=== PATIENT | male | born 1995 | race Caucasian/White ===

== ENCOUNTER 2017-05-11 14:03 | Emergency (ER) | payer OTHER, SELFPAY ==
[2017-05-11 14:04] VITALS: BP 153/81; PULSE 70; RESP 18; TEMP 36.5; O2SAT 97; BMI 24.3
--- NOTE | 2017-05-11 14:34 | ED.DCSUM_ITS ---
- ER Visit Summary Date of Service: 05/11/17 Chief Complaint: Abscess History of Present Illness: The patient is a [address] Golden in [place]. He reports that he has an abscess on his left shoulder began 3 days ago. Reports he has a sharp pain Zeta 10 with movement and 1 out of 10 at rest. Reports that yesterday he did get some thick, yellow drainage from it. He denies any constitutional symptoms. No fever, chills, nausea, or vomiting. Physical Examination: Vitals: Stable. Afebrile. General: Well-nourished and well-developed. Head: Normocephalic atraumatic. Neck: Supple, no lymphadenopathy. No JVD. Nontender. Cardiovascular: Regular rate and rhythm. No murmurs. Respiratory: No respiratory distress. Clear to auscultation bilaterally. Abdominal: Soft, nontender, nondistended, normal bowel sounds. No guarding, rebound, or peritoneal signs. Back: Nontender. Extremities: 1.5 cm indurated/erythematous area without fluctuance to the back of his left AC joint. Skin: Normal color, no rash. Neurologic: Alert and oriented ?3. Cranial nerves II through XII are intact. Normal strength and sensation. Psych: Normal affect. Emergency Department Course and Treatment: Patient has already obtained drainage from this. I do not think an I&D would be helpful at this point. I had a prolonged discussion with him about the likelihood that this would require an I&D if it is not improving with antibiotics. Treatment Plan: He will be discharged on naproxen, doxycycline, and Bactroban ointment. Instructed to follow-up with his primary care physician in 2 days for a wound check. Return to the emergency department for any worsening symptoms. Disposition: To home in improved and stable condition. Impression: 1. Early abscess left shoulder. This note was generated with [employer] dictation software. It may contain incorrect words, spelling, and punctuation that were not noted in review of the chart prior to signing ED Disposition - Plan for ED Patient: Disposition: Home or Assisted Living Chief Complaint: Bite Instructions: ED Staph Infec Abx Tx Only Prescriptions: Naproxen [Naprosyn] 500 mg PO BID PRN #20 tablet Doxycycline Monohydrate 100 mg PO BID #20 capsule Mupirocin [Bactroban] 1 applic TOPICAL TID #1 tube Referrals: Doctor,Your [STAFF PHYSICIAN] - 3-5 Days if not improving
== END 2017-05-11 14:57 | disposition home or self-care (01) ==
LOC: ED 14:48
PROVIDERS: Emergency Provider Emergency Medicine
DX: L02.414 Cutaneous abscess of left upper limb (principal)
CPT/HCPCS: 99282

== ENCOUNTER 2017-08-04 21:34 | Emergency (ER) | payer OTHER, SELFPAY ==
[2017-08-04 21:35] VITALS: BP 155/88; PULSE 86; RESP 16; TEMP 37; O2SAT 97; BMI 26.9
--- NOTE | 2017-08-04 21:47 | EKG12_ITS ---
Test Reason : Blood Pressure : / mmHG Vent. Rate : 077 BPM Atrial Rate : 077 BPM P-R Int : 142 ms QRS Dur : 102 ms QT Int : 352 ms P-R-T Axes : 010 070 027 degrees QTc Int : 398 ms Normal sinus rhythm Normal ECG Confirmed by JOSELYN GARCIA, SHIRLEY ([id number]), story editor JANETTE PECK ([id number]) on 08/08/2017 10:26:49 AM Referred By: SHREYA Confirmed By:SHIRLEY ALVES MD
--- NOTE | 2017-08-04 21:53 | NURSING ---
NO OLD EKG TO OBTAIN
--- NOTE | 2017-08-04 22:00 | RAD_ITS ---
STUDY: X-RAY CHEST REASON FOR EXAM: Male, 22 years old. Right chest pain TECHNIQUE: Frontal and lateral views of the chest were obtained. COMPARISON: None. FINDINGS: The lungs are adequately aerated. There are no focal airspace opacities. There is no demonstrated pleural abnormality. The cardiac silhouette is normal in size. The mediastinum and hilar regions are unremarkable. Normal visualized pulmonary arteries. Normal visualized aortic arch and descending thoracic aorta. The thoracic spine is unremarkable. The visualized ribs, clavicles, and shoulders are unremarkable. There is no demonstrated abnormality of the visualized upper abdomen. RAD/Chest PA and Lateral IMPRESSION: No acute cardiopulmonary abnormalities. Electronically Signed: Ale Galeas MD at 22:20 EDT Tel Direct: [phone], Service support ,
--- NOTE | 2017-08-04 22:30 | ED.DCSUM_ITS ---
- ER Visit Summary Date of Service: 08/04/17 Chief Complaint: Back pain History of Present Illness: The patient is a 22 M who presents with back pain. Over the past 4 days he complains of pain in his right back which radiates around to the side. He has not tried any medications at home. This is worse with certain movements or palpation. It is stabbing. He denies any chest pain or abdominal pain. He denies any radiation to the extremities. No fevers. No history of prior similar symptoms. No urinary retention or fecal incontinence. Review of systems otherwise negative. He denies any shortness of breath. Physical Examination: Afebrile vitals unremarkable Moist mucous membranes Heart regular rate and rhythm Lungs are clear Abdomen soft Patient has right posterior thoracic tenderness no midline tenderness no CVA tenderness no anterior chest or abdominal tenderness Test Results: EKG shows normal sinus rhythm at a rate of 77. Chest x-ray shows no acute process. Emergency Department Course and Treatment: EKG and chest x-ray normal and the patient is PERC rule negative. I suspect this is all related to thoracic strain. 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 His pain is reproducible and worse with movement. He was given a prescription for naproxen and instructed on supportive care. He understands to return for new or worsening symptoms and he was discharged. Treatment Plan: [] Disposition: Discharge Impression: Thoracic strain This note was generated with [email or web address] dictation software. It may contain incorrect words, spelling, and punctuation that were not noted in review of the chart prior to signing ED Disposition - Plan for ED Patient: Chief Complaint: Back Referrals: [facility] Doctor,Out of [Primary Care Provider] -
--- NOTE | 2017-08-04 22:30 | ED.DEP ---
ED Disposition - Plan for ED Patient: Chief Complaint: Back Instructions: ED Strain Chest Wall Prescriptions: Naproxen [Naprosyn] 500 mg PO BID #20 tab Referrals: [facility] Doctor,Out of [Primary Care Provider] -
[2017-08-04] MEDS: Naproxen 500 MG Tablet PO (22:33)
[2017-08-04 22:35] VITALS: BP 163/92; PULSE 73; TEMP 36.6
== END 2017-08-04 22:36 | disposition home or self-care (01) ==
LOC: ED 22:25
PROVIDERS: Emergency Provider Emergency Medicine
DX: S29.012A Strain of muscle and tendon of back wall of thorax, initial encounter (principal); X58.XXXA Exposure to other specified factors, initial encounter; Y93.9 Activity, unspecified; Y92.9 Unspecified place or not applicable; Y99.9 Unspecified external cause status
CPT/HCPCS: 71046; 93005; 99282

== ENCOUNTER 2017-09-16 06:57 | Emergency (ER) | payer SELFPAY ==
[2017-09-16 06:58] VITALS: BP 145/76; PULSE 67; RESP 16; TEMP 36.8; O2SAT 99; BMI 27.0
--- NOTE | 2017-09-16 07:09 | ED.VISSUMM ---
- ER Visit Summary Date of Service: 09/16/17 Chief Complaint: Left ear pain History of Present Illness: The patient is a [address] Golden. He reports that he has left ear pain that began a week ago and is gradually gotten worse. It is a dull constant pain with sharp episodes. Pain is 10 out of 10 at worst and 4 out of 10 currently. It is worsened by nothing. It is relieved by Tylenol. He does complain of muffled hearing. Patient denies any fever, chills, nausea, or vomiting. Physical Examination: Vitals: Stable. Afebrile. General: Well-nourished and well-developed. Head: Normocephalic atraumatic. HEENT: TMs are within normal limits. He does have mild pain with movement of the left tragus. There is mild soft tissue swelling and a small amount of exudate in the left external auditory canal. There is no mastoid tenderness. Neck: Supple, no lymphadenopathy. No JVD. Nontender. Cardiovascular: Regular rate and rhythm. No murmurs. Respiratory: No respiratory distress. Clear to auscultation bilaterally. Abdominal: Soft, nontender, nondistended, normal bowel sounds. No guarding, rebound, or peritoneal signs. Back: Nontender. Extremities: Nontender, no edema. Skin: Normal color, no rash. Neurologic: Alert and oriented ?3. Cranial nerves II through XII are intact. Normal strength and sensation. Psych: Normal affect. Emergency Department Course and Treatment: Patient was treated with naproxen and is resting comfortably. Treatment Plan: Patient will be discharged on naproxen and Ciprodex drops. Instructed to follow-up with Dr. Geronimo in 1 week if not improving. Return to the emergency department for any worsening symptoms. Disposition: To home in improved and stable condition. Impression: 1. Otitis externa on the left. This note was generated with [employer] dictation software. It may contain incorrect words, spelling, and punctuation that were not noted in review of the chart prior to signing ED Disposition - Plan for ED Patient: Chief Complaint: Ear Problem Instructions: ED Otitis Externa Prescriptions: Ciprofloxacin HCl/Dexameth [Ciprodex Otic Suspension] 4 drop LEFT EAR BID #1 bottle Naproxen [Naprosyn] 500 mg PO BID #14 tablet Referrals: Patrice Geronimo MD [STAFF PHYSICIAN] - 1 Week if not improving
[2017-09-16] MEDS: Naproxen 250 MG Tablet 500 MG PO (07:19)
== END 2017-09-16 07:22 | disposition home or self-care (01) ==
LOC: ED 07:15
PROVIDERS: Emergency Provider Emergency Medicine; Family Provider Family Medicine; PCP Family Medicine
DX: H60.92 Unspecified otitis externa, left ear (principal)
CPT/HCPCS: 99283

== ENCOUNTER 2018-02-07 03:14 | Emergency (ER) | payer MEDICAID, SELFPAY ==
[2018-02-07 03:15] VITALS: BP 146/85; PULSE 106; RESP 15; TEMP 37.5; O2SAT 97; BMI 25.4
--- NOTE | 2018-02-07 03:33 | ED.VISSUMM ---
- ER Visit Summary Date of Service: 02/07/18 Chief Complaint: My body hurts History of Present Illness: The patient is a 22 M who presents with myalgias. He states that he began to feel hot at about 7 PM last night. He reports subjective fevers. He complains of diffuse body aches and myalgias. He complains of mild headache. No visual changes. No neck pain. No chest pain shortness of breath cough nausea vomiting diarrhea. No urinary symptoms. He denies any recent vigorous activity such as running or heavy exercise. Physical Examination: Heart rate 106 vitals otherwise normal Moist mucous membranes Heart regular rhythm slightly tachycardic Lungs are clear Abdomen soft nontender Alert Test Results: Not indicated Emergency Department Course and Treatment: History and examination are suggestive of viral syndrome, influenza. Given that he is young and otherwise healthy I would not treat with Tamiflu. He was advised on supportive care. He was given 800 milligrams of ibuprofen. He was encouraged on anti-inflammatory use plenty of fluids and rest. He understands to return for new or worsening symptoms. He is agreeable to this plan. He was discharged. Treatment Plan: [] Disposition: Discharge Impression: Myalgias, suspect influenza This note was generated with [employer] dictation software. It may contain incorrect words, spelling, and punctuation that were not noted in review of the chart prior to signing ED Disposition - Plan for ED Patient: Chief Complaint: General Illness Referrals: Amanda Golden [Primary Care Provider] -
--- NOTE | 2018-02-07 03:36 | ED.DEP ---
ED Disposition - Plan for ED Patient: Chief Complaint: General Illness Instructions: ED Muscle Aching Referrals: Amanda Golden [Primary Care Provider] -
[2018-02-07] MEDS: Ibuprofen 400 MG Tablet 800 MG PO (03:52)
[2018-02-07 05:05] LABS: Absolute Lymphocyte Count 1.29 X10^3/ul (0.83-4.51); Absolute Neutrophil Count 8.9 X10^3/uL (2.0-7.7); Basophil# 0.02 X10^3/uL; Basophil% 0.2 % (0-1); Eosinophils% 2.4 % (0-5); Hemoglobin 14.7 g/dl (13.0-16.5); Lymphocyte # 1.29 X10^3/ul (4.0); Lymphocyte % 10.3 % (19-41); Mean Corpuscular Hgb 29.8 pg (27.0-32.0); Mean Platelet Vol. 10.3 fl (6.2-12.0); Monocyte# 1.93 X10^3/uL; Monocyte% 15.4 % (0-10); Neutrophil # 8.94 X10^3/uL (2.7-7.7); Neutrophil % 71.5 % (47-70); Platelet Count 185 K/mm3 (150-450); RBC Distribution Width CV 12.3 % (11.6-14.6); RBC Distribution Width SD 37.7 fl (35.1-43.9); Red Blood Count 4.94 M/mm3 (4.6-6.2); White Blood Count 12.5 K/mm3 (4.4-11.0)
[2018-02-07] MEDS: 0.9% Normal Saline 1,000 ML 999 ML IV (05:06)
[2018-02-07] MEDS: Metoclopramide 10 MG/2 ML Vial IV (05:06)
[2018-02-07 05:11] LABS: Differential Indicated SCAN CRITERIA MET; POSITIVE COUNT NO; POSITIVE DIFFERENTIAL YES; POSITIVE MORPHOLOGY NO
[2018-02-07 05:15] LABS: Anion Gap 11 (5-15); BUN 11 mg/dL (7-18); BUN/Creat Ratio 12.2 RATIO (10-20); CPK Total, Creatine Kinase 140 U/L (39-308); Calcium,Total 8.9 mg/dL (8.5-10.1); Chloride 105 mmol/L (98-107); EST Glomerular Filtration Rate 113 mL/min (>60); Est Glom Filt Rate - Afr Amer 136 mL/min (>60); Estimated Creatinine Clearance 138.28 ml/min; Glucose 97 mg/dL (74-106); Potassium 3.9 mmol/L (3.5-5.1); Sodium Level 141 mmol/L (136-145)
[2018-02-07 05:34] LABS: Bacteria 0 SEEN /hpf (None Seen); Mucous, Urine 0 SEEN /hpf (<or=2+); Red Blood Cells-Urine 0 SEEN /hpf (0-5); Squamous Epithelial Cells - UA 0 SEEN /hpf (0-5); White Blood Cells 0 SEEN /hpf (0-5)
[2018-02-07 05:39] LABS: Color, Urine Yellow (Yellow); Glucose, Dipstick Normal (Normal); Ketone-Dipstick Negative (Negative); Leukocyte Esterase-Dipstick Negative /ul (Negative); Nitrite-Dipstick Negative (Negative); Occult Blood-Urine Negative /ul (Negative); Protein-Dipstick Negative (Negative); Urine Bilirubin Dipstick Negative (Negative); Urine Clarity Clear (Clear); Urine Urobilinogen Normal (Normal)
[2018-02-07 05:58] VITALS: BP 137/60; PULSE 100; RESP 16; TEMP 37.6; O2SAT 97
--- NOTE | 2018-02-07 05:59 | RAD_ITS ---
STUDY: X-RAY CHEST REASON FOR EXAM: Male, 22 years old. Fever and body aches TECHNIQUE: PA and lateral views of the chest. COMPARISON: 08/04/2017 FINDINGS: There is no focal airspace disease in the right middle lobe. There is no demonstrated pleural abnormality. Normal size heart. Normal mediastinum and placido. Normal visualized pulmonary arteries. Normal visualized aortic arch and descending thoracic aorta. Normal visualized thoracic spine. Normal visualized ribs, clavicles, and shoulders. There is no demonstrated abnormality of the visualized soft tissue structures of the upper abdomen. RAD/Chest PA and Lateral IMPRESSION: Right middle lobe pneumonia. Electronically Signed: Katharina Valentin MD at 6:23 EST , Service support ,
--- NOTE | 2018-02-07 06:20 | ED.DEP ---
ED Disposition - Plan for ED Patient: Chief Complaint: General Illness Instructions: ED Pneumonia Adult Prescriptions: Azithromycin [Zithromax] 250 mg PO DAILY #4 tab Referrals: Amanda Golden [Primary Care Provider] -
[2018-02-07] MEDS: Azithromycin 250 MG Tablet 500 MG PO (06:42)
[2018-02-07 06:48] VITALS: BP 145/82; PULSE 97; RESP 15; O2SAT 96
== END 2018-02-07 06:50 | disposition home or self-care (01) ==
PROVIDERS: Emergency Provider Emergency Medicine; Family Provider Family Medicine; PCP Family Medicine
DX: J18.9 Pneumonia, unspecified organism (principal)
CPT/HCPCS: 71046; 80048; 81001; 82550; 85025; 87633; 87804; 96361; 96374; 99284; J7030; A4216

== ENCOUNTER 2018-11-09 12:08 | Emergency (ER) | payer MEDICAID, SELFPAY ==
[2018-11-09 12:08] VITALS: BP 136/79; PULSE 77; RESP 18; TEMP 36.2; O2SAT 98; BMI 27.2
--- NOTE | 2018-11-09 12:49 | ED.VISSUMM ---
- ER Visit Summary Date of Service: 11/09/18 Chief Complaint: Right ear pain History of Present Illness: The patient is a 23 M who states there is a he developed pain in the left ear. Is worse with clearing of his ears and with opening his jaw. No drainage from the ear. He does not use any substantial Q-tips he does not wear any earplugs. No recent fevers. Physical Examination: Afebrile vital signs stable Gen: Well-nourished well-developed Head: Normocephalic atraumatic Eyes: Perrl EOMI ENT: no rhinorrhea moist mucous membranes left tympanic membrane has erythema and effusion. There is no evidence of perforation. Left ear canal appears normal. Neck: Supple no lymphadenopathy no JVD nontender CVS: Regular rate rhythm no murmurs normal S1-S2 Respiratory: No distress clear to auscultation bilaterally chest nontender Abdomen: Soft nontender nondistended normal bowel sounds no masses Back: Nontender Extremity: Nontender no edema Skin: Normal color no rash Neuro: alert orientated ?3 CN II-XII intact normal strength sensation Psych: Normal affect normal mood Emergency Department Course and Treatment: Patient will be started on amoxicillin as he has not had any antibiotics in the past. He was advised to monitor for any drainage from the ear. If is not improving he should follow-up with ENT return if worsening or concerns Impression: 1. Left otitis media This note was generated with [employer] dictation software. It may contain incorrect words, spelling, and punctuation that were not noted in review of the chart prior to signing ED Disposition - Plan for ED Patient: Disposition: Home or Assisted Living Instructions: OTITIS MEDIA, Abx Tx (Adult) Prescriptions: Amoxicillin 875 mg PO BID #20 tab Prescription Printed Referrals: Amanda Golden [Primary Care Provider] - 1 Week if not improving
== END 2018-11-09 13:05 | disposition home or self-care (01) ==
PROVIDERS: Emergency Provider Emergency Medicine; Family Provider Family Medicine; PCP Family Medicine
DX: H66.92 Otitis media, unspecified, left ear (principal)
CPT/HCPCS: 99283

== ENCOUNTER → 2018-12-04 08:17 | Outpatient (CLI) | payer MEDICAID, SELFPAY ==
[2018-11-09 12:08] VITALS: BMI 27.2
--- NOTE | 2018-12-04 08:48 | RAD_ITS ---
STUDY: X-RAY - ESOPHAGUS (BARIUM SWALLOW) WITH FLUOROSCOPY REASON FOR EXAM: Male, 23 years old. Dysphasia. TECHNIQUE: 14 view(s) of the esophagus were obtained following swallowing of barium. FLUOROSCOPY TIME (if supplied): (0:38) minutes/seconds COMPARISON: None. FINDINGS: There is no demonstrated esophageal foreign body. There is no demonstrated stricture or mucosal abnormality. Normal gastroesophageal junction, without a demonstrated hiatal hernia. The patient ingested a 12 mm tablet at bedtime without any difficulty. Normal visualized aortic arch and descending thoracic aorta. Normal visualized pulmonary parenchyma. Normal visualized osseous structures of the thorax. RAD/Esophagus Only IMPRESSION: Normal plain film x-ray examination (barium swallow) of the esophagus. Electronically Signed: Jorge Gould, at 15:02 EDT , Service support ,
== END ==
PROVIDERS: Family Provider Family Medicine; PCP Family Medicine; Referring Provider Otolaryngology Otolaryngology/Facial Plastic Surgery; Visit Provider Otolaryngology Otolaryngology/Facial Plastic Surgery
DX: R13.10 Dysphagia, unspecified (principal)
CPT/HCPCS: 74220

== ENCOUNTER → 2019-08-05 16:14 | Outpatient (CLI) | payer BC, MEDICAID, SELFPAY ==
--- NOTE | 2019-08-05 16:19 | RAD_ITS ---
STUDY: X-RAY CHEST REASON FOR EXAM: Male, 24 years old. CHEST PAINS OFF AND ON FOR SEVERAL YEARS PER PATIENT. TECHNIQUE: PA and lateral views of the chest. COMPARISON: Prior study of 02/07/2018 FINDINGS: The lungs are clear and expanded. There is no demonstrated pleural abnormality. Normal size heart. Normal mediastinum and placido. Normal visualized pulmonary arteries. Normal visualized aortic arch and descending thoracic aorta. Normal visualized thoracic spine. Normal visualized ribs, clavicles, and shoulders. There is no demonstrated abnormality of the visualized soft tissue structures of the upper abdomen. RAD/Chest PA and Lateral IMPRESSION: Normal x-ray examination of the chest. There has been interval resolution of right middle lobe infiltrate seen on the previous study. Electronically Signed: Marcus Knight MD at 16:35 EDT , Service support ,
[2019-08-05 17:26] LABS: Basophil% 0.3 % (0-1); Eosinophils% 4.1 % (0-5); Hematocrit 42.7 % (40-54); Hemoglobin 14.9 g/dL (13.0-16.5); Mean Corp Hgb Conc 34.9 g/dL (32-36); Mean Corpuscular Hgb 29.4 pg (27.0-32.0); Mean Corpuscular Volume 84.2 fL (80-94); Mean Platelet Vol. 10.7 fl (6.2-12.0); Monocyte% 9.4 % (0-10); Neutrophil # 10.88 X10^3/uL (2.7-7.7); Neutrophil % 74.8 % (47-70); Platelet Count 235 K/mm3 (150-450); RBC Distribution Width CV 11.8 % (11.6-14.6); RBC Distribution Width SD 35.4 fl (35.1-43.9); Red Blood Count 5.07 M/mm3 (4.6-6.2); White Blood Count 14.6 K/mm3 (4.4-11.0)
[2019-08-05 17:27] LABS: Absolute Neutrophil Count 10.9 X10^3/uL (2.0-7.7); Basophil# 0.05 X10^3/uL; Eosinophil# 0.59 X10^3/uL; Monocyte# 1.37 X10^3/uL; NRBC Flagged by Analyzer 0 % (0-5)
[2019-08-05 17:41] LABS: ALB/GLOB Ratio 1.2 RATIO (0.9-2.4); AST(SGOT) 25 U/L (15-37); Alanine Aminotransfer ALT/SGPT 33 U/L (16-61); Albumin, Serum 4.2 g/dL (3.2-5.0); Alkaline Phosphatase 97 U/L (45-117); Anion Gap 7 (5-15); BUN 10 mg/dL (7-18); BUN/Creat Ratio 10.1 RATIO (10-20); Calcium,Total 9.3 mg/dL (8.5-10.1); Chloride 107 mmol/L (98-107); Creatinine, Serum 0.99 mg/dL (0.70-1.30); EST Glomerular Filtration Rate 100 mL/min (>60); Est Glom Filt Rate - Afr Amer 121 mL/min (>60); Globulin 3.5 g/dL (2.2-4.2); Glucose 105 mg/dL (74-106); Potassium 3.6 mmol/L (3.5-5.1); Protein, Total 7.7 g/dL (6.4-8.2); Sodium Level 140 mmol/L (136-145)
--- OUTSIDE RECORDS SUMMARY | 2019-12-28 15:40 | XMS RPT_ITS | CCD ---
:1995 External Reference #:[id number] Author Organization [facility] Care Team Providers Name Role Phone Unavailable Unavailable Unavailable Results Result Name Value Range Unit Interpretation Flag Date Location xr chest 2 views on 2018-07-06 XR Chest 2 Views Exam Date/Time: Normal 019 [facility] 07/06/2018 16:50 EDT Health System Reason for Exam: (00 000) Cough Report STUDY: XR Chest 2 Views; 07/06/2018 4:50 pm INDICATION: Cough. COMPARISON: No available comparisons. ACCESSION NUMBER(S): [id number] ORDERING CLINICIAN: Carlyle Spear TECHNIQUE: Frontal and lateral views of the chest. FINDINGS: The cardiomediastinal silhou ette is normal. The lungs are clear of focal consolidation. There is no pneumothorax or pleural effusion. IMPRESSION: No acute cardiopulmonary process. FINAL REPORT Dictated: 07/06/2018 5:17 pm Chidi Goodman MD Signed (Electronic Signature): 07/06/2018 5:17 pm Signed by: Chidi Goodman MD Technologist: HLL troponin-i on 07-06 Troponin I.cardiac mass <0.01 0.00-0.03 ng/mL Normal [address] [facility] Sys tem ([id number]) Comment: Performed By: #### [id number] # ### STEPHEN PeresHemrohan [facility] [place] [address] ct head or brain w/o contrast on 2018-06-13 CT Head or Brain Exam Date/Time: Normal 019 [facility] w/o Contrast 06/12/2018 23:23 EDT Health System Reason for Exam: (00 000) Injury Report STUDY: CT Head or Brain w/o Contrast; 06/12/2018 11:23 pm INDICATION: Injury COMPARISON: 06/08/2018 ACCESSION NUMBER(S): [id number] ORDERING CLINICIAN: Carlyle Spear TECHNIQUE: Multiple contiguous noncontr ast axial CT images of the brain were obtained from the skull base to the vertex utilizing 5 mm sl ice thickness. Coronal reformatted images were also obtained. FINDINGS: VENTRICLES AND CSF SPACES: Age-appropriate size and configuration of the ventricles and sulci. Brain parenchyma: Auguste-white matter interface is well-maintained. No masses are seen. No midline shift or mass effect. HEMORRHAGE: None. CALVARIUM: No destructive lesion or dep ressed calvarial fracture. The extracranial soft tissues are grossly unremarkable. ADDITIONAL FINDINGS: Visualized paranasal sinuses and bilateral mastoids are mickey sly clear. IMPRESSION: No acute intracranial abnormality. Exam Date/Time: 06/12/2018 23:23 EDT Report No acute calvarial fracture. FINAL REPORT Dictated: 06/12/2018 11:27 pm Zo Hess MD Signed (Electronic Signature): 06/12/2018 11:27 pm Signed by: Zo Hess MD Technologist: FREDY ct spine cervical w/o contrast on 2018-06-09 CT Spine Cervical Exam Date/Time: Normal 2018 [facility] w/o Contrast 06/09/2018 00:02 T [facility] Reason for Exam: (00 000) Trauma Report STUDY: CT Spine Cervical w/o Contrast; 06/09/2018 12:02 am INDICATION: Trauma. COMPARISON: None. ACCESSION NUMBER(S): [id number] ORDERING CLINICIAN: Chris Chatman TECHNIQUE: Contiguous axial images of t he cervical spine were obtained without intravenous contrast. Coronal and sagittal reformatted images were obtained from the axial images. FINDINGS: No evidence of acute fractur e or subluxation of the cervical spine. The vertebral body heights are preserved. There is limi kalyani evaluation of the soft tissues of the spinal canal. No significant prevertebral soft tissue edema. IMPRESSION: No evidence of acute fracture or subluxation of the cervical spine. FINAL REPORT Dictated: 06/09/2018 0:20 am Guillermo Pack MD Signed (Electronic Signature): 06/09/2018 0:20 am Signed by: Guillermo Pack MD Technologist: LANDRY ct head or brain w/o contrast on 2018-06-09 CT Head or Brain Exam Date/Time: Normal 019 Tra w/o Contrast 06/09/2018 00:02 EDT [facility] Reason for Exam: Sys tem (66391) Injury Report STUDY: CT Head or Brain w/o Contrast; 06/09/2018 12:02 am INDICATION: Injury. COMPARISON: None ACCESSION NUMBER(S): [id number] ORDERING CLINICIAN: Chris Chatman TECHNIQUE: Contiguous axial images of t he head were obtained without intravenous contrast. FINDINGS: BRAIN PARENCHYMA: The auguste w nava matter differentiation is preserved. No mass effect or midline shift. HEMORRHAGE: No evidence of acute intracranial hemorrhage. VENTRICLES AND EXTRA-AXIAL S PACES:The ventricles are within normal limits in size for brain volume. No evidence of abnormal extraaxial fluid collection. EXTRACRANIAL SOFT TISSUES:Within normal limits. PARANASAL SINUSES/MASTOIDS:T he visualized paranasal sinuses and mastoid air cells are clear and well pneumatized. CALVARIUM:No evidence of depressed calvarial fracture. OTHER FINDINGS:None IMPRESSION: No evidence of acute intracranial hemorrhage or depressed calvarial fracture. FINAL REPORT Dictated: 06/09/2018 0:19 am Giullermo Pack MD Signed (Electronic Signature): 06/09/2018 0:19 am Signed by: Guillermo Pack MD Technologist: LANDRY Encounters Date Type Reason Provider Location 07-06-2018 Patient encounter procedure Facility:[id number] 06-12-2018 Patient encounter procedure Facility:9509 06-10-2018 Patient encounter procedure Facility:9509 06-09-2018 Patient encounter procedure Facility:9509 06-08-2018 Patient encounter procedure Facility:9509 Payers Payer Name Policy Number Location Self Pay [id number] [facility] ([id number]) [employer] [facility] ([id number]) [employer] [id number] [facility] ([id number]) [id number] [facility] ([id number]) [id number] [facility] ([id number]) [id number] [facility] ([id number]) [id number] [facility] ([id number]) [id number] [facility] ([id number]) The following information is from the original human readable contentNo Payer Records Found Summary Purpose Family History No Family History Records FoundNo Family History Records Found Advance Directives No Advanced Directives Records FoundNo Advanced Directives Records Found Additional Source Comments FOR RECORDS PERTAINING TO PATIENTS WHO ARE OR HAVE BEEN ENROLLED IN A CHEMICAL DEPENDENCY/SUBSTANCE ABUSE PROGRAM, SOME INFORMATION MAY BE OMITTED. This clinical summary was aggregated from multiple sources. Caution should be exercised in using it in the provision of clinical care. This summary normalizes information from multiple sources, and as a consequence, information in this document may materially changethe coding, format and clinical context of patient data. In addition, data may be omittedin some cases. CLINICAL DECISIONS SHOULD BE BASED ON THE PRIMARY CLINICAL RECORDS. [facility] provides no warranty or guarantee of the accuracy or completeness of information in this document. UNRECOGNIZED CONTENT PROVIDED BELOW FOR UNRECOGNIZED SECTION No Status Records FoundNo Status Records Found UNRECOGNIZED CONTENT PROVIDED BELOW FOR UNRECOGNIZED SECTION INFORMATION SOURCE DATE CREATED AUTHOR AUTHOR'S ORGANIZATIO N 2018 [facility] DATE CREATED AUTHOR AUTHOR'S ORGANIZATIO N 08/27/2018 [facility]
== END ==
PROVIDERS: PCP Family Medicine; Referring Provider Family Medicine; Visit Provider Family Medicine
DX: R07.9 Chest pain, unspecified (principal)
CPT/HCPCS: 36415; 71046; 80053; 85025

== ENCOUNTER 2019-08-06 23:12 | Emergency (ER) | payer BC, MEDICAID, SELFPAY ==
[2019-08-06 23:13] VITALS: BP 154/103; PULSE 67; RESP 16; TEMP 36.4; O2SAT 98; BMI 30.9
--- NOTE | 2019-08-06 23:23 | EKG12_ITS ---
Test Reason : CP Blood Pressure : / mmHG Vent. Rate : 069 BPM Atrial Rate : 069 BPM P-R Int : 148 ms QRS Dur : 102 ms QT Int : 370 ms P-R-T Axes : 003 061 027 degrees QTc Int : 396 ms Normal sinus rhythm Normal ECG Confirmed by MIGEL PERDUE MD ([id number]), legal editor JANETTE PECK ([id number]) on 08/10/2019 2:37:33 PM Referred By: DENIA Confirmed By:MIGEL PERDUE MD
--- NOTE | 2019-08-06 23:24 | ED.VIS.GEN ---
History of Present Illness Chief Complaint: Chest Pain Informant: Patient Narrative: Stated he has had substernal chest pain for the last 5 days. It is continuous and waxes and wanes. Describes a ache and sharp sensation. Everything makes it worse. He is tried Tylenol with no relief. Saw his family doctor yesterday had a chest x-ray and EKG for which the patient stated was normal. I did review the chest x-ray in our system and is read as a normal chest x-ray without infiltrate. Patient had a mild leukocytosis of 14.7 and his doctor stated he would watch this. He did not do a troponin. The patient denies any cardiac pulmonary embolism or dissection risk factors. He has had pain like this intermittently every couple months for several years with no diagnosis. No history of pericarditis. Patient denies any medical problems. - Past Medical History (1) Impacted foreign body in esophagus Status: Acute Past Medical History - Allergies and Home Meds Allergies/Adverse Reactions: Allergies bee venom protein (honey bee) Allergy (Verified 08/06/19 23:12) Hives amphetamine aspartate [From Adderall] Adverse Reaction (Verified 08/06/19 23:12) Vomiting amphetamine sulfate [From Adderall] Adverse Reaction (Verified 08/06/19 23:12) Vomiting dextroamphetamine saccharate [From Adderall] Adverse Reaction (Verified 08/06/19 23:12) Vomiting dextroamphetamine sulfate [From Adderall] Adverse Reaction (Verified 08/06/19 23:12) Vomiting Primary Care Physician: Nelson Plummer MD [Primary Care Provider] - Prior records reviewed: Yes Past Medical History: None Surgical History: - - Elbow Smoking Status: Never smoker Alcohol: None Drugs: None - Family History Maternal Family History: Reports: No pertinent history Review of Systems General: Denies: Chills, Fever, Sweats Eyes: Denies: Visual changes - bilaterally, Diplopia ENT: Denies: Rhinorrhea, Sore throat Cardiovascular: Reports: Chest pain. Denies: Palpitations Respiratory: Denies: Dyspnea, Cough, Dyspnea on exertion Gastrointestinal: Denies: Abdominal pain, Nausea, Vomiting, Diarrhea, Melena, Hematochezia Genitourinary: Denies: Dysuria, Hematuria, Frequency Musculoskeletal: Denies: Back pain, Extremity Pain Skin: Denies: Rash, Wounds Neurological: Denies: Headache, Weakness, Numbness Physical Exam Vital Signs/Narrative: Vital Signs Temp Pulse Resp BP Pulse Ox 08/06/19 23:13 97.5 F L 67 16 154/103 H 98 General: Well nourished, Well developed, No Acute Distress Head: Normocephalic, Atraumatic Eyes: Perrl, EOMI ENT: Moist mucous membranes, No rhinorrhea Neck: Supple, Nontender Cardiovascular: Regular rate, Regular rhythm, No murmurs Respiratory: No distress, CTA bilaterally, Chest nontender Abdomen: Soft, Nontender, Nondistended, Normal bowel sounds Back: Nontender, Normal Inspection Extremities: Nontender, No edema Skin: Normal color, No rash Neurological: Alert, Oriented x3, Cranial nerves II-XII grossly intact, Normal Strength, Normal Sensation Psychological: Normal affect, Normal Mood Diagnostic/Tx/Re-eval - Medical Decision Making EKG shows normal sinus rhythm at a rate of 69 with no acute ischemic findings. Lab work obtained. I do not feel he needs a repeat chest x-ray as she just had this yesterday. Patient given Toradol. Patient's lab work unremarkable. Leukocytosis has resolved. Troponin negative. At this time this may be costochondritis or pericarditis however the EKG does not show any evidence of pericarditis. He will use ibuprofen as an outpatient and follow-up as an outpatient. I do not suspect he has acute coronary syndrome PE or dissection ED Disposition - Plan for ED Patient: Disposition: Home or Assisted Living Diagnosis: Non-cardiac chest pain Instructions: ED Chest Pain NonCardiac Prescriptions: Ibuprofen 800 mg PO TID #30 tab Transmission Status: Pending to [id number] Referrals: Nelson Plummer MD [Primary Care Provider] -
[2019-08-06] MEDS: Ketorolac 15 MG/ML Vial IV (23:33)
[2019-08-06 23:54] LABS: Absolute Neutrophil Count 5.4 X10^3/uL (2.0-7.7); Basophil# 0.05 X10^3/uL; Basophil% 0.5 % (0-1); Eosinophil# 0.61 X10^3/uL; Eosinophils% 6.4 % (0-5); Hematocrit 41.1 % (40-54); Hemoglobin 14.7 g/dL (13.0-16.5); Lymphocyte % 25.4 % (19-41); Mean Corp Hgb Conc 35.8 g/dL (32-36); Mean Corpuscular Hgb 30.4 pg (27.0-32.0); Mean Corpuscular Volume 85.1 fL (80-94); Mean Platelet Vol. 10.8 fl (6.2-12.0); Monocyte# 0.92 X10^3/uL; Monocyte% 9.7 % (0-10); NRBC Flagged by Analyzer 0 % (0-5); Neutrophil # 5.44 X10^3/uL (2.7-7.7); Neutrophil % 57.6 % (47-70); Platelet Count 240 K/mm3 (150-450); RBC Distribution Width CV 11.6 % (11.6-14.6); RBC Distribution Width SD 35.5 fl (35.1-43.9); Red Blood Count 4.83 M/mm3 (4.6-6.2); White Blood Count 9.5 K/mm3 (4.4-11.0)
[2019-08-07 00:17] VITALS: BP 160/90; PULSE 66; RESP 14; O2SAT 97
[2019-08-07 00:36] VITALS: BP 145/93; PULSE 70; RESP 15; O2SAT 98
--- NOTE | 2019-08-07 00:37 | ED.RN ---
PT GIVEN WRITTEN AND VERBAL DISCHARGE INSTRUCTIONS AND HOME GOING PRESCRIPTION EDUCATION. PT TO FOLLOW UP WITH PCP WITHIN THE NEXT WEEK. PT EDUCATED TO RETURN TO DEPT FOR ANY NEW OR WORSENED SX. PT IV D/C AND COVERED WITH 2X2 GAUZE AND PAPER TAPE. PT DRESSES SELF AND AMBULATES OUT OF DEPT ALONE.
--- OUTSIDE RECORDS SUMMARY | 2019-12-28 16:20 | XMS RPT_ITS | CCD ---
:1996 External Reference #:[id number] Author Organization [facility] Care Team Providers Name Role Phone Unavailable Unavailable Unavailable Results Result Name Value Range Unit Interpretation Flag Date Location xr chest 2 views on 2018-07-06 XR Chest 2 Views Exam Date/Time: Normal 019 [facility] 07/06/2018 16:50 EDT Health System Reason for Exam: (00 000) Cough Report STUDY: XR Chest 2 Views; 07/06/2018 4:50 pm INDICATION: Cough. COMPARISON: No available comparisons. ACCESSION NUMBER(S): [id number] ORDERING CLINICIAN: Carlyle Spear TECHNIQUE: Frontal and [...] I.cardiac mass <0.01 0.00-0.03 ng/mL Normal 2018 [facility] ([id number]) Comment: Performed By: #### [id number] # ### STEPHEN PeresHemrohan [facility] [place] [address] ct head or brain w/o contrast on 2018-06-13 CT Head or Brain Exam Date/Time: Normal 019 [facility] w/o Contrast 06/12/2018 23:23 EDT Health System Reason for Exam: (00 000) Injury Report STUDY: CT Head or Brain w/o Contrast; 06/12/2018 11:23 pm INDICATION: Injury COMPARISON: 06/08/2018 ACCESSION NUMBER(S): [id number] ORDERING CLINICIAN: Carlyle Spear TECHNIQUE: Multiple contiguous [...] CT Spine Cervical Exam Date/Time: Normal 2018 [facility] w/o Contrast 06/09/2018 00:02 T [facility] Reason for Exam: (00 000) Trauma Report STUDY: CT Spine Cervical w/o Contrast; 06/09/2018 12:02 am INDICATION: Trauma. COMPARISON: None. ACCESSION NUMBER(S): [id number] ORDERING CLINICIAN: Chris Chatman TECHNIQUE: Contiguous axial [...] 019 Tra w/o Contrast 06/09/2018 00:02 EDT [facility] Reason for Exam: Sys tem ([id number]) Injury Report STUDY: CT Head or Brain w/o Contrast; 06/09/2018 12:02 am INDICATION: Injury. COMPARISON: None ACCESSION NUMBER(S): [id number] ORDERING CLINICIAN: Chris Chatman TECHNIQUE: Contiguous axial images of t he head were obtained without intravenous contrast. FINDINGS: BRAIN PARENCHYMA: The augutse w nava matter differentiation is preserved. No [...] fracture. FINAL REPORT Dictated: 06/09/2018 0:19 am Guillermo Pack MD Signed (Electronic Signature): 06/09/2018 0:19 am Signed by: Guillermo Pack MD Technologist: LANDRY Encounters Date Type Reason Provider Location 07-06-2018 Patient encounter procedure Facility:9509 06-12-2018 Patient encounter procedure Facility:9509 06-10-2018 Patient encounter procedure Facility:9509 06-09-2018 Patient encounter procedure Facility:9509 06-08-2018 Patient encounter procedure Facility:9509 Payers Payer Name Policy Number Location Self Pay [id number] [facility] ([id number]) [employer] [facility] ([id number]) [employer] [id number] [facility] [place] ([id number]) [id number] [facility] ([id number]) [id number] [facility] ([id number]) [id number] [facility] ([id number]) [id number] [facility] ([id number]) [id number] [facility] ([id number]) The following information is from the original [...] BE BASED ON THE PRIMARY CLINICAL RECORDS. [facility] provides no warranty or guarantee of the accuracy or completeness of information in this document. UNRECOGNIZED CONTENT PROVIDED BELOW FOR UNRECOGNIZED SECTION No Status Records FoundNo Status Records Found UNRECOGNIZED CONTENT PROVIDED BELOW FOR UNRECOGNIZED SECTION INFORMATION SOURCE DATE CREATED AUTHOR AUTHOR'S ORGANIZATIO N 2018 [facility] DATE CREATED AUTHOR AUTHOR'S ORGANIZATIO N 08/27/2018 [facility]
--- OUTSIDE RECORDS SUMMARY | 2019-12-28 16:21 | XMS RPT_ITS | CCD ---
:1996 External Reference #:[id number] Author Organization [facility] Care Team Providers Name Role Phone Unavailable Unavailable Unavailable Results Result Name Value Range Unit Interpretation Flag Date Location xr chest 2 views on 2018-07-06 XR Chest 2 Views Exam Date/Time: Normal 019 [facility] 07/06/2018 16:50 EDT Health System Reason for Exam: (00 000) Cough Report STUDY: XR Chest 2 Views; 07/06/2018 4:50 pm INDICATION: Cough. COMPARISON: No available comparisons. ACCESSION NUMBER(S): [id number] ORDERING CLINICIAN: Carlyle Spear TECHNIQUE: Frontal and [...] I.cardiac mass <0.01 0.00-0.03 ng/mL Normal 2018 [facility] Sys tem ([id number]) Comment: Performed By: #### [id number] # ### STEPHEN PeresHemrohan [facility] [place] [address] ct head or brain w/o contrast on 2018-06-13 CT Head or Brain Exam Date/Time: Normal 019 [facility] w/o Contrast 06/12/2018 23:23 EDT Health System Reason for Exam: (00 000) Injury Report STUDY: CT Head or Brain w/o Contrast; 06/12/2018 11:23 pm INDICATION: Injury COMPARISON: 06/08/2018 ACCESSION NUMBER(S): [id number] ORDERING CLINICIAN: Carlyle Spear TECHNIQUE: Multiple contiguous [...] CT Spine Cervical Exam Date/Time: Normal 2018 [facility] w/o Contrast 06/09/2018 00:02 T [facility] Reason for Exam: (00 000) Trauma Report STUDY: CT Spine Cervical w/o Contrast; 06/09/2018 12:02 am INDICATION: Trauma. COMPARISON: None. ACCESSION NUMBER(S): [id number] ORDERING CLINICIAN: Chris Chatman TECHNIQUE: Contiguous axial [...] 019 Tra w/o Contrast 06/09/2018 00:02 EDT [facility] Reason for Exam: Sys tem ([id number]) Injury Report STUDY: CT Head or Brain w/o Contrast; 06/09/2018 12:02 am INDICATION: Injury. COMPARISON: None ACCESSION NUMBER(S): [id number] ORDERING CLINICIAN: Chris Chatman TECHNIQUE: Contiguous axial [...] Payer Name Policy Number Location Self Pay [id number] [facility] ([id number]) [employer] [facility] ([id number]) [place] [employer] [id number] [facility] ([id number]) [id number] [facility] ([id number]) [id number] [facility] ([id number]) [id number] [facility] ([id number]) [id number] [facility] ([id number]) [id number] [facility] ([id number]) The following information is from the original [...] BE BASED ON THE PRIMARY CLINICAL RECORDS. [facility] provides no warranty or guarantee of the accuracy or completeness of information in this document. UNRECOGNIZED CONTENT PROVIDED BELOW FOR UNRECOGNIZED SECTION No Status Records FoundNo Status Records Found UNRECOGNIZED CONTENT PROVIDED BELOW FOR UNRECOGNIZED SECTION INFORMATION SOURCE DATE CREATED AUTHOR AUTHOR'S ORGANIZATIO N 2018 [facility] DATE CREATED AUTHOR AUTHOR'S ORGANIZATIO N 08/27/2018 [facility]
== END 2019-08-07 00:38 | disposition home or self-care (01) ==
PROVIDERS: Emergency Provider Emergency Medicine; PCP Family Medicine
DX: R07.89 Other chest pain (principal)
CPT/HCPCS: 84484; 85025; 93005; 96374; 99284; A4216

== ENCOUNTER 2020-07-18 06:19 | Emergency (ER) | payer MEDICAID, SELFPAY ==
[2020-07-18 06:22] VITALS: BP 148/87; PULSE 67; RESP 20; TEMP 36.6; O2SAT 97; BMI 28.4
--- NOTE | 2020-07-18 06:29 | RAD_ITS ---
STUDY: X-RAY - LUMBAR SPINE REASON FOR EXAM: Male, 25 years old. back pain TECHNIQUE: 2 view(s) of the lumbar spine were obtained. COMPARISON: None FINDINGS: Normal lumbar lordosis. There is no substantial scoliosis. There is a normal alignment of the vertebrae. Normal vertebral bodies and endplates. Normal disc space heights. The soft tissue structures are unremarkable. RAD/Lumbar Spine 2 or 3 Views IMPRESSION: Normal x-ray examination of the lumbar spine. Electronically Signed: Arpan Mccurdy MD at 7:28 EDT Tel , Service support ,
--- NOTE | 2020-07-18 06:30 | EDS_ITS ---
HPI History of Present Illness Chief Complaint: Flank Pain Informant: patient Onset/Context/Timing Onset: Days Context: Gradual Onset Timing: Intermittent Current Severity: Moderate Maximum Severity: Moderate Narrative Narrative: The patient is an otherwise healthy 25-year-old male presents to the emergency department with back pain. He states that for the past 3 days, he had a tightness across his low back. He states is worse if he twists or moves. He states that sometimes it will radiate to his buttocks. He denies trouble urinating. He denies trouble moving his bowels. He denies any fevers or chills. He has not had any specific injury. Patient is otherwise been in his normal state of health. Prior similar symptoms: No Recent Illness/Hospitalization: No PFSH PFSH Home Medications cyclobenzaprine 10 mg PO TID PRN #20 tablet 07/18/20 [Rx Last Taken Unknown] methylprednisolone 4 mg PO UD #1 box 07/18/20 [Rx Last Taken Unknown] naproxen 500 mg PO BID #14 tab 07/18/20 [Rx Last Taken Unknown] Allergy/AdvReac Type Severity Reaction Status Date / Time bee venom protein (honey bee) Allergy Hives Verified 07/18/20 06:20 amphetamine aspartate AdvReac Vomiting Verified 07/18/20 06:20 [From Adderall] amphetamine sulfate AdvReac Vomiting Verified 07/18/20 06:20 [From Adderall] dextroamphetamine saccharate AdvReac Vomiting Verified 07/18/20 06:20 [From Adderall] dextroamphetamine sulfate AdvReac Vomiting Verified 07/18/20 06:20 [From Adderall] Social History Smoking Status: Never smoker [facility] ED Constitutional Constitutional ED: Denies chills or fever(s) Eyes Eyes: Denies blurry vision or change in vision ENT ENT ED: Denies ear pain or sore throat Cardiovascular Cardiovascular: Denies chest pain or palpitations Respiratory/Chest Respiratory/Chest: Denies cough, dyspnea or dyspnea on exertion Gastrointestinal Gastrointestinal: Denies abdominal pain, nausea or vomiting Genitourinary Genitourinary ED: Denies dysuria or urinary frequency Musculoskeletal Musculoskeletal: Reports arthralgias, back pain and myalgias Integumentary Denies rash Neurologic Neurologic: Denies headache(s) or paresthesias Psychiatric Psychiatric: Denies anxiety or depression Endocrine Endocrinology: Denies polydipsia or polyuria Allergic/Immunologic Allergic/Immunologic ED: Denies urticaria EXAM Physical Exam Const Vital Signs: 07/18/20 06:22 07/18/20 06:24 Temperature 97.8 F Temperature Source Oral Pulse Rate 67 Respiratory Rate 20 H Respiratory Effort Normal Respiratory Pattern Normal Blood Pressure 148/87 H Blood Pressure Mean 107 Pulse Ox 97 Oxygen Delivery Method Room Air Positive well nourished and well developed General Appearance ED: well developed HEENT Reports normocephalic, head/scalp atraumatic and moist mucous membranes Eyes PERRL and EOMs intact bilaterally Neck no lymphadenopathy and supple General: Negative for tenderness Chest Wall inspection of chest normal Resp normal respiratory effort and clear to auscultation bilaterally Cardio regular rate, regular rhythm and no murmurs GI normal to inspection, nondistended, normoactive bowel sounds Palpation: Negative for tender, guarding or rebound tenderness present Back/Spine no CVA tenderness Cervical Spine: Negative for cervical spine tenderness Thoracic Spine / Upper Back: paraspinal muscle tenderness; Negative for thoracic spinal tenderness Lumbar Spine / Lower Back: Negative for lumbar spinal tenderness Extremity normal to inspection General Extremety ED: Negative for tenderness Neuro oriented x3 and CN's II-XII intact bilaterally Neuro Narrative: No focal deficits appreciated. Sensorium / Orientation: alert Psych mental status grossly normal Skin no rashes or lesions noted, no wounds and skin turgor normal MDM MDM MDM Narrative Medical decision making narrative: Patient presents with lower back pain that is worse with twisting and moving. His pulses are normal. His reflexes are normal. He is a normal steady gait. He has no red flag symptoms. His pain is reproducible. I did obtain plain films which are unremarkable. I do feel this time, treating him as if this is musculoskeletal as the most appropriate plan. Patient will be started on anti-inflammatories and antispasmodics. He will be discharged home. Impression 1. Acute lumbar strain Discharge Plan Triage Chief Complaint: Flank Pain ED Provider: Magdy Arellano Dx/Rx/DC Orders Instructions: ED Back Sprain/Strain Prescriptions: New cyclobenzaprine [cyclobenzaprine] 10 MG tablet 10 mg PO TID PRN (Reason: Muscle Spasm) Qty: 20 RF: 0 methylprednisolone [methylprednisolone] 4 MG tablets,dose pack 4 mg PO UD Qty: 1 RF: 0 naproxen 500 MG tablet 500 mg PO BID Qty: 14 RF: 0 Primary Care Provider: Nelson Plummer Referrals: Nelson Plummer MD [Primary Care Provider] -
[2020-07-18] MEDS: Ketorolac 60 MG/2 ML Vial IM (07:10)
[2020-07-18 07:26] VITALS: RESP 18
== END 2020-07-18 07:27 | disposition home or self-care (01) ==
LOC: ED 07:19
PROVIDERS: Emergency Provider Emergency Medicine; PCP Family Medicine
DX: S39.012A Strain of muscle, fascia and tendon of lower back, initial encounter (principal); X58.XXXA Exposure to other specified factors, initial encounter; Y93.9 Activity, unspecified; Y92.9 Unspecified place or not applicable; Y99.9 Unspecified external cause status
CPT/HCPCS: 72100; 96372; 99282

== ENCOUNTER 2023-05-02 05:04 | Emergency (ER) | payer SELFPAY ==
[2023-05-02 05:06] VITALS: BP 163/93; PULSE 65; RESP 18; TEMP 36.6; O2SAT 99; BMI 32.2
--- NOTE | 2023-05-02 05:12 | RAD_ITS ---
INDICATION: pain EXAMINATION/TECHNIQUE: X-RAY - LEFT XR Knee Complete 4 Views or More 4 VIEWS COMPARISON: FINDINGS: BONES: No fracture demonstrated. JOINTS: No dislocation. SOFT TISSUES: Unremarkable. RAD/Knee 4 or More Views IMPRESSION: Unremarkable study. No evidence of fracture. Electronically Signed: Jennifer Arias MD at 5:57 EST ,
--- NOTE | 2023-05-02 05:13 | EDS_ITS ---
HPI History of Present Illness Chief Complaint: Lower Extremity Injury Detail of Chief Complaint: Left knee pain Informant: patient Narrative Narrative: Patient presents with left knee pain that he has had off and on for years. Started hurting more severely 3 days ago. He denies any injury. Patient's been to the ER before for this but no etiology has ever been found. He denies fevers or chills or sweats. No history of arthritis. Pain worse with movement and walking. Patient states sometimes the knee feels like it mynor and wants to give way. PFSH PFSH Home Medications NK 05/02/23 [History Last Taken Unknown] Allergy/AdvReac Type Severity Reaction Status Date / Time bee venom protein (honey bee) Allergy Hives Verified 05/02/23 05:10 amphetamine aspartate AdvReac Vomiting Verified 05/02/23 05:10 [From Adderall] amphetamine sulfate AdvReac Vomiting Verified 05/02/23 05:10 [From Adderall] dextroamphetamine saccharate AdvReac Vomiting Verified 05/02/23 05:10 [From Adderall] dextroamphetamine sulfate AdvReac Vomiting Verified 05/02/23 05:10 [From Adderall] Social History Smoking Status: Never smoker ROS ROS ED Review of Systems ROS Unobtainable: other Constitutional Constitutional ED: Reports lethargy; Denies chills, fever(s), sweats or weight loss Eyes Eyes: Denies blurry vision, change in vision or diplopia ENT ENT ED: Denies rhinorrhea or sore throat Cardiovascular Cardiovascular: Denies chest pain, orthopnea or racing heartbeat Respiratory/Chest Respiratory/Chest: Denies cough, dyspnea, dyspnea on exertion, orthopnea or sputum Gastrointestinal Gastrointestinal: Denies abdominal pain, diarrhea, nausea or vomiting Genitourinary Genitourinary ED: Denies dysuria, hematuria or urinary frequency Musculoskeletal Musculoskeletal: Reports other Details: Left knee pain ; Denies arthralgias, back pain, myalgias or neck pain Integumentary Denies abscess, Abrasions or rash Neurologic Neurologic: Denies headache(s) or weakness Psychiatric Psychiatric: Denies anxiety, depression or suicidal thoughts Endocrine Endocrinology: Denies polydipsia, polyphagia or polyuria Hematologic/Lymphatic Hematologic/Lymphatic: Denies easy bleeding, easy bruising or lymphadenopathy Allergic/Immunologic Allergic/Immunologic ED: Denies mouth swelling, tongue swelling or urticaria EXAM Physical Exam Const Vital Signs: 05/02/23 05:06 Temperature 97.9 F Temperature Source Temporal Pulse Rate 65 Respiratory Rate 18 Blood Pressure 163/93 H Blood Pressure Mean 116 Pulse Ox 99 Oxygen Delivery Method Room Air Positive well nourished and well developed General Appearance ED: well developed and NAD HEENT Reports TM's clear and moist mucous membranes normocephalic and atraumatic; Negative for trauma or tenderness Tympanic Membrane ED: Yes TM's clear Eyes PERRL and EOMs intact bilaterally General Eye ED: Negative for pale conjunctiva or scleral icterus Neck no lymphadenopathy, supple and no JVD General: Negative for tenderness Chest Wall inspection of chest normal and palpation of chest normal Chest: Negative for tenderness Resp normal respiratory effort and clear to auscultation bilaterally Effort and Inspection: Negative for respiratory distress or pain with movement Auscultation: Negative for rhonchi, wheezes or diminished lung sounds Cardio regular rate, regular rhythm, S1 normal heart sound, S2 normal heart sound and no murmurs Peripheral Pulses: pulses 2+ throughout GI normal to inspection, nondistended, normoactive bowel sounds, soft to palpation, non-tender, non-distended and no masses Back/Spine no CVA tenderness and no thoracic nor lumbar tenderness Extremity Extremity Narrative: Left knee-no effusion noted. No ecchymosis or bruising or obvious deformity. There is no erythema or cellulitic changes. Ligamentously stable. Ne urovascular intact distally. I do not feel any grinding or popping with range of motion. General Extremety ED: Negative for edema General Extremity: Negative for edema Neuro oriented x3, CN's II-XII intact bilaterally, no sensory deficits noted and gait normal Sensorium / Orientation: awake, alert, oriented to person, oriented to place and oriented to time Motor Exam: strength 5/5 throughout and strength abnormal Psych mental status grossly normal Skin no rashes or lesions noted and no wounds MDM MDM MDM Narrative Medical decision making narrative: Patient presents with chronic knee pain worse over the last 3 days. Will obtain an x-ray to evaluate. 4 view x-rays obtained interpreted by myself as no evidence of fracture dislocation or acute lytic lesions or other acute process. Patient will be placed in a knee immobilizer. He does not want thing for pain he states he has a hard time swallowing pills. He is advised that he can take ibuprofen liquid form. He will get referral to orthopedics for follow-up. Discharge Plan Triage Chief Complaint: Lower Extremity Injury ED Provider: Leonor Watson Dx/Rx/DC Orders Clinical Impression: Acute pain of left knee Instructions: ED Knee Pain of Uncertain Cause Prescriptions: No Action NK Primary Care Provider: Care Physician,No Primary Referrals: Nelson Plummer MD [Med Staff - Creative Perfumer] - Lee Martinez DO [Med Staff - Active Staff] - 3-5 Days Disposition Disposition: Home, Self Care
[2023-05-02 05:55] VITALS: BP 156/90; PULSE 87; RESP 18; TEMP 36.1; O2SAT 98
== END 2023-05-02 05:58 | disposition home or self-care (01) ==
PROVIDERS: Emergency Provider Emergency Medicine; Visit Provider Emergency Medicine
DX: M25.562 Pain in left knee (principal)
CPT/HCPCS: 73564; 99283

== ENCOUNTER 2023-05-03 20:43 | Emergency (ER) | payer SELFPAY ==
[2023-05-03 20:44] VITALS: BP 141/91; PULSE 60; RESP 15; TEMP 36; O2SAT 99; BMI 32.5
--- NOTE | 2023-05-03 20:53 | EKG12_ITS ---
Test Reason : CP Blood Pressure : / mmHG Vent. Rate : 065 BPM Atrial Rate : 065 BPM P-R Int : 142 ms QRS Dur : 104 ms QT Int : 378 ms P-R-T Axes : 013 064 011 degrees QTc Int : 393 ms Normal sinus rhythm Normal ECG Confirmed by NETTE GARCIA, MIGEL ([id number]), editor house organ EJ AYALA ([id number]) on 05/05/2023 10:10:32 AM Referred By: DALE Confirmed By:MIGEL PERDUE MD
--- NOTE | 2023-05-03 20:53 | EDS_ITS ---
HPI History of Present Illness Chief Complaint: Chest Pain [facility] Medical History (Updated 05/03/23 @ 21:06 by Nancy Ribeiro) Chest pain Home Medications NK 05/02/23 [History Last Taken Unknown] Allergy/AdvReac Type Severity Reaction Status Date / Time bee venom protein (honey bee) Allergy Hives Verified 05/03/23 21:07 amphetamine aspartate AdvReac Vomiting Verified 05/03/23 21:07 [From Adderall] amphetamine sulfate AdvReac Vomiting Verified 05/03/23 21:07 [From Adderall] dextroamphetamine saccharate AdvReac Vomiting Verified 05/03/23 21:07 [From Adderall] dextroamphetamine sulfate AdvReac Vomiting Verified 05/03/23 21:07 [From Adderall] Social History Smoking Status: Never smoker EXAM Physical Exam Const Vital Signs: 05/03/23 20:44 05/03/23 21:08 05/03/23 22:01 Temperature 96.8 F L Temperature Source Temporal Pulse Rate 60 60 Respiratory Rate 15 18 Respiratory Effort Normal Non-Labored Blood Pressure 141/91 H 125/78 H Blood Pressure Mean 107 93 Pulse Ox 99 97 Oxygen Delivery Method Room Air Room Air Heart Score History: Moderately Suspicious ECG: Normal Age: </= 45 years Risk Factors: No Risk Factors Troponin: </= Normal Limit Score: 1 MDM MDM MDM Narrative Medical decision making narrative: HISTORY OF PRESENT ILLNESS: 27-year-old male presents with chest pain. Notes chest pain that occurred approximately 1 hour prior to arrival. Notes is worse with deep breath. Notes radiates to left arm. It is sharp. Is not pressure-like. Is not exertional. Denies any recent illnesses cough, fever or shortness of breath. Denies any lower extremity edema, orthopnea or paroxysmal nocturnal dyspnea. Denies any bleeding diathesis. Denies any vomiting but notes diarrhea for last 2 days that is watery 3-4 episodes a day. Denies recent travel, sick contacts or antibiotics. Denies any family history of early cardiac . Patient denies sudden onset of pain, no tearing sensation, no migratory symptoms, no new numbness, weakness or loss of sensation. Patient denies family history or personal history of Marfan syndrome or Latanya-Danlos. The patient denies recent surgery in the last 4 weeks or immobilization in the last 3 days, denies previous diagnosis of DVT or PE, hemoptysis, unilateral leg swelling or malignancy with treatment the last 6 months. No estrogen use noted. REVIEW OF SYSTEMS: All other systems reviewed and are negative except as noted in the history of present illness. At least 10 review of systems reviewed and are negative except as noted in history of present illness. PHYSICAL EXAM: Nursing triage notes reviewed, Vital signs reviewed Constitutional: please see [facility] HENT: MMM Eyes: Pupils equal round and reactive to light, Extraocular muscles intact Neck: No stridor, no JVD, full neck ROM Lungs: Clear to auscultation, No wheezing or rales. No increased work of breathing, no conversational dyspnea, no accessory muscle use, no nasal flaring. No respiratory distress noted Heart: Regular rate and rhythm, No murmurs, No rubs and No gallops, 2+ distal pulses (radial, femoral, posterior tibial) in all extremities Abdomen: Soft, there is no tenderness, rigidity, rebound or guarding, no obvious peritoneal signs, no palpable pulsatile abdominal masses, no auscultated abdominal bruit : No CVAT Extremities: No edema Neuro: No focal neurological deficits, cranial nerves II through XII intact, 5/5 strength in all extremities. Intact sensation to light touch in all extremities, 2+ reflexes bilateral patella tendons. Normal gait. No ataxia. Skin: No rash or lesions noted MEDICAL DECISION MAKING: Chief Complaint: Chest pain External records reviewed: No recent advanced testing of the heart including stress test, echocardiogram or cardiac catheterization Factors affecting care: None Social determinants of health: Denies illicit drug use History obtained from others: Patient's Consults: none [facility] Narrative: Patient was initially hemodynamically stable, afebrile and nontoxic-appearing. I considered the following differential diagnosis: ACS, arrhythmia, anemia, electrolyte abnormality, pneumonia, pneumothorax, GI etiology, PE I obtained a broad lab and imaging workup to further elucidate the etiology of his complaints. ALL IMAGES (IF OBTAINED) HAVE BEEN PERSONALLY REVIEWED AND INTERPRETED BY MYSELF. EKG with normal sinus rhythm, normal axis, no intervals, no STEMI I have personally reviewed the patient's chest x-ray. Chest x-ray is unremarkable for pulmonary edema, pneumothorax, pneumonia or focal cardiopulmonary abnormality. CBC without leukocytosis, severe anemia, no thrombocytopenia. D-dimer negative making VTE less likely CMP without evidence of acute kidney injury, significant electrolyte abnormality, anion gap, no evidence hepatobiliary pathology. High-sensitivity troponin is negative, no evidence of myocardial ischemia x2 BNP within normal limits suggestive of no increased ventricular stretch, increased wall pressure, heart failure I Considered the following differential diagnosis there clinical/EKG findings I do not suggest the likelihood: PE less likely given low risk Wells score. Aortic dissection is thought to be less likely given no sudden ripping or tearing pain, migratory pain, palpable pulse inequalities, no focal neurologic deficits concurrent with chest pain. Chance of dissection less than 03/1999. Pericarditis less likely given no pathognomonic EKG changes (no diffuse ST elevations, OK depressions). GI etiology (i.e. Boerhaave syndrome) less likely given no chest or neck crepitus, no vomiting or forced retching. I completed a HEART Score to screen for Major Adverse Cardiac Event (MACE) in this patient. The evidence indicates that the patient is very low risk for MACE and this is consistent with my clinical intuition. The risk of further workup or hospitalization for MACE is likely higher than the risk of the patient having a MACE. It is, therefore, in the patient?s best interest not to do additional emergent testing or to be hospitalized for MACE at this time. Shared Decision-Making No hospitalization indicated I have discussed with the patient my clinical impression and the result of the HEART Score to screen for MACE, as well as the risks of further testing and hospitalization. The HEART Score shows that the risk for MACE is less than 1%. Although the risk of MACE has not been completely eliminated, the risks of further testing or hospitalization for MACE likely exceed any potential benefit, and the patient agrees with not pursuing further emergent evaluation or hospitalization for MACE at this time. The patient and/or family, caregivers express understanding. The patient and/or family, caregivers agrees with the plan. Total critical care time today provided was at least 0 minutes. This excludes separately billable procedures. Critical care time (if documented) is secondary to the patient having high probability of clinically significant/life threatening deterioration in the patient's condition which required my urgent intervention. Impression: 1. Chest pain Discharge: home Cory Armendariz, Lab Data Labs: Laboratory Results - last 24 hr 05/03/23 05/03/23 21:00 23:10 WBC 9.6 RBC 5.03 Hgb 14.4 Hct 41.2 MCV 81.9 MCH 28.6 MCHC 35.0 RDW Std Deviation 36.0 RDW Coeff of Marlo 12.2 Plt Count 215 MPV 10.7 Immature Gran % (Auto) 0.300 Neut % (Auto) 53.5 Lymph % (Auto) 28.5 Ada % (Auto) 11.3 H Eos % (Auto) 5.8 H Baso % (Auto) 0.6 Absolute Neuts (auto) 5.1 Absolute Lymphs (auto) 2.73 Nucleated RBC % 0 D-Dimer Quant (PE/DVT) < 0.27 L Sodium 141 Potassium 3.7 Chloride 111 H Carbon Dioxide 27.0 Anion Gap 3 L BUN 13 Creatinine 0.97 Estim Creat Clear Calc 134.40 Est GFR (MDRD) Af Amer 119 Est GFR (MDRD) Non-Af 99 BUN/Creatinine Ratio 13.4 Glucose 89 Calcium 9.0 Troponin I High Sens 7 8 B-Natriuretic Peptide 15.1 Radiography Diagnostic Testing: Clinical Impression(s) from Imaging Studies Chest X-Ray 05/03/23 21:05 IMPRESSION: Nonacute portable x-ray examination of the chest. Electronically Signed: Edward Mcleod MD (Brooks) at 21:30 EST Reading Location ID and State: [facility] / [place] , Service support , Discharge Plan Triage Chief Complaint: Chest Pain ED Provider: Cory Armendariz Dx/Rx/DC Orders Prescriptions: No Action NK Primary Care Provider: Care Physician,No Primary Referrals: Care Physician,No Primary [Primary Care Provider] -
--- OUTSIDE RECORDS SUMMARY | 2023-05-03 20:53 | XMS RPT_ITS | CCD ---
Author Name Unknown Address [address] [place] [address] Organization [facility] Care Team Providers Care Director Of Technology Name Role Phone Unavailable Primary Care Provider HILARIO Chicas Attending Unavailable Allergies Allergy Classification Reported Allergen(s) Allergy Type Date of Onset Reaction(s) Facility (1 source) Amphetamine / Dextroamphetamine Drug Allergy 01-17-20 15 Rash [facility] (1 source) DEXTROAMPHETAMINE-AMP HETAMINE; Translations: [DEXTROAMPHETAMINE-AM PHETAMINE] Propensity to adverse reactions to drug (disorder) 12-24-19 14 [facility] Repository Medications Current Medications Medication Drug Class(es) Dates Sig (Normalized) Sig (Original) diazePAM 5 mg oral tablet (1 source) Benzodiazepine Start: 12-30-2021 End: 01-09-2022 take 1 tablet by mouth every eight hours as needed for muscle spasms diazePAM (VALIUM) 5 MG tablet Indications: Strain of lumbar region, initial encounter , Spasm of muscle Take 1 tablet by mouth every 8 hours as needed (muscle spasm) for up to 10 days. 15 tablet 0 12/30/2021 01/09/2022 Active ibuprofen 600 mg oral tablet (2 sources) Nonsteroidal Anti-inflammatory Drug Start: 12-30-2021 ibuprofen (ADVIL;MOTRIN) tablet 600 mg Completed/Discontinued Medications Medication Drug Class(es) Dates Sig (Normalized) Sig (Original) acetaminophen 500 mg oral tablet (1 source) Start: 12-30-2021 End: 12-30-2021 acetaminophen (TYLENOL) tablet 1,000 mg Problems Problem Classification Problem Date Documented Da te Episodic/Chronic Other acquired deformities (1 source) Spondylolysis, lumbar region; Translations: [Pars defect of lumbar spine] Onset: 01-08-2022 Episodic Other connective tissue disease (1 source) Spasm; Translations: [Other muscle spasm] Episodic Spondylosis; intervertebral disc disorders; other back problems (4 sources) Lumbago with sciatica, left side; Translations: [Lumbago with sciatica, right side] Onset: 01-08-2022 Episodic Sprains and strains (1 source) Low back strain; Translations: [Strain of muscle, fascia and tendon of lower back, initial encounter] Episodic Results Test Name Value Interpretation Reference Range Facil ity Vital Signs Date Time Vital Sign Value Performing Clinician Faci lity 12-30-2021 19:42-0400 Diastolic blood pressure 78 mm[Hg] Valeriano Parson Work Phone: [facility] 12-30-2021 19:42-0400 Heart rate 60 /min Valeriano Cui MD Work Phone: [facility] 12-30-2021 19:42-0400 Respiratory rate 14 /min Valeriano Cui MD Work Phone: [facility] 12-30-2021 19:42-0400 SaO2% (BldA) [Mass fraction] 99 % Valeriano Cui MD Work Phone: [facility] 12-30-2021 19:42-0400 Systolic blood pressure 133 mm[Hg] Valeriano Cui MD Work Phone: [facility] 12-30-2021 17:03-0400 Body height 177.8 cm Valeriano Cui MD Work Phone: [facility] 12-30-2021 17:03-0400 Body mass index (BMI) [Ratio] 30.13 kg/m2 Valeriano Cui MD Work Phone: [facility] 12-30-2021 17:03-0400 Body temperature 98.29 [degF] Valeriano Cui MD Work Phone: [facility] 12-30-2021 17:03-0400 Body weight 95.25 kg Valeriano Cui MD Work Phone: [facility] Encounters Encounter Date Encounter Type Care Provider Facility Start: 01-08-2022 End: 01-08-2022 Emergency department patient visit HILARIO DUQUE Facility:[id number] Start: 12-30-2021 End: 12-30-2021 Emergency department patient visit Valeriano Cui MD Work Phone: [facility] ED Procedures Date Procedure Procedure Detail Performing Clinician Start: 12-30-2021 Radex spine lumbosac ral minimum 4 views Valeriano Cui MD Work Phone: Plan of Treatment Date Care Activity Detail Author Start: 12-11-2025 DTaP/Tdap/Td vaccine (8 - Td or Tdap) DTaP/Tdap/Td vaccine (8 - Td or Tdap) [facility] Start: 10-15-2021 Influenza vaccination Flu vaccine (# 1) [facility] Start: 11-24-2011 HPV vaccine (3 - Mal e 2-dose series) HPV vaccine (3 - Male 2-dose series) [facility] Start: 2008 Depression Screen Depression Screen [facility] Start: 01-08-1997 COVID-19 Vaccine (#1) COVID-19 Vacci ne (#1) [facility] Immunizations Immunization Date Immunization Notes Care Provider Fa cility 12-12-2015 tetanus toxoid, redu peyman diphtheria toxoid, and acellular pertussis vaccine, adsorbed Valeriano Cui MD Work Phone: [facility] Payers Date Payer Category Payer Unknown [employer] [id number] 2016-Present [address] [place] [address] [id number] 2016 Medicaid [id number] 1996 Unknown [id number] 1996 Unknown [id number] 1996 Unknown [id number] 1996 Unknown [id number] 1996 Unknown [id number] Private Health Insurance [id number] Self-pay [id number] Unknown Social History Date Type Detail Facility Start: 12-30-2021 Tobacco smoking stat [facility] Never smoked tobacco [facility] Start: 12-30-2021 Tobacco use and exposure Smokeless tobacco non-user [employer] Work Phone: Start: 12-30-2021 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 X-ray shows no fracture and normal heights between your vertebral bodies, though it does show some findings indicative of the [id number] of time and lots of heavy physical activity. I have prescribed you Valium to use as needed for muscle spasm, do not drink alcohol or drive a car while on Valium as it will make you sleepy. I prescribed you Motrin for pain, take it with food to avoid stomach upset. I prescribed you Lidoderm patches, use them 12 hours on 12 hours off. After a visit to the Emergency Department, follow-up is important. You should expect a phone call in the next 3 business days from the orthopedics clinic, they will be looking to arrange a follow-up appointment with you; at that time they may decide that further treatments or diagnostic studies are necessary.. Return to the ED if you develop loss of bowel or bladder control, numbness or weakness in your arms or legs, you cannot feel your own anus, electric shock sensation going down your legs, inability to walk or stand, worsening pain, or if any new signs, symptoms, or concerns arise. The following attachments cannot be sent through Care Everywhere.Back Pain: Relief: General Info (Slovak)Back: Strain (Slovak)Back: Preventing Injuries (Slovak)Video: Proper Lifting to Protect Your Back (Slovak)documented in this encounter [facility] Work Phone: Evaluation note Note Date & Type Note Facility documented in this encounter [facility] Work Phone: Summary Purpose Family History No Family History Records FoundNo Family History Records FoundNo Family History Records Found Advance Directives No Advanced Directives Records FoundNo Advanced Directives Records FoundNo Advanced Directives Records Found Reason for Referral Specialty Diagnoses / Procedures Referred By Marlin garza Referred To Contact Orthopedic Surgery Diagnoses Spasm of muscle Valeriano Cui MD [address] [place] [address] Brina Quinteros [facility] [address] [facility] [place] [address] Referral ID Status Reason Start Date Expiration Date V isits Requested Visits Authorized [id number] Open Specialty Services Required 12/30/2021 12/30/2022 1 1 Scheduling Instructions [facility] Orthopedics - [address] [place] [id number] Comments The patient can be scheduled with any member of the group, including the provider with the first available appointments. Additional Source Comments (unrecognized sect ion and content) No Status Records FoundNo Status Records FoundNo Status Records Found INFORMATION SOURCE (unrecogn ized section and content) DATE CREATED AUTHOR AUTHOR'S ORGANIZ ATION 08/27/2018 [facility] DATE CREATED AUTHOR AUTHOR'S ORGANIZ ATION 01/09/2022 [facility] Shanda nter Reason for Visit (unrecogniz ed section and content) Ordered Prescriptions (unrec ognized section and content) Scheduled Active and Recently Administ ered Medications (unrecognized section and content) FOR RECORDS PERTAINING TO PATIENTS WHO ARE OR HAVE BEEN ENROLLED IN A CHEMICAL DEPENDENCY/SUBSTANCEABUSE PROGRAM, SOME INFORMATION MAY BE OMITTED. This clinical summary was aggregated from multiple sources. Caution should be exercised in using it in the provision of clinical care. This summary normalizes information from multiple sources, and as a consequence, information in this document may materially change the coding, format and clinical context of patient data. In addition, data may be omitted in some cases. CLINICAL DECISIONS SHOULD BE BASED ON THE PRIMARY CLINICAL RECORDS. [facility] [employer] [facility]. provides no warranty or guarantee of the accuracy or completeness of information in this document.
--- NOTE | 2023-05-03 21:05 | RAD_ITS ---
STUDY: X-RAY CHEST REASON FOR EXAM: Male, 27 years old. chest pain TECHNIQUE: Single AP portable view of the chest. COMPARISON: 08/05/2019. FINDINGS: EKG leads project over the chest. The lungs are clear and expanded. There is no demonstrated pleural abnormality. Normal size heart. Normal mediastinum and placido. Normal visualized pulmonary arteries. Normal visualized aortic arch and descending thoracic aorta. Normal visualized thoracic spine. Normal visualized ribs, clavicles, and shoulders. There is no demonstrated abnormality of the visualized soft tissue structures of the upper abdomen. RAD/Chest 1 View (Portable) IMPRESSION: Nonacute portable x-ray examination of the chest. Electronically Signed: Edward Mcleod MD (Brooks) at 21:30 EST ,
[2023-05-03 21:07] LABS: Absolute Lymphocyte Count 2.73 X10^3/uL (0.83-4.51); Absolute Neutrophil Count 5.1 X10^3/uL (2.0-7.7); Basophil# 0.06 X10^3/uL; Basophil% 0.6 % (0-1); Eosinophil# 0.56 X10^3/uL; Eosinophils% 5.8 % (0-5); Hematocrit 41.2 % (40-54); Hemoglobin 14.4 g/dL (13.0-16.5); Lymphocyte # 2.73 X10^3/ul (0.83-4.51); Lymphocyte % 28.5 % (19-41); Mean Corpuscular Hgb 28.6 pg (27.0-32.0); Mean Corpuscular Volume 81.9 fL (80-94); Mean Platelet Vol. 10.7 fl (6.2-12.0); Monocyte# 1.08 X10^3/uL; Monocyte% 11.3 % (0-10); NRBC Flagged by Analyzer 0 % (0-5); Neutrophil # 5.13 X10^3/uL (2.7-7.7); Neutrophil % 53.5 % (47-70); Platelet Count 215 K/mm3 (150-450); RBC Distribution Width CV 12.2 % (11.6-14.6); Red Blood Count 5.03 M/mm3 (4.6-6.2); White Blood Count 9.6 K/mm3 (4.4-11.0)
[2023-05-03 21:30] LABS: D-Dimer Quantitative (DVT/PE) < 0.27 FEU/ug/m (0.27-0.49)
[2023-05-03 21:31] LABS: Anion Gap 3 (5-15); BUN 13 mg/dL (7-18); BUN/Creat Ratio 13.4 RATIO (10-20); Chloride 111 mmol/L (98-107); Creatinine, Serum 0.97 mg/dL (0.70-1.30); EST Glomerular Filtration Rate 99 mL/min (>60); Est Glom Filt Rate - Afr Amer 119 mL/min (>60); Glucose 89 mg/dL (74-106); Potassium 3.7 mmol/L (3.5-5.1); Sodium Level 141 mmol/L (136-145); Troponin-I HS 7 pg/mL (3.0-78.0); Troponin-I HS (w/2H Reflex) 7 pg/mL (3.0-78.0)
[2023-05-03 21:34] LABS: BNP,B-Type NATRIURETIC PEPTIDE 15.1 pg/mL (0-100)
[2023-05-03] MEDS: 0.9% Normal Saline (1000mL) 1,000 ML 999 ML IV (22:00)
[2023-05-03 22:01] VITALS: BP 125/78; PULSE 60; RESP 18; O2SAT 97
[2023-05-03 23:05] LABS: Reflex Troponin-HS? (from REC) Y
[2023-05-03 23:40] LABS: Troponin-I HS 8 pg/mL (3.0-78.0)
[2023-05-04 00:17] VITALS: BP 114/74; PULSE 60; RESP 20; TEMP 35.9; O2SAT 96
== END 2023-05-04 00:18 | disposition home or self-care (01) ==
PROVIDERS: Emergency Provider Emergency Medicine; Visit Provider Emergency Medicine
DX: R07.9 Chest pain, unspecified (principal)
CPT/HCPCS: 71045; 80048; 83880; 84484; 85025; 85379; 93005; 96360; 96361; 99284; J7030; A4216

== ENCOUNTER → 2023-07-11 | Outpatient (CLI) | payer MEDICAID, SELFPAY ==
--- NOTE | 2023-07-11 13:51 | MRI_ITS ---
STUDY: MRI LEFT KNEE REASON FOR EXAM: Male, 28 years old. Pain. Previous injury 2009, no known injury recently, medial pain, sharp pain when bending underneath patella, wears brace daily, no surgery. TECHNIQUE: Standardized fat and water weighted pulse sequences were obtained in all 3 orthogonal planes. COMPARISON: Left knee radiographs dated 05/02/2023. FINDINGS: Normal medial meniscus. Normal hyaline cartilage of the medial femorotibial compartment. Normal medial femoral condyle and tibial plateau. Normal medial collateral ligamentous complex (MCL). Normal distal semimembranosus, gracilis and semitendinosus tendons. Normal lateral meniscus. Normal hyaline cartilage of the lateral femorotibial compartment. Normal lateral femoral condyle and tibial plateau. Normal proximal tibiofibular articulation. Normal lateral collateral (fibular) ligament. Normal popliteus tendon. Normal biceps femoris tendon. Normal anterior cruciate ligament (ACL). Normal posterior cruciate ligament (PCL). Normal congruent patellofemoral articulation. Normal hyaline cartilage of the patellofemoral compartment. Normal medial and lateral patellar retinaculum. Normal quadriceps tendon. Normal patellar tendon. Normal Hoffa''s fat pad. There is no significant joint effusion. There is a tiny popliteal cyst. The soft tissues are unremarkable. The otherwise visualized osseous structures are unremarkable. MRI/Lower Ext Joint Only (Routine) IMPRESSION: Tiny popliteal cyst. No discrete meniscal tear or acute ligamentous injury. Electronically Signed: Tong Martinez MD at 15:10 EDT ,
== END | disposition home or self-care (01) ==
LOC: MRI 13:02
PROVIDERS: Referring Provider Orthopaedic Surgery; Visit Provider Orthopaedic Surgery
DX: S83.282A Other tear of lateral meniscus, current injury, left knee, initial encounter (principal); X58.XXXA Exposure to other specified factors, initial encounter
CPT/HCPCS: 73721

== ENCOUNTER 2024-02-29 09:41 | Emergency (ER) | payer MEDICAID, SELFPAY ==
[2024-02-29 09:41] VITALS: BP 128/93; PULSE 150; PULSE 74; RESP 20; TEMP 36.1; O2SAT 100; BMI 33.9
--- NOTE | 2024-02-29 10:08 | EKG12_ITS ---
Test Reason : CP Blood Pressure : */* mmHG Vent. Rate : 115 BPM Atrial Rate : * BPM P-R Int : * ms QRS Dur : 86 ms QT Int : 306 ms P-R-T Axes : * 65 21 degrees QTcB Int : 423 ms Atrial fibrillation with rapid ventricular response Abnormal ECG Confirmed by NETTE GARCIA, MIGEL ([id number]), communications editor EJ AYALA ([id number]) on 03/03/2024 6:07:55 AM Referred By: JOANN Confirmed By: MIGEL PERDUE MD
--- NOTE | 2024-02-29 10:09 | ED.VIS.CHEST ---
HPI History of Present Illness Chief Complaint: Chest Pain Narrative Narrative: 28-year-old male past medical history of atrial fibrillation, states he was diagnosed about a month ago, and they performed a cardioversion in the emergency department. He takes Cardizem 180 mg daily but is not on a blood thinner. He presents with atrial fibrillation, fast pounding heart rate, and shortness of breath along with chest pain and left arm numbness that began last evening around 8 PM, over 12 hours ago. He denies any recent fevers or chills, no leg swelling, no DVT or PE risk factors. He states his symptoms started last evening, but he went to bed last night, and woke up this morning and states he has not felt the same. No exacerbating or alleviating factors. [facility] Medical History (Updated 02/29/24 @ 12:56 by Michael Bustos MD) History of cardioversion Afib Chest pain Home Medications ?Medication ?Instructions ?Recorded ?Last Taken ?Type diltiazem HCl 180 mg 180 mg PO DAILY 02/29/24 02/29/24 History capsule,extended release 24 hr (Cartia XT) Allergy/AdvReac Type Severity Reaction Status Date / Time bee venom protein (honey bee) Allergy Hives Verified 07/14/23 08:15 amphetamine aspartate (From AdvReac Vomiting Verified 07/14/23 08:15 Adderall) amphetamine sulfate (From AdvReac Vomiting Verified 07/14/23 08:15 Adderall) dextroamphetamine saccharate AdvReac Vomiting Verified 07/14/23 08:15 (From Adderall) dextroamphetamine sulfate AdvReac Vomiting Verified 07/14/23 08:15 (From Adderall) Surgical History H/O elbow surgery Social History household members: family Smoking Status: Never smoker alcohol intake: never ROS ROS ED ROS Narrative Constitutional: No fever, no chills. No diaphoresis. HEENT: No sore throat. No neck pain. No loss of vision. No rhinorrhea. Cardiovascular: Positive chest pressure/chest pain. Positive palpitations. No pedal edema. Respiratory: No cough, positive shortness of breath. Abdominal: No abdominal pain. No nausea. No vomiting. Genitourinary: No dysuria. No hematuria. Musculoskeletal: No myalgias. No arthralgias. Neurologic: No headaches. No dizziness. No lightheadedness. Skin: No rash. No change in color. Psychiatric: No depression. No anxiety. EXAM Physical Exam Narrative Exam Narrative: Afebrile. Vital signs noted. Nontoxic-appearing. HEENT examination grossly unremarkable. PERRL, EOMI. Cardiovascular examination reveals an irregularly irregular tachycardia as high as 150 bpm but down to 108 intermittently. Lungs are clear to auscultation bilaterally. Abdomen soft and nontender with positive bowel sounds. Neurological examination is nonfocal and nonlateralizing. No appreciated pedal edema. Const Vital Signs: 02/29/24 09:41 02/29/24 09:41 02/29/24 10:08 Temperature 97 F L Temperature Source Temporal Pulse Rate 74 150 H Respiratory Rate 20 H Blood Pressure 128/93 H Blood Pressure Mean 104 Pulse Ox 100 Oxygen Delivery Method Room Air Room Air 02/29/24 10:16 02/29/24 11:41 Temperature Temperature Source Pulse Rate 97 Respiratory Rate 18 Blood Pressure 126/90 H Blood Pressure Mean 102 Pulse Ox 97 Oxygen Delivery Method Room Air Room Air Heart Score History: Slightly/Non-Suspicious ECG: Normal Age: </= 45 years Risk Factors: No Risk Factors Score: 0 MDM MDM MDM Narrative Medical decision making narrative: Differential diagnosis includes but not limited to ACS versus atrial fibrillation with rapid ventricular response versus pneumothorax versus pneumonia. I have low suspicion for pneumonia or pneumothorax because history and physical does not support this. Additionally, I have very low suspicion for pulmonary embolism because initially his pulse was 74 and pulse ox 100% on room air, and he has low risk factors. He states he took his diltiazem 180 mg this morning. He will be bolused 20 mg. He has normal blood pressure if not slightly elevated but I do not think emergent cardioversion is indicated. I reviewed his laboratory work and he has normal white count of 10.0 with hemoglobin slightly hemoconcentrated at 16.8 with hematocrit 46.4, platelet count normal at 260. Chloride is elevated at 108 which I think is nonspecific, normal sodium of 139 and potassium 4.0, BUN normal at 7 with creatinine 0.98. Glucose is normal at 84. Initial high-sensitivity troponin is 6. On my independent interpretation of his chest x-ray in 1 view, I see no acute process, no pneumonia or pneumothorax. I reviewed the radiology report which confirms my independent interpretation. Repeat examination after Cardizem bolus of 20 mg shows his heart rate to be in the 80s but appears to be irregular on the monitor. Once again, I do not feel that he is requiring emergent cardioversion. Additionally, I discussed with him the need for follow-up with cardiology. His repeat troponin is also 6 for a delta of 0. I was able to discuss the patient with cardiology, Dr. Campos, who agrees that there is no emergent need for cardioversion. Additionally, the patient was diagnosed with atrial fibrillation a month ago, and is currently not anticoagulated, in order to be considered for elective cardioversion, he needs to be anticoagulated. I will discuss this with the patient including risks and benefits of being on anticoagulation including risk of catastrophic intracranial hemorrhage or gastrointestinal hemorrhage and propensity to bleed. Based on this, patient declines being started on anticoagulation. His repeat heart rate is still in the 80s. 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 Return instructions were reviewed. Disposition is discharged home in stable condition. History & Record Review Discussion w/independent historian: Patient Lab Data Attestation: I reviewed the patient's lab results. Labs: Laboratory Results - last 24 hr 02/29/24 02/29/24 10:19 12:25 WBC 10.0 RBC 5.64 Hgb 16.8 H Hct 46.4 MCV 82.3 MCH 29.8 MCHC 36.2 H RDW Std Deviation 35.8 RDW Coeff of Marlo 12.1 Plt Count 260 MPV 10.4 Immature Gran % (Auto) 0.400 Neut % (Auto) 56.5 Lymph % (Auto) 25.5 [place] % (Auto) 11.4 H Eos % (Auto) 5.7 H Baso % (Auto) 0.5 Absolute Neuts (auto) 5.6 Absolute Lymphs (auto) 2.54 Nucleated RBC % 0 Sodium 139 Potassium 4.0 Chloride 108 H Carbon Dioxide 25.0 Anion Gap 7 BUN 7 Creatinine 0.98 Estim Creat Clear Calc 134.75 Est GFR (MDRD) Af Amer 117 Est GFR (MDRD) Non-Af 97 BUN/Creatinine Ratio 7.1 L Glucose 84 Calcium 9.1 Troponin I High Sens 6 6 Radiography Chest X-Ray - ED: 1 View, Read by ED Physician and Read by Radiologist Diagnostic Testing: Clinical Impression(s) from Imaging Studies Chest X-Ray 02/29/24 10:19 IMPRESSION: No radiographic evidence of acute cardiopulmonary disease. Electronically Signed: Hilaria Jones MD at 10:35 EST Reading Location ID and State: [facility] / [place] Tel , Service support , Management Discussion w/another healthcare provider: Cardiac Rn (Dr. Campos, cardiology) Discharge Plan Triage Chief Complaint: Chest Pain ED Provider: Michael Bustos Dx/Rx/DC Orders Clinical Impression: Chest pain, Atrial fibrillation Instructions: ED AFIB, ED Chest Pain, Uncertain Cause Prescriptions: No Action diltiazem HCl [Cartia XT] 180 mg capsule,extended release 24hr 180 mg PO DAILY Primary Care Provider: Care Physician,No Primary Referrals: Anil Campos MD [Med Staff - Active Staff] - 3-5 Days if not improving Care Physician,No Primary [Primary Care Provider] - Activity Restrictions/Additional Instructions: Follow-up with your professional bass fisherman as soon as possible. Return with increased heart rate, new or worsening symptoms. Continue your diltiazem as previously directed. You would need to be on a blood thinner for at least 2 weeks before elective cardioversion. Print Language: German Disposition Disposition: Home, Self Care
[2024-02-29] MEDS: dilTIAZem 25 MG/5 ML Vial 20 MG IV BOLUS (10:15)
--- NOTE | 2024-02-29 10:19 | RAD_ITS ---
INDICATION: chest pain EXAMINATION/TECHNIQUE: X-RAY - XR Chest 1 View COMPARISON: April 02, 2023 FINDINGS: LINES/DEVICES: None. LUNGS: No consolidation, edema or effusion. No pneumothorax. MEDIASTINUM AND CARDIOVASCULAR STRUCTURES: Cardiac silhouette not enlarged. Central airways and mediastinal contour are unremarkable. BONES AND SOFT TISSUES: Unremarkable. RAD/Chest 1 View (Portable) IMPRESSION: No radiographic evidence of acute cardiopulmonary disease. Electronically Signed: Hilaria Jones MD at 10:35 EST ,
[2024-02-29 10:25] LABS: Absolute Lymphocyte Count 2.54 X10^3/uL (0.83-4.51); Absolute Neutrophil Count 5.6 X10^3/uL (2.0-7.7); Basophil# 0.05 X10^3/uL; Basophil% 0.5 % (0-1); Eosinophil# 0.57 X10^3/uL; Eosinophils% 5.7 % (0-5); Hematocrit 46.4 % (40-54); Hemoglobin 16.8 g/dL (13.0-16.5); Lymphocyte # 2.54 X10^3/ul (0.83-4.51); Lymphocyte % 25.5 % (19-41); Mean Corp Hgb Conc 36.2 g/dL (32-36); Mean Corpuscular Hgb 29.8 pg (27.0-32.0); Mean Corpuscular Volume 82.3 fL (80-94); Mean Platelet Vol. 10.4 fl (6.2-12.0); Monocyte# 1.13 X10^3/uL; Monocyte% 11.4 % (0-10); NRBC Flagged by Analyzer 0 % (0-5); Neutrophil # 5.62 X10^3/uL (2.7-7.7); Neutrophil % 56.5 % (47-70); Platelet Count 260 K/mm3 (150-450); RBC Distribution Width CV 12.1 % (11.6-14.6); RBC Distribution Width SD 35.8 fl (35.1-43.9); Red Blood Count 5.64 M/mm3 (4.6-6.2)
[2024-02-29 10:42] LABS: Anion Gap 7 (5-15); BUN 7 mg/dL (7-18); BUN/Creat Ratio 7.1 RATIO (10-20); Calcium,Total 9.1 mg/dL (8.5-10.1); Chloride 108 mmol/L (98-107); Creatinine, Serum 0.98 mg/dL (0.70-1.30); EST Glomerular Filtration Rate 97 mL/min (>60); Est Glom Filt Rate - Afr Amer 117 mL/min (>60); Estimated Creatinine Clearance 134.75 ml/min; Glucose 84 mg/dL (74-106); Sodium Level 139 mmol/L (136-145); Troponin-I HS (w/2H Reflex) 6 pg/mL (3.0-78.0)
[2024-02-29 11:41] VITALS: BP 126/90; PULSE 97; RESP 18; O2SAT 97
[2024-02-29 12:22] LABS: Reflex Troponin-HS? (from REC) Y
[2024-02-29 12:48] LABS: Troponin-I HS 6 pg/mL (3.0-78.0)
[2024-02-29 13:13] VITALS: BP 147/87; PULSE 93; RESP 20; TEMP 36.4; O2SAT 98
== END 2024-02-29 13:14 | disposition home or self-care (01) ==
PROVIDERS: Emergency Provider Emergency Medicine; Visit Provider Emergency Medicine
DX: R07.9 Chest pain, unspecified (principal); I48.91 Unspecified atrial fibrillation
CPT/HCPCS: 71045; 80048; 84484; 85025; 93005; 96374; 99284; A4216

== ENCOUNTER 2024-10-05 18:14 | Day surgery (SDC) | payer SELFPAY ==
[2024-10-05] VITALS (14 sets, daily range): BP systolic 123–151; BP diastolic 70–96; PULSE 70–93; RESP 14–18; TEMP 36.4–36.8; O2SAT 94–99; BMI 31.4
--- NOTE | 2024-10-05 19:11 | EDS_ITS ---
HPI History of Present Illness Chief Complaint: Foreign Body [facility] Medical History History of cardioversion Afib Chest pain Home Medications Medication Instructions Recorded Last Taken Type NK 10/05/24 Unknown History Allergy/AdvReac Type Severity Reaction Status Date / Time bee venom protein (honey bee) Allergy Hives Verified 10/05/24 18:17 amphetamine aspartate (From AdvReac Vomiting Verified 10/05/24 18:17 Adderall) amphetamine sulfate (From AdvReac Vomiting Verified 10/05/24 18:17 Adderall) dextroamphetamine saccharate AdvReac Vomiting Verified 10/05/24 18:17 (From Adderall) dextroamphetamine sulfate AdvReac Vomiting Verified 10/05/24 18:17 (From Adderall) Surgical History (Updated 10/05/24 @ 19:28 by Shaina Edward) History of cardiac ablation for atrial fibrillation H/O elbow surgery Social History household members: family Smoking Status: Never smoker alcohol intake: never EXAM Physical Exam Const Vital Signs: 10/05/24 18:15 10/05/24 19:15 10/05/24 19:28 Temperature 97.6 F L Temperature Source Oral Pulse Rate 93 77 Respiratory Rate 18 16 Respiratory Effort Normal Respiratory Pattern Normal Blood Pressure 151/96 H 141/88 H Blood Pressure Mean 114 105 Pulse Ox 97 97 Oxygen Delivery Method Room Air Room Air 10/05/24 20:00 10/05/24 21:00 10/05/24 22:00 Temperature Temperature Source Pulse Rate 70 72 76 Respiratory Rate 14 16 Respiratory Effort Respiratory Pattern Blood Pressure 124/72 H 123/79 H Blood Pressure Mean 89 93 Pulse Ox 99 98 96 Oxygen Delivery Method Room Air Room Air Room Air 10/05/24 22:03 10/05/24 22:15 Temperature 97.6 F L 97.6 F L Temperature Source Pulse Rate 76 76 Respiratory Rate 16 16 Respiratory Effort Respiratory Pattern Blood Pressure 123/79 H 123/79 H Blood Pressure Mean 93 Pulse Ox 96 96 Oxygen Delivery Method Room Air MDM MDM MDM Narrative Medical decision making narrative: HISTORY OF PRESENT ILLNESS: Chief complaint: Esophageal foreign body 29-year-old male presents concern for chicken stuck in his throat. Notes this is the first time. He spitting in a bottle. Notes this occurred today at approxi-1 PM. States he gets food stuck in his throat about once a week. He states 2 days ago he got a piece of steak stuck but he was able to relieve the feeling of obstruction by vomiting. He states today he tried that but did not work. REVIEW OF SYSTEMS: Pertinent positives: Esophageal foreign body sensation Pertinent negatives: Abdominal pain, chest pain PHYSICAL EXAM: Nursing triage notes reviewed, Vital signs reviewed Constitutional: please see [facility] HENT: MMM Eyes: Pupils equal round and reactive to light, Extraocular muscles intact Neck: No stridor, no JVD, full neck ROM Lungs: Clear to auscultation, No wheezing or rales. No increased work of breathing, no conversational dyspnea, no accessory muscle use, no nasal flaring. No respiratory distress noted Heart: Regular rate and rhythm, No murmurs, No rubs and No gallops, 2+ distal pulses (radial, femoral, posterior tibial) in all extremities Abdomen: Soft, there is no tenderness, rigidity, rebound or guarding, no obvious peritoneal signs, no palpable pulsatile abdominal masses, no auscultated abdominal bruit : No CVAT Extremities: No edema Neuro: No new focal neurological deficits, cranial nerves II through XII intact, 5/5 strength in all present extremities. Intact sensation to light touch in all present extremities, 2+ reflexes bilateral patella tendons. Skin: No rash or lesions noted MEDICAL DECISION MAKING: Chief Complaint: please see HPI External records reviewed: Reviewed EGD report from 2017. Patient underwent EGD by Dr. Refugio Yu. Factors affecting care: ADHD, history of esophageal foreign body Social determinants of health: none History obtained from others: none Consults: General Surgery (Dr. Dillon) [facility] Narrative: The patient was initially hemodynamically stable, afebrile nontoxic-appearing. Not actively drooling sitting back in bed appearing comfortable. Initially attempted glucagon, Zofran and nitroglycerin ALL IMAGES (IF OBTAINED) HAVE BEEN PERSONALLY REVIEWED AND INTERPRETED BY MYSELF. CBC without leukocytosis, severe anemia, no thrombocytopenia. BMP without evidence of significant electrolyte abnormalities, no anion gap, no acute kidney injury. P.o. challenge after glucagon, Zofran nitroglycerin yielded no positive results. Patient vomited/cannot tolerate oral fluid. Attempt to call her GI doctor on-call Dr. Dumont however he is not taking call for new patients. Only patients he has seen before. Discussed with general surgery on-call Dr. Dillon who agreed to evaluate the patient for definitive EGD. The patient and/or family, caregivers express understanding. The patient and/or family, caregivers agrees with the plan. Shared decision making: I will have a discussion with the patient and or visitors regarding risk/benefits of further testing or admission. They will be made aware of of the risk/benefits inherent in this decision they will be given the opportunity to voice understanding. Total critical care time today provided was at least 0 minutes. This excludes separately billable procedures. Critical care time (if documented) is secondary to the patient having high probability of clinically significant/life threatening deterioration in the patient's condition which required my urgent intervention. Impression: 1. Esophageal foreign body 2. History of esophageal foreign body Dispo: admit to OR This note was generated with [employer] dictation software. It may contain incorrect words, spelling, and punctuation that were not noted in review of the chart prior to signing. Lab Data Labs: Laboratory Results - last 24 hr 10/05/24 19:44 WBC 10.7 RBC 4.95 Hgb 14.4 Hct 40.1 MCV 81.0 MCH 29.1 MCHC 35.9 RDW Std Deviation 35.2 RDW Coeff of Marlo 12.2 Plt Count 249 MPV 10.1 Immature Gran % (Auto) 0.300 Neut % (Auto) 60.4 Lymph % (Auto) 25.5 [place] % (Auto) 9.0 Eos % (Auto) 4.3 Baso % (Auto) 0.5 Absolute Neuts (auto) 6.5 Absolute Lymphs (auto) 2.73 Nucleated RBC % 0 Sodium 143 Potassium 3.7 Chloride 106 Carbon Dioxide 24.4 Anion Gap 12 BUN 11 Creatinine 1.10 Estim Creat Clear Calc 114.54 Est GFR (MDRD) Non-Af 94 BUN/Creatinine Ratio 9.9 L Glucose 87 Calcium 9.4 Discharge Plan Disposition Disposition: Acute Care Hospital [facility] Discharge Date/Time: 10/05/24 22:07
[2024-10-05] MEDS: Glucagon 1 MG/ML Syringe IV (19:50)
[2024-10-05 19:57] LABS: Hematocrit 40.1 % (40-54); Hemoglobin 14.4 g/dL (13.0-16.5); Immature Granulocytes Count 0.030 X10^3/uL (0.0-0.0); Mean Corp Hgb Conc 35.9 g/dL (32-36); Mean Corpuscular Volume 81.0 fL (80-94); Mean Platelet Vol. 10.1 fl (6.2-12.0); NRBC Flagged by Analyzer 0 % (0-5); Platelet Count 249 K/mm3 (150-450); RBC Distribution Width CV 12.2 % (11.6-14.6); RBC Distribution Width SD 35.2 fl (35.1-43.9); Red Blood Count 4.95 M/mm3 (4.6-6.2); White Blood Count 10.7 K/mm3 (4.4-11.0)
[2024-10-05 20:13] LABS: Anion Gap 12 (5-15); BUN 11 mg/dL (4-19); BUN/Creat Ratio 9.9 RATIO (10-20); Calcium,Total 9.4 mg/dL (7.6-11.0); Carbon Dioxide 24.4 mmol/L (21.0-32.0); Chloride 106 mmol/L (98-108); Estimated Creatinine Clearance 114.54 ml/min (50-250); Glucose 87 mg/dL (70-99); Potassium 3.7 mmol/L (3.3-5.1)
--- NOTE | 2024-10-05 21:44 | HP.PCM.SX_ITS ---
HPI - General HPI Narrative FRANCY AVELAR, is a 29 M who presents with food impaction of the esophagus. He says this happens frequently. He has had EGD in the past with food removal. He is not on a PPI. He says the last time this happened was 2 days ago. He says the chicken got stuck tonight. [facility] Medical History History of cardioversion Afib Chest pain Allergy/AdvReac Type Severity Reaction Status Date / Time bee venom protein (honey bee) Allergy Hives Verified 10/05/24 18:17 amphetamine aspartate (From AdvReac Vomiting Verified 10/05/24 18:17 Adderall) amphetamine sulfate (From AdvReac Vomiting Verified 10/05/24 18:17 Adderall) dextroamphetamine saccharate AdvReac Vomiting Verified 10/05/24 18:17 (From Adderall) dextroamphetamine sulfate AdvReac Vomiting Verified 10/05/24 18:17 (From Adderall) Surgical History (Updated 10/05/24 @ 19:28 by Shaina Edward) History of cardiac ablation for atrial fibrillation H/O elbow surgery Social History household members: family Smoking Status: Never smoker alcohol intake: never Vital Signs Vital Signs Vital Signs: 10/05/24 18:15 10/05/24 19:15 10/05/24 19:28 Temperature 97.6 F L Temperature Source Oral Pulse Rate 93 77 Respiratory Rate 18 16 Respiratory Effort Normal Respiratory Pattern Normal Blood Pressure 151/96 H 141/88 H Blood Pressure Mean 114 105 Pulse Ox 97 97 Oxygen Delivery Method Room Air Room Air 10/05/24 20:00 10/05/24 21:00 Temperature Temperature Source Pulse Rate 70 72 Respiratory Rate 14 Respiratory Effort Respiratory Pattern Blood Pressure 124/72 H 123/79 H Blood Pressure Mean 89 93 Pulse Ox 99 98 Oxygen Delivery Method Room Air Room Air Weight Weight: 212 lb 9.6 oz Body Mass Index (BMI) 31.4 Physical Exam Const oriented x3 Resp normal respiratory effort Cardio regular rate and regular rhythm GI soft to palpation and non-tender Results Lab / Micro Data 10/05/24 19:44 10/05/24 19:44 Labs: Laboratory Results - last 24 hr 07/22/25 19:44: WBC 10.7, RBC 4.95, Hgb 14.4, Hct 40.1, MCV 81.0, MCH 29.1, MCHC 35.9, RDW Std Deviation 35.2, RDW Coeff of Marlo 12.2, Plt Count 249, MPV 10.1, Immature Gran % (Auto) 0.300, Neut % (Auto) 60.4, Lymph % (Auto) 25.5, [place] % (Auto) 9.0, Eos % (Auto) 4.3, Baso % (Auto) 0.5, Absolute Neuts (auto) 6.5, Absolute Lymphs (auto) 2.73, Nucleated RBC % 0, Sodium 143, Potassium 3.7, Chloride 106, Carbon Dioxide 24.4, Anion Gap 12, BUN 11, Creatinine 1.10, Estim Creat Clear Calc 114.54, Est GFR (MDRD) Non-Af 94, BUN/Creatinine Ratio 9.9 L, Glucose 87, Calcium 9.4 Assessment & Plan Assessment/Plan (1) Impacted foreign body in esophagus: PLAN: Patient is a 29-year-old male with food impacted in the esophagus. I discussed EGD with removal of foreign body. I will either try to remove it or push it through to the stomach. I discussed the increased risks of bleeding and perforation with removal of foreign body as well as aspiration. I explained endoscopy in detail to the patient. I explained the risks including but not limited to stroke or heart attack with anesthesia, perforation of the GI tract, bleeding, infection. I explained that any of these could necessitate further emergency surgery. The patient understands and all questions were answered sufficiently. The patient wishes to proceed with procedure. Reid Dillon MD Pager: [facility] [address] [place] [address], [address] [place] [address] Office:
--- NOTE | 2024-10-05 22:13 | PCM.PRE.AN2 ---
ASA Classification* ASA Classification ASA Classification: 2 and E Assessment & Plan Anesthesia* Anesthesia Assessment Anesthesia Assessment: Discussed sedation and/or anesthesia options, risks, benefits, and alternatives with patient/parents/legal guardian/POA. Questions invited. The patient/parents/legal guardian/POA seems to understand and agrees to proceed with anesthesia plan. Reviewed the physical assessment, medical history, allergy history and patient home medications list prior to surgery/procedure/anesthetic and documented any changes. Performed airway and anesthesia risk assessments. Anesthesia Type Anesthesia Type: General (RSI) History Source History Obtained from:: Patient and Chart Anesthesia Focused Assessment* Temperature: 97.6 F Pulse Rate: 76 Blood Pressure: 123/79 Respiratory Rate: 16 Pulse Ox: 96 Oxygen Delivery Method: Room Air Airway Assessment Mouth opens: >3 cm Mallampati Score: II Teeth Condition: Intact Neck Range of motion (ROM): Full ROM Labs Anesthesia Preop lab: CBC WBC 10.7 K/mm3 (4.4-11.0) 10/05/24 19:44 10/05/24 RBC 4.95 M/mm3 (4.6-6.2) 10/05/24 19:44 10/05/24 Hgb 14.4 g/dL (13.0-16.5) 10/05/24 19:44 10/05/24 Hct 40.1 % (40-54) 10/05/24 19:44 10/05/24 Plt Count 249 K/mm3 (150-450) 10/05/24 19:44 10/05/24 CHEMISTRY Potassium 3.7 mmol/L (3.3-5.1) 10/05/24 19:44 10/05/24 Sodium 143 mmol/L (133-145) 10/05/24 19:44 10/05/24 BUN 11 mg/dL (4-19) 10/05/24 19:44 10/05/24 Creatinine 1.10 mg/dL (0.70-1.20) 10/05/24 19:44 10/05/24 Glucose 87 mg/dL (70-99) 10/05/24 19:44 10/05/24 COAG Pre-Assessment Diagnosis/Proposed Procedure Planned Operative Procedure(s): EGD for foreign body removal Anesthesia History 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 When Was Last Pacemaker Check QUESTION #4 FULL TEXT: You/Your Family Experience fever (hyperthermia) with Anesthesia Last Oral Intake Last Oral intake: Last Oral Intake NPO since Meds taken in AM with sips of water? Meds patient instructed to take am of surgery PONV PONV - switchbox assembler: PONV - switchbox assembler Female HX of Motion Sickness HX of N/V After Surgery Non-Smoker Duration of Surgery greater than 60 minutes Number of Risk Factors PONV Score Height & Weight Height & Weight: Anesthesia: Height & Weight Height 5 ft 9 in 10/05/24 18:15 Weight: 96.434 kg 10/05/24 18:15 Body Mass Index (BMI) 31.4 10/05/24 18:15 Respiratory Assessment Respiratory Assessment - switchbox assembler: Respiratory Tract Infection Hx - switchbox assembler Hx Respiratory Tract Infection STOP Sleep Apnea STOP Sleep Apnea - switchbox assembler: STOP Sleep Apnea - switchbox assembler Hx Hypertension Hx Sleep Apnea CPAP BIPAP Do you snore loudly (louder than talking or can be heard Do you often feel tired/ fatigued/ sleepy during daytime? Has anyone observed you stop breathing during sleep? STOP Results QUESTION #5 FULL TEXT : Do you snore loudly (louder than talking or can be heard through closed doors)? 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 Specify any problems Hx of Preganancy in last 3 Months Nurse Filling Out Transfusion & Questions: Date: Time: Patient unable to answer at this time (ie. confused, unrespo /Reproduction History /Reproductive History - switchbox assembler: /Reproductive Hx- switchbox assembler Hx Now Gestational Age (in weeks): EDC: Hx Hx Para Hx Section SAB PFSH Medical History History of cardioversion Afib Chest pain Home Medications Medication Instructions Recorded Last Taken Type NK 10/05/24 Unknown History Allergy/AdvReac Type Severity Reaction Status Date / Time bee venom protein (honey bee) Allergy Hives Verified 10/05/24 18:17 amphetamine aspartate (From AdvReac Vomiting Verified 10/05/24 18:17 Adderall) amphetamine sulfate (From AdvReac Vomiting Verified 10/05/24 18:17 Adderall) dextroamphetamine saccharate AdvReac Vomiting Verified 10/05/24 18:17 (From Adderall) dextroamphetamine sulfate AdvReac Vomiting Verified 10/05/24 18:17 (From Adderall) Surgical History (Updated 10/05/24 @ 19:28 by Shaina Edward) History of cardiac ablation for atrial fibrillation H/O elbow surgery Social History household members: family Smoking Status: Never smoker alcohol intake: never Review of Systems (Anesthesia) ROS Narrative System reviewed and no additional complaints, except as documented.
--- NOTE | 2024-10-05 22:38 | OP.PCM_ITS ---
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 Bite-block was placed and a well-lubricated EGD scope was placed through the mouth and down into the esophagus. The mid esophagus there was a stenosis with blocked food. I used the brandon graspers to grab this food but it broke up in the graspers. As soon as it broke up it passed through into the stomach. I was able to get the scope to traverse the stenosis. I was able to get into the stomach and suctioned the liquid contents of the stomach the esophagus was inspected as the scope was withdrawn. There was no more impacted food and the stenosis was mildly improved. I will start the patient on a PPI and I instructed him to take soft foods for the next 3 days. Surgical Findings: Stenosis of the mid esophagus Complications Complications: No
--- NOTE | 2024-10-05 22:41 | DCINST_ITS ---
Discharge Instructions Diet Discharge Diet: Soft diet Activity Discharge Activity: May Not Drive (For 24 hours) and May Shower Dressing / Incision Call your doctor if your incision/area has: Increased Pain/ Swelling Call your doctor if you observe: Shortness of breath and Chest pain Follow Up Care Please Follow Up With: Reid Dillon MD When: Please call to schedule 1 week follow up appointment. [phone] Test Results: Test results from this visit will be discussed in further detail at your follow- up appointment, if applicable. Discharge Plan Triage Chief Complaint: Foreign Body ED Provider: Cory Armendariz Dx/Rx/DC Orders Prescriptions: New omeprazole 20 mg tablet,delayed release (DR/EC) 20 mg PO DAILY Qty: 60 0RF Primary Care Provider: Care Physician,No Primary Referrals: Care Physician,No Primary [Primary Care Provider] - Print Language: Mongolian Disposition Disposition: Home, Self Care Discharge Date/Time: 10/05/24 22:07
--- NOTE | 2024-10-05 22:56 | PCM.POST.ANE ---
Anesthesia: Postop Eval I Current Vital Signs Temperature: 98.2 F Pulse Rate: 78 Blood Pressure: 126/79 Respiratory Rate: 16 Pulse Ox: 96 Oxygen Delivery Method: Room Air Assessment Airway patent: Yes Spontaneous unlabored respirations: Yes Mental status: Awake and Calm nausea: No Vomiting: No Anesthesia Complication: No Fluid Hydration Crystalloid volume administer (ml): 500 Total IV fluid infused: 500 Progress Note Anesthesia document: Postop Eval 1 completed: Yes
--- NOTE | 2024-10-05 22:59 | PCM.POSTANE2 ---
Anesthesia Postop Eval I Sum Postop Eval Completion status Anesthesia document: Postop Eval 1 completed: Yes Anesthesia Postop Eval I Summary Anesthesia Postop Eval I Summary: Anesthesia Postop Eval I: Assessment Summary Airway patent Yes 10/05/24 22:57 Spontaneous unlabored Yes 10/05/24 22:57 respirations Mental status Awake,Calm 10/05/24 22:57 nausea No 10/05/24 22:57 Vomiting No 10/05/24 22:57 Anesthesia Postop Eval I: Fluid Summary Crystalloid volume administer 500 10/05/24 22:57 (ml) Colloids volume administered ( ml) Blood Product volume administered (ml) Total IV fluid infused 500 10/05/24 22:57 Anesthesia Postop Eval I: Summary Notes Anesthesia Complication No 10/05/24 22:57 Anesthesia Complication Comment: Post-operative progress note Anesthesia: Postop Eval II Evaluation Mental status: Awake and Calm Pain Level: 0 nausea: No Vomiting: No Complications Anesthesia Complication: No
--- OUTSIDE RECORDS SUMMARY | 2024-10-05 23:14 | XMS RPT_ITS | CCD ---
Author Organization [facility] Care Team Providers Care Supervisor Photoengraving Name Role Phone Unavailable Primary Care Provider UnavailREID Dougherty Attending Unavailable Care Physician, No Primary Primary Care Provider Unavailable Care Physician, No Primary Referring Provider Un available Dr. Lee Martinez Attending Provider SITA GARCIA, DR UMAÑA Primary Care Physician SITA GARCIA, DR UMAÑA Primary Care Sara MORFIN MD, GENOVEVA Chew Attending Unavailable PHYSICIAN, NONE Primary Care Physician Unavailab Kyara Alicea Unavailable Unavailable Lee Martinez Attending Unavailable Care Physician, No Primary Primary Care Unava ilable Care Physician, No Primary Referring Unava ilable Care Physician, No Primary Referring Unava ilable Lee Martinez Attending Unavailable Care Physician, No Primary Primary Care Unava ilable Lee Martinez Attending Unavailable Lee Martinez Referring Unavailable Care Physician, No Primary Primary Care Unava ilable Care Physician, No Primary Primary Care Unava ilable Michael Bustos Attending Unavailable Leonor Watson Attending Unavailable Care Physician, No Primary Primary Care Unava ilable Cory Armendariz Attending Unavailable Care Physician, No Primary Primary Care Unava ilable PHYSICIAN, NONE Primary Care Unavailable LAVELLE ERNANDEZ MD Attending Unavailable PHYSICIAN, NONE Primary Care Unavailable SANDRA ERNANDEZ Attending Unavailab JEAN-PIERRE Schultz MD Attending U josesitoailable PHYSICIAN, NONE Primary Care Unavailable PHYSICIAN, NONE Primary Care Unavailable JAMI BLACK DO Attending Unavailable AVIS MERLOS DO Unavailable DANNY DOBBS DO Attending Unavailable PHYSICIAN, NONE Primary Care Unavailable SITA GARCIA, DR UMAÑA Primary Care Sara MORFIN MD, GENOVEVA Chew Attending Unavailable PHYSICIAN, NONE Primary Care Unavailable MAR GARCIA, DR KENJI Bullock Attending Sara adams PHYSICIAN, NONE Primary Care Unavailable GENOVEVA MORFIN MD Attending Unavailable PHYSICIAN, NONE Primary Care Unavailable LATISHA WELLINGTON MD Attending Unavailable GABRIELE UMAÑA MD Referring Unavailable PHYSICIAN, NONE Primary Care Unavailable SUMAN GARCIA, DANNY Kulkarni Consulting Unavailable ELIZ GARCIA, LATISHA Coles Admitting Unavailable LATISHA WELLINGTON MD Attending Unavailable Care Physician, No Primary Primary Care Provider Unavailable Dr. Cory Armendariz DO Emergency Provider Wilma GARCIA, Dr. Mathews Attending Provider Allergies Allergy Classification Reported Allergen(s) Allergy Type Date of Onset Reaction(s) Facility (1 source) Amphetamine / Dextroamphetamine Drug Allergy 01-17-20 15 Rash [facility] (1 source) DEXTROAMPHETAMINE-AM PHETAMINE; Translations: [DEXTROAMPHETAMINE-A MPHETAMINE] Propensity to adverse reactions to drug (disorder) 12-24-19 14 [facility] (5 sources) Amphetamine; Translations: [amphetamine aspartate] Drug Allergy 05-02-19 24 Vomiting [facility] (5 sources) Amphetamine; Translations: [amphetamine sulfate] Drug Allergy 05-02-19 24 [facility] (5 sources) Dextroamphetamine; Translations: [dextroamphetamine saccharate] Drug Allergy 05-02-19 24 [facility] (5 sources) Dextroamphetamine; Translations: [dextroamphetamine sulfate] Drug Allergy 05-02-19 24 [facility] (4 sources) bee venom protein (honey bee) Allergy to substance 05-02-19 Hives [facility] (9 sources) Amphetamine / Dextroamphetamine; Translations: [amphetamine-dextroa mphetamine] Drug Allergy Nausea and vomiting [facility] (1 source) bee venom protein (honey bee) Drug allergy (disorder) 07-14-19 24 [facility] Repository Medications Current Medications Medication Drug Class(es) [...] Start: 12-30-2021 ibuprofen (ADVIL;MOTRIN) tablet 600 mg Start: 12-30-2021 End: 01-06-2022 take 1 tablet by mouth every six hours as needed for pain ibuprofen (ADVIL;MOTRIN) 800 MG tablet Take 1 tablet by mouth every 6 hours as needed for Pain 20 tablet 0 12/30/2021 01/06/2022 Active lidocaine 0.04 mg/mg medicated patch (2 sources) Antiarrhythmic, Amide Local Anesthetic Start: 12-30-2021 lidocaine 4 % external patch 1 patch Start: 12-30-2021 End: 01-29-2022 apply 1 dose transdermal route once daily lidocaine (LIDODERM) 5 % Place 1 patch onto the skin daily 12 hours on, 12 hours off. 30 patch 0 12/30/2021 01/29/2022 Active [place] (Nk) (4 sources) Start: 10-05-2024 [place] (Nk) A ctive October 05, 2024 12:00am Start: 05-02-2023 [place] (Nk) A ctMay 02, 2023 1:00am Start: 05-02-2023 [place] (Nk) A ctive May 02, 2023 12:00am omeprazole 20 mg delayed release oral capsule (3 sources) Proton Pump Inhibitor Start: 02-09-2024 omeprazo le 20 mg oral delayed release capsule Dose : 20 mg = 1 cap(s), Oral, qDay, # 30 cap(s), 0 Refill(s) Start Date: 02/09/24 Status: Ordered Quantity: 30.0 Unit: cap(s) Repeat number: 1 Completed/Discontinued Medications Medication Drug Class(es) Dates Sig (Normalized) Sig (Original) acetaminophen 500 mg oral tablet (1 source) Start: 2 End: 2 acetaminophen (TYLENOL) tablet 1,000 mg apixaban 5 mg oral tablet (5 sources) Factor Xa Inhibitor Start: 5 End: 5 Eliquis 5 mg oral tablet Dose : 5 mg = 1 tab(s), Oral, BID, # 60 tab(s), 0 Refill(s), 95.5 Start Date: 04/11/24 Stop Date: 05/11/24 Status: Ordered Quantity: 60.0 Unit: tab(s) Repeat number: 1 cyclobenzaprine hydrochloride 10 mg oral tablet (4 sources) Muscle Relaxant Start: End: 4 take 1 tablet by mouth three times daily as needed for muscle spasms Cyclobenzaprine 10 MG tablet Discontinued 10 mg PO THREE TIMES A DAY as needed for Muscle Spasm 20 July 18, 2020 12:00am May 02, 2023 6:10am 24 hr dilTIAZem hydrochloride 180 mg extended release oral capsule (11 sources) Calcium Channel Skyler Start: 4 End: 5 take 1 capsule by mouth once daily, then take 1 capsule by mouth every twenty-four hours Diltiazem Hcl (Diltiazem Hcl 180 Mg Capsule,Extended Release 24 Hr) 180 mg capsule,extended release 24hr Discontinued 180 mg PO DAILY February 29, 2024 1:00am October 05, 2024 7:28pm methylPREDNISolone 4 mg oral tablet (4 sources) Corticosteroid Start: 1 End: 4 Methylprednisolone 4 MG tablets,dose pack Discontinued 4 mg PO DIRECTED 1 July 18, 2020 12:00am May 02, 2023 6:10am naproxen 500 mg oral tablet (4 sources) Nonsteroidal Anti-inflammatory Drug Start: 1 End: 4 take 1 tablet by mouth twice daily Naproxen 500 MG tablet Discontinued 500 mg PO TWICE A DAY July 18, 2020 12:00am May 02, 2023 6:10am Problems Problem Classification Problem Date Documented Da te Episodic/Chronic Allergic reactions (1 source) Contact dermatitis; Translations: [Unspecified contact dermatitis, unspecified cause] Onset: 11-04-2023 Episodic Cardiac dysrhythmias (10 sources) Unspecified atrial fibrillation; Translations: [Paroxysmal atrial fibrillation] Onset: 01-23-2024 Chronic Conditions associated with dizziness or vertigo (8 sources) Postural dizziness; Translations: [Dizziness and giddiness] Onset: 06-10-2024 01-30-2024 Episodic Joint disorders and dislocations; trauma-related (4 sources) Acute meniscal tear, lateral; Translations: [Other tear of lateral meniscus, current injury, left knee, initial encounter] Onset: 07-16-2023 05-12-2023 Episodic Nonspecific chest pain (7 sources) Non-cardiac chest pain; Translations: [Other chest pain] Onset: 04-02-2024 08-08-2019 Episodic Other acquired deformities (1 source) Spondylolysis, lumbar region; Translations: [Pars defect of lumbar spine] Onset: 01-08-2022 Episodic Other aftercare (1 source) 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; Translations: [alf (current) use of anticoagulants] Onset: 06-10-2024 Episodic Other aftercare (1 source) Other prison (current) drug therapy; Translations: [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] Onset: 06-10-2024 Episodic Other aftercare (1 source) Encounter for therapeutic drug level monitoring; Translations: [Encounter for therapeutic drug level monitoring] Onset: 06-10-2024 Episodic Other connective tissue disease (1 source) Spasm; Translations: [Other muscle spasm] Episodic Other gastrointestinal disorders (7 sources) Dysphagia 01-30-2024 Episodic Other injuries and conditions due to external causes (6 sources) Foreign body in esophagus; Translations: [Unspecified foreign body in esophagus causing other injury, initial encounter] Onset: 02-09-2024 08-06-2019 Episodic Other lower respiratory disease (7 sources) Dyspnea on exertion 01-30-2024 Episodic Other lower respiratory disease (7 sources) Snoring 01-30-2024 Episodic Other lower respiratory disease (1 source) Snoring; Translations: [Snoring] Onset: 06-10-2024 Episodic Other non-traumatic joint disorders (6 sources) Pain in left knee; Translations: [Acute pain of left knee] Onset: 06-27-2023 05-02-2023 Episodic Other nutritional; endocrine; and metabolic disorders (1 source) Obesity, unspecified; Translations: [Obesity, unspecified] Onset: 06-10-2024 Chronic Other nutritional; endocrine; and metabolic disorders (1 source) Body mass index (BMI) 30.0-30.9, adult; Translations: [Body mass index [BMI] 30.0-30.9, adult] Onset: 06-10-2024 Chronic Residual codes; unclassified (1 source) Family history of ischemic heart disease and other diseases of the circulatory system; Translations: [Family history of ischemic heart disease and other diseases of the circulatory system] Onset: 06-10-2024 Episodic Residual codes; unclassified (1 source) Family history of diabetes mellitus; Translations: [Family history of diabetes mellitus] Onset: 06-10-2024 Episodic Residual codes; unclassified (1 source) Family history of stroke; Translations: [Family history of stroke] Onset: 06-10-2024 Episodic Spondylosis; intervertebral disc disorders; other back problems (4 sources) Lumbago with sciatica, left side; Translations: [Lumbago with sciatica, right side] Onset: 01-08-2022 Episodic Sprains and strains (1 source) Low back strain; Translations: [Strain of muscle, fascia and tendon of lower back, initial encounter] Episodic Results Test Name Value Interpretation Reference Range Facility Absolute lymphocyte countOrd ered By: Cory Armendariz on 10-05-2024 Lymphocytes Auto (Unsp spec) [#/Vol] 2.73 10*3/uL 0.83-4.51 [facility] Absolute neutrophil countOrd ered By: Cory Armendariz on 10-05-2024 Neutrophils (Bld) [#/Vol] 6.5 10*3/uL 2.0-7.7 [facility] Anion gap in Serum or Plasma Ordered By: Cory Armendariz on 10-05-2024 Anion gap [Moles/Vol] 12 mmol/L 5-15 [facility] Automated lymphocyte count a s percentage of total leukocytesOrdered By: Cory Armendariz on 10-05-2024 Lymphocytes/100 WBC Auto (Unsp spec) 25.5 % 19-41 [facility] BUN/creatinine ratioOrdered By: Cory Armendariz on 10-05-2024 Urea nitrogen/Creatinine [Mass ratio] 9.9 mg/mg Low 10-20 [facility] Basophil percentageOrdered B y: Cory Armendariz on 10-05-2024 Basophils/100 WBC (Bld) 0.5 % 0-1 [facility] Carbon dioxide, total [Moles /volume] in Central venous bloodOrdered By: Cory Armendariz on 10-05-2024 CO2 [Moles/Vol] 24.4 mmol/L 21.0-32.0 [facility] Chloride assayOrdered By: Marivel Armendariz on 10-05-2024 Chloride [Moles/Vol] 106 mmol/L 98-108 [facility] Eosinophil percentageOrdered By: Cory Armendariz on 10-05-2024 Eosinophils/100 WBC (Bld) 4.3 % 0-5 [facility] Erythrocyte distribution wid th ratioOrdered By: Cory Armendariz on 10-05-2024 Erythrocyte distribution width (RBC) [Ratio] 12.2 % 11.6-14.6 [facility] Erythrocyte distribution wid th standard deviationOrdered By: Cory Armendariz on 10-05-2024 Erythrocyte distribution width (RBC) [Ratio] 35.2 fl 35.1-43.9 [facility] Glomerular filtration rate ( GFR) estimation/1.73 sq m using serum, plasma, or whole bOrdered By: Cory Armendariz on 10-05-2024 GFR/1.73 sq M.predicted among non-blacks MDRD (S/P/Bld) [Vol rate/Area] 94 mL/min/{1.73_m2} >60 [facility] Comment on above: mL/min/1.73m2 CKD-EP I Creatinine Equation (2020) Hematocrit Auto (Bld) [Volum e fraction]Ordered By: Cory Armendariz on 10-05-2024 Hematocrit (Bld) [Volume fraction] 40.1 % 40-54 [facility] Hemoglobin measurementOrdere d By: Cory Armendariz on 10-05-2024 Hemoglobin (Bld) [Mass/Vol] 14.4 g/dL 13.0-16.5 [facility] Immature granulocytes/100 WB C Auto (Bld)Ordered By: Cory Armendariz on 10-05-2024 Immature granulocytes/100 WBC (Bld) 0.300 % 0.0-0.9 [facility] Comment on above: IG% - Immature Granu locytes (promyelocytes, myelocytes and metamyelocytes) > 1% indicates that a LEFT SHIFT is Present. MCV (mean corpuscular volume ) determinationOrdered By: Cory Armendariz on 10-05-2024 MCV (RBC) [Entitic vol] 81.0 fL 80-94 [facility] Mean corpuscular hemoglobin (MCH) determinationOrdered By: Cory Armendariz on 10-05-2024 MCH (RBC) [Entitic mass] 29.1 pg 27.0-32.0 [facility] Mean corpuscular hemoglobin concentration (MCHC) determinationOrdered By: Cory Armendariz on 10-05-2024 MCHC (RBC) [Mass/Vol] 35.9 g/dL 32-36 [facility] Mean platelet volume determi nationOrdered By: Cory Armendariz on 10-05-2024 Platelet mean volume (Bld) [Entitic vol] 10.1 fL 6.2-12.0 [facility] Monocyte percentageOrdered B y: Cory Armendariz on 10-05-2024 Monocytes/100 WBC (Bld) 9.0 % 0-10 [facility] Neutrophil percentageOrdered By: Cory Armendariz on 10-05-2024 Neutrophils/100 WBC (Bld) 60.4 % 47-70 [facility] Nucleated red blood cell per centageOrdered By: Cory Armendariz on 10-05-2024 Nucleated RBC/100 WBC (Bld) [Ratio] 0 % 0-5 [facility] Platelet countOrdered By: Marivel Armendariz on 10-05-2024 Platelets (Bld) [#/Vol] 249 10*3/uL 150-450 [facility] Potassium measurement (mass/ volume)Ordered By: Cory Armendariz on 10-05-2024 Potassium (Unsp spec) [Mass/Vol] 3.7 mmol/L 3.3-5.1 [facility] RBC Auto (Bld) [#/Vol]Ordere d By: Cory Armendariz on 10-05-2024 RBC (Bld) [#/Vol] 4.95 10*6/uL 4.6-6.2 [facility] Serum creatinine measurement (mass/volume)Ordered By: Cory Armendariz on 10-05-2024 Creatinine [Mass/Vol] 1.10 mg/dL 0.70-1.20 [facility] Serum glucose measurement (m ass/volume)Ordered By: Cory Armendariz on 10-05-2024 Glucose [Mass/Vol] 87 mg/dL 70-99 [facility] Serum or plasma calcium giuseppe urement (mass/volume)Ordered By: Cory Armendariz on 10-05-2024 Calcium [Mass/Vol] 9.4 mg/dL 7.6-11.0 [facility] Serum or plasma urea nitroge n measurement (mass/volume)Ordered By: Cory Armendariz on 10-05-2024 Urea nitrogen [Mass/Vol] 11 mg/dL 4-19 [facility] Sodium levelOrdered By: Estefanía Armendariz on 10-05-2024 Sodium [Moles/Vol] 143 mmol/L 133-145 [facility] White blood cell (WBC) count Ordered By: Cory Armendariz on 10-05-2024 WBC (Bld) [#/Vol] 10.7 10*3/uL 4.4-11.0 [facility] .GFRon 06-11-2024 Estimated Glomerular Filtration Rate 120 ml/min/1.73sqm Normal [facility] Comment on above: Result Comment: Stages of Chronic Kidney Disease (CKD) Stage Description eGFR(ml/min/1.73 sq.m.) CKD 1 Normal kidney function or >=90 normal kindney function with possible kidney damage (ex. Proteinuria) CKD 2 Kidney damage with mild loss 60-89 of kidney function CKD 3a Mild to moderate loss of kidney 45-59 function CKD 3b Moderate to severe loss of 30-44 of kindey function CKD 4 Severe loss of kidney function 15-29 CKD 5 Kidney failure <15 Note: (go live 2024) the eGFR calculation was updated to the 2020 CKD-EPI creatinine equation without a race factor to calculate the eGFR results. Performed By: #### G , BMP #### [address] [address] [facility] BUN/Creatinine Ratio 10.1 ratio Normal 10.0-22.0 [facility] Comment on above: Performed By: #### G , BMP #### [facility] [address] [place] [address] Calcium [Mass/Vol] 8.5 mg/dL Low 8.7-10.4 [facility] Comment on above: Performed By: #### G FR, BMP #### [address] [address] Chloride [Moles/Vol] 109 mmol/L Normal 98-110 [facility] Comment on above: Performed By: #### G FR, BMP #### [address] [address] CO2 [Moles/Vol] 26 mmol/L Normal 22-32 [facility] Comment on above: Performed By: #### G FR, BMP #### [address] [address] Creatinine [Mass/Vol] 0.89 mg/dL Normal 0.60-1.40 [facility] Comment on above: Result Comment: Test ing performed on Distil Interactive analyzer using enzymatic creatinine methodology. Performed By: #### Estela MONTEIRO, BMP #### [address] [address] Electrolyte Balance 6.0 mEq/L Normal 4.0-15.0 [facility] Comment on above: Performed By: #### Estela FR, BMP #### [address] [address] Glucose [Mass/Vol] 96 mg/dL Normal 70-110 [facility] Comment on above: Performed By: #### G FR, BMP #### [address] [address] Potassium [Moles/Vol] 4.0 mmol/L Normal 3.5-5.0 [facility] Comment on above: Performed By: #### G FR, BMP #### [address] [address] Sodium [Moles/Vol] 141 mmol/L Normal 136-145 [facility] Comment on above: Performed By: #### Estela FR, BMP #### [address] [address] Urea nitrogen [Mass/Vol] 9.0 mg/dL Normal 8.0-22.0 [facility] Comment on above: Performed By: #### G FR, BMP #### [address], [place] [address] LABORATORYOrdered By: SYSTEM SYSTEM on 06-11-2024 Calcium [Mass/Vol] 8.5 mg/dL Low 8.7 - 10. 4 mg/dL AH ADM SS Chloride [Moles/Vol] 109 mmol/L Normal 98 - 11 0 mEq/L AH ADM SS CO2 [Moles/Vol] 26 mmol/L Normal 22 - 32 mEq/L AH ADM SS Creatinine [Mass/Vol] 0.89 mg/dL Normal 0.60 - 1.40 mg/dL AH ADM SS Comment on above: Interpretive Data: T esting performed on Distil Interactive analyzer using enzymatic creatinine methodology. Electrolyte Balance 6.0 mEq/L Normal 4.0 - 15 .0 mEq/L AH ADM SS Estimated Glomerular Filtration Rate 120 ml/min/1.73sqm Invalid Interpretation Code Chemistry S Comment on above: Interpretive Data: Stages of Chronic Kidney Disease (CKD) Stage Description eGFR(ml/min/1.73 sq.m.) CKD 1 Normal kidney function or >=90 normal kindney function with possible kidney damage (ex. Proteinuria) CKD 2 Kidney damage with mild loss 60-89 of kidney function CKD 3a Mild to moderate loss of kidney 45-59 function CKD 3b Moderate to severe loss of 30-44 of kindey function CKD 4 Severe loss of kidney function 15-29 CKD 5 Kidney failure <15 Note: (go live 2024) the eGFR calculation was updated to the 2020 CKD-EPI creatinine equation without a race factor to calculate the eGFR results. Glucose [Mass/Vol] 96 mg/dL Normal 70 - 110 mg/dL ADM SS Potassium [Moles/Vol] 4.0 mmol/L Normal 3.5 - 5.0 mEq/L ADM SS Sodium [Moles/Vol] 141 mmol/L Normal 136 - 145 mEq/L ADM SS Urea nitrogen [Mass/Vol] 9.0 mg/dL Normal 8.0 - 22.0 mg/dL ADM SS Urea nitrogen/Creatinine [Mass ratio] 10.1 ratio Normal 10.0 - 22.0 ratio AH ADM SS .Auto Diffon 06-10-2024 Basophil, Absolute 0.0 10 3/mcL Normal 0.0-0.3 [facility] Comment on above: Performed By: #### C BC, ANEU, ADIFF, BMP, ABSGEL, GFR, ABOGEL #### [address] [address] Basophils/100 WBC (Bld) 0.5 % Normal 0.0-2.5 [facility] Comment on above: Performed By: #### C BC, ANEU, ADIFF, BMP, ABSGEL, GFR, ABOGEL #### [address] [address] Eosinophil, Absolute 0.4 10 3/mcL Normal 0.0-0.[address] [facility] Comment on above: Performed By: #### C BC, ANEU, ADIFF, BMP, ABSGEL, GFR, ABOGEL #### [address] [address] Eosinophils/100 WBC (Bld) 4.4 % Normal 0.0-6.0 [facility] Comment on above: Performed By: #### C BC, ANEU, ADIFF, BMP, ABSGEL, GFR, ABOGEL #### [address] [address] Lymphocyte, Absolute 1.9 10 3/mcL Normal 0.9-4.[address] [facility] Comment on above: Performed By: #### C BC, ANEU, ADIFF, BMP, ABSGEL, GFR, ABOGEL #### [address] [address] Lymphocytes/100 WBC (Bld) 23.4 % Normal 20.0-40.0 [facility] Comment on above: Performed By: #### C BC, ANEU, ADIFF, BMP, ABSGEL, GFR, ABOGEL #### [address] [address] Monocyte, Absolute 0.8 10 3/mcL Normal 0.1-1.4 [facility] Comment on above: Performed By: #### C BC, ANEU, ADIFF, BMP, ABSGEL, GFR, ABOGEL #### [address] [address] Monocytes/100 WBC (Bld) 9.4 % Normal 2.0-13.0 [facility] Comment on above: Performed By: #### C BC, ANEU, ADIFF, BMP, ABSGEL, GFR, ABOGEL #### [place] [address] [place] [address] Neutrophils/100 WBC (Bld) 62.3 % Normal 50.0-75.0 [facility] Comment on above: Performed By: #### C BC, ANEU, ADIFF, BMP, ABSGEL, GFR, ABOGEL #### [address] [address] .GFRon 06-10-2024 GFR/1.73 sq M.predicted among non-blacks MDRD (S/P/Bld) [Vol rate/Area] mL/min/{1.73_m2} Normal [facility] Comment on above: Result Comment: Stages of Chronic Kidney Disease (CKD) Stage Description eGFR(ml/min/1.73 sq.m.) CKD 1 Normal kidney function or >=90 normal kindney function with possible kidney damage (ex. Proteinuria) CKD 2 Kidney damage with mild loss 60-89 of kidney function CKD 3a Mild to moderate loss of kidney 45-59 function CKD 3b Moderate to severe loss of 30-44 of kindey function CKD 4 Severe loss of kidney function 15-29 CKD 5 Kidney failure <15 Note: (go live 2024) the eGFR calculation was updated to the 2020 CKD-EPI creatinine equation without a race factor to calculate the eGFR results. Performed By: #### C BC, ANEU, ADIFF, BMP, ABSGEL, GFR, ABOGEL #### [address] [address] .NEUABSon 06-10-2024 Neutrophil, Absolute 5.1 10 3/mcL Normal 2.3-8.[address] [facility] Comment on above: Performed By: #### C BC, ANEU, ADIFF, BMP, ABSGEL, GFR, ABOGEL #### [address] [address] ABO/Rh (Gel)on 06-10-2024 ABO/Rh Interp Positive Invalid Interpretation Code [facility] Comment on above: Performed By: #### C BC, ANEU, ADIFF, BMP, ABSGEL, GFR, ABOGEL #### [address] [address] ABS (Gel)on 06-10-2024 ABSC Interp (Gel) Negative Normal [facility] Comment on above: Performed By: #### C BC, ANEU, ADIFF, BMP, ABSGEL, GFR, ABOGEL #### [address] [address] APTTon 06-10-2024 aPTT Coag (Bld) [Time] 33.7 s Normal 25.0-35.[address] [facility] Comment on above: Result Comment: For Heparin anticoagulation therapy, the recommended therapeutic range is: 54-77 seconds (APTT Correlation with Anti-Xa therapeutic range of 0.3-0.7 units/ml). PLEASE REFERENCE THE PHARMACY PROTOCOL FOR DOSING. Performed By: #### G FR, BMP #### [address] [address] [facility] BUN/Creatinine Ratio 9.3 ratio Low 10.0-22.0 [facility] Comment on above: Performed By: #### C BC, ANEU, ADIFF, BMP, ABSGEL, GFR, ABOGEL #### [address] [address] Calcium [Mass/Vol] 9.1 mg/dL Normal 8.7-10.4 [facility] Comment on above: Performed By: #### C BC, ANEU, ADIFF, BMP, ABSGEL, GFR, ABOGEL #### [address] [address] Chloride [Moles/Vol] 108 mmol/L Normal 98-110 [facility] Comment on above: Performed By: #### C BC, ANEU, ADIFF, BMP, ABSGEL, GFR, ABOGEL #### [address] [address] CO2 [Moles/Vol] 28 mmol/L Normal 22-32 [facility] Comment on above: Performed By: #### C BC, ANEU, ADIFF, BMP, ABSGEL, GFR, ABOGEL #### [address] [address] Creatinine [Mass/Vol] 0.86 mg/dL Normal 0.60-1.40 [facility] Comment on above: Result Comment: Test ing performed on Distil Interactive analyzer using enzymatic creatinine methodology. Performed By: #### C BC, ANEU, ADIFF, BMP, ABSGEL, GFR, ABOGEL #### [address] [address] Electrolyte Balance 6.0 mEq/L Normal 4.0-15.0 [facility] Comment on above: Performed By: #### C BC, ANEU, ADIFF, BMP, ABSGEL, GFR, ABOGEL #### [place] [id number] Glucose [Mass/Vol] 87 mg/dL Normal 70-110 [facility] Comment on above: Performed By: #### C BC, ANEU, ADIFF, BMP, ABSGEL, GFR, ABOGEL #### [place] [id number] Potassium [Moles/Vol] 3.8 mmol/L Normal 3.5-5.0 [facility] Comment on above: Performed By: #### C BC, ANEU, ADIFF, BMP, ABSGEL, GFR, ABOGEL #### [place] [id number] Sodium [Moles/Vol] 142 mmol/L Normal 136-145 [facility] Comment on above: Performed By: #### C BC, ANEU, ADIFF, BMP, ABSGEL, GFR, ABOGEL #### [place] [id number] Urea nitrogen [Mass/Vol] 8.0 mg/dL Normal 8.0-22.0 [facility] Comment on above: Performed By: #### C BC, ANEU, ADIFF, BMP, ABSGEL, GFR, ABOGEL #### [address] [address] CBCon 06-10-2024 Erythrocyte distribution width (RBC) [Ratio] 12.5 % Normal 11.5-15.5 [facility] Comment on above: Performed By: #### C BC, ANEU, ADIFF, BMP, ABSGEL, GFR, ABOGEL #### [place] [id number] Hematocrit (Bld) [Volume fraction] 43.4 % Normal 40.0-52.0 [facility] Comment on above: Performed By: #### C BC, ANEU, ADIFF, BMP, ABSGEL, GFR, ABOGEL #### [place] [address] Hgb 15.1 G/dL Normal 13.0-17.5 [facility] Comment on above: Performed By: #### C BC, ANEU, ADIFF, BMP, ABSGEL, GFR, ABOGEL #### [place] [address] MCH (RBC) [Entitic mass] 29.1 pg Normal 27.0-33.0 [facility] Comment on above: Performed By: #### C BC, ANEU, ADIFF, BMP, ABSGEL, GFR, ABOGEL #### [place] [address] MCHC 34.8 G/dL Normal 32.0-36.0 [facility] Comment on above: Performed By: #### C BC, ANEU, ADIFF, BMP, ABSGEL, GFR, ABOGEL #### [place] [address] MCV (RBC) [Entitic vol] 83.6 fL Normal 81.0-100.0 [facility] Comment on above: Performed By: #### C BC, ANEU, ADIFF, BMP, ABSGEL, GFR, ABOGEL #### [place] [address] Platelet 231 10 3/mcL Normal 150-450 [facility] Comment on above: Performed By: #### C BC, ANEU, ADIFF, BMP, ABSGEL, GFR, ABOGEL #### [place] [address] Platelet mean volume (Bld) [Entitic vol] 9.1 fL Normal 6.4-10.5 [facility] Comment on above: Performed By: #### C BC, ANEU, ADIFF, BMP, ABSGEL, GFR, ABOGEL #### [place] [address] RBC 5.20 10 6/mcL Normal 4.50-6.00 [facility] Comment on above: Performed By: #### C BC, ANEU, ADIFF, BMP, ABSGEL, GFR, ABOGEL #### [place] [address] WBC 8.2 10 3/mcL Normal 4.5-10.8 [facility] Comment on above: Performed By: #### C BC, ANEU, ADIFF, BMP, ABSGEL, GFR, ABOGEL #### [place] [address] FIBon 06-10-2024 Fibrinogen 323 mg/dL Normal 250-560 [facility] Comment on above: Performed By: #### P RO, APTT, FIB #### [place] [address] LABORATORYOrdered By: Angel Vargas on 06-10-2024 ABO and Rh group Nom (Bld) Blood group O Rh(D) positive Invalid Interpretation Code AH BB Auto SS Blood group antibody screen Ql Negative ABSC (06/10/24 6:37 AM) Normal AH BB Auto SS LABORATORYOrdered By: SYSTEM SYSTEM on 06-10-2024 aPTT Coag (Bld) [Time] 33.7 s Normal 25.0 - 35.0 seconds [facility] SS Comment on above: Interpretive Data: F or Heparin anticoagulation therapy, the recommended therapeutic range is: 54-77 seconds (APTT Correlation with Anti-Xa therapeutic range of 0.3-0.7 units/ml). PLEASE REFERENCE THE PHARMACY PROTOCOL FOR DOSING. Basophils (Bld) [#/Vol] 0.0 103/mcL Normal 0.0 - 0.3 10^3/mcL AH Workflow SS Basophils/100 WBC (Bld) 0.5 % Normal 0.0 - 2.5 % AH Workflow SS Calcium [Mass/Vol] 9.1 mg/dL Normal 8.7 - 10. 4 mg/dL AH ADM SS Chloride [Moles/Vol] 108 mmol/L Normal 98 - 11 0 mEq/L AH ADM SS CO2 [Moles/Vol] 28 mmol/L Normal 22 - 32 mEq/L AH ADM SS Creatinine [Mass/Vol] 0.86 mg/dL Normal 0.60 - 1.40 mg/dL AH ADM SS Comment on above: Interpretive Data: T esting performed on Distil Interactive analyzer using enzymatic creatinine methodology. Electrolyte Balance 6.0 mEq/L Normal 4.0 - 15 .0 mEq/L ADM SS Eosinophils (Bld) [#/Vol] 0.4 103/mcL Normal 0.0 - 0.7 10^3/mcL AH Workflow SS Eosinophils/100 WBC (Bld) 4.4 % Normal 0.0 - 6.0 % AH Workflow SS Erythrocyte distribution width (RBC) [Ratio] 12.5 % Normal 11.5 - 15.5 % AH Workflow SS Estimated Glomerular Filtration Rate ml/min/1.73sqm Invalid Interpretation Code Chemistry S Comment on above: Interpretive Data: Stages of Chronic Kidney Disease (CKD) Stage Description eGFR(ml/min/1.73 sq.m.) CKD 1 Normal kidney function or >=90 normal kindney function with possible kidney damage (ex. Proteinuria) CKD 2 Kidney damage with mild loss 60-89 of kidney function CKD 3a Mild to moderate loss of kidney 45-59 function CKD 3b Moderate to severe loss of 30-44 of kindey function CKD 4 Severe loss of kidney function 15-29 CKD 5 Kidney failure <15 Note: (go live 2024) the eGFR calculation was updated to the 2020 CKD-EPI creatinine equation without a race factor to calculate the eGFR results. Fibrinogen 323 mg/dL Normal 250 - 560 mg/dL [facility] SS Glucose [Mass/Vol] 87 mg/dL Normal 70 - 110 mg/dL ADM SS Hematocrit (Bld) [Volume fraction] 43.4 % Normal 40.0 - 52.0 % AH Workflow SS Hemoglobin (Bld) [Mass/Vol] 15.1 G/dL Normal 13.0 - 17.5 G/dL AH Workflow SS Lymphocytes (Bld) [#/Vol] 1.9 103/mcL Normal 0.9 - 4.3 10^3/mcL AH Workflow SS Lymphocytes/100 WBC (Bld) 23.4 % Normal 20.0 - 40.0 % Workflow SS MCH (RBC) [Entitic mass] 29.1 pg Normal 27. 0 - 33.0 pg AH Workflow SS MCHC 34.8 G/dL Normal 32.0 - 36.0 G/dL Workflow SS MCV (RBC) [Entitic vol] 83.6 fL Normal 81.0 - 100.0 fL AH Workflow SS Monocytes (Bld) [#/Vol] 0.8 103/mcL Normal 0.1 - 1.4 10^3/mcL AH Workflow SS Monocytes/100 WBC (Bld) 9.4 % Normal 2.0 - 13.0 % AH Workflow SS Neutrophils (Bld) [#/Vol] 5.1 103/mcL Normal 2.3 - 8.1 10^3/mcL AH Workflow SS Neutrophils/100 WBC (Bld) 62.3 % Normal 50.0 - 75.0 % Workflow SS Platelet mean volume (Bld) [Entitic vol] 9.1 fL Normal 6.4 - 10.5 fL Workflow SS Platelets (Bld) [#/Vol] 231 103/mcL Normal 150 - 450 10^3/mcL Workflow SS Potassium [Moles/Vol] 3.8 mmol/L Normal 3.5 - 5.0 mEq/L ADM SS PT Coag (PPP) [Time] 11.5 s Normal 9.0 - 1 4.4 seconds [facility] Comment on above: Interpretive Data: E ffective 09/29/07, Protime results may be affected by some antibiotics (i.e. Ciprofloxacin, Azithromycin, Bactrim) which may potentiate the action of oral anticoagulants, with further increases in Protime/INR. PT International Ratio 1.0 ratio Invalid Interpretation Code [facility] Comment on above: Interpretive Data: Alfie lance [employer] (CHEST, 1992, 102:[id number]) recommended therapeutic range for oral anticoagulant therapy is: LOW RISK: Prophylaxis of venous thrombosis INR: 2.0-3.0 Treatment of pulmonary embolism 2.0-3.0 Prevention of systemic embolism 2.0-3.0 HIGH RISK: Mechanical prosthetic valves 2.5-3.5 RBC (Bld) [#/Vol] 5.20 106/mcL Normal 4.50 - 6.0 0 10^6/mcL Workflow SS Sodium [Moles/Vol] 142 mmol/L Normal 136 - 145 mEq/L AH ADM SS Urea nitrogen [Mass/Vol] 8.0 mg/dL Normal 8.0 - 22.0 mg/dL AH ADM SS Urea nitrogen/Creatinine [Mass ratio] 9.3 ratio Low 10.0 - 22.0 ratio AH ADM SS WBC (Bld) [#/Vol] 8.2 103/mcL Normal 4.5 - 10.8 10^3/mcL AH Workflow SS PROon 06-10-2024 INR Coag (PPP) [Relative time] 1.0 {INR} Normal [facility] Comment on above: Result Comment: [employer] (CHEST, 1992, 102:312S-25S) recommended therapeutic range for oral anticoagulant therapy is: LOW RISK: Prophylaxis of venous thrombosis INR: 2.0-3.0 Treatment of pulmonary embolism 2.0-3.0 Prevention of systemic embolism 2.0-3.0 HIGH RISK: Mechanical prosthetic valves 2.5-3.5 Performed By: #### G FR, BMP #### [address] [address] PT Coag (PPP) [Time] 11.5 s Normal 9.0-14.4 [facility] Comment on above: Result Comment: Effe ctive 09/29/07, Protime results may be affected by some antibiotics (i.e. Ciprofloxacin, Azithromycin, Bactrim) which may potentiate the action of oral anticoagulants, with further increases in Protime/INR. Performed By: #### G FR, BMP #### [address] [address] .Auto Diffon 05-11-2024 Basophil, Absolute 0.1 10 3/mcL Normal 0.0-0.2 [facility] Comment on above: Performed By: #### C EZIO BERKOWITZ MDW, ANEU, PBNP, ADIFF, BMP, GFR, DIMER #### [address] [address] Basophils/100 WBC (Bld) 0.7 % Normal 0.0-2.5 [facility] Comment on above: Performed By: #### C EZIO BERKOWITZ MDW, ANEU, PBNP, ADIFF, BMP, GFR, DIMER #### [address] [address] Eosinophil, Absolute 0.3 10 3/mcL Normal 0.0-0.7 [facility] Comment on above: Performed By: #### C EZIO BERKOWITZ MDW, ANEU, PBNP, ADIFF, BMP, GFR, DIMER #### [address] [address] Eosinophils/100 WBC (Bld) 3.4 % Normal 0.0-7.0 [facility] Comment on above: Performed By: #### C EZIO BERKOWITZ MDW, ANEU, PBNP, ADIFF, BMP, GFR, DIMER #### [address] [address] Lymphocyte, Absolute 2.5 10 3/mcL Normal 0.9-4.3 [facility] Comment on above: Performed By: #### C WOO, JOSE HOLGUIN, ANEU, PBNP, ADIFF, BMP, GFR, DIMER #### [address] [address] Lymphocytes/100 WBC (Bld) 24.9 % Normal 20.0-40.0 [facility] Comment on above: Performed By: #### C EZIO BERKOWITZ MDW, ANEU, PBNP, ADIFF, BMP, GFR, DIMER #### [address] [address] Monocyte, Absolute 0.9 10 3/mcL Normal 0.1-1.4 [facility] Comment on above: Performed By: #### C EZIO BERKOWITZ MDW, ANEU, PBNP, ADIFF, BMP, GFR, DIMER #### [address] [address] Monocytes/100 WBC (Bld) 9.1 % Normal 2.0-13.0 [facility] Comment on above: Performed By: #### C EZIO BERKOWITZ MDW, ANEU, PBNP, ADIFF, BMP, GFR, DIMER #### [address] [address] Neutrophils/100 WBC (Bld) 61.9 % Normal 50.0-75.0 [facility] Comment on above: Performed By: #### C EZIO BERKOWITZ MDW, ANEU, PBNP, ADIFF, BMP, GFR, DIMER #### [address] [address] .GFRon 05-11-2024 Estimated Glomerular Filtration Rate 96 ml/min/1.73sqm Normal [facility] Comment on above: Result Comment: Stages of Chronic Kidney Disease (CKD) Stage Description eGFR(ml/min/1.73 sq.m.) CKD 1 Normal kidney function or >=90 normal kindney function with possible kidney damage (ex. Proteinuria) CKD 2 Kidney damage with mild loss 60-89 of kidney function CKD 3a Mild to moderate loss of kidney 45-59 function CKD 3b Moderate to severe loss of 30-44 of kindey function CKD 4 Severe loss of kidney function 15-29 CKD 5 Kidney failure <15 Note: (go live 2024) the eGFR calculation was updated to the 2020 CKD-EPI creatinine equation without a race factor to calculate the eGFR results. Performed By: #### C EZIO BERKOWITZ MDW, ANEU, PBNP, ADIFF, BMP, GFR, DIMER ####[place] [address] .MDWon 05-11-2024 Monocyte Distribution Width 14.32 Normal 0.00-20.00 [facility] Comment on above: Result Comment: For ED adult patients suspected of sepsis, MDW<=20.0 does not rule out sepsis or risk of sepsis Performed By: #### C EZIO BERKOWITZ MDW, ANEU, PBNP, ADIFF, BMP, GFR, DIMER #### [place] [id number] .NEUABSon 05-11-2024 Neutrophil, Absolute 6.3 10 3/mcL Normal 2.3-8.1 [facility] Comment on above: Performed By: #### C EZIO BERKOWITZ MDW, ANEU, PBNP, ADIFF, BMP, GFR, DIMER #### [place] [phone] BMPon 05-11-2024 BUN/Creatinine Ratio 10 ratio Normal 7-27 [facility] Comment on above: Performed By: #### C EZIO BERKOWITZ MDW, ANEU, PBNP, ADIFF, BMP, GFR, DIMER ####[address] [place] [address] Calcium [Mass/Vol] 9.0 mg/dL Normal 8.4-10.2 [facility] Comment on above: Performed By: #### C EZIO BERKOWITZ MDW, ANEU, PBNP, ADIFF, BMP, GFR, DIMER ####[address] [address] Chloride [Moles/Vol] 104 mmol/L Normal 98-107 [facility] Comment on above: Performed By: #### C WOO, JOSE HOLGUIN, ANEU, PBNP, ADIFF, BMP, GFR, DIMER ####[place] [phone] CO2 [Moles/Vol] 29 mmol/L Normal 22-29 [facility] Comment on above: Performed By: #### C EZIO BERKOWITZ MDW, ANEU, PBNP, ADIFF, BMP, GFR, DIMER ####[address] [address] Creatinine [Mass/Vol] 1.08 mg/dL Normal 0.70-1.30 [facility] Comment on above: Result Comment: Test ing performed on Siemens Dimension EXL analyzer using a modified kinetic Nadia technique. Performed By: #### C EZIO BERKOWITZ MDW, ANEU, PBNP, ADIFF, BMP, GFR, DIMER ####[address] [address] Electrolyte Balance 5.0 mEq/L Normal 4.0-15.0 [facility] Comment on above: Performed By: #### C EZIO BERKOWITZ MDW, ANEU, PBNP, ADIFF, BMP, GFR, DIMER ####[address] [address] Glucose [Mass/Vol] 96 mg/dL Normal 70-105 [facility] Comment on above: Performed By: #### C EZIO BERKOWITZ MDW, ANEU, PBNP, ADIFF, BMP, GFR, DIMER ####[place] [phone] Potassium [Moles/Vol] 3.6 mmol/L Normal 3.5-5.1 [facility] Comment on above: Performed By: #### C EIZO BERKOWITZ MDW, ANEU, PBNP, ADIFF, BMP, GFR, DIMER ####[place] [address] [place], [place] [address] Sodium [Moles/Vol] 138 mmol/L Normal 136-145 [facility] Comment on above: Performed By: #### C EZIO BERKOWITZ MDW, ANEU, PBNP, ADIFF, BMP, GFR, DIMER ####[place] [address] [place], [place] [address] Urea nitrogen [Mass/Vol] 11 mg/dL Normal 7-18 [facility] Comment on above: Performed By: #### C EZIO BERKOWITZ MDW, ANEU, PBNP, ADIFF, BMP, GFR, DIMER ####[address] [address] CBCon 05-11-2024 Erythrocyte distribution width (RBC) [Ratio] 12.5 % Normal 11.5-15.5 [facility] Comment on above: Performed By: #### C EZIO BERKOWITZ MDW, ANEU, PBNP, ADIFF, BMP, GFR, DIMER #### [address] [address] Hematocrit (Bld) [Volume fraction] 42.3 % Normal 40.0-52.0 [facility] Comment on above: Performed By: #### C EZIO BERKOWITZ MDW, ANEU, PBNP, ADIFF, BMP, GFR, DIMER #### [address] [address] Hgb 14.9 G/dL Normal 13.0-17.5 [facility] Comment on above: Performed By: #### C EZIO BERKOWITZ MDW, ANEU, PBNP, ADIFF, BMP, GFR, DIMER #### [address] [address] MCH (RBC) [Entitic mass] 29.8 pg Normal 27.0-33.0 [facility] Comment on above: Performed By: #### C EZIO BERKOWITZ MDW, ANEU, PBNP, ADIFF, BMP, GFR, DIMER #### [address] [address] MCHC 35.3 G/dL Normal 32.0-36.0 [facility] Comment on above: Performed By: #### C EZIO BERKOWITZ MDW, ANEU, PBNP, ADIFF, BMP, GFR, DIMER #### [address] [address] MCV (RBC) [Entitic vol] 84.4 fL Normal 81.0-100.0 [facility] Comment on above: Performed By: #### C EZIO BERKOWITZ MDW, ANEU, PBNP, ADIFF, BMP, GFR, DIMER #### [address] [address] Platelet 237 10 3/mcL Normal 150-450 [facility] Comment on above: Performed By: #### C EZIO BERKOWITZ MDW, ANEU, PBNP, ADIFF, BMP, GFR, DIMER #### [address] [address] Platelet mean volume (Bld) [Entitic vol] 8.6 fL Normal 6.4-10.5 [facility] Comment on above: Performed By: #### C EZIO BERKOWITZ MDW, ANEU, PBNP, ADIFF, BMP, GFR, DIMER #### [address] [address] RBC 5.02 10 6/mcL Normal 4.50-6.00 [facility] Comment on above: Performed By: #### C EZIO BERKOWITZ MDW, ANEU, PBNP, ADIFF, BMP, GFR, DIMER #### [address] [address] WBC 10.2 10 3/mcL Normal 4.5-10.8 [facility] Comment on above: Performed By: #### C EZIO BERKOWITZ MDW, ANEU, PBNP, ADIFF, BMP, GFR, DIMER #### [facility] [address] [place], [place] [address] CRPon 05-11-2024 C-Reactive Protein 0.1 mg/dL Normal 0.0-0.3 [facility] Comment on above: Performed By: #### C RP, ESR ####[facility] [place], [place] [address] DIMERon 05-11-2024 D-Dimer <200 Normal 0-230 [facility] Comment on above: Result Comment: DDN: Results reported in D-DU ng/mL. Negative for D-dimer. DVT/PE is highly unlikely. Note: False negative results may be seen in patients on anticoagulant therapy. The result of the D-Dimer test should be evaluated in the context of all the clinical and laboratory data available. In those instances where the laboratory result does not agree with the clinical evaluation, additional tests should be performed accordingly. If the D-Dimer result is used to exclude DVT or PE, the recommended cutoff value is less than 230 ng/mL. The D-Dimer result should not be used alone to rule in DVT/PE, but should be used in conjunction with a clinical pretest probability (PTP)assessment model to exclude venous thromboembolism (VTE) in outpatients suspected of deep venous thrombosis (DVT) and pulmonary embolism (PE). Performed By: #### C BC, TROPHS, MDW, ANEU, PBNP, ADIFF, BMP, GFR, DIMER ####[facility] [place], [place] [address] ESRon 05-11-2024 Erythrocyte Sed Rate <1 Normal 0-15 [facility] Comment on above: Performed By: #### C RP, ESR ####[facility] [place], [place] [address] LABORATORYOrdered By: SYSTEM SYSTEM on 05-11-2024 Troponin I.cardiac DL <= 0.01 ng/mL [Mass/Vol] 8 ng/L Normal 0 - 76 ng/L AO ADM SS Comment on above: Interpretive Data: H igh Sensitive Troponin I Reference Ranges: Female: 0-51 ng/L Male: 0-76 ng/L Testing performed on [employer] using a homogeneous sandwich chemiluminescent immunoassay based on Able Device technology. Basophils (Bld) [#/Vol] 0.1 103/mcL Normal 0.0 - 0.2 10^3/mcL AO Workflow SS Basophils/100 WBC (Bld) 0.7 % Normal 0.0 - 2.5 % AO Workflow SS Calcium [Mass/Vol] 9.0 mg/dL Normal 8.4 - 10. 2 mg/dL AO ADM SS Chloride [Moles/Vol] 104 mmol/L Normal 98 - 10 7 mmol/L AO ADM SS CO2 [Moles/Vol] 29 mmol/L Normal 22 - 29 mmol/L AO ADM SS Creatinine [Mass/Vol] 1.08 mg/dL Normal 0.70 - 1.30 mg/dL AO ADM SS Comment on above: Interpretive Data: T esting performed on Siemens Dimension EXL analyzer using a modified kinetic Nadia technique. CRP [Mass/Vol] 0.1 mg/dL Normal 0.0 - 0.3 mg/dL AO ADM SS Electrolyte Balance 5.0 mEq/L Normal 4.0 - 15 .0 mEq/L AO ADM SS Eosinophil, Absolute 0.3 103/mcL Normal 0.0 - 0 .7 10^3/mcL AO Workflow SS Eosinophils/100 WBC (Bld) 3.4 % Normal 0.0 - 7.0 % AO Workflow SS Erythrocyte distribution width (RBC) [Ratio] 12.5 % Normal 11.5 - 15.5 % AO Workflow SS Estimated Glomerular Filtration Rate 96 ml/min/1.73sqm Invalid Interpretation Code AO Chemistry S Comment on above: Interpretive Data: Stages of Chronic Kidney Disease (CKD) Stage Description eGFR(ml/min/1.73 sq.m.) CKD 1 Normal kidney function or >=90 normal kindney function with possible kidney damage (ex. Proteinuria) CKD 2 Kidney damage with mild loss 60-89 of kidney function CKD 3a Mild to moderate loss of kidney 45-59 function CKD 3b Moderate to severe loss of 30-44 of kindey function CKD 4 Severe loss of kidney function 15-29 CKD 5 Kidney failure <15 Note: (go live 2024) the eGFR calculation was updated to the 2020 CKD-EPI creatinine equation without a race factor to calculate the eGFR results. Fibrin D-dimer DDU (PPP) [Mass/Vol] ng/mL D-DU Normal 0 - 230 ng/mL D-DU AO [facility] SS Comment on above: Result Comment: DDN: Results reported in D-DU ng/mL. Negative for D-dimer. DVT/PE is highly unlikely. Note: False negative results may be seen in patients on anticoagulant therapy. Interpretive Data: T he result of the D-Dimer test should be evaluated in the context of all the clinical and laboratory data available. In those instances where the laboratory result does not agree with the clinical evaluation, additional tests should be performed accordingly. If the D-Dimer result is used to exclude DVT or PE, the recommended cutoff value is less than 230 ng/mL. The D-Dimer result should not be used alone to rule in DVT/PE, but should be used in conjunction with a clinical pretest probability (PTP)assessment model to exclude venous thromboembolism (VTE) in outpatients suspected of deep venous thrombosis (DVT) and pulmonary embolism (PE). Glucose [Mass/Vol] 96 mg/dL Normal 70 - 105 mg/dL AO ADM SS Hematocrit (Bld) [Volume fraction] 42.3 % Normal 40.0 - 52.0 % AO Workflow SS Hemoglobin (Bld) [Mass/Vol] 14.9 G/dL Normal 13.0 - 17.5 G/dL AO Workflow SS Lymphocytes (Bld) [#/Vol] 2.5 103/mcL Normal 0.9 - 4.3 10^3/mcL AO Workflow SS Lymphocytes/100 WBC (Bld) 24.9 % Normal 20.0 - 40.0 % AO Workflow SS MCH (RBC) [Entitic mass] 29.8 pg Normal 27. 0 - 33.0 pg AO Workflow SS MCHC 35.3 G/dL Normal 32.0 - 36.0 G/dL AO Workflow SS MCV (RBC) [Entitic vol] 84.4 fL Normal 81.0 - 100.0 fL AO Workflow SS Monocyte distribution width Auto (Bld) [Entitic vol] 14.32 1 Normal 0.00 - 20.00 AO Workflow SS Comment on above: Result Comment: For ED adult patients suspected of sepsis, MDW<=20.0 does not rule out sepsis or risk of sepsis Monocytes (Bld) [#/Vol] 0.9 103/mcL Normal 0.1 - 1.4 10^3/mcL AO Workflow SS Monocytes/100 WBC (Bld) 9.1 % Normal 2.0 - 13.0 % AO Workflow SS Natriuretic peptide.B prohormone N-Terminal [Mass/Vol] 29 pg/mL Normal 0 - 125 pg/mL AO ADM SS Comment on above: Interpretive Data: N T-proBNP results of less than 300 pg/mL effectively rules out acute congestive heart failure with 99% negative predictive value. Neutrophils (Bld) [#/Vol] 6.3 103/mcL Normal 2.3 - 8.1 10^3/mcL AO Workflow SS Neutrophils/100 WBC (Bld) 61.9 % Normal 50.0 - 75.0 % AO Workflow SS Platelet mean volume (Bld) [Entitic vol] 8.6 fL Normal 6.4 - 10.5 fL AO Workflow SS Platelets (Bld) [#/Vol] 237 103/mcL Normal 150 - 450 10^3/mcL AO Workflow SS Potassium [Moles/Vol] 3.6 mmol/L Normal 3.5 - 5.1 mmol/L AO ADM SS RBC (Bld) [#/Vol] 5.02 106/mcL Normal 4.50 - 6.0 0 10^6/mcL AO Workflow SS Sodium [Moles/Vol] 138 mmol/L Normal 136 - 145 mmol/L AO ADM SS Troponin I.cardiac DL <= 0.01 ng/mL [Mass/Vol] 9 ng/L Normal 0 - 76 ng/L AO ADM SS Comment on above: Interpretive Data: H igh Sensitive Troponin I Reference Ranges: Female: 0-51 ng/L Male: 0-76 ng/L Testing performed on [employer] using a homogeneous sandwich chemiluminescent immunoassay based on Able Device technology. Urea nitrogen [Mass/Vol] 11 mg/dL Normal 7 - 18 mg/d L AO ADM SS Urea nitrogen/Creatinine [Mass ratio] 10 ratio Normal 7 - 27 ratio AO ADM SS WBC (Bld) [#/Vol] 10.2 103/mcL Normal 4.5 - 10.8 10^3/mcL AO Workflow SS LABORATORYOrdered By: Harinder Gill on 05-11-2024 ESR Photometric method (Bld) [Velocity] mm/hr Normal 0 - 15 mm/hr AO Man Heme SS PBNPon 05-11-2024 Natriuretic peptide B (Bld) [Mass/Vol] 29 pg/mL Normal 0-125 [facility] Comment on above: Result Comment: NT-p roBNP results of less than 300 pg/mL effectively rules out acute congestive heart failure with 99% negative predictive value. Performed By: #### C EZIO BERKOWITZ MDW, ANEU, PBNP, ADIFF, BMP, GFR, DIMER ####[address] [place], [place] [address] TROPHSon 05-11-2024 High Sensitivity Troponin I 8 ng/L Normal 0-76 [facility] Comment on above: Result Comment: High Sensitive Troponin I Reference Ranges: Female: 0-51 ng/L Male: 0-76 ng/L Testing performed on Dimension EXL using a homogeneous sandwich chemiluminescent immunoassay based on Able Device technology. Performed By: #### T [facility] ####[address] [place] [place], [place] [address] High Sensitivity Troponin I 9 ng/L Normal 0-76 [facility] Comment on above: Result Comment: High Sensitive Troponin I Reference Ranges: Female: 0-51 ng/L Male: 0-76 ng/L Testing performed on Dimension EXL using a homogeneous sandwich chemiluminescent immunoassay based on Able Device technology. Performed By: #### C EZIO BERKOWITZ MDW, ANEU, PBNP, ADIFF, BMP, GFR, DIMER #### [address] [place], [place] [address] XR CHEST 1 VIEWon 05-11-2024 XR CHEST 1 VIEW ORIGINAL EXAMINATION: ONE XRAY VIEW OF THE CHEST05/11/2024 3:51 am CHEST ONE VIEW AP/PA COMPARISON: None HISTORY: ORDERING SYSTEM PROVIDED HISTORY: Reason for Exam: chest pain FINDINGS: The cardiomediastinal silhouette is normal in appearance. No consolidation, pleural effusion, or vascular congestion is seen. The osseous structures are intact. IMPRESSION: No acute findings. Interpreted by: Chrissie Waller MD Preliminary Report By: Chrissie Waller MD Electronically signed By Chrissie Waller MD Dictated Date: 05/11/2024 3:59:55 AM Prelim Date: 05/11/2024 4:00:04 AM Sign Date: 05/11/2024 4:00:04 AM Ordering Provider: KENJI Jameson [facility] [facility] .Auto Diffon 04-11-2024 Basophil, Absolute 0.1 10 3/mcL Normal 0.0-0.2 [facility] Comment on above: Performed By: #### T ROPHS, BMP, MG, ADIFF, ANEU, CBC, GFR, APTT, PRO, TSH, MDW ####Misael [address] [place], [place] [address] Basophils/100 WBC (Bld) 0.6 % Normal 0.0-2.5 [facility] Comment on above: Performed By: #### T ROPHS, BMP, MG, ADIFF, ANEU, CBC, GFR, APTT, PRO, TSH, MDW ####Misael [address] [place], [place] [address] Eosinophil, Absolute 0.2 10 3/mcL Normal 0.0-0.7 [facility] Comment on above: Performed By: #### T ROPHS, BMP, MG, ADIFF, ANEU, CBC, GFR, APTT, PRO, TSH, MDW ####Misael [address] [address] Eosinophils/100 WBC (Bld) 2.5 % Normal 0.0-7.0 [facility] Comment on above: Performed By: #### T ROPHS, BMP, MG, ADIFF, ANEU, CBC, GFR, APTT, PRO, TSH, MDW ####Misael [address] [address] Lymphocyte, Absolute 1.7 10 3/mcL Normal 0.9-4.3 [facility] Comment on above: Performed By: #### T ROPHS, BMP, MG, ADIFF, ANEU, CBC, GFR, APTT, PRO, TSH, MDW ####Misael [address] [address] Lymphocytes/100 WBC (Bld) 19.4 % Low 20.0-40.0 [facility] Comment on above: Performed By: #### T ROPHS, BMP, MG, ADIFF, ANEU, CBC, GFR, APTT, PRO, TSH, MDW ####Misael [address] [place], [place] [address] Monocyte, Absolute 1.0 10 3/mcL Normal 0.1-1.4 [facility] Comment on above: Performed By: #### T ROPHS, BMP, MG, ADIFF, ANEU, CBC, GFR, APTT, PRO, TSH, W ####Misael [address] [place], [place] [address] Monocytes/100 WBC (Bld) 11.0 % Normal 2.0-13.0 [facility] Comment on above: Performed By: #### T ROPHS, BMP, MG, ADIFF, ANEU, CBC, GFR, APTT, PRO, TSH, W ####Misael [address] [place], [place] [address] Neutrophils/100 WBC (Bld) 66.5 % Normal 50.0-75.0 [facility] Comment on above: Performed By: #### T ROPHS, BMP, MG, ADIFF, ANEU, CBC, GFR, APTT, PRO, TSH, W ####Misael [address] [place], [place] [address] .GFRon 04-11-2024 GFR Non- 96 ml/min/1.73sqm [facility] Comment on above: Result Comment: GFR Population mean for , Non- Americans Ages 20-29 = 116 mL/min/1.73 sq.m. Ages 30-39 = 107 mL/min/1.73 sq.m. Ages 40-49 = 99 mL/min/1.73 sq.m. Ages 50-59 = 93 mL/min/1.73 sq.m. Ages 60-69 = 85 mL/min/1.73 sq.m. Ages 70+ = 75 mL/min/1.73 sq.m. Chronic Kidney Disease: Less than 60 mL/min/1.73 square meters End Stage Renal Disease: Less than 15 mL/min/1.73 square meters Performed By: #### T ROPHS, BMP, MG, ADIFF, ANEU, CBC, GFR, APTT, PRO, TSH, MDW ####Misael [address] [place], [place] [address] GFR 117 ml/min/1.73sqm Normal [facility] Comment on above: Result Comment: GFR Population mean for , Non- Americans Ages 20-29 = 116 mL/min/1.73 sq.m. Ages 30-39 = 107 mL/min/1.73 sq.m. Ages 40-49 = 99 mL/min/1.73 sq.m. Ages 50-59 = 93 mL/min/1.73 sq.m. Ages 60-69 = 85 mL/min/1.73 sq.m. Ages 70+ = 75 mL/min/1.73 sq.m. Chronic Kidney Disease: Less than 60 mL/min/1.73 square meters End Stage Renal Disease: Less than 15 mL/min/1.73 square meters Performed By: #### T ROPHS, BMP, MG, ADIFF, ANEU, CBC, GFR, APTT, PRO, TSH, JOSE ####Misael [address] [place], [place] [address] .MDWon 04-11-2024 Monocyte Distribution Width 16.99 Normal 0.00-20.00 [facility] Comment on above: Result Comment: For ED adult patients suspected of sepsis, MDW<=20.0 does not rule out sepsis or risk of sepsis Performed By: #### T HAYLEYHS, BMP, MG, ADIFF, ANEU, CBC, GFR, APTT, PRO, TSHJOSE ####Misael [address] [place], [place] [address] .NEUABSon 04-11-2024 Neutrophil, Absolute 5.9 10 3/mcL Normal 2.3-8.1 [facility] Comment on above: Performed By: #### T ROPHS, BMP, MG, ADIFF, ANEU, CBC, GFR, APTT, PRO, TSH, JOSE ####Misael [address] [place], [place] [address] APTTon 04-11-2024 aPTT Coag (Bld) [Time] 35.0 s Normal 25.0-35.0 [facility] Comment on above: Result Comment: For Heparin anticoagulation therapy, the recommended therapeutic range is: 45.4-75.9 seconds. Patients on heparin therapy may have an extreme result. Performed By: #### T ROPHS, BMP, MG, ADIFF, ANEU, CBC, GFR, APTT, PRO, TSH, MDW ####[facility] [place], [place] [address] BMPon 04-11-2024 BUN/Creatinine Ratio 7 ratio Normal 7-27 [facility] Comment on above: Performed By: #### T ROPHS, BMP, MG, ADIFF, ANEU, CBC, GFR, APTT, PRO, TSH, W ####[facility] [place], [place] [address] Calcium [Mass/Vol] 8.8 mg/dL Normal 8.4-10.2 [facility] Comment on above: Performed By: #### T ROPHS, BMP, MG, ADIFF, ANEU, CBC, GFR, APTT, PRO, TSH, JOSE ####Misael [address] [place], [place] [address] Chloride [Moles/Vol] 103 mmol/L Normal 98-107 [facility] Comment on above: Performed By: #### T ROPHS, BMP, MG, ADIFF, ANEU, CBC, GFR, APTT, PRO, TSH, JOSE ####Misael [address] [place], [place] [address] CO2 [Moles/Vol] 25 mmol/L Normal 22-29 [facility] Comment on above: Performed By: #### T ROPHS, BMP, MG, ADIFF, ANEU, CBC, GFR, APTT, PRO, TSH, JOSE ####[place] [address] [place], [place] [address] Creatinine [Mass/Vol] 0.94 mg/dL Normal 0.70-1.30 [facility] Comment on above: Result Comment: Test ing performed on Siemens Dimension EXL analyzer using a modified kinetic Nadia technique. Performed By: #### T ROPHS, BMP, MG, ADIFF, ANEU, CBC, GFR, APTT, PRO, TSH, W ####Msiael [address] [place], [place] [address] Electrolyte Balance 9.0 mEq/L Normal 4.0-15.0 [facility] Comment on above: Performed By: #### T ROPHS, BMP, MG, ADIFF, ANEU, CBC, GFR, APTT, PRO, TSH, MDW ####[facility] [place], [place] [address] Glucose [Mass/Vol] 151 mg/dL High 70-105 [facility] Comment on above: Performed By: #### T ROPHS, BMP, MG, ADIFF, ANEU, CBC, GFR, APTT, PRO, TSH, MDW ####[facility] [place], [place] [address] Potassium [Moles/Vol] 3.4 mmol/L Low 3.5-5.1 [facility] Comment on above: Performed By: #### T ROPHS, BMP, MG, ADIFF, ANEU, CBC, GFR, APTT, PRO, TSH, MDW ####Misael [address] [place], [place] [address] Sodium [Moles/Vol] 137 mmol/L Normal 136-145 [facility] Comment on above: Performed By: #### T ROPHS, BMP, MG, ADIFF, ANEU, CBC, GFR, APTT, PRO, TSH, MDW ####Misael [address] [place], [place] [address] Urea nitrogen [Mass/Vol] 7 mg/dL Normal 7-18 [facility] Comment on above: Performed By: #### T ROPHS, BMP, MG, ADIFF, ANEU, CBC, GFR, APTT, PRO, TSH, MDW ####[address] [place], [place] [address] CBCon 04-11-2024 Erythrocyte distribution width (RBC) [Ratio] 12.7 % Normal 11.5-15.5 [facility] Comment on above: Performed By: #### T ROPHS, BMP, MG, ADIFF, ANEU, CBC, GFR, APTT, PRO, TSH, MDW ####Misael [address] [place], [place] [address] Hematocrit (Bld) [Volume fraction] 46.0 % Normal 40.0-52.0 [facility] Comment on above: Performed By: #### T ROPHS, BMP, MG, ADIFF, ANEU, CBC, GFR, APTT, PRO, TSH, MDW ####[facility] [place], [place] [address] Hgb 16.3 G/dL Normal 13.0-17.5 [facility] Comment on above: Performed By: #### T ROPHS, BMP, MG, ADIFF, ANEU, CBC, GFR, APTT, PRO, TSH, MDW ####[facility] [place] [address] MCH (RBC) [Entitic mass] 29.7 pg Normal 27.0-33.0 [facility] Comment on above: Performed By: #### T ROPHS, BMP, MG, ADIFF, ANEU, CBC, GFR, APTT, PRO, TSH, MDW ####Misael [address] [place] [address] MCHC 35.5 G/dL Normal 32.0-36.0 [facility] Comment on above: Performed By: #### T ROPHS, BMP, MG, ADIFF, ANEU, CBC, GFR, APTT, PRO, TSH, MDW ####[place] [address] [place] [id number] MCV (RBC) [Entitic vol] 83.7 fL Normal 81.0-100.0 [facility] Comment on above: Performed By: #### T ROPHS, BMP, MG, ADIFF, ANEU, CBC, GFR, APTT, PRO, TSH, MDW ####[place] [place] [address] Platelet 213 10 3/mcL Normal 150-450 [facility] Comment on above: Performed By: #### T ROPHS, BMP, MG, ADIFF, ANEU, CBC, GFR, APTT, PRO, TSH, MDW ####[place] [place] [address] Platelet mean volume (Bld) [Entitic vol] 9.6 fL Normal 6.4-10.5 [facility] Comment on above: Performed By: #### T ROPHS, BMP, MG, ADIFF, ANEU, CBC, GFR, APTT, PRO, TSH, MDW ####Misael [address] [place], [place] [address] RBC 5.49 10 6/mcL Normal 4.50-6.00 [facility] Comment on above: Performed By: #### T ROPHS, BMP, MG, ADIFF, ANEU, CBC, GFR, APTT, PRO, TSH, MDW ####Misael [address] [place], [place] [address] WBC 8.9 10 3/mcL Normal 4.5-10.8 [facility] Comment on above: Performed By: #### T ROPHS, BMP, MG, ADIFF, ANEU, CBC, GFR, APTT, PRO, TSH, MDW ####Misael [address] [place], [place] [address] LABORATORYOrdered By: SYSTEM SYSTEM on 04-11-2024 aPTT Coag (PPP) [Time] 35.0 s Normal 25.0 - 35.0 seconds AO [facility] Comment on above: Interpretive Data: F or Heparin anticoagulation therapy, the recommended therapeutic range is: 45.4-75.9 seconds. Patients on heparin therapy may have an extreme result. Basophils (Bld) [#/Vol] 0.1 103/mcL Normal 0.0 - 0.2 10^3/mcL AO Workflow SS Basophils/100 WBC (Bld) 0.6 % Normal 0.0 - 2.5 % AO Workflow SS Calcium [Mass/Vol] 8.8 mg/dL Normal 8.4 - 10. 2 mg/dL AO ADM SS Chloride [Moles/Vol] 103 mmol/L Normal 98 - 10 7 mmol/L AO ADM SS CO2 [Moles/Vol] 25 mmol/L Normal 22 - 29 mmol/L AO ADM SS Creatinine [Mass/Vol] 0.94 mg/dL Normal 0.70 - 1.30 mg/dL AO ADM SS Comment on above: Interpretive Data: T esting performed on Adaptivity Dimension EXL analyzer using a modified kinetic Nadia technique. Electrolyte Balance 9.0 mEq/L Normal 4.0 - 15 .0 mEq/L AO ADM SS Eosinophil, Absolute 0.2 103/mcL Normal 0.0 - 0 .7 10^3/mcL AO Workflow SS Eosinophils/100 WBC (Bld) 2.5 % Normal 0.0 - 7.0 % AO Workflow SS Erythrocyte distribution width (RBC) [Ratio] 12.7 % Normal 11.5 - 15.5 % AO Workflow SS GFR/1.73 sq M.predicted among blacks MDRD (S/P/Bld) [Vol rate/Area] 117 ml/min/1.73sqm Invalid Interpretation Code AO Chemistry S Comment on above: Interpretive Data: GFR Population mean for , Non- Americans Ages 20-29 = 116 mL/min/1.73 sq.m. Ages 30-39 = 107 mL/min/1.73 sq.m. Ages 40-49 = 99 mL/min/1.73 sq.m. Ages 50-59 = 93 mL/min/1.73 sq.m. Ages 60-69 = 85 mL/min/1.73 sq.m. Ages 70+ = 75 mL/min/1.73 sq.m. Chronic Kidney Disease: Less than 60 mL/min/1.73 square meters End Stage Renal Disease: Less than 15 mL/min/1.73 square meters GFR/1.73 sq M.predicted among non-blacks MDRD (S/P/Bld) [Vol rate/Area] 96 ml/min/1.73sqm Invalid Interpretation Code AO Chemistry S Comment on above: Interpretive Data: GFR Population mean for , Non- Americans Ages 20-29 = 116 mL/min/1.73 sq.m. Ages 30-39 = 107 mL/min/1.73 sq.m. Ages 40-49 = 99 mL/min/1.73 sq.m. Ages 50-59 = 93 mL/min/1.73 sq.m. Ages 60-69 = 85 mL/min/1.73 sq.m. Ages 70+ = 75 mL/min/1.73 sq.m. Chronic Kidney Disease: Less than 60 mL/min/1.73 square meters End Stage Renal Disease: Less than 15 mL/min/1.73 square meters Glucose [Mass/Vol] 151 mg/dL High 70 - 105 mg/dL AO ADM SS Hematocrit (Bld) [Volume fraction] 46.0 % Normal 40.0 - 52.0 % AO Workflow SS Hemoglobin (Bld) [Mass/Vol] 16.3 G/dL Normal 13.0 - 17.5 G/dL AO Workflow SS INR Coag (PPP) [Relative time] 1.2 {INR} Invalid Interpretation Code AO [facility] Comment on above: Interpretive Data: Alfie lance [employer] (CHEST, 1991, 102:312S-25S) recommended therapeutic range for oral anticoagulant therapy is: LOW RISK: Prophylaxis of venous thrombosis INR: 2.0-3.0 Treatment of pulmonary embolism 2.0-3.0 Prevention of systemic embolism 2.0-3.0 HIGH RISK: Mechanical prosthetic valves 2.5-3.5 Lymphocytes (Bld) [#/Vol] 1.7 103/mcL Normal 0.9 - 4.3 10^3/mcL AO Workflow SS Lymphocytes/100 WBC (Bld) 19.4 % Low 20.0 - 40.0 % AO Workflow SS Magnesium [Mass/Vol] 2.1 mg/dL Normal 1.8 - 2 .4 mg/dL AO ADM SS MCH (RBC) [Entitic mass] 29.7 pg Normal 27. 0 - 33.0 pg AO Workflow SS MCHC 35.5 G/dL Normal 32.0 - 36.0 G/dL AO Workflow SS MCV (RBC) [Entitic vol] 83.7 fL Normal 81.0 - 100.0 fL AO Workflow SS Monocyte distribution width Auto (Bld) [Entitic vol] 16.99 1 Normal 0.00 - 20.00 AO Workflow SS Comment on above: Result Comment: For ED adult patients suspected of sepsis, MDW<=20.0 does not rule out sepsis or risk of sepsis Monocytes (Bld) [#/Vol] 1.0 103/mcL Normal 0.1 - 1.4 10^3/mcL AO Workflow SS Monocytes/100 WBC (Bld) 11.0 % Normal 2.0 - 13.0 % AO Workflow SS Neutrophils (Bld) [#/Vol] 5.9 103/mcL Normal 2.3 - 8.1 10^3/mcL AO Workflow SS Neutrophils/100 WBC (Bld) 66.5 % Normal 50.0 - 75.0 % AO Workflow SS Platelet mean volume (Bld) [Entitic vol] 9.6 fL Normal 6.4 - 10.5 fL AO Workflow SS Platelets (Bld) [#/Vol] 213 103/mcL Normal 150 - 450 10^3/mcL AO Workflow SS Potassium [Moles/Vol] 3.4 mmol/L Low 3.5 - 5.1 mmol/L AO ADM SS PT Coag (PPP) [Time] 13.2 s Normal 9.0 - 1 4.4 seconds AO [facility] RBC (Bld) [#/Vol] 5.49 106/mcL Normal 4.50 - 6.0 0 10^6/mcL AO Workflow SS Sodium [Moles/Vol] 137 mmol/L Normal 136 - 145 mmol/L AO ADM SS Troponin I.cardiac DL <= 0.01 ng/mL [Mass/Vol] 6 ng/L Normal 0 - 76 ng/L AO ADM SS Comment on above: Interpretive Data: H igh Sensitive Troponin I Reference Ranges: Female: 0-51 ng/L Male: 0-76 ng/L Testing performed on [place] using a homogeneous sandwich chemiluminescent immunoassay based on Able Device technology. TSH Qn 1.18 m[IU]/L Normal 0.36 - 3.74 mcIU/mL AO ADM SS Urea nitrogen [Mass/Vol] 7 mg/dL Normal 7 - 18 mg/d L AO ADM SS Urea nitrogen/Creatinine [Mass ratio] 7 ratio Normal 7 - 27 ratio AO ADM SS WBC (Bld) [#/Vol] 8.9 103/mcL Normal 4.5 - 10.8 10^3/mcL AO Workflow SS MGon 04-11-2024 Magnesium [Mass/Vol] 2.1 mg/dL Normal 1.8-2.4 [facility] Comment on above: Performed By: #### T PATRICIO, BMP, MG, ADIFF, ANEU, CBC, GFR, APTT, PRO, TSH, MDW ####[address] [place], [place] [address] PROon 04-11-2024 PT Coag (PPP) [Time] 13.2 s Normal 9.0-14.4 [facility] Comment on above: Performed By: #### T PATRICIO, BMP, MG, ADIFF, ANEU, CBC, GFR, APTT, PRO, TSH, MDW ####[address] [place], [place] [address] PT International Ratio 1.2 Normal [facility] Comment on above: Result Comment: [employer] (CHEST, 1991, 102:312S-25S) recommended therapeutic range for oral anticoagulant therapy is: LOW RISK: Prophylaxis of venous thrombosis INR: 2.0-3.0 Treatment of pulmonary embolism 2.0-3.0 Prevention of systemic embolism 2.0-3.0 HIGH RISK: Mechanical prosthetic valves 2.5-3.5 Performed By: #### T HAYLEYHS, BMP, MG, ADIFF, ANEU, CBC, GFR, APTT, PRO, TSH, MDW ####Misael [address] [place], [place] [address] TROPHSon 04-11-2024 High Sensitivity Troponin I 6 ng/L Normal 0-76 [facility] Comment on above: Result Comment: High Sensitive Troponin I Reference Ranges: Female: 0-51 ng/L Male: 0-76 ng/L Testing performed on [place] using a homogeneous sandwich chemiluminescent immunoassay based on Able Device technology. Performed By: #### T HAYLEYHS, BMP, MG, ADIFF, ANEU, CBC, GFR, APTT, PRO, TSH, MDW ####Misael [address] [place], [place] [address] TSHon 04-11-2024 TSH Qn 1.18 m[IU]/L Normal 0.36-3.74 [facility] Comment on above: Performed By: #### T ROPHS, BMP, MG, ADIFF, ANEU, CBC, GFR, APTT, PRO, TSH, MDW ####Misael [address] [place], [place] [address] XR CHEST 1 VIEWon 04-11-2024 XR CHEST 1 VIEW ORIGINAL EXAMINATION: ONE XRAY VIEW OF THE CHEST 04/11/2024 12:32 pm COMPARISON: 02/09/2024 HISTORY: ORDERING SYSTEM PROVIDED HISTORY: Reason for Exam: chest pain FINDINGS: The lungs are without acute focal process. There is no effusion or pneumothorax. The cardiomediastinal silhouette is without acute process. The osseous structures are without acute process. IMPRESSION: No acute process. Interpreted by: Bin Vogt DO Preliminary Report By: Bin Vogt DO Electronically signed By Bin Vogt DO Dictated Date: 04/11/2024 1:00:01 PM Prelim Date: 04/11/2024 1:00:15 PM Sign Date: 04/11/2024 1:00:15 PM Ordering Provider: LAVELLE ERNANDEZ [facility] 12 Lead EKGon 02-29-2024 12 Lead EKG [facility] [address] [place] [address] 12 Lead EKG 02/29/24 0950 MR#: [id number] Acct: [id number] Name: FRANCY PHAN Rep #: [id number] : 1995 28 From: Geoffrey Sánchez MD Attending Dr: Status: DEP ER Ordering Dr: Michael Bustos MD Date: 02/29/24 Location: ED Sex: M C Admitted: Test Reason : CP Blood Pressure : */* mmHG Vent. Rate : 115 BPM Atrial Rate : * BPM P-R Int : * ms QRS Dur : 86 ms QT Int : 306 ms P-R-T Axes : * 65 21 degrees QTcB Int : 423 ms Atrial fibrillation with rapid ventricular response Abnormal ECG Confirmed by NETTE GARCIA, GEOFFREY ([id number]), online content editor KYARA AYALA ([id number]) on 03/03/2024 6:07:55 AM Referred By: RU Confirmed By: GEOFFREY SÁNCHEZ MD 03/03/24 0607 Date Geoffrey Sánchez MD CC: Dr. Michael Bustos MD; No Primary Care Physician Signed Normal [facility] Basic Metabolic Profile (BMP )on 02-29-2024 BUN/CRE 7.1 RATIO Low 10-20 [facility] Comment on above: Order Comment: 1 Y Performed By: #### L 500.2500, L501.6125, L100.0100 #### [facility] [address] [place], [address] CA,Total 9.1 mg/dL Normal 8.5-10.1 [facility] Comment on above: Order Comment: 1 Y Performed By: #### L 500.2500, L501.1725, L100.0100 #### [facility] [address] [place], [address] Chloride [Moles/Vol] 108 mmol/L High 98-107 [facility] Comment on above: Order Comment: 1 Y Performed By: #### L 500.2500, L501.5425, L100.0100 #### [facility] [address] [place], [address] CO2 [Moles/Vol] 25.0 mmol/L Normal 21.0-32.0 [facility] Comment on above: Order Comment: 1 Y Performed By: #### L 500.2500, L501.5425, L100.0100 #### [facility] [address] [place], [address] Creatinine [Mass/Vol] 0.98 mg/dL Normal 0.70-1.30 [facility] Comment on above: Order Comment: 1 Y Result Comment: The validity of the calculated GFR GFRAA in patients over 70 years has not been determined. Clinical correlation is essential. Performed By: #### L 500.2500, L501.5425, L100.0100 #### [facility] [address] [place], [address] ECRCL 134.75 ml/min Normal [facility] Comment on above: Order Comment: 1 Y Performed By: #### L 500.2500, L501.5425, L100.0100 #### [facility] [address] [place], [address] EST GFR - AA 117 mL/min Normal >60 [facility] Comment on above: Order Comment: 1 Y Result Comment: Afri can [employer] GFR Calc Performed By: #### L 500.2500, L501.5425, L100.0100 #### [facility] [address] [place], [address] GAP 7 Normal 5-15 [facility] Comment on above: Order Comment: 1 Y Performed By: #### L 500.2500, L501.5425, L100.0100 #### [facility] [address] [place], [address] GFR/1.73 sq M.predicted among non-blacks MDRD (S/P/Bld) [Vol rate/Area] 97 mL/min/{1.73_m2} Normal >60 [facility] Comment on above: Order Comment: 1 Y Result Comment: Non- GFR Calc Performed By: #### L 500.2500, L501.5425, L100.0100 #### [facility] [address] [place], [address] Glucose [Mass/Vol] 84 mg/dL Normal 74-106 [facility] Comment on above: Order Comment: 1 Y Performed By: #### L 500.2500, L501.5425, L100.0100 #### [facility] [address] [place], [address] Potassium [Moles/Vol] 4.0 mmol/L Normal 3.5-5.1 [facility] Comment on above: Order Comment: 1 Y Performed By: #### L 500.2500, L501.5425, L100.0100 #### [facility] [address] [place], [address] Sodium [Moles/Vol] 139 mmol/L Normal 136-145 [facility] Comment on above: Order Comment: 1 Y Performed By: #### L 500.2500, L501.5425, L100.0100 #### [facility] [address] [place], [address] Urea nitrogen [Mass/Vol] 7 mg/dL Normal 7-18 [facility] Comment on above: Order Comment: 1 Y Performed By: #### L 500.2500, L501.5425, L100.0100 #### [facility] [address] [place], [address] CBC W/Diff, Automatedon 12-03 21-2023 Absolute Lymph 2.54 X10 3/uL Normal 0.83-4.51 [facility] Comment on above: Performed By: #### L 500.2500, L501.5425, L100.0100 #### [facility] [address] [place], [address] Absolute Neut 5.6 X10 3/uL Normal 2.0-7.7 [facility] Comment on above: Performed By: #### L 500.2500, L501.5425, L100.0100 #### [facility] [address] [place], [address] Basophils/100 WBC (Bld) 0.5 % Normal 0-1 [facility] Comment on above: Performed By: #### L 500.2500, L501.5425, L100.0100 #### [facility] [address] [place], [address] Eosinophils/100 WBC (Bld) 5.7 % High 0-5 [facility] Comment on above: Performed By: #### L 500.2500, L501.5425, L100.0100 #### [facility] [address] [place], [address] Erythrocyte distribution width (RBC) [Ratio] 12.1 % Normal 11.6-14.6 [facility] Comment on above: Performed By: #### L 500.2500, L501.5425, L100.0100 #### [facility] [address] [place], [address] Hematocrit (Bld) [Volume fraction] 46.4 % Normal 40-54 [facility] Comment on above: Performed By: #### L 500.2500, L501.5425, L100.0100 #### [facility] [address] [place], [address] Hemoglobin (Bld) [Mass/Vol] 16.8 g/dL High 13.0-16.5 [facility] Comment on above: Performed By: #### L 500.2500, L501.5425, L100.0100 #### [facility] [address] [place], [address] IG% 0.400 Normal 0.0-0.9 [facility] Comment on above: Result Comment: IG% - Immature Granulocytes (promyelocytes, myelocytes and metamyelocytes) > 1% indicates that a LEFT SHIFT is Present. Performed By: #### L 500.2500, L501.5425, L100.0100 #### [facility] [address] [place], [address] Lymphocytes/100 WBC (Bld) 25.5 % Normal 19-41 [facility] Comment on above: Performed By: #### L 500.2500, L501.5425, L100.0100 #### [facility] [address] [place], [address] MCH (RBC) [Entitic mass] 29.8 pg Normal 27.0-32.0 [facility] Comment on above: Performed By: #### L 500.2500, L501.5425, L100.0100 #### [facility] [address] [place], [address] MCHC (RBC) [Mass/Vol] 36.2 g/dL High 32-36 [facility] Comment on above: Performed By: #### L 500.2500, L501.5425, L100.0100 #### [facility] [address] [place], [address] MCV (RBC) [Entitic vol] 82.3 fL Normal 80-94 [facility] Comment on above: Performed By: #### L 500.2500, [id number], [id number] #### [facility] [address] [place], [address] Monocytes/100 WBC (Bld) 11.4 % High 0-10 [facility] Comment on above: Performed By: #### L 500.2500, [id number], [id number] #### [facility] [address] [place], [address] Neutrophils/100 WBC (Bld) 56.5 % Normal 47-70 [facility] Comment on above: Performed By: #### L 500.2500, [id number], [id number] #### [facility] [address] [place], [address] Nucleated RBC (Bld) [#/Vol] 0 10*3/uL Normal 0-5 [facility] Comment on above: Performed By: #### L 500.2500, [id number], [id number] #### [facility] [address] [place], [address] Platelet mean volume (Bld) [Entitic vol] 10.4 fL Normal 6.2-12.0 [facility] Comment on above: Performed By: #### L 500.2500, [id number], [id number] #### [facility] [address] [place], [address] Platelets (Bld) [#/Vol] 260 10*3/uL Normal 150-450 [place] [facility] Comment on above: Performed By: #### L 500.2500, L501.5425, L100.0100 #### [facility] [address] [place], [address] RBC (Bld) [#/Vol] 5.64 10*6/uL Normal 4.6-6.2 [facility] Comment on above: Performed By: #### L 500.2500, L501.5425, L100.0100 #### [facility] [address] [place], [address] RDW SD 35.8 fl Normal 35.1-43.9 [facility] Comment on above: Performed By: #### L 500.2500, L501.5425, L100.0100 #### [facility] [address] [place], [address] WBC (Bld) [#/Vol] 10.0 10*3/uL Normal 4.4-11.0 [facility] Comment on above: Performed By: #### L 500.2500, L501.5425, L100.0100 #### [facility] [address] [place], [address] Chest 1 View (Portable)on Chest 1 View (Portable) [facility] Imaging Services [address] [facility] [place] [address] Chest 1 View (Portable) MR#: [id number] Acct: [id number] Name: FRANCY PHAN Rep #: [id number] : 1995 M 28 From: Hilaria Jones MD PCP: Care Physician,No Primary Status: PRE ER Study: Chest 1 View (Portable) Date of Exam: 02/29/24 Exam# [id number] Ordering Dr: Michael Bustos MD [id number] INDICATION: chest pain EXAMINATION/TECHNIQU E: X-RAY - XR Chest 1 View COMPARISON: April 02, 2023 ____ FINDINGS: LINES/DEVICES: None. LUNGS: No consolidation, edema or effusion. No pneumothorax. MEDIASTINUM AND CARDIOVASCULAR STRUCTURES: Cardiac silhouette not enlarged. Central airways and mediastinal contour are unremarkable. BONES AND SOFT TISSUES: Unremarkable. RAD/Chest 1 View (Portable) IMPRESSION: No radiographic evidence of acute cardiopulmonary disease. Electronically Signed: Hilaria Jones MD at 10:35 EST , CC: Dr. 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 Normal [facility] Emergency Department Summary on 02-29-2024 Emergency Department Summary [facility] Medical Records Department [address] [place] [address] Emergency Department Summary 02/29/24 MR#: [id number] Acct: [id number] Name: FRANCY PHAN Rep #: [id number] : 1995 28 From: Michael Bustos MD PCP: Care Physician,No Primary Status:REG ER Location: ED HPI History of Present Illness Chief Complaint: Chest Pain Narrative Narrative: 28-year-old male past medical history of atrial fibrillation, states he was diagnosed about a month ago, and they performed a cardioversion in the emergency department. He takes Cardizem 180 mg daily but is not on a blood thinner. He presents with atrial fibrillation, fast pounding heart rate, and shortness of breath along with chest pain and left arm numbness that began last evening around 8 PM, over 12 hours ago. He denies any recent fevers or chills, no leg swelling, no DVT or PE risk factors. He states his symptoms started last evening, but he went to bed last night, and woke up this morning and states he has not felt the same. No exacerbating or alleviating factors. [facility] Medical History (Updated 02/29/24 @ 12:56 by Michael Bustos MD) History of cardioversion Afib Chest pain Home Medications ???Medication ???Instructions ???Recorded ???Last Taken ???Type diltiazem HCl 180 mg 180 mg PO DAILY 02/29/24 02/29/24 History capsule,extended release 24 hr (Cartia XT) Allergy/AdvReac Type Severity Reaction Status Date / Time bee venom protein (honey bee) Allergy Hives Verified 07/14/23 08:15 amphetamine aspartate (From AdvReac Vomiting Verified 07/14/23 08:15 Adderall) amphetamine sulfate (From AdvReac Vomiting Verified 07/14/23 08:15 Adderall) dextroamphetamine saccharate AdvReac Vomiting Verified 07/14/23 08:15 (From Adderall) dextroamphetamine sulfate AdvReac Vomiting Verified 07/14/23 08:15 (From Adderall) Surgical History H/O elbow surgery Social History household members: family Smoking Status: Never smoker alcohol intake: never ROS ROS ED ROS Narrative Constitutional: No fever, no chills. No diaphoresis. HEENT: No sore throat. No neck pain. No loss of vision. No rhinorrhea. Cardiovascular: Positive chest pressure/chest pain. Positive palpitations. No pedal edema. Respiratory: No cough, positive shortness of breath. Abdominal: No abdominal pain. No nausea. No vomiting. Genitourinary: No dysuria. No hematuria. Musculoskeletal: No myalgias. No arthralgias. Neurologic: No headaches. No dizziness. No lightheadedness. Skin: No rash. No change in color. Psychiatric: No depression. No anxiety. EXAM Physical Exam Narrative Exam Narrative: Afebrile. Vital signs noted. Nontoxic-appearing. HEENT examination grossly unremarkable. PERRL, EOMI. Cardiovascular examination reveals an irregularly irregular tachycardia as high as 150 bpm but down to 108 intermittently. Lungs are clear to auscultation bilaterally. Abdomen soft and nontender with positive bowel sounds. Neurological examination is nonfocal and nonlateralizing. No appreciated pedal edema. Const Vital Signs: 02/29/24 09:41 02/29/24 09:41 02/29/24 10:08 Temperature 97 F L Temperature Source Temporal Pulse Rate 74 150 H Respiratory Rate 20 H Blood Pressure 128/93 H Blood Pressure Mean 104 Pulse Ox 100 Oxygen Delivery Method Room Air Room Air 02/29/24 10:16 02/29/24 11:41 Temperature Temperature Source Pulse Rate 97 Respiratory Rate 18 Blood Pressure 126/90 H Blood Pressure Mean 102 Pulse Ox 97 Oxygen Delivery Method Room Air Room Air Heart Score History: Slightly/Non-Suspici ous ECG: Normal Age: Risk Factors: No Risk Factors Score: 0 MDM MDM MDM Narrative Medical decision making narrative: Differential diagnosis includes but not limited to ACS versus atrial fibrillation with rapid ventricular response versus pneumothorax versus pneumonia. I have low suspicion for pneumonia or pneumothorax because history and physical does not support this. Additionally, I have very low suspicion for pulmonary embolism because initially his pulse was 74 and pulse ox 100% on room air, and he has low risk factors. He states he took his diltiazem 180 mg this morning. He will be bolused 20 mg. He has normal blood pressure if not slightly elevated but I do not think emergent cardioversion is indicated. I reviewed his laboratory work and he has normal white count of 10.0 with hemoglobin slightly hemoconcentrated at 16.8 with hematocrit 46.4, platelet count normal at 260. Chloride is elevated at 108 which I think is nonspecific, normal sodium of 139 and potassium 4.0, BUN normal at 7 with creatinine 0.98. Glucose is normal at (more content not included)... Normal [facility] L501.4020on 02-29-2024 TROPONIN-I HS 6 pg/mL Normal 3.0-78.0 [facility] Comment on above: Result Comment: Janey vick Note: New Test Units and Gender Specific Reference Ranges. For more information see Policy Stat Procedure [facility] Sensitivity Troponin (TNIH) and attachments. Performed By: #### L 501.4020 #### [facility] [address] [place], [place], [address] L501.5430on 02-29-2024 TROPONIN-I HS 6 pg/mL Normal 3.0-78.0 [facility] Comment on above: Order Comment: 1 Y Result Comment: Janey vick Note: New Test Units and Gender Specific Reference Ranges. For more information see Policy Stat Procedure [facility] High Sensitivity Troponin (TNIH) and attachments. Performed By: #### L 500.2500, L501.5425, L100.0100 #### [facility] [address] [place], [place], [address] XR CHEST 1 VIEWon 02-09-2024 XR CHEST 1 VIEW ORIGINAL EXAMINATION: ONE XRAY VIEW OF THE CHEST 02/09/2024 7:03 pm COMPARISON: 01/23/2024. HISTORY: ORDERING SYSTEM PROVIDED HISTORY: Reason for Exam: Pt states he feels a piece of steak is stuck in his throat. has some sternal CP/discomfort. FB FINDINGS: Stable cardiomediastinal silhouette. No pleural effusion or pneumothorax. No focal consolidation. No acute osseous abnormality. IMPRESSION: No focal consolidation or edema. I have personally reviewed the images of this examination and agree with the resident's findings and interpretation. Interpreted by: Marcus Renee Preliminary Report By: Leeroy Menon Electronically signed By Marcus Renee Dictated Date: 02/09/2024 7:07:25 PM Prelim Date: 02/09/2024 7:08:24 PM Sign Date: 02/09/2024 7:23:47 PM Ordering Provider: BIN Jameson [facility] XR NECK SOFT TISSUEon 2023 XR NECK SOFT TISSUE ORIGINAL EXAMINATION: TWO XRAY VIEWS OF THE NECK SOFT TISSUES 02/09/2024 7:04 pm COMPARISON: None. HISTORY: ORDERING SYSTEM PROVIDED HISTORY: Reason for Exam: Pt states he feels a piece of steak is stuck in his throat. has some sternal CP/discomfort. FB FINDINGS: Straightening of cervical lordosis likely due to positioning. No significant degenerative changes. Visualized portions of the aerodigestive tract are unremarkable. The prevertebral soft tissue structures are unremarkable. IMPRESSION: Visualized portions of the aerodigestive tract are unremarkable. I have personally reviewed the images of this examination and agree with the resident's findings and interpretation. Interpreted by: Marcus Renee Preliminary Report By: Leeroy Menon Electronically signed By Marcus Renee Dictated Date: 02/09/2024 7:08:35 PM Prelim Date: 02/09/2024 7:10:16 PM Sign Date: 02/09/2024 7:24:47 PM Ordering Provider: BIN Jameson [facility] .Auto Diffon 01-23-2024 Basophil, Absolute 0.0 10 3/mcL Normal 0.0-0.2 [facility] Comment on above: Performed By: #### B MP, ANEU, CBC, TROPHS, MDW, PBNP, ADIFF, GFR, DIMER, MG ####[address] [address] Basophils/100 WBC (Bld) 0.4 % Normal 0.0-2.5 [facility] Comment on above: Performed By: #### B MP, ANEU, CBC, TROPHS, MDW, PBNP, ADIFF, GFR, DIMER, MG ####[facility] [place], [place] [address] Eosinophil, Absolute 0.6 10 3/mcL Normal 0.0-0.7 [facility] Comment on above: Performed By: #### B MP, ANEU, CBC, TROPHS, MDW, PBNP, ADIFF, GFR, DIMER, MG ####[place] [place] [place], [place] [address] Eosinophils/100 WBC (Bld) 6.1 % Normal 0.0-7.0 [facility] Comment on above: Performed By: #### B MP, ANEU, CBC, TROPHS, MDW, PBNP, ADIFF, GFR, DIMER, MG ####[address] [place], [place] [address] Lymphocyte, Absolute 2.0 10 3/mcL Normal 0.9-4.3 [facility] Comment on above: Performed By: #### B MP, ANEU, CBC, TROPHS, MDW, PBNP, ADIFF, GFR, DIMER, MG ####[address] [place], [place] [address] Lymphocytes/100 WBC (Bld) 22.8 % Normal 20.0-40.0 [facility] Comment on above: Performed By: #### B MP, ANEU, CBC, TROPHS, MDW, PBNP, ADIFF, GFR, DIMER, MG ####[address] [place], [place] [address] Monocyte, Absolute 0.8 10 3/mcL Normal 0.1-1.4 [facility] Comment on above: Performed By: #### B MP, ANEU, CBC, TROPHS, MDW, PBNP, ADIFF, GFR, DIMER, MG ####[address] [place], [place] [address] Monocytes/100 WBC (Bld) 9.0 % Normal 2.0-13.0 [facility] Comment on above: Performed By: #### B MP, ANEU, CBC, TROPHS, MDW, PBNP, ADIFF, GFR, DIMER, MG ####[facility] [place], [place] [address] Neutrophils/100 WBC (Bld) 61.7 % Normal 50.0-75.0 [facility] Comment on above: Performed By: #### B MP, ANEU, CBC, TROPHS, MDW, PBNP, ADIFF, GFR, DIMER, MG ####[address] [place], [place] [address] .GFRon 01-23-2024 GFR 105 ml/min/1.73sqm Normal [facility] Comment on above: Result Comment: GFR Population mean for , Non- Americans Ages 20-29 = 116 mL/min/1.73 sq.m. Ages 30-39 = 107 mL/min/1.73 sq.m. Ages 40-49 = 99 mL/min/1.73 sq.m. Ages 50-59 = 93 mL/min/1.73 sq.m. Ages 60-69 = 85 mL/min/1.73 sq.m. Ages 70+ = 75 mL/min/1.73 sq.m. Chronic Kidney Disease: Less than 60 mL/min/1.73 square meters End Stage Renal Disease: Less than 15 mL/min/1.73 square meters Performed By: #### B MP, ANEU, CBC, TROPHS, MDW, PBNP, ADIFF, GFR, DIMER, MG ####[address] [place], [place] [address] GFR Non- 87 ml/min/1.73sqm Normal [facility] Comment on above: Result Comment: GFR Population mean for , Non- Americans Ages 20-29 = 116 mL/min/1.73 sq.m. Ages 30-39 = 107 mL/min/1.73 sq.m. Ages 40-49 = 99 mL/min/1.73 sq.m. Ages 50-59 = 93 mL/min/1.73 sq.m. Ages 60-69 = 85 mL/min/1.73 sq.m. Ages 70+ = 75 mL/min/1.73 sq.m. Chronic Kidney Disease: Less than 60 mL/min/1.73 square meters End Stage Renal Disease: Less than 15 mL/min/1.73 square meters Performed By: #### B MP, ANEU, CBC, TROPHS, MDW, PBNP, ADIFF, GFR, DIMER, MG ####[facility] [place], [place] [address] .MDWon 01-23-2024 Monocyte Distribution Width 17.29 Normal 0.00-20.00 [facility] Comment on above: Result Comment: For ED adult patients suspected of sepsis, MDW<=20.0 does not rule out sepsis or risk of sepsis Performed By: #### B MP, ANEU, CBC, TROPHS, MDW, PBNP, ADIFF, GFR, DIMER, MG ####[address] [place], [place] [address] .NEUABSon 01-23-2024 Neutrophil, Absolute 5.5 10 3/mcL Normal 2.3-8.1 [facility] Comment on above: Performed By: #### B MP, ANEU, CBC, TROPHS, MDW, PBNP, ADIFF, GFR, DIMER, MG ####[address] [place], [place] [address] BMPon 01-23-2024 BUN/Creatinine Ratio 11 ratio Normal 7-27 [facility] Comment on above: Performed By: #### B MP, ANEU, CBC, TROPHS, MDW, PBNP, ADIFF, GFR, DIMER, MG ####[address] [place], [place] [address] Calcium [Mass/Vol] 8.9 mg/dL Normal 8.4-10.2 [facility] Comment on above: Performed By: #### B MP, ANEU, CBC, TROPHS, MDW, PBNP, ADIFF, GFR, DIMER, MG ####[facility] [place], [place] [address] Chloride [Moles/Vol] 105 mmol/L Normal 98-107 [facility] Comment on above: Performed By: #### B MP, ANEU, CBC, TROPHS, MDW, PBNP, ADIFF, GFR, DIMER, MG ####[address] [address] CO2 [Moles/Vol] 27 mmol/L Normal 22-29 [facility] Comment on above: Performed By: #### B MP, ANEU, CBC, TROPHS, MDW, PBNP, ADIFF, GFR, DIMER, MG ####[address] [place], [place] [address] Creatinine [Mass/Vol] 1.03 mg/dL Normal 0.70-1.30 [facility] Comment on above: Result Comment: Test ing performed on Adaptivity Dimension EXL analyzer using a modified kinetic Nadia technique. Performed By: #### B MP, ANEU, CBC, TROPHS, MDW, PBNP, ADIFF, GFR, DIMER, MG ####[address] [place] [address] Electrolyte Balance 11.0 mEq/L Normal 4.0-15.0 [facility] Comment on above: Performed By: #### B MP, ANEU, CBC, TROPHS, MDW, PBNP, ADIFF, GFR, DIMER, MG ####[address] [place], [place] [address] Glucose [Mass/Vol] 119 mg/dL High 70-105 [facility] Comment on above: Performed By: #### B MP, ANEU, CBC, TROPHS, MDW, PBNP, ADIFF, GFR, DIMER, MG ####[address] [address] Potassium [Moles/Vol] 3.8 mmol/L Normal 3.5-5.1 [facility] Comment on above: Performed By: #### B MP, ANEU, CBC, TROPHS, MDW, PBNP, ADIFF, GFR, DIMER, MG ####[address] [place], [place] [address] Sodium [Moles/Vol] 143 mmol/L Normal 136-145 [facility] Comment on above: Performed By: #### B MP, ANEU, CBC, TROPHS, MDW, PBNP, ADIFF, GFR, DIMER, MG ####[place] [address] Urea nitrogen [Mass/Vol] 11 mg/dL Normal 7-18 [facility] Comment on above: Performed By: #### B MP, ANEU, CBC, TROPHS, MDW, PBNP, ADIFF, GFR, DIMER, MG ####[place] [id number] CBCon 01-23-2024 Erythrocyte distribution width (RBC) [Ratio] 13.1 % Normal 11.5-15.5 [facility] Comment on above: Performed By: #### B MP, ANEU, CBC, TROPHS, MDW, PBNP, ADIFF, GFR, DIMER, MG ####[address] [place] [address] Hematocrit (Bld) [Volume fraction] 45.1 % Normal 40.0-52.0 [facility] Comment on above: Performed By: #### B MP, ANEU, CBC, TROPHS, MDW, PBNP, ADIFF, GFR, DIMER, MG ####[place] [address] Hgb 15.7 G/dL Normal 13.0-17.5 [facility] Comment on above: Performed By: #### B MP, ANEU, CBC, TROPHS, MDW, PBNP, ADIFF, GFR, DIMER, MG ####[place] [address] MCH (RBC) [Entitic mass] 29.8 pg Normal 27.0-33.0 [facility] Comment on above: Performed By: #### B MP, ANEU, CBC, TROPHS, MDW, PBNP, ADIFF, GFR, DIMER, MG ####[address] [place] [address] MCHC 34.8 G/dL Normal 32.0-36.0 [facility] Comment on above: Performed By: #### B MP, ANEU, CBC, TROPHS, MDW, PBNP, ADIFF, GFR, DIMER, MG ####[address] [address] [place], [place] [address] MCV (RBC) [Entitic vol] 85.7 fL Normal 81.0-100.0 [facility] Comment on above: Performed By: #### B MP, ANEU, CBC, TROPHS, MDW, PBNP, ADIFF, GFR, DIMER, MG ####[address] [place], [place] [address] Platelet 223 10 3/mcL Normal 150-450 [facility] Comment on above: Performed By: #### B MP, ANEU, CBC, TROPHS, MDW, PBNP, ADIFF, GFR, DIMER, MG ####[facility] [place], [place] [address] Platelet mean volume (Bld) [Entitic vol] 8.7 fL Normal 6.4-10.5 [facility] Comment on above: Performed By: #### B MP, ANEU, CBC, TROPHS, MDW, PBNP, ADIFF, GFR, DIMER, MG ####[address] [place], [place] [address] RBC 5.26 10 6/mcL Normal 4.50-6.00 [facility] Comment on above: Performed By: #### B MP, ANEU, CBC, TROPHS, MDW, PBNP, ADIFF, GFR, DIMER, MG ####[address] [address] [place], [place] [address] WBC 9.0 10 3/mcL Normal 4.5-10.8 [facility] Comment on above: Performed By: #### B MP, ANEU, CBC, TROPHS, MDW, PBNP, ADIFF, GFR, DIMER, MG ####[facility] [place], [place] [address] DIMERon 01-23-2024 D-Dimer <200 Normal 0-230 [facility] Comment on above: Result Comment: DDN: Results reported in D-DU ng/mL. Negative for D-dimer. DVT/PE is highly unlikely. Note: False negative results may be seen in patients on anticoagulant therapy. The result of the D-Dimer test should be evaluated in the context of all the clinical and laboratory data available. In those instances where the laboratory result does not agree with the clinical evaluation, additional tests should be performed accordingly. If the D-Dimer result is used to exclude DVT or PE, the recommended cutoff value is less than 230 ng/mL. The D-Dimer result should not be used alone to rule in DVT/PE, but should be used in conjunction with a clinical pretest probability (PTP)assessment model to exclude venous thromboembolism (VTE) in outpatients suspected of deep venous thrombosis (DVT) and pulmonary embolism (PE). Performed By: #### B MP, ANEU, CBC, TROPHS, MDW, PBNP, ADIFF, GFR, DIMER, MG ####[address] [place], [place] [address] LABORATORYOrdered By: SYSTEM SYSTEM on 01-23-2024 Troponin I.cardiac DL <= 0.01 ng/mL [Mass/Vol] 7 ng/L Normal 0 - 76 ng/L AO ADM SS Comment on above: Interpretive Data: H igh Sensitive Troponin I Reference Ranges: Female: 0-51 ng/L Male: 0-76 ng/L Testing performed on Knome using a homogeneous sandwich chemiluminescent immunoassay based on Able Device technology. TSH Qn 2.03 m[IU]/L Normal 0.36 - 3.74 mcIU/mL AO ADM SS Basophils (Bld) [#/Vol] 0.0 103/mcL Normal 0.0 - 0.2 10^3/mcL AO Workflow SS Basophils/100 WBC (Bld) 0.4 % Normal 0.0 - 2.5 % AO Workflow SS Calcium [Mass/Vol] 8.9 mg/dL Normal 8.4 - 10. 2 mg/dL AO ADM SS Chloride [Moles/Vol] 105 mmol/L Normal 98 - 10 7 mmol/L AO ADM SS CO2 [Moles/Vol] 27 mmol/L Normal 22 - 29 mmol/L AO ADM SS Creatinine [Mass/Vol] 1.03 mg/dL Normal 0.70 - 1.30 mg/dL AO ADM SS Comment on above: Interpretive Data: T esting performed on Siemens Dimension EXL analyzer using a modified kinetic Nadia technique. Electrolyte Balance 11.0 mEq/L Normal 4.0 - 15 .0 mEq/L AO ADM SS Eosinophil, Absolute 0.6 103/mcL Normal 0.0 - 0 .7 10^3/mcL AO Workflow SS Eosinophils/100 WBC (Bld) 6.1 % Normal 0.0 - 7.0 % AO Workflow SS Erythrocyte distribution width (RBC) [Ratio] 13.1 % Normal 11.5 - 15.5 % AO Workflow SS Fibrin D-dimer DDU (PPP) [Mass/Vol] ng/mL D-DU Normal 0 - 230 ng/mL D-DU AO [facility] SS Comment on above: Result Comment: DDN: Results reported in D-DU ng/mL. Negative for D-dimer. DVT/PE is highly unlikely. Note: False negative results may be seen in patients on anticoagulant therapy. Interpretive Data: T he result of the D-Dimer test should be evaluated in the context of all the clinical and laboratory data available. In those instances where the laboratory result does not agree with the clinical evaluation, additional tests should be performed accordingly. If the D-Dimer result is used to exclude DVT or PE, the recommended cutoff value is less than 230 ng/mL. The D-Dimer result should not be used alone to rule in DVT/PE, but should be used in conjunction with a clinical pretest probability (PTP)assessment model to exclude venous thromboembolism (VTE) in outpatients suspected of deep venous thrombosis (DVT) and pulmonary embolism (PE). GFR/1.73 sq M.predicted among blacks MDRD (S/P/Bld) [Vol rate/Area] 105 ml/min/1.73sqm Invalid Interpretation Code AO Chemistry S Comment on above: Interpretive Data: GFR Population mean for , Non- Americans Ages 20-29 = 116 mL/min/1.73 sq.m. Ages 30-39 = 107 mL/min/1.73 sq.m. Ages 40-49 = 99 mL/min/1.73 sq.m. Ages 50-59 = 93 mL/min/1.73 sq.m. Ages 60-69 = 85 mL/min/1.73 sq.m. Ages 70+ = 75 mL/min/1.73 sq.m. Chronic Kidney Disease: Less than 60 mL/min/1.73 square meters End Stage Renal Disease: Less than 15 mL/min/1.73 square meters GFR/1.73 sq M.predicted among non-blacks MDRD (S/P/Bld) [Vol rate/Area] 87 ml/min/1.73sqm Invalid Interpretation Code AO Chemistry S Comment on above: Interpretive Data: GFR Population mean for , Non- Americans Ages 20-29 = 116 mL/min/1.73 sq.m. Ages 30-39 = 107 mL/min/1.73 sq.m. Ages 40-49 = 99 mL/min/1.73 sq.m. Ages 50-59 = 93 mL/min/1.73 sq.m. Ages 60-69 = 85 mL/min/1.73 sq.m. Ages 70+ = 75 mL/min/1.73 sq.m. Chronic Kidney Disease: Less than 60 mL/min/1.73 square meters End Stage Renal Disease: Less than 15 mL/min/1.73 square meters Glucose [Mass/Vol] 119 mg/dL High 70 - 105 mg/dL AO ADM SS Hematocrit (Bld) [Volume fraction] 45.1 % Normal 40.0 - 52.0 % AO Workflow SS Hemoglobin (Bld) [Mass/Vol] 15.7 G/dL Normal 13.0 - 17.5 G/dL AO Workflow SS Lymphocytes (Bld) [#/Vol] 2.0 103/mcL Normal 0.9 - 4.3 10^3/mcL AO Workflow SS Lymphocytes/100 WBC (Bld) 22.8 % Normal 20.0 - 40.0 % AO Workflow SS Magnesium [Mass/Vol] 1.9 mg/dL Normal 1.8 - 2 .4 mg/dL AO ADM SS MCH (RBC) [Entitic mass] 29.8 pg Normal 27. 0 - 33.0 pg AO Workflow SS MCHC 34.8 G/dL Normal 32.0 - 36.0 G/dL AO Workflow SS MCV (RBC) [Entitic vol] 85.7 fL Normal 81.0 - 100.0 fL AO Workflow SS Monocyte distribution width Auto (Bld) [Entitic vol] 17.29 1 Normal 0.00 - 20.00 AO Workflow SS Comment on above: Result Comment: For ED adult patients suspected of sepsis, MDW<=20.0 does not rule out sepsis or risk of sepsis Monocytes (Bld) [#/Vol] 0.8 103/mcL Normal 0.1 - 1.4 10^3/mcL AO Workflow SS Monocytes/100 WBC (Bld) 9.0 % Normal 2.0 - 13.0 % AO Workflow SS Natriuretic peptide.B prohormone N-Terminal [Mass/Vol] 64 pg/mL Normal 0 - 125 pg/mL AO ADM SS Comment on above: Interpretive Data: N T-proBNP results of less than 300 pg/mL effectively rules out acute congestive heart failure with 99% negative predictive value. Neutrophils (Bld) [#/Vol] 5.5 103/mcL Normal 2.3 - 8.1 10^3/mcL AO Workflow SS Neutrophils/100 WBC (Bld) 61.7 % Normal 50.0 - 75.0 % AO Workflow SS Platelet mean volume (Bld) [Entitic vol] 8.7 fL Normal 6.4 - 10.5 fL AO Workflow SS Platelets (Bld) [#/Vol] 223 103/mcL Normal 150 - 450 10^3/mcL AO Workflow SS Potassium [Moles/Vol] 3.8 mmol/L Normal 3.5 - 5.1 mmol/L AO ADM SS RBC (Bld) [#/Vol] 5.26 106/mcL Normal 4.50 - 6.0 0 10^6/mcL AO Workflow SS Sodium [Moles/Vol] 143 mmol/L Normal 136 - 145 mmol/L AO ADM SS Troponin I.cardiac DL <= 0.01 ng/mL [Mass/Vol] 5 ng/L Normal 0 - 76 ng/L AO ADM SS Comment on above: Interpretive Data: H igh Sensitive Troponin I Reference Ranges: Female: 0-51 ng/L Male: 0-76 ng/L Testing performed on [place] using a homogeneous sandwich chemiluminescent immunoassay based on [employer]ble Device technology. Urea nitrogen [Mass/Vol] 11 mg/dL Normal 7 - 18 mg/d L AO ADM SS Urea nitrogen/Creatinine [Mass ratio] 11 ratio Normal 7 - 27 ratio AO ADM SS WBC (Bld) [#/Vol] 9.0 103/mcL Normal 4.5 - 10.8 10^3/mcL AO Workflow SS MGon 01-23-2024 Magnesium [Mass/Vol] 1.9 mg/dL Normal 1.8-2.4 [facility] Comment on above: Performed By: #### B MP, ANEU, CBC, TROPHS, MDW, PBNP, ADIFF, GFR, DIMER, MG ####[address] [place], [place] [address] PBNPon 01-23-2024 Natriuretic peptide B (Bld) [Mass/Vol] 64 pg/mL Normal 0-125 [facility] Comment on above: Result Comment: NT-p roBNP results of less than 300 pg/mL effectively rules out acute congestive heart failure with 99% negative predictive value. Performed By: #### B MP, ANEU, CBC, TROPHS, MDW, PBNP, ADIFF, GFR, DIMER, MG ####[address] [place], [place] [address] TROPHSon 01-23-2024 High Sensitivity Troponin I 7 ng/L Normal 0-76 [facility] Comment on above: Result Comment: High Sensitive Troponin I Reference Ranges: Female: 0-51 ng/L Male: 0-76 ng/L Testing performed on [employer] using a homogeneous sandwich chemiluminescent immunoassay based on Able Device technology. Performed By: #### T [facility] ####[address] [place], [place] [address] High Sensitivity Troponin I 5 ng/L Normal 0-76 [facility] Comment on above: Result Comment: High Sensitive Troponin I Reference Ranges: Female: 0-51 ng/L Male: 0-76 ng/L Testing performed on Dimension EXL using a homogeneous sandwich chemiluminescent immunoassay based on Able Device technology. Performed By: #### B MP, ANEU, CBC, JENNIFERS, MDW, PBNP, ADIFF, GFR, DIMER, MG ####[address] [place], [place] [address] TSHon 01-23-2024 TSH Qn 2.03 m[IU]/L Normal 0.36-3.74 [facility] Comment on above: Performed By: #### T ####[address] [place], [place] [address] XR CHEST 1 VIEWon 01-23-2024 XR CHEST 1 VIEW ORIGINAL EXAMINATION: ONE XRAY VIEW OF THE CHEST 01/23/2024 6:50 am COMPARISON: None. HISTORY: ORDERING SYSTEM PROVIDED HISTORY: Reason for Exam: chest pain FINDINGS: Normal cardiomediastinal silhouette. No focal consolidation, large pleural effusion, or visible pneumothorax. Osseous structures are unremarkable. IMPRESSION: No acute radiographic abnormality. I have personally reviewed the images of this examination, and agree with the resident's findings and interpretation. Interpreted by: Kaleb Barnhart MD Preliminary Report By: Jyothi Johnson Electronically signed By Kaleb Barnhart MD Dictated Date: 01/23/2024 6:53:30 AM Prelim Date: 01/23/2024 6:53:59 AM Sign Date: 01/23/2024 6:56:58 AM Ordering Provider: ERICA Jameson [facility] Orthopedic Visit Reporton Orthopedic Visit Report [facility] [address] [place] [address] [address] [place] [address] OFFICE VISIT Date of Service: 07/14/23 MR#: [id number] Acct: [id number] Name: FRANCY PHAN Rep #: [id number] : 1995 Provider: Dr. Lee carroll DO Age/Sex: 28/M Location: [facility] Status: Signed Intake Vital Signs 05/12/23 14:29 Height 5 ft 9 in Weight: 220 lb BMI 32.5 Intake Visit Reasons: left knee Is patient in pain?: Yes Allergies bee venom protein (honey bee) Allergy (Verified 07/14/23 08:15) Hives amphetamine aspartate [From Adderall] Adverse Reaction (Verified 07/14/23 08:15) Vomiting amphetamine sulfate [From Adderall] Adverse Reaction (Verified 07/14/23 08:15) Vomiting dextroamphetamine saccharate [From Adderall] Adverse Reaction (Verified 07/14/23 08:15) Vomiting dextroamphetamine sulfate [From Adderall] Adverse Reaction (Verified 07/14/23 08:15) Vomiting Medications NK 05/02/23 [History Confirmed 07/14/23] [facility] Medical History (Updated 05/12/23 @ 15:[address] Lee Martinez DO) Chest pain Surgical History (Updated 05/12/23 @ 14:30 by Guerita Conroy) H/O elbow surgery Social History (Updated 05/12/23 @ 14:31 by Guerita E Frase) household members: family Smoking Status: Never smoker alcohol intake: never HPI left knee Details: This documentation accurately reflects the service provided and the decisions made by me, Dr. Lee Martinez, DO 07/14/23 0749. Part of today???s visit was documented by [ ], acting as scribe. FRANCY PHAN is a 28 year old M here today for MRI follow-up left knee. Patient notes that he continues to have pain. He has pain over his entire knee. He complains of a sharp pain into his posterior knee. He denies any popping or clicking. He has knee instability. Patient has a knee brace which he wears at all times. Patient denies any pain medication. He had increased pain on Friday and he wasnt able to walk any more. He had an MRI which is here for review. From Last office visit 05/12/2023: FRANCY PHAN is a 27 year old M here today for ER follow-up for left knee pain ER documentation reported patient has had pain in the knee for years for which she has been in and out of the ER for worse the past 3 days prior to ER visit, and no injury. Of note the patient is 27 years old and has no medical conditions listed but has been in the [facility] ER 12 times for various reasons and of note he was in the ER the day after this for chest pain and was not found to have any substantial findings. He is here for left knee pain. Patient notes that he has had left knee pain for a few years but worsened over the last 2 weeks. He denies any known recent injury. Patient had a large laceration in 2009 which had to be stitched together. He denies any buttermaker issues from that injury. Patient complains of pain over her lateral knee and behind his patella. He complains of painful popping and clicking lateral knee . He has buckling and instability. He has full knee range of motion although it is painful to bend his knee. He has increased pain with knee flexion and ambulation. He has a knee brace which is helpful. Patient denies any injections or MRI. Patient tried tylenol which is not helpful. Ortho Exam General General: Yes no acute distress Neurologic: Yes alert and Yes oriented x3 Psychologic: Yes reasonable and appropriate Right Knee Patella Translation: 1 Left Knee Skin/Wound: Yes CDI, No ecchymosis, No erythema and No swelling Knee ROM: Yes ROM-Extension -20 to 0 and Yes ROM-Flexion 0-140 Examination: Yes Rosalio's Test Stability: NML: Anterior Drawer, NML: Alek, NML: Posterior Drawer, NML: Valgus 0, NML: Valgus 30, NML: Varus 0 and NML: Varus 30 Apprehension with Lateral Translation: No Patella Translation: 1 Patella Grind: Yes KNEE: s shaped scar superior lateral to patella. grind is painful but no crepitus. pain with flexion. positive lateral rosalio with pain and click. Supplemental Info 07/11/2023 MRI left knee:Tiny popliteal cyst. No discrete meniscal tear or acute ligamentous injury. 05/02/2023 x-ray left knee: Normal Coding Level of Care Code Off vis,est,level 3 Diagnoses Acute pain of left knee M25.562 Chronicity: acute Assessment and Plan Assessment and Plan (1) Left knee pain: Qualifiers: Chronicity: acute Qualified Code(s): M25.562 - Pain in left knee Plan Patient has no structural problems. Suspect malingering. He may take tylenol and ibuprofen for pain. Patient may also ice his knee for pain. Follow up on an as needed basis or sooner if pain, swelling, numbness or associated symptoms, or concerns develop. All questions answered. Patient in agreement of plan. Clinical Quality Measures High Blood P (more content not included)... Normal [facility] Lower Ext Joint Only (Routin e)on 07-11-2023 Lower Ext Joint Only (Routine) [facility] [address] [place] [address] Lower Ext Joint Only (Routine) MR#: [id number] Acct: [id number] Name: FRANCY PHAN Rep #: [id number] : 1995 M 28 From: Tong Martinez MD PCP: Care Physician,No Primary Status: REG CLI Study: Lower Ext Joint Only (Routine) Date of Exam: 0 07/11/23 Exam# [id number] Ordering Dr: Lee Martinez DO [id number] STUDY: MRI LEFT KNEE REASON FOR EXAM: Male, 28 years old. Pain. Previous injury 2009, no known injury recently, medial pain, sharp pain when bending underneath patella, wears brace daily, no surgery. TECHNIQUE: Standardized fat and water weighted pulse sequences were obtained in all 3 orthogonal planes. COMPARISON: Left knee radiographs dated 05/02/2023. FINDINGS: Normal medial meniscus. Normal hyaline cartilage of the medial femorotibial compartment. Normal medial femoral condyle and tibial plateau. Normal medial collateral ligamentous complex (MCL). Normal distal semimembranosus, gracilis and semitendinosus tendons. Normal lateral meniscus. Normal hyaline cartilage of the lateral femorotibial compartment. Normal lateral femoral condyle and tibial plateau. Normal proximal tibiofibular articulation. Normal lateral collateral ("fibular") ligament. Normal popliteus tendon. Normal biceps femoris tendon. Normal anterior cruciate ligament (ACL). Normal posterior cruciate ligament (PCL). Normal congruent patellofemoral articulation. Normal hyaline cartilage of the patellofemoral compartment. Normal medial and lateral patellar retinaculum. Normal quadriceps tendon. Normal patellar tendon. Normal Hoffa''s fat pad. There is no significant joint effusion. There is a tiny popliteal cyst. The soft tissues are unremarkable. The otherwise visualized osseous structures are unremarkable. MRI/Lower Ext Joint Only (Routine) IMPRESSION: Tiny popliteal cyst. No discrete meniscal tear or acute ligamentous injury. Electronically Signed: Tong Martinez MD at 15:10 EDT , CC: Dr. Lee Martinez DO; No Primary Care Physician Die Cast Die Maker: Signed Normal [facility] Orthopedic Visit Reporton Orthopedic Visit Report [facility] [address] [place] [phone] OFFICE VISIT Date of Service: 05/12/23 MR#: [id number] Acct: [id number] Name: FRANCY PHAN Rep #: [id number] : 1995 Provider: Dr. Lee carroll DO Age/Sex: 27/M Location: [facility] Status: Signed Intake Vital Signs 05/03/23 20:44 05/12/23 14:29 Height 5 ft 9 in 5 ft 9 in Weight: 220 lb BMI 32.5 Intake Visit Reasons: LEFT KNEE Accompanied by: Self Is patient in pain?: Yes Pain scale (1-10): 5 Allergies bee venom protein (honey bee) Allergy (Verified 05/12/23 14:30) Hives amphetamine aspartate [From Adderall] Adverse Reaction (Verified 05/12/23 14:30) Vomiting amphetamine sulfate [From Adderall] Adverse Reaction (Verified 05/12/23 14:30) Vomiting dextroamphetamine saccharate [From Adderall] Adverse Reaction (Verified 05/12/23 14:30) Vomiting dextroamphetamine sulfate [From Adderall] Adverse Reaction (Verified 05/12/23 14:30) Vomiting Medications NK 05/02/23 [History Confirmed 05/12/23] [facility] Medical History (Updated 05/12/23 @ 15:[address] Lee Martinez DO) Chest pain Surgical History (Updated 05/12/23 @ 14:30 by Guerita Conroy) H/O elbow surgery Social History (Updated 05/12/23 @ 14:31 by Guerita Conroy) household members: family Smoking Status: Never smoker alcohol intake: never HPI LEFT KNEE Details: This documentation accurately reflects the service provided and the decisions made by me, Dr. Lee Martinez DO 05/12/23 0919. Part of today???s visit was documented by [ ], acting as scribe. FRANCY PHAN is a 27 year old M here today for ER follow-up for left knee pain ER documentation reported patient has had pain in the knee for years for which she has been in and out of the ER for worse the past 3 days prior to ER visit, and no injury. Of note the patient is 27 years old and has no medical conditions listed but has been in the [facility] ER 12 times for various reasons and of note he was in the ER the day after this for chest pain and was not found to have any substantial findings. He is here for left knee pain. Patient notes that he has had left knee pain for a few years but worsened over the last 2 weeks. He denies any known recent injury. Patient had a large laceration in 2009 which had to be stitched together. He denies any prison issues from that injury. Patient complains of pain over her lateral knee and behind his patella. He complains of pain ful popping and clicking lateral knee . He has buckling and instability. He has full knee range of motion although it is painful to bend his knee. He has increased pain with knee flexion and ambulation. He has a knee brace which is helpful. Patient denies any injections or MRI. Patient tried tylenol which is not helpful. Ortho Exam General General: Yes no acute distress Neurologic: Yes alert and Yes oriented x3 Psychologic: Yes reasonable and appropriate Right Knee Patella Translation: 1 Left Knee Skin/Wound: Yes CDI, No ecchymosis, No erythema and No swelling Knee ROM: Yes ROM-Extension -20 to 0 and Yes ROM-Flexion 0-140 Examination: Yes Rosalio's Test Stability: NML: Anterior Drawer, NML: Alek, NML: Posterior Drawer, NML: Valgus 0, NML: Valgus 30, NML: Varus 0 and NML: Varus 30 Apprehension with Lateral Translation: No Patella Translation: 1 Patella Grind: Yes KNEE: s shaped scar superior lateral to patella. grind is painful but no crepitus. pain with flexion. positive lateral rosalio with pain and click. Supplemental Info 05/02/2023 x-ray left knee: Normal Coding Level of Care Code Off vis,new,level 3 Diagnoses Acute lateral meniscus tear of left knee, initial encounter S83.282A Encounter type: initial encounter Assessment and Plan Assessment and Plan (1) Acute lateral meniscus tear of left knee: Status: Acute Qualifiers: Encounter type: initial encounter Qualified Code(s): S83.282A - Other tear of lateral meniscus, current injury, left knee, initial encounter Plan Educated the patient about the anatomy of the knee and possible etiology of his pain. Recommended the patient have an MRI. He will contact our office with the insurance information once he receives the insurance information. Follow up after MRI or sooner if pain, swelling, numbness or associated symptoms, or concerns develop. All questions answered. Patient in agreement of plan. 05/12/23 1505 Date Lee Lopez Signature: Date (if applicable) CC: Normal [facility] 12 Lead EKGon 05-03-2023 12 Lead EKG [facility] [address] [place] [address] 12 Lead EKG 05/03/232 MR#: [id number] Acct: [id number] Name: FRANCY PHAN Rep #: [id number] : 1995 27 From: Geoffrey Sánchez MD Attending Dr: Status: DEP ER Ordering Dr: Cory Armendariz DO Date: 05/03/23 Location: ED Sex: M C Admitted: Test Reason : CP Blood Pressure : / mmHG Vent. Rate : 065 BPM Atrial Rate : 065 BPM P-R Int : 142 ms QRS Dur : 104 ms QT Int : 378 ms P-R-T Axes : 013 064 011 degrees QTc Int : 393 ms Normal sinus rhythm Normal ECG Confirmed by GEOFFREY SÁNCHEZ MD ([id number]), online content editor KYARA AYALA ([id number]) on 05/05/2023 10:10:32 AM Referred By: DALE Confirmed By:GEOFFREY SÁNCHEZ MD 05/05/23 1010 Date Geoffrey Sánchez MD CC: Dr. Cory Armendariz, DO; No Primary Care Physician Signed [facility] Absolute lymphocyte countOrd ered By: Cory Armendariz on 05-03-2023 Lymphocytes Auto (Unsp spec) [#/Vol] 2.73 10*3/uL 0.83-4.51 [facility] Automated blood erythrocyte count (number/volume)Ordered By: Cory Armendariz on 05-03-2023 RBC (Bld) [#/Vol] 5.03 10*6/uL Normal 4.6-6.2 [facility] Comment on above: Performed By: #### L 100.0100, L500.2500, L501.4020, L501.5425 #### [facility] [address] [place], [address] Automated blood hematocrit ( percentage)Ordered By: Cory Armendariz on 05-03-2023 Hematocrit (Bld) [Volume fraction] 41.2 % Normal 40-54 [facility] Comment on above: Performed By: #### L 100.0100, L500.2500, L501.4020, L501.5425 #### [facility] [address] [place], [address] Automated lymphocyte count a s percentage of total leukocytesOrdered By: Cory Armendariz on 05-03-2023 Lymphocytes/100 WBC Auto (Unsp spec) 28.5 % 19-41 [facility] BNP,B-Type NATRIURETIC PEPTI DEOrdered By: Cory Armendariz on 05-03-2023 Natriuretic peptide B (Bld) [Mass/Vol] 15.1 pg/mL Normal 0-100 [facility] Comment on above: Performed By: #### L 300.8000, L503.6620 ####[facility] [address] [place], [address] Basic Metabolic Profile (BMP )on 05-03-2023 BUN/CRE 13.4 RATIO Normal 10-20 [facility] Comment on above: Order Comment: 'TROP ' Serial specimen #1, #2 or #3: 1 1 Y Performed By: #### L 100.0100, L500.2500, L501.4020, L501.5425 #### [facility] [address] [place], [address] CA,Total 9.0 mg/dL Normal 8.5-10.1 [facility] Comment on above: Order Comment: 'TROP ' Serial specimen #1, #2 or #3: 1 1 Y Performed By: #### L 100.0100, L500.2500, L501.4020, L501.5425 #### [facility] [address] [place], [address] ECRCL 134.40 ml/min Normal [facility] Comment on above: Order Comment: 'TROP ' Serial specimen #1, #2 or #3: 1 1 Y Performed By: #### L 100.0100, L500.2500, L501.4020, L501.5425 #### [facility] [address] [place], [address] EST GFR - AA 119 mL/min Normal >60 [facility] Comment on above: Order Comment: 'TROP ' Serial specimen #1, #2 or #3: 1 1 Y Result Comment: Afri can [place] GFR Calc Performed By: #### L 100.0100, L500.2500, L501.4020, L501.5425 #### [facility] [address] [place], [address] GAP 3 Low 5-15 [facility] Comment on above: Order Comment: 'TROP ' Serial specimen #1, #2 or #3: 1 1 Y Performed By: #### L 100.0100, L500.2500, L501.4020, L501.5425 #### [facility] [address] [place], [address] GFR/1.73 sq M.predicted among non-blacks MDRD (S/P/Bld) [Vol rate/Area] 99 mL/min/{1.73_m2} Normal >60 [facility] Comment on above: Order Comment: 'TROP ' Serial specimen #1, #2 or #3: 1 1 Y Result Comment: Non- GFR Calc Performed By: #### L 100.0100, L500.2500, L501.4020, L501.5425 #### [facility] [address] [place], [address] Basic Metabolic Profile (BMP )Ordered By: Cory Armendariz on 05-03-2023 CO2 [Moles/Vol] 27.0 mmol/L Normal 21.0-32.0 [facility] Comment on above: Order Comment: 'TROP ' Serial specimen #1, #2 or #3: 1 1 Y Performed By: #### L 100.0100, L500.2500, L501.4020, L501.5425 #### [facility] [address] [place], [address] Basophil percentageOrdered B y: Cory Armendariz on 05-03-2023 Chloride [Moles/Vol] 111 mmol/L High 98-107 [facility] Comment on above: Order Comment: 'TROP ' Serial specimen #1, #2 or #3: 1 1 Y Performed By: #### L 100.0100, L500.2500, L501.4020, L501.5425 #### [facility] [address] [place], [address] Glucose [Mass/Vol] 89 mg/dL Normal 74-106 [facility] Comment on above: Order Comment: 'TROP ' Serial specimen #1, #2 or #3: 1 1 Y Performed By: #### L 100.0100, L500.2500, L501.4020, L501.5425 #### [facility] [address] [place], [address] Potassium [Moles/Vol] 3.7 mmol/L Normal 3.5-5.1 [facility] Comment on above: Order Comment: 'TROP ' Serial specimen #1, #2 or #3: 1 1 Y Performed By: #### L 100.0100, L500.2500, L501.4020, L501.5425 #### [facility] [address] [place], [address] Sodium [Moles/Vol] 141 mmol/L Normal 136-145 [facility] Comment on above: Order Comment: 'TROP ' Serial specimen #1, #2 or #3: 1 1 Y Performed By: #### L 100.0100, L500.2500, L501.4020, L501.5425 #### [facility] [address] [place], [address] Basophils/100 WBC (Bld) 0.6 % Normal 0-1 [facility] Comment on above: Performed By: #### L 100.0100, L500.2500, L501.4020, L501.5425 #### [facility] [address] [place], [address] Eosinophils/100 WBC (Bld) 5.8 % High 0-5 [facility] Comment on above: Performed By: #### L 100.0100, L500.2500, L501.4020, L501.5425 #### [facility] [address] [place], [address] Hemoglobin (Bld) [Mass/Vol] 14.4 g/dL Normal 13.0-16.5 [facility] Comment on above: Performed By: #### L 100.0100, L500.2500, L501.4020, L501.5425 #### [facility] [address] [place], [address] Monocytes/100 WBC (Bld) 11.3 % High 0-10 [facility] Comment on above: Performed By: #### L 100.0100, L500.2500, L501.4020, L501.5425 #### [facility] [address] [place], [address] Neutrophils/100 WBC (Bld) 53.5 % Normal 47-70 [facility] Comment on above: Performed By: #### L 100.0100, L500.2500, L501.4020, L501.5425 #### [facility] [address] [place], [address] WBC (Bld) [#/Vol] 9.6 10*3/uL Normal 4.4-11.0 [facility] Comment on above: Performed By: #### L 100.0100, L500.2500, L501.4020, L501.5425 #### [facility] [address] [place], [address] Neutrophils (Bld) [#/Vol] 5.1 10*3/uL 2.0-7.7 [facility] CBC W/Diff, Automatedon 04-17 Absolute Lymph 2.73 X10 3/uL Normal 0.83-4.51 [facility] Comment on above: Performed By: #### L 100.0100, L500.2500, L501.4020, L501.5425 #### [facility] [address] [place], [address] Absolute Neut 5.1 X10 3/uL Normal 2.0-7.7 [facility] Comment on above: Performed By: #### L 100.0100, L500.2500, L501.4020, L501.5425 #### [facility] [address] [place], [address] IG% 0.300 Normal 0.0-0.9 [facility] Comment on above: Result Comment: IG% - Immature Granulocytes (promyelocytes, myelocytes and metamyelocytes) > 1% indicates that a LEFT SHIFT is Present. Performed By: #### L 100.0100, L500.2500, L501.4020, L501.5425 #### [facility] [address] [place], [address] Lymphocytes/100 WBC (Bld) 28.5 % Normal 19-41 [facility] Comment on above: Performed By: #### L 100.0100, L500.2500, L501.4020, L501.5425 #### [facility] [address] [place], [address] Nucleated RBC (Bld) [#/Vol] 0 10*3/uL Normal 0-5 [facility] Comment on above: Performed By: #### L 100.0100, L500.2500, L501.4020, L501.5425 #### [facility] [address] [place], [address] RDW SD 36.0 fl Normal 35.1-43.9 [facility] Comment on above: Performed By: #### L 100.0100, L500.2500, L501.4020, L501.5425 #### [facility] [address] [place], [address] CBC W/Diff, AutomatedOrdered By: Cory Armendariz on 05-03-2023 MCH (RBC) [Entitic mass] 28.6 pg Normal 27.0-32.0 [facility] Comment on above: Performed By: #### L 100.0100, L500.2500, L501.4020, L501.5425 #### [facility] [address] [place], [address] MCHC (RBC) [Mass/Vol] 35.0 g/dL Normal 32-36 [facility] Comment on above: Performed By: #### L 100.0100, L500.2500, L501.4020, L501.5425 #### [facility] [address] [place], [address] Platelet mean volume (Bld) [Entitic vol] 10.7 fL Normal 6.2-12.0 [facility] Comment on above: Performed By: #### L 100.0100, L500.2500, L501.4020, L501.5425 #### [facility] [address] [place], [address] Platelets (Bld) [#/Vol] 215 10*3/uL Normal 150-450 [facility] Comment on above: Performed By: #### L 100.0100, L500.2500, L501.4020, L501.5425 #### [facility] [address] [place], [address] Chest 1 View (Portable)on Chest 1 View (Portable) [facility] Imaging Services [address] [place] [address] Chest 1 View (Portable) MR#: [id number] Acct: [id number] Name: FRANCY PHAN Rep #: [id number] : 1995 M 27 From: Edward Mcleod MD PCP: Care Physician,No Primary Status: REG ER Study: Chest 1 View (Portable) Date of Exam: 05/03/23 Exam# [id number] Ordering Dr: Cory Armendariz DO [id number] STUDY: X-RAY CHEST REASON FOR EXAM: Male, 27 years old. chest pain TECHNIQUE: Single AP portable view of the chest. COMPARISON: 08/05/2019. FINDINGS: EKG leads project over the chest. The lungs are clear and expanded. There is no demonstrated pleural abnormality. Normal size heart. Normal mediastinum and placido. Normal visualized pulmonary arteries. Normal visualized aortic arch and descending thoracic aorta. Normal visualized thoracic spine. Normal visualized ribs, clavicles, and shoulders. There is no demonstrated abnormality of the visualized soft tissue structures of the upper abdomen. RAD/Chest 1 View (Portable) IMPRESSION: Nonacute portable x-ray examination of the chest. Electronically Signed: Edward Mcleod MD (Brooks) at 21:30 EST Reading Location ID and State: [facility] / [place] , Service support , CC: Dr. Cory Armendariz DO; No Primary Care Physician Die Cast Die Maker: Signed Normal [facility] D-Dimer Quantitative (DVT/PE )on 05-03-2023 D-DIMER QUANT < 0.27 Low 0.27-0.49 [facility] Comment on above: Result Comment: NORM AL D-Dimer level (<0.50) indicates no DVT or PE. Performed By: #### L 300.8000, L503.6620 ####[facility] [address] [place], [place], [address] Determination of erythrocyte mean corpuscular volume (MCV)Ordered By: Cory Armendariz on 05-03-2023 MCV (RBC) [Entitic vol] 81.9 fL Normal 80-94 [facility] Comment on above: Performed By: #### L 100.0100, L500.2500, L501.4020, L501.5425 #### [facility] [address] [place], [place], [address] Emergency Department Summary on 05-03-2023 Emergency Department Summary [facility] Medical Records Department [address] [place] [address] Emergency Department Summary 05/03/23 MR#: [id number] Acct: [id number] Name: FRANCY PHAN Rep #: [id number] : 1995 27 From: Cory Armendariz DO PCP: Care Physician,No Primary Status:REG ER Location: ED HPI History of Present Illness Chief Complaint: Chest Pain [facility] Medical History (Updated 05/03/23 @ 21:06 by Nancy Ribeiro) Chest pain Home Medications NK 05/02/23 [History Last Taken Unknown] Allergy/AdvReac Type Severity Reaction Status Date / Time bee venom protein (honey bee) Allergy Hives Verified 05/03/23 21:07 amphetamine aspartate AdvReac Vomiting Verified 05/03/23 21:07 [From Adderall] amphetamine sulfate AdvReac Vomiting Verified 05/03/23 21:07 [From Adderall] dextroamphetamine saccharate AdvReac Vomiting Verified 05/03/23 21:07 [From Adderall] dextroamphetamine sulfate AdvReac Vomiting Verified 05/03/23 21:07 [From Adderall] Social History Smoking Status: Never smoker EXAM Physical Exam Const Vital Signs: 05/03/23 20:44 05/03/23 21:08 05/03/23 22:01 Temperature 96.8 F L Temperature Source Temporal Pulse Rate 60 60 Respiratory Rate 15 18 Respiratory Effort Normal Non-Labored Blood Pressure 141/91 H 125/78 H Blood Pressure Mean 107 93 Pulse Ox 99 97 Oxygen Delivery Method Room Air Room Air Heart Score History: Moderately Suspicious ECG: Normal Age: Risk Factors: No Risk Factors Troponin: Score: 1 MDM MDM MDM Narrative Medical decision making narrative: HISTORY OF PRESENT ILLNESS: 27-year-old male presents with chest pain. Notes chest pain that occurred approximately 1 hour prior to arrival. Notes is worse with deep breath. Notes radiates to left arm. It is sharp. Is not pressure-like. Is not exertional. Denies any recent illnesses cough, fever or shortness of breath. Denies any lower extremity edema, orthopnea or paroxysmal nocturnal dyspnea. Denies any bleeding diathesis. Denies any vomiting but notes diarrhea for last 2 days that is watery 3-4 episodes a day. Denies recent travel, sick contacts or antibiotics. Denies any family history of early cardiac . Patient denies sudden onset of pain, no tearing sensation, no migratory symptoms, no new numbness, weakness or loss of sensation. Patient denies family history or personal history of Marfan syndrome or Latanya-Danlos. The patient denies recent surgery in the last 4 weeks or immobilization in the last 3 days, denies previous diagnosis of DVT or PE, hemoptysis, unilateral leg swelling or malignancy with treatment the last 6 months. No estrogen use noted. REVIEW OF SYSTEMS: All other systems reviewed and are negative except as noted in the history of present illness. At least 10 review of systems reviewed and are negative except as noted in history of present illness. PHYSICAL EXAM: Nursing triage notes reviewed, Vital signs reviewed Constitutional: please see [facility] HENT: MMM Eyes: Pupils equal round and reactive to light, Extraocular muscles intact Neck: No stridor, no JVD, full neck ROM Lungs: Clear to auscultation, No wheezing or rales. No increased work of breathing, no conversational dyspnea, no accessory muscle use, no nasal flaring. No respiratory distress noted Heart: Regular rate and rhythm, No murmurs, No rubs and No gallops, 2+ distal pulses (radial, femoral, posterior tibial) in all extremities Abdomen: Soft, there is no tenderness, rigidity, rebound or guarding, no obvious peritoneal signs, no palpable pulsatile abdominal masses, no auscultated abdominal bruit : No CVAT Extremities: No edema Neuro: No focal neurological deficits, cranial nerves II through XII intact, 5/5 strength in all extremities. Intact sensation to light touch in all extremities, 2+ reflexes bilateral patella tendons. Normal gait. No ataxia. Skin: No rash or lesions noted MEDICAL DECISION MAKING: Chief Complaint: Chest pain External records reviewed: No recent advanced testing of the heart including stress test, echocardiogram or cardiac catheterization Factors affecting care: None Social determinants of health: Denies illicit drug use History obtained from others: Patient's Consults: none [facility] Narrative: Patient was initially hemodynamically stable, afebrile and nontoxic-appearing. I considered the following differential diagnosis: ACS, arrhythmia, anemia, electrolyte abnormality, pneumonia, pneumothorax, GI etiology, PE I obtained a broad lab and imaging workup to further elucidate the etiology of his complaints. ALL IMAGES (IF OBTAINED) HAVE BEEN PERSONALLY REVIEWED AND INTERPRETED BY MYSELF. EKG with normal sinus rhythm, no (more content not included)... Normal [facility] Erythrocyte distribution wid th ratioOrdered By: Cory Armendariz on 05-03-2023 Erythrocyte distribution width (RBC) [Ratio] 12.2 % Normal 11.6-14.6 [facility] Comment on above: Performed By: #### L 100.0100, L500.2500, L501.4020, L501.5425 #### [facility] [address] [place], [address] Erythrocyte distribution wid th standard deviationOrdered By: Cory Armendariz on 05-03-2023 Erythrocyte distribution width (RBC) [Entitic vol] 36.0 fL 35.1-43.9 [facility] Immature granulocytes/100 WB C Auto (Bld)Ordered By: Cory Armendariz on 05-03-2023 Immature granulocytes/100 WBC (Bld) 0.300 % 0.0-0.9 [facility] Comment on above: IG% - Immature Granu locytes (promyelocytes, myelocytes and metamyelocytes) > 1% indicates that a LEFT SHIFT is Present. L501.4020on 05-03-2023 TROPONIN-I HS 8 pg/mL Normal 3.0-78.0 [facility] Comment on above: Result Comment: Plea se Note: New Test Units and Gender Specific Reference Ranges. For more information see Policy Stat Procedure [facility] Sensitivity Troponin (TNIH) and attachments. Performed By: #### L 501.4020 ####[facility] [address] [place], [place], [id number] TROPONIN-I HS 7 pg/mL Normal 3.0-78.0 [facility] Comment on above: Order Comment: 'TROP ' Serial specimen #1, #2 or #3: 1 1 Y Result Comment: Plea se Note: New Test Units and Gender Specific Reference Ranges. For more information see Policy Stat Procedure [facility] High Sensitivity Troponin (TNIH) and attachments. Performed By: #### L 100.0100, L500.2500, L501.4020, L501.5425 #### [facility] [address] [place], [place], [address] Laboratory - Chemistry and C hemistry - challengeOrdered By: Cory Armendariz on 05-03-2023 Urea nitrogen/Creatinine [Mass ratio] 13.4 mg/mg 10-20 [facility] - Hematology and Cell countsOrdered By: Cory Armendariz on 05-03-2023 Nucleated RBC/100 WBC (Bld) [Ratio] 0 % 0-5 [facility] No Panel InformationOrdered By: Cory Armendariz on 05-03-2023 Troponin I High Sensitivity 8 pg/mL 3.0-78.0 [facility] Comment on above: Please Note: [place] t Units and Gender Specific Reference Ranges. For more information see Policy Stat Procedure [facility] High Sensitivity Troponin (TNIH) and attachments. D-Dimer Quantitative (PE/DVT) < 0.27 FEU/ug/m 0.27-0.49 [facility] Comment on above: NORMAL D-Dimer level (<0.50) indicates no DVT or PE. Estimated Creatinine Clearance Calc 134.40 ml/min [facility] Estimated GFR (MDRD) Amer 119 mL/min >60 [facility] Comment on above: GFR Calc Estimated GFR (MDRD) Non-Af Amer 99 mL/min >60 [facility] Comment on above: Non- GFR Calc Serum or plasma calcium giuseppe urement (mass/volume)Ordered By: Cory Armendariz on 05-03-2023 Calcium [Mass/Vol] 9.0 mg/dL 8.5-10.1 [facility] Serum or plasma creatinine m easurement (mass/volume)Ordered By: Cory Armendariz on 05-03-2023 Creatinine [Mass/Vol] 0.97 mg/dL Normal 0.70-1.30 [facility] Comment on above: The validity of the calculated GFR & GFRAA in patients over 70 years has not been determined. Clinical correlation is essential. Order Comment: 'TROP ' Serial specimen #1, #2 or #3: 1 1 Y Result Comment: The validity of the calculated GFR GFRAA in patients over 70 years has not been determined. Clinical correlation is essential. Performed By: #### L 100.0100, L500.2500, L501.4020, L501.5425 #### [facility] [address] [place], [address] Serum or plasma urea nitroge n measurement (mass/volume)Ordered By: Cory Armendariz on 05-03-2023 Urea nitrogen [Mass/Vol] 13 mg/dL Normal 7-18 [facility] Comment on above: Order Comment: 'TROP ' Serial specimen #1, #2 or #3: 1 1 Y Performed By: #### L 100.0100, L500.2500, L501.4020, L501.5425 #### [facility] [address] [place], [address] Thin prep Papanicolaou smear with manual screeningOrdered By: Cory Armendariz on 05-03-2023 Thin prep Papanicolaou smear with manual screening 3 5-15 [facility] Emergency Department Summary on 05-02-2023 Emergency Department Summary [facility] Medical Records Department [address] [place] [address] Emergency Department Summary 05/02/23 MR#: [id number] Acct: [id number] Name: FRANCY PHAN Rep #: [id number] : 1995 27 From: Leonor Watson DO PCP: Care Physician,No Primary Status:DEP ER Location: ED HPI History of Present Illness Chief Complaint: Lower Extremity Injury Detail of Chief Complaint: Left knee pain Informant: patient Narrative Narrative: Patient presents with left knee pain that he has had off and on for years. Started hurting more severely 3 days ago. He denies any injury. Patient's been to the ER before for this but no etiology has ever been found. He denies fevers or chills or sweats. No history of arthritis. Pain worse with movement and walking. Patient states sometimes the knee feels like it mynor and wants to give way. PFSH PFSH Home Medications NK 05/02/23 [History Last Taken Unknown] Allergy/AdvReac Type Severity Reaction Status Date / Time bee venom protein (honey bee) Allergy Hives Verified 05/02/23 05:10 amphetamine aspartate AdvReac Vomiting Verified 05/02/23 05:10 [From Adderall] amphetamine sulfate AdvReac Vomiting Verified 05/02/23 05:10 [From Adderall] dextroamphetamine saccharate AdvReac Vomiting Verified 05/02/23 05:10 [From Adderall] dextroamphetamine sulfate AdvReac Vomiting Verified 05/02/23 05:10 [From Adderall] Social History Smoking Status: Never smoker ROS ROS ED Review of Systems ROS Unobtainable: other Constitutional Constitutional ED: Reports lethargy; Denies chills, fever(s), sweats or weight loss Eyes Eyes: Denies blurry vision, change in vision or diplopia ENT ENT ED: Denies rhinorrhea or sore throat Cardiovascular Cardiovascular: Denies chest pain, orthopnea or racing heartbeat Respiratory/Chest Respiratory/Chest: Denies cough, dyspnea, dyspnea on exertion, orthopnea or sputum Gastrointestinal Gastrointestinal: Denies abdominal pain, diarrhea, nausea or vomiting Genitourinary Genitourinary ED: Denies dysuria, hematuria or urinary frequency Musculoskeletal Musculoskeletal: Reports other Details: Left knee pain ; Denies arthralgias, back pain, myalgias or neck pain Integumentary Denies abscess, Abrasions or rash Neurologic Neurologic: Denies headache(s) or weakness Psychiatric Psychiatric: Denies anxiety, depression or suicidal thoughts Endocrine Endocrinology: Denies polydipsia, polyphagia or polyuria Hematologic/Lymphati c Hematologic/Lymphati c: Denies easy bleeding, easy bruising or lymphadenopathy Allergic/Immunologic Allergic/Immunologic ED: Denies mouth swelling, tongue swelling or urticaria EXAM Physical Exam Const Vital Signs: 05/02/23 05:06 Temperature 97.9 F Temperature Source Temporal Pulse Rate 65 Respiratory Rate 18 Blood Pressure 163/93 H Blood Pressure Mean 116 Pulse Ox 99 Oxygen Delivery Method Room Air Positive well nourished and well developed General Appearance ED: well developed and NAD HEENT Reports TM's clear and moist mucous membranes normocephalic and atraumatic; Negative for trauma or tenderness Tympanic Membrane ED: Yes TM's clear Eyes PERRL and EOMs intact bilaterally General Eye ED: Negative for pale conjunctiva or scleral icterus Neck no lymphadenopathy, supple and no JVD General: Negative for tenderness Chest Wall inspection of chest normal and palpation of chest normal Chest: Negative for tenderness Resp normal respiratory effort and clear to auscultation bilaterally Effort and Inspection: Negative for respiratory distress or pain with movement Auscultation: Negative for rhonchi, wheezes or diminished lung sounds Cardio regular rate, regular rhythm, S1 normal heart sound, S2 normal heart sound and no murmurs Peripheral Pulses: pulses 2+ throughout GI normal to inspection, nondistended, normoactive bowel sounds, soft to palpation, non-tender, non- distended and no masses Back/Spine no CVA tenderness and no thoracic nor lumbar tenderness Extremity Extremity Narrative: Left knee-no effusion noted. No ecchymosis or bruising or obvious deformity. There is no erythema or cellulitic changes. Ligamentously stable. Neurovascular intact distally. I do not feel any grinding or popping with range of motion. General Extremety ED: Negative for edema General Extremity: Negative for edema Neuro oriented x3, CN's II-XII intact bilaterally, no sensory deficits noted and gait normal Sensorium / Orientation: awake, alert, oriented to person, oriented to place and oriented to time Motor Exam: strength 5/5 throughout and strength abnormal Psych mental status grossly normal Skin no rashes or lesions noted and no wounds MDM MDM MDM Narrativ (more content not included)... Normal [facility] Knee 4 or More Viewson 05-02 Knee 4 or More Views [facility] Services [address] [place] [address] Knee 4 or More Views MR#: [id number] Acct: [id number] Name: FRANCY PHAN Rep #: [id number] : 1995 M 27 From: Jennifer Parson PCP: Care Physician,No Primary Status: DEP ER Study: Knee 4 or More Views Date of Exam: 05/02/23 Exam# [id number] Ordering Dr: Leonor Watson DO [id number] INDICATION: pain EXAMINATION/TECHNIQU E: X-RAY - LEFT XR Knee Complete 4 Views or More 4 VIEWS COMPARISON: ____ FINDINGS: BONES: No fracture demonstrated. JOINTS: No dislocation. SOFT TISSUES: Unremarkable. ____ RAD/Knee 4 or More Views IMPRESSION: Unremarkable study. No evidence of fracture. Electronically Signed: Jennifer Arias MD at 5:57 EST Reading Location ID and State: [facility] / MD Tel , Service support , CC: Dr. Leonor Watson, DO; No Primary Care Physician Die Cast Die Maker: Signed Normal [facility] CT LUMBAR SPINE WO IVCONon 1 CT LUMBAR SPINE WO IVCON * * *Final Repo rt* * * DATE OF EXAM: Jan 08 2022 1:26PM [facility] 0508 - CT LUMBAR SPINE WO IVCON / PROCEDURE REASON: Spinal stenosis, lumbar * * * * Physician Interpretation * * * * EXAMINATION: CT LUMBAR SPINE WO IVCON CLINICAL HISTORY: Severe low back pain rating to both legs, had x-rays at [facility] demonstrating L5 pars defect with 4 mm of retrolisthesis of L4 on 5, now with radicular symptoms that were not present previously but denies trauma TECHNIQUE: Spiral, high resolution axial unenhanced images were obtained from the thoracolumbar junction to the sacrum with sagittal and coronal planar reconstructions. MQ: [id number] CT Radiation dose: Integrated Dose-Length Product (DLP) for this visit = 438.98 mGy*cm. CT Dose Reduction Employed: Automated exposure control(AEC) and iterative recon COMPARISON: None. RESULT: Counting reference: Lumbosacral junction. For the purposes of this report, L4-5 is considered the level of the iliac crest and there are 5 lumbar-type vertebrae. 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 Spanish Speaking Babysitter (topogram) images: No additional findings. Alignment: Minimal L4 on L5 retrolisthesis secondary to facet arthropathy. Bone marrow /fracture: No evidence of a lytic or blastic process in the visualized spine. Chronic bilateral L5 pars defects. Paraspinal soft tissues: The paraspinal soft tissues planes are maintained. Lower thoracic spine: The visualized lower thoracic bony canal and foramina are patent. T12-L1: Canal and foramina are patent. L1-L2: Canal and foramina are patent. L2-L3: Canal and foramina are patent L3-L4: Canal and foramina are patent L4-L5: Degenerative facet changes with grade 1 L4 on L5 retrolisthesis and mild disc bulging. Mild narrowing of the spinal canal and neural foramina. L5-S1: Canal and foramina are patent Sacrum and iliac wings: The visualized sacrum and iliac wings are within normal limits. IMPRESSION: Degenerative changes causing mild spinal canal bilateral foraminal narrowing at L4-5. Chronic bilateral L5 pars defects without significant spondylolisthesis at L5-S1. No evidence of acute bony abnormality. 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 L4-5 is considered the level of the iliac crest and there are 5 lumbar-type vertebrae. Die Cast Die Maker: PSCB Transcribe Date/Time: Jan 08 2022 1:37P Dictated by : ANGIE OLIVA MD This examination was interpreted and the report reviewed and electronically signed by: ANGIE OLIVA MD on Jan 08 2022 1:55PM EST [id number] [facility] ED NOTEon 01-08-2022 ED NOTE HNO ID: [id number] Author: Jocelyn Robison RN Service: ? Author Type: Registered Nurse Type: ED Notes Filed: 01/08/2022 2:34 PM Note Text: Patient got up to try and walk and states its not much better. Pain worse in the calfs [facility] ED NOTE HNO ID: [id number] Author: Jocelyn Robison RN Service: ? Author Type: Registered Nurse Type: ED Notes Filed: 01/08/2022 2:16 PM Note Text: Water and crackers given per request [facility] ED NOTE HNO ID: [id number] Author: Jocelyn Robison RN Service: ? Author Type: Registered Nurse Type: ED Notes Filed: 01/08/2022 11:14 AM Note Text: In addition to triage note patient states it was bad yesterday but got even worse today. No numbness/tingling or bowel/bladder issues. He can take valium prn but only takes at night because of his job [facility] ED PROV NOTEon 01-08-2022 ED PROV NOTE HNO ID: [id number] Author: Reid Pastor MD Service: Emergency Medicine Author Type: Physician Type: ED Provider Notes Filed: 01/08/2022 4:24 PM Note Text: ED Provider Note Patient Name: Francy Phan : 1995 SERVICE DATE: 01/08/22 History Patient presents with: Leg Pain: Pt is having bilateral leg pain from a new dx of L5 Pars Defect. Pt sts that he has seen ortho and that they told him he needs to strengthen the lower trunk and legs. Pt sts that today walking is much more painful. This is a 26-year-old male who presents to ER today with low back pain, radiating into both legs. States that his been experienced this for about 2 weeks. Started going to the legs yesterday, goes to both legs, denies numbness, tingling, weakness, urinary fecal incontinence, saddle anesthesia, fever, history of drug abuse. Denies trauma. He was seen at [facility] ER. He was diagnosed with a L5 pars defect, he saw a specialist, x-rays apparently did show the L5 pars defect, also showed 4 mm of retrolisthesis of L4 on L5. States the pain has become unbearable and is very difficult to walk. Despite he presents today. He has been taking ibuprofen, last took yesterday, without much relief of his pain, unfortunately. History provided by: Patient and medical records History reviewed. No pertinent past medical history. PAST SURGICAL HISTORY Procedure Laterality Date ORTHOPEDICS SURGERY HX No family history on file. Social History Tobacco Use Smoking status: Never Smokeless tobacco: Not on file Substance and Sexual Activity Alcohol use: No Drug use: No Sexual activity: Not on file ALLERGIES Allergen Reactions Adderall [Dextroamp* GI Upset Review of Systems All other systems reviewed and are negative. Physical Exam Vitals [01/08/22 0731] BP Pulse Temp Temp src Resp SpO2 Weight Height 129/79 58 36.7 ?C (98 ?F) Oral 16 100 % 95.3 kg (210 lb) 1.778 m (5' 10") Physical Exam Vitals and nursing note reviewed. Constitutional: General: He is not in acute distress. Appearance: Normal appearance. He is not ill-appearing, toxic-appearing or diaphoretic. HENT: Head: Normocephalic and atraumatic. Eyes: General: No scleral icterus. Right eye: No discharge. Left eye: No discharge. Extraocular Movements: Extraocular movements intact. Conjunctiva/sclera: Conjunctivae normal. Cardiovascular: Rate and Rhythm: Normal rate and regular rhythm. Pulmonary: Effort: Pulmonary effort is normal. Breath sounds: Normal breath sounds. Abdominal: Palpations: Abdomen is soft. Tenderness: There is no abdominal tenderness. There is no right CVA tenderness, left CVA tenderness, guarding or rebound. Musculoskeletal: Cervical back: Neck supple. Comments: There is no significant tenderness to palpation over the midline or paraspinal lumbar spine, no midline redness, swelling, step-off or deformity Skin: General: Skin is warm and dry. Findings: No bruising. Neurological: General: No focal deficit present. Mental Status: He is alert and oriented to person, place, and time. Cranial Nerves: No cranial nerve deficit. Sensory: No sensory deficit. Motor: No weakness. Comments: Normal strength of the bilateral lower extremities with respect to flexion extension at the hips, knees, and ankles which is 5 out of 5 in both lower extremities. He has 2+ patellar reflexes bilaterally. Sensation to light touch is intact. Ambulation not initially tested Psychiatric: Mood and Affect: Mood normal. Diagnostic Testing ED Labs Ordered and Reviewed - No data to display Procedures ED Course / Clinical Impression ED Course as of 01/08/22 1624 Reid Pastor's Documentation [facility] Jan 08, 2022 1620 Reviewed case with neurosurgery, Dr. Hooker. Reviewed patient's presentation, vitals, labs, imaging results in detail as per radiology. Reviewed neurologic examination. Reports that if patient is able to have his pain controlled could be discharged home with outpatient follow-up. Patient reassessed, states pain is improved though still pain with ambulation. Discussed management options with patient plan for observation hospital versus outpatient management. He would feel comfortable going home with outpatient follow-up with neurosurgery. I did give him a dose of Decadron here. Clinical Impressions as of 01/08/22 1624 Acute midline low back pain with bilateral sciatica Spinal stenosis of lumbar region, unspecified whether neurogenic claudication present Neuroforaminal stenosis of lumbar spine Pars defect of lumbar spine - Without spondylolisthesis MDM / Disposition / Plan This is a 26-year-old male who presents as above. On exam he is in no distress and appears well. He presents with back pain rating into both legs. He has a history of L5 pars defect, but denies any trauma. He was also found to have 4 mm of retrolisthesis of L4 and L5 on the x-rays tonya (more content not included)... Normal [facility] No Panel Informationon 10-16 -2022 Radiology Study observation (narrative) [facility] Work Phone: XR LUMBAR SPINE (MIN 4 VIEWS )on 12-30-2021 Patient Name: FRANCY PHAN Diagnostic Radiology ACCESSION EXAM DATE/TIME PROCEDURE ORDERING PROVIDER [id number] 12/30/2021 17:44 EDT CR Spine Lumbosacral 4+ MD JARA DOUGALAS R. Views CPT code 48545 Reason For Exam (CR Spine Lumbosacral 4+ Views) superior lumbar spine pain. bending twisting heavy labor. fracture vs arthritis Report LUMBAR SPINE 5 VIEWS CLINICAL INDICATION: superior lumbar spine pain. bending twisting heavy labor. fracture vs arthritis TECHNIQUE: Five views of the lumbar spine. COMPARISON: None FINDINGS: For the purposes of this study, L5 is partially sacralized. 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 Bilateral pars defects at L5. Slight retrolisthesis of L4 on L5 measures about 4 mm. Discs are maintained. No fracture seen. IMPRESSION: 1. Transitional lumbosacral anatomy. Bilateral L5 pars defects. Slight retrolisthesis of L4 on L5 measures about 4 mm. Report Dictated on Workstation: [id number] --- Final --- Dictating Physician: MD JJ JOHN R Signed Date and Time: 12/30/2021 6:07 pm Signed by: MD JJ JOHN R Transcribed Date and Time: 12/30/2021 6:09 [facility] Anthony Jj MD - 12/30/2021 Patient Name: FRANCY PHAN Diagnostic Radiology ACCESSION EXAM DATE/TIME PROCEDURE ORDERING PROVIDER [id number] 12/30/2021 17:44 EDT CR Spine Lumbosacral 4+ MD JARA DOUGALAS R. Views CPT code 31567 Reason For Exam (CR Spine Lumbosacral 4+ Views) superior lumbar spine pain. bending twisting heavy labor. fracture vs arthritis Report LUMBAR SPINE 5 VIEWS CLINICAL INDICATION: superior lumbar spine pain. bending twisting heavy labor. fracture vs arthritis TECHNIQUE: Five views of the lumbar spine. COMPARISON: None FINDINGS: For the purposes of this study, L5 is partially sacralized. 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 Bilateral pars defects at L5. Slight retrolisthesis of L4 on L5 measures about 4 mm. Discs are maintained. No fracture seen. IMPRESSION: 1. Transitional lumbosacral anatomy. Bilateral L5 pars defects. Slight retrolisthesis of L4 on L5 measures about 4 mm. Report Dictated on Workstation: [id number] --- Final --- Dictating Physician: MD JJ JOHN R Signed Date and Time: 12/30/2021 6:07 pm Signed by: MD JJ JOHN R Transcribed Date and Time: 12/30/2021 6:09 [place] Work Phone: [facility] Work Phone: XR Spine Thoracic 3 VWon Patient Name: FRANCY PHAN Diagnostic Radiology ACCESSION EXAM DATE/TIME PROCEDURE ORDERING PROVIDER [id number] 12/30/2021 17:44 EDT CR Spine Thoracic 3 MD MAREK, GISELL Canales. Views CPT code 02187 Reason For Exam (CR Spine Thoracic 3 Views) lower thoracic spine pain. bending twisting, heavy labor. arthritis vs fracture Report THORACIC SPINE 3 VIEWS CLINICAL INDICATION: lower thoracic spine pain. bending twisting, heavy labor. arthritis vs fracture TECHNIQUE: Three views of the thoracic spine. COMPARISON: None FINDINGS: Vertebral bodies are normal in height and alignment. No fracture or subluxation seen. Discs are maintained. IMPRESSION: 1. Negative Report Dictated on Workstation: [id number] --- Final --- Dictating Physician: MD JJ JOHN R Signed Date and Time: 12/30/2021 6:04 pm Signed by: MD JJ JOHN R Transcribed Date and Time: 12/30/2021 6:05 [facility] Anthony Jj MD - 12/30/2021 Patient Name: FRANCY PHAN Diagnostic Radiology ACCESSION EXAM DATE/TIME PROCEDURE ORDERING PROVIDER [id number] 12/30/2021 17:44 EDT CR Spine Thoracic 3 MD MAREK, GISELL R. Views CPT code 44881 Reason For Exam (CR Spine Thoracic 3 Views) lower thoracic spine pain. bending twisting, heavy labor. arthritis vs fracture Report THORACIC SPINE 3 VIEWS CLINICAL INDICATION: lower thoracic spine pain. bending twisting, heavy labor. arthritis vs fracture TECHNIQUE: Three views of the thoracic spine. COMPARISON: None FINDINGS: Vertebral bodies are normal in height and alignment. No fracture or subluxation seen. Discs are maintained. IMPRESSION: 1. Negative Report Dictated on Workstation: [id number] --- Final --- Dictating Physician: MD JJ JOHN R Signed Date and Time: 12/30/2021 6:04 pm Signed by: MD JJ JOHN R Transcribed Date and Time: 12/30/2021 6:05 [place] Work Phone: XR Spine Thoracic 3 VWOrdere d By: Anthony Jj on 12-30-2021 [place] Work Phone: Troponin-Ion 07-06-2018 Troponin I.cardiac mass conc ng/mL Normal 0.00-0.03 [facility] Comment on above: Performed By: #### 2 [id number] #### [place] [address] XR Chest 2 Viewson 9 XR Chest 2 Views Exam Date/Time: 07/06/2018 16:50 EDT Reason for Exam: Cough Report STUDY: XR Chest 2 Views; 07/06/2018 4:50 pm INDICATION: Cough. COMPARISON: No available comparisons. ACCESSION NUMBER(S): [id number] ORDERING CLINICIAN: Francy Spear TECHNIQUE: Frontal and lateral views of the chest. FINDINGS: The cardiomediastinal silhouette is normal. The lungs are clear of focal consolidation. There is no pneumothorax or pleural effusion. IMPRESSION: No acute cardiopulmonary process. FINAL REPORT Dictated: 07/06/2018 5:17 pm Maxine GARCIA, Chidi Shin Signed (Electronic Signature): 07/06/2018 5:17 pm Signed by: Chidi Goodman MD Technologist: [facility] CT Head or Brain w/o Yamilkalena vyas 06-13-2018 CT Head or Brain w/o Contrast Exam Date/Time: 06/12/2018 23:23 EDT Reason for Exam: Injury Report STUDY: CT Head or Brain w/o Contrast; 06/12/2018 11:23 pm INDICATION: Injury COMPARISON: 06/08/2018 ACCESSION NUMBER(S): [id number] ORDERING CLINICIAN: Francy Spear TECHNIQUE: Multiple contiguous noncontrast axial CT images of the brain were obtained from the skull base to the vertex utilizing 5 mm slice thickness. Coronal reformatted images were also obtained. FINDINGS: VENTRICLES AND CSF SPACES: Age-appropriate size and configuration of the ventricles and sulci. Brain parenchyma: Auguste-white matter interface is well-maintained. No masses are seen. No midline shift or mass effect. HEMORRHAGE: None. CALVARIUM: No destructive lesion or depressed calvarial fracture. The extracranial soft tissues are grossly unremarkable. ADDITIONAL FINDINGS: Visualized paranasal sinuses and bilateral mastoids are grossly clear. IMPRESSION: No acute intracranial abnormality. Exam Date/Time: 06/12/2018 23:23 EDT Report No acute calvarial fracture. FINAL REPORT Dictated: 06/12/2018 11:27 pm Zo Hess MD Signed (Electronic Signature): 06/12/2018 11:27 pm Signed by: Zo Hess MD Technologist: [facility] CT Head or Brain w/o Falguni vyas 06-09-2018 CT Head or Brain w/o Contrast Exam Date/Time: 06/09/2018 00:02 EDT Reason for Exam: Injury Report STUDY: CT Head or Brain w/o Contrast; 06/09/2018 12:02 am INDICATION: Injury. COMPARISON: None ACCESSION NUMBER(S): [id number] ORDERING CLINICIAN: Chris Chatman TECHNIQUE: Contiguous axial images of the head were obtained without intravenous contrast. FINDINGS: BRAIN PARENCHYMA: The auguste white matter differentiation is preserved. No mass effect or midline shift. HEMORRHAGE: No evidence of acute intracranial hemorrhage. VENTRICLES AND EXTRA-AXIAL SPACES:The ventricles are within normal limits in size for brain volume. No evidence of abnormal extraaxial fluid collection. EXTRACRANIAL SOFT TISSUES:Within normal limits. PARANASAL SINUSES/MASTOIDS:The visualized paranasal sinuses and mastoid air cells are clear and well pneumatized. CALVARIUM:No evidence of depressed calvarial fracture. OTHER FINDINGS:None IMPRESSION: No evidence of acute intracranial hemorrhage or depressed calvarial fracture. FINAL REPORT Dictated: 06/09/2018 0:19 am Guillermo Pack MD Signed (Electronic Signature): 06/09/2018 0:19 am Signed by: Guillermo Pack MD Technologist: [facility] CT Spine Cervical w/o Contra dahlia 06-09-2018 CT Spine Cervical w/o Contrast Exam Date/Time: 06/09/2018 00:02 EDT Reason for Exam: Trauma Report STUDY: CT Spine Cervical w/o Contrast; 06/09/2018 12:02 am INDICATION: Trauma. COMPARISON: None. ACCESSION NUMBER(S): [id number] ORDERING CLINICIAN: Chris Chatman TECHNIQUE: Contiguous axial images of the cervical spine were obtained without intravenous contrast. Coronal and sagittal reformatted images were obtained from the axial images. FINDINGS: No evidence of acute fracture or subluxation of the cervical spine. The vertebral body heights are preserved. There is limited evaluation of the soft tissues of the spinal canal. No significant prevertebral soft tissue edema. IMPRESSION: No evidence of acute fracture or subluxation of the cervical spine. FINAL REPORT Dictated: 06/09/2018 0:20 am Guillermo Pack MD Signed (Electronic Signature): 06/09/2018 0:20 am Signed by: Guillermo Pack MD Technologist: [facility] Vital Signs Date Time Vital Sign Value Performing Clinician Facility 10-05-2024 22:03-0400 Body temperature 97.6 [degF] No Primary Care Physician [facility] 10-05-2024 22:03-0400 Diastolic blood pressure 79 mm[Hg] No Primary Care Physician [facility] 10-05-2024 22:03-0400 Heart rate 76 /min No Primary Care Physician [facility] 10-05-2024 22:03-0400 Respiratory rate 16 /min No Primary Care Physician [facility] 10-05-2024 22:03-0400 SaO2% (BldA) [Mass fraction] 96 % No Primary Care Physician [facility] 10-05-2024 22:03-0400 Systolic blood pressure 123 mm[Hg] No Primary Care Physician [facility] 10-05-2024 18:15-0400 Body height 175.26 cm No Primary Care Physician [facility] 10-05-2024 18:15-0400 Body mass index (BMI) [Ratio] 31.4 kg/m2 No Primary Care Physician [facility] 10-05-2024 18:15-0400 Body weight 96.43 kg No Primary Care Physician [facility] 06-11-2024 06:41-0400 Body temperature 98.24 [degF] LATISHA WELLINGTON MD [address] [place] [id number] 06-11-2024 06:41-0400 Diastolic Blood Pressure Non-Invasive 70 mm[Hg] LATISHA WELLINGTON MD [address] [place] [address] 06-11-2024 06:41-0400 Heart rate 62 /min LATISHA WELLINGTON MD [address] [place] [address] 06-11-2024 06:41-0400 Respiratory rate 18 /min LATISHA WELLINGTON MD [address] [place] [address] 06-11-2024 06:41-0400 Systolic Blood Pressure Non-Invasive 116 mm[Hg] LATISHA WELLINGTON MD [address] [place] [address] 06-11-2024 04:00-0400 Heart rate 69 /min LATISHA WELLINGTON MD [address] [place] [address] 06-11-2024 02:21-0400 Heart rate 68 /min LATISHA WELLINGTON MD [address] [place] [address] 06-10-2024 21:45-0400 Body temperature 97.7 [degF] LATISHA WELLINGTON MD [address] [place] [address] 06-10-2024 21:45-0400 Diastolic Blood Pressure Non-Invasive 65 mm[Hg] LATISHA WELLINGTON MD [address] [place] [address] 06-10-2024 21:45-0400 Respiratory rate 18 /min LATISHA WELLINGTON MD [address] [place] [address] 06-10-2024 21:45-0400 Systolic Blood Pressure Non-Invasive 132 mm[Hg] LATISHA WELLINGTON MD [address] [place] [address] 06-10-2024 16:02-0400 Diastolic Blood Pressure Non-Invasive 71 mm[Hg] LATISHA WELLINGTON MD [address] [place] [address] 06-10-2024 16:02-0400 Systolic Blood Pressure Non-Invasive 117 mm[Hg] LATISHA WELLINGTON MD [address] [place] [address] 06-10-2024 14:45-0400 Heart rate 95 /min LATISHA WELLINGTON MD [address] [place] [address] 06-10-2024 14:45-0400 Respiratory rate 16 /min LATISHA WELLINGTON MD [address] [place] [address] 06-10-2024 09:45-0400 Body temperature 96.8 [degF] LATISHA WELLINGTON MD [address] [place] [address] 06-10-2024 09:30-0400 Respiratory Rate - Anes 0 br/min LATISHA WELLINGTON MD [address] [place] [address] 06-10-2024 09:25-0400 Respiratory Rate - Anes 21 br/min LATISHA WELLINGTON MD [address] [place] [address] 06-10-2024 09:20-0400 Respiratory Rate - Anes 10 br/min LATISHA WELLINGTON MD [address] [place] [address] 06-10-2024 09:05-0400 Body temperature 97 [degF] LATISHA WELLINGTON MD [address] [place] [address] 06-10-2024 09:00-0400 Body temperature 96.93 [degF] LATISHA WELLINGTON MD [address] [place] [address] 06-10-2024 08:55-0400 Body temperature 96.82 [degF] LATISHA WELLINGTON MD [address] [place] [address] 06-10-2024 06:19-0400 Body height 175.3 cm LATISHA WELLINGTON MD [address] [place] [address] 06-10-2024 06:19-0400 Body temperature 97.7 [degF] LATISHA WELLINGTON MD [address] [place] [address] 06-10-2024 06:19-0400 Body weight 92.6 kg LATISHA WELLINGTON MD [address] [place] [address] 06-10-2024 06:19-0400 Heart rate 63 /min LATISHA WELLINGTON MD [address] [place] [address] 05-31-2024 07:21-0400 Blood Pressure Cuff Size LATISHA WELLINGTON MD [address] [place] [address] 05-31-2024 07:21-0400 Blood Pressure Location LATISHA WELLINGTON MD [address] [place] [address] 05-31-2024 07:21-0400 Blood Pressure Method LATISHA WELLINGTON MD [address] [place] [address] 05-31-2024 07:21-0400 Body height 175.3 cm LATISHA WELLINGTON MD [address] [place] [address] 05-31-2024 07:21-0400 Body temperature 97.7 [degF] LATISHA WELLINGTON MD [address] [place] [address] 05-31-2024 07:21-0400 Body weight 97 kg LATIHSA WELLINGTON MD [address] [place] [address] 05-31-2024 07:21-0400 Body weight 31.57 kg/m2 LATISHA WELLINGTON MD [address] [place] [address] 05-31-2024 07:21-0400 Diastolic Blood Pressure Non-Invasive 78 mm[Hg] LATISHA WELLINGTON MD [address] [place] [address] 05-31-2024 07:21-0400 Heart rate 69 /min LATISHA WELLINGTON MD [facility] 05-31-2024 07:21-0400 Systolic Blood Pressure Non-Invasive 116 mm[Hg] LATISHA WELLINGTON MD [facility] 05-11-2024 05:50-0500 Diastolic Blood Pressure Non-Invasive 79 mm[Hg] DR KENJI MANUEL MD [facility] 05-11-2024 05:50-0500 Heart rate 68 /min DR KENJI MANUEL MD [facility] 05-11-2024 05:50-0500 Respiratory rate 18 /min DR KENJI MANUEL MD [facility] 05-11-2024 05:50-0500 Systolic Blood Pressure Non-Invasive 129 mm[Hg] DR KENJI MANUEL MD [facility] 05-11-2024 05:28-0500 Diastolic Blood Pressure Non-Invasive 86 mm[Hg] DR KENJI MANUEL MD [facility] 05-11-2024 05:28-0500 Heart rate 63 /min DR KENJI MANUEL MD [facility] 05-11-2024 05:28-0500 Respiratory rate 18 /min DR KENJI MANUEL MD [facility] 05-11-2024 05:28-0500 Systolic Blood Pressure Non-Invasive 142 mm[Hg] DR KENJI MANUEL MD [facility] 05-11-2024 03:22-0500 Diastolic Blood Pressure Non-Invasive 91 mm[Hg] DR KENJI MANUEL MD [facility] 05-11-2024 03:22-0500 Heart rate 79 /min DR KENJI MANUEL MD [facility] 05-11-2024 03:22-0500 Respiratory rate 20 /min DR KENJI MANUEL MD [facility] 05-11-2024 03:22-0500 Systolic Blood Pressure Non-Invasive 134 mm[Hg] DR KENJI MANUEL MD [facility] 04-11-2024 15:05-0500 Diastolic Blood Pressure Non-Invasive 74 mm[Hg] LAVELLE ERNANDEZ MD [facility] 04-11-2024 15:05-0500 Heart rate 94 /min LAVELLE ERNANDEZ MD [facility] 04-11-2024 15:05-0500 Reason For Taking VItal Signs LAVELLE ERNANDEZ MD [facility] 04-11-2024 15:05-0500 Respiratory rate 16 /min LAVELLE ERNANDEZ MD [facility] 04-11-2024 15:05-0500 Systolic Blood Pressure Non-Invasive 112 mm[Hg] LAVELLE ERNANDEZ MD [facility] 04-11-2024 13:56-0500 Diastolic Blood Pressure Non-Invasive 80 mm[Hg] LAVELLE ERNANDEZ MD [facility] 04-11-2024 13:56-0500 Heart rate 93 /min LAVELLE ERNANDEZ MD [facility] 04-11-2024 13:56-0500 Reason For Taking VItal Signs LAVELLE ERNANDEZ MD [facility] 04-11-2024 13:56-0500 Respiratory rate 20 /min LAVELLE ERNANDEZ MD [facility] 04-11-2024 13:56-0500 Systolic Blood Pressure Non-Invasive 118 mm[Hg] LAVELLE ERNANDEZ MD [facility] 04-11-2024 13:00-0500 Diastolic Blood Pressure Non-Invasive 84 mm[Hg] LAVELLE ERNANDEZ MD [facility] 04-11-2024 13:00-0500 Heart rate 100 /min LAVELLE ERNANDEZ MD [facility] 04-11-2024 13:00-0500 Systolic Blood Pressure Non-Invasive 116 mm[Hg] LAVELLE ERNANDEZ MD [facility] 04-11-2024 11:38-0500 Body temperature 98.78 [degF] LAVELLE ERNANDEZ MD [facility] 04-11-2024 11:38-0500 Body weight 95.5 kg LAVELLE ERNANDEZ MD [facility] 04-11-2024 11:38-0500 Heart rate 128 /min LAVELLE ERNANDEZ MD [facility] 02-09-2024 23:43-0500 Diastolic Blood Pressure Non-Invasive 96 mm[Hg] GENOVEVA MORFIN MD [facility] 02-09-2024 23:43-0500 Heart rate 68 /min GENOVEVA MORFIN MD [facility] 02-09-2024 23:43-0500 Respiratory rate 18 /min GENOVEVA MORFIN MD [facility] 02-09-2024 23:43-0500 Systolic Blood Pressure Non-Invasive 163 mm[Hg] GENOVEVA MORFIN MD [facility] 02-09-2024 22:12-0500 Blood Pressure Cuff Size GENOVEVA MORFIN MD [facility] 02-09-2024 22:12-0500 Blood Pressure Location GENOVEVA MORFIN MD [facility] 02-09-2024 22:12-0500 Blood Pressure Method GENOVEVA MORFIN MD [facility] 02-09-2024 22:12-0500 Body temperature 97.88 [degF] GENOVEVA MORFIN MD [facility] 02-09-2024 22:12-0500 Body weight 106.7 kg GENOVEVA MORFIN MD [facility] 02-09-2024 22:12-0500 Heart rate 65 /min GENOVEVA MORFIN MD [facility] 02-09-2024 22:12-0500 Respiratory rate 18 /min GENOVEVA MORFIN MD [facility] 02-09-2024 21:01-0500 Diastolic Blood Pressure Non-Invasive 84 mm[Hg] JAMI HILL DO [facility] 02-09-2024 21:01-0500 Heart rate 72 /min JAMI BLACK DO [facility] 02-09-2024 21:01-0500 Respiratory rate 18 /min JAMI BLACK DO [facility] 02-09-2024 21:01-0500 Systolic Blood Pressure Non-Invasive 140 mm[Hg] JAMI HILL DO [facility] 02-09-2024 18:28-0500 Body height 175.3 cm JAMI WAYNE DO [facility] 02-09-2024 18:28-0500 Body temperature 98.24 [degF] JAMI HILL DO [facility] 02-09-2024 18:28-0500 Body weight 95.5 kg JAMI BLACK DO [facility] 02-09-2024 18:28-0500 Diastolic Blood Pressure Non-Invasive 98 mm[Hg] JAMI BLACK DO [facility] 02-09-2024 18:28-0500 Heart rate 70 /min JAMI BLACK DO [facility] 02-09-2024 18:28-0500 Respiratory rate 18 /min JAMI BLACK DO [facility] 02-09-2024 18:28-0500 Systolic Blood Pressure Non-Invasive 150 mm[Hg] JAMI BLACK DO [facility] 01-23-2024 10:50-0500 Diastolic Blood Pressure Non-Invasive 84 mm[Hg] DANNY FROMMELT DO [facility] 01-23-2024 10:50-0500 Heart rate 81 /min DANNY FROMMELT DO [facility] 01-23-2024 10:50-0500 Respiratory rate 16 /min DANNY FROMMELT DO [facility] 01-23-2024 10:50-0500 Systolic Blood Pressure Non-Invasive 124 mm[Hg] DANNY FROMMELT DO [facility] 01-23-2024 10:17-0500 Diastolic Blood Pressure Non-Invasive 84 mm[Hg] DANNY FROMMELT DO [facility] 01-23-2024 10:17-0500 Heart rate 75 /min DANNY FROMMELT DO [facility] 01-23-2024 10:17-0500 Respiratory rate 18 /min DANNY FROMMELT DO [facility] 01-23-2024 10:17-0500 Systolic Blood Pressure Non-Invasive 120 mm[Hg] DANNY FROMMELT DO [facility] 01-23-2024 07:36-0500 Diastolic Blood Pressure Non-Invasive 85 mm[Hg] DANNY FROMMELT DO [facility] 01-23-2024 07:36-0500 Heart rate 100 /min DANNY FROMMELT DO [facility] 01-23-2024 07:36-0500 Respiratory rate 19 /min DANNY FROMMELT DO [facility] 01-23-2024 07:36-0500 Systolic Blood Pressure Non-Invasive 123 mm[Hg] DANNY FROMMELT DO [facility] 01-23-2024 07:10-0500 Heart rate 138 /min DANNY FROMMELT DO [facility] 01-23-2024 06:05-0500 Body temperature 98.24 [degF] DANNY FROMMELT DO [facility] 01-23-2024 06:05-0500 Heart rate 94 /min DANNY FROMMELT DO [facility] 11-04-2023 07:34-0400 Body temperature 97.52 [degF] GENOVEVA MORFIN MD [facility] 11-04-2023 07:34-0400 Diastolic Blood Pressure Non-Invasive 84 mm[Hg] GENOVEVA MORFIN MD [facility] 11-04-2023 07:34-0400 Heart rate 84 /min GENOVEVA MORFIN MD [facility] 11-04-2023 07:34-0400 Respiratory rate 16 /min GENOVEVA MORFIN MD [facility] 11-04-2023 07:34-0400 Systolic Blood Pressure Non-Invasive 146 mm[Hg] GENOVEVA MORFIN MD [facility] 05-12-2023 14:29-0500 Body height 175.26 cm No Primary Care Physician [facility] 05-12-2023 14:29-0500 Body mass index (BMI) [Ratio] 32.5 kg/m2 No Primary Care Physician [facility] 05-12-2023 14:29-0500 Body weight 99.79 kg No Primary Care Physician [facility] 05-04-2023 00:17-0500 Body temperature 96.6 [degF] [facility] 05-04-2023 00:17-0500 Diastolic blood pressure 74 mm[Hg] [facility] 05-04-2023 00:17-0500 Heart rate 60 /min [facility] 05-04-2023 00:17-0500 Respiratory rate 20 /min [facility] 05-04-2023 00:17-0500 SaO2% (BldA) [Mass fraction] 96 % [facility] 05-04-2023 00:17-0500 Systolic blood pressure 114 mm[Hg] [facility] 05-03-2023 20:44-0500 Body height 175.26 cm [facility] 05-03-2023 20:44-0500 Body mass index (BMI) [Ratio] 32.5 kg/m2 [facility] 05-03-2023 20:44-0500 Body weight 99.79 kg [facility] 05-02-2023 05:55-0500 Body temperature 97 [degF] [facility] 05-02-2023 05:55-0500 Diastolic blood pressure 90 mm[Hg] [facility] 05-02-2023 05:55-0500 Heart rate 87 /min [facility] 05-02-2023 05:55-0500 Respiratory rate 18 /min [facility] 05-02-2023 05:55-0500 SaO2% (BldA) [Mass fraction] 98 % [facility] 05-02-2023 05:55-0500 Systolic blood pressure 156 mm[Hg] [facility] 05-02-2023 05:06-0500 Body height 175.26 cm [facility] 05-02-2023 05:06-0500 Body mass index (BMI) [Ratio] 32.2 kg/m2 [facility] 05-02-2023 05:06-0500 Body weight 99 kg [facility] 12-30-2021 19:42-0400 Diastolic blood pressure 78 mm[Hg] Valeriano Jara MD Work Phone: [place] 12-30-2021 19:42-0400 Heart rate 60 /min Valeriano Jara MD Work Phone: [place] 12-30-2021 19:42-0400 Respiratory rate 14 /min Valeriano Jara MD Work Phone: [place] 12-30-2021 19:42-0400 SaO2% (BldA) [Mass fraction] 99 % Valeriano Jara MD Work Phone: [place] 12-30-2021 19:42-0400 Systolic blood pressure 133 mm[Hg] Valeriano Jara MD Work Phone: [place] 12-30-2021 17:03-0400 Body height 177.8 cm Valeriano Jara MD Work Phone: [place] 12-30-2021 17:03-0400 Body mass index (BMI) [Ratio] 30.13 kg/m2 Valeriano Jara MD Work Phone: [place] 12-30-2021 17:03-0400 Body temperature 98.29 [degF] Valeriano Jara MD Work Phone: [place] 12-30-2021 17:03-0400 Body weight 95.25 kg Valeriano Jara MD Work Phone: [facility] Encounters Encounter Date Encounter Type Care Provider Facility Start: 10-05-2024 Non-patient / Non-visit Dr. Tami Dillon MD -[facility] Start: 10-05-2024 End: 10-05-2024 Emergency department patient visit No Primary Care Physician -Emergency Department Work Phone: Start: 06-10-2024 End: 06-11-2024 ambulatory GABRIELE UMAÑA MD Facility:A Start: 06-10-2024 End: 06-11-2024 Observation LATISHA WELLINGTON MD [facility] Start: 05-31-2024 End: 05-31-2024 Admission to establishment LATISHA WELLINGTON MD [facility] Start: 05-31-2024 End: 05-31-2024 ambulatory NONE PHYSICIAN Facility:A Start: 05-11-2024 End: 05-11-2024 Emergency department patient visit DR KENJI MANUEL MD [facility] Start: 04-28-2024 End: 04-28-2024 ambulatory NONE PHYSICIAN Facility:[facility] Start: 04-28-2024 End: 04-28-2024 Patient encounter procedure 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 [facility] Start: 04-11-2024 End: 04-11-2024 Emergency department patient visit LAVELLE ERNANDEZ MD [facility] Start: 02-29-2024 End: 02-29-2024 Emergency department patient visit No Primary Care Physician Facility:[facility] Start: 02-09-2024 End: 02-09-2024 Emergency department patient visit GENOVEVA MORFIN MD [facility] Start: 02-09-2024 End: 02-09-2024 Emergency department patient visit JAMI BLACK DO [facility] Start: 01-30-2024 ambulatory JEAN-PIERRE FLORES MD Facility:[facility] Start: 01-23-2024 End: 01-23-2024 Emergency department patient visit DANNY DOBBS DO [facility] Start: 11-04-2023 End: 11-04-2023 Emergency department patient visit GENOVEVA MORFIN MD [facility] Start: 07-14-2023 End: 07-14-2023 Patient encounter procedure No Primary Care Physician [facility] Work Phone: Start: 07-14-2023 End: 07-14-2023 ambulatory [facility] Facility:[facility] Start: 07-11-2023 End: 07-11-2023 ambulatory No Primary Care Physician [facility] Work Phone: Start: 07-11-2023 End: 07-11-2023 Patient encounter procedure No Primary Care Physician [facility] Work Phone: Start: 07-11-2023 End: 07-11-2023 ambulatory [facility] Facility:[facility] Start: 05-12-2023 End: 05-12-2023 Patient encounter procedure No Primary Care Physician [facility] Work Phone: Start: 05-12-2023 End: 05-12-2023 ambulatory No Primary Care Physician Facility:[facility] Start: 05-03-2023 End: 05-04-2023 Emergency department patient visit [facility]gency [facility] Work Phone: Start: 05-02-2023 End: 05-02-2023 Emergency department patient visit [facility] Work Phone: Start: 01-08-2022 End: 01-08-2022 Emergency department patient visit REID PASTOR Facility:[id number] Start: 12-30-2021 End: 12-30-2021 Emergency department patient visit Valeriano Jara MD Work Phone: [facility] Comment on above: Strain of lumbar reg ion, initial encounter (Primary Dx); Spasm of muscle Start: 07-06-2018 Patient encounter procedure Facility:[id number] Start: 06-12-2018 Patient encounter procedure Facility:[id number] Start: 06-10-2018 Patient encounter procedure Facility:[id number] Start: 06-09-2018 Patient encounter procedure Facility:[id number] Start: 06-08-2018 Patient encounter procedure Facility:[id number] Procedures Date Procedure Procedure Detail Performing Clinician Start: 10-05-2024 Estimated creatinine clearance No Primary Care Physician Start: 07-11-2023 MRI of joint of lowe r extremity No Primary Care Physician Start: 05-03-2023 Plain chest X-ray Start: 05-02-2023 Radiologic examinati on of knee Start: 12-30-2021 Radex spine lumbosac ral minimum 4 views Valeriano Jara MD Work Phone: [facility] JAMI BLACK DO History of operative procedure on elbow JAMI BLACK DO History of operative procedure on elbow LATISHA WELLINGTON MD Comment on above: RIGHT ELBOW RECONSTR UCTION Plan of Treatment Date Care Activity Detail Author Start: 12-11-2025 DTaP/Tdap/Td vaccine (8 - Td or Tdap) DTaP/Tdap/Td vaccine (8 - Td or Tdap) [facility] Start: 10-05-2024 Esophagogastroduodenoscopy EGD (Not Applicable) [facility] Start: 05-03-2023 [facility] Start: 10-15-2021 Influenza vaccination Flu vaccine (#1) [facility] Start: 11-24-2011 HPV vaccine (3 - Male 2-dose series) HPV vaccine (3 - Male 2-dose series) [facility] Start: 2008 Depression Screen Depression Screen [facility] Start: 01-08-1997 COVID-19 Vaccine (#1) COVID-19 Vaccine (#1) [facility] Patient Education [facility] Work Phone: Patient referral [facility] Work Phone: Immunizations Immunization Date Immunization Notes Care Provider [facility] major 10-12-2020 SARS-CoV-2 mRNA (tozinameran) vaccine LATISHA WELLINGTON MD [facility] 12-12-2015 tetanus toxoid, redu peyman diphtheria toxoid, and acellular pertussis vaccine, adsorbed Valeriano Jara MD Work Phone: [place] 10-18-2011 varicella virus vaccine DANITZA WELLINGTON MD [facility] 08-23-2011 Human Papillomavirus Quadval LATISHA WELLINGTON MD [facility] 05-24-2011 Human Papillomavirus Quadval LATISHA WELLINGTON MD [facility] 10-20-2009 meningococcal polysaccharide (groups A, C, Y and W-135) diphtheria toxoid conjugate vaccine (MCV4P) LATISHA WELLINGTON MD [facility] 10-20-2009 tetanus toxoid, redu peyman diphtheria toxoid, and acellular pertussis vaccine, adsorbed LATISHA WELLINGTON MD [facility] 07-31-2001 measles/mumps/rubell a virus vaccine LATISHA WELLINGTON MD [facility] 07-31-2001 poliovirus vaccine, inactivated LATISHA WELLINGTON MD [facility] 01-03-1998 haemophilus influenz ae type b vaccine, PRP-T conjugate LATISHA WELLINGTON MD [facility] 11-01-1997 measles/mumps/rubell a virus vaccine LATISHA WELLINGTON MD [facility] 07-18-1997 varicella virus vaccine DANITZA WELLINGTON MD [facility] 03-15-1997 haemophilus influenz ae type b vaccine, PRP-T conjugate LATISHA WELLINGTON MD [facility] 01-24-1997 hepatitis B pediatri c vaccine LATISHA WELLINGTON MD [facility] 01-24-1997 poliovirus vaccine, inactivated LATISHA WELLINGTON MD [facility] 1996 haemophilus influenz ae type b vaccine, PRP-T conjugate LATISHA WELLINGTON MD [facility] 1996 poliovirus vaccine, inactivated LATISHA WELLINGTON MD [facility] 1996 haemophilus influenz ae type b vaccine, PRP-T conjugate LATISHA WELLINGTON MD [facility] 1996 poliovirus vaccine, inactivated LATISHA WELLINGTON MD [facility] 1996 hepatitis B pediatri c vaccine LATISHA WELLINGTON MD [facility] 1996 hepatitis B pediatri c vaccine LATISHA WELLINGTON MD [facility] Payers Date Payer Category Payer Unknown [id number] 2023 Unknown [id number] 2023 Unknown 2023 Medicaid [id number] 2023 Medicaid [id number] 2023 Self-pay [id number] 2016 Medicaid [id number] 2016 Unknown [id number]. [id number] 1996 Unknown [id number] 2.16.840.1.455628.3.579.2. 356 1996 Unknown [id number] 2.16.840.1.409695.3.579.2. 356 1996 Unknown [id number] 2.16.840.1.152312.3.579.2. 356 1996 Unknown [id number] 2.16.840.1.170187.3.579.2. 356 1996 Unknown [id number] 2.16.840.1.102316.3.579.2. 356 1996 Unknown [id number] 2.16.840.1.007388.3.579.2. 627 1996 Unknown [id number] 2.16.840.1.403172.3.579.2. 62 1996 Unknown [id number] 2.16.840.1.194469.3.579.2. 62 1996 Unknown [id number] 2.16.840.1.035255.3.579.2. 627 1996 Unknown [id number] 2.16.840.1.180679.3.579.2. 627 1996 Unknown [id number] 2.16.840.1.119936.3.579.2. 62 1996 Unknown [id number] 2.16.840.1.012578.3.579.2. 62 1996 Unknown [id number] 2.16.840.1.165493.3.579.2. 62 1996 Unknown [id number] 2.16.840.1.763290.3.579.2. 627 1996 Unknown [id number] 2.16.840.1.333915.3.579.2. 62 1996 Unknown [id number] 2.16.840.1.347865.3.579.2. 627 Private Health Insurance [id number] Self-pay [id number] Unknown FANNY [id number] Unknown COMMERCIAL OTHER [id number] Unknown PARAMOUNT ADV MC D *DO NOT USE* [id number] Unknown [id number] 2.16.840.1.530870.3.579.2. 462 Unknown [id number] 2.16.840.1.090428.3.579.2. 462 Unknown [id number] 2.16.840.1.459884.3.579.2. 462 Unknown [id number] 2.16.840.1.396006.3.579.2. 462 Unknown [id number] 2.16.840.1.641911.3.579.2. 462 Unknown [id number] 2.16.840.1.888171.3.579.2. 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) [employer] Work Phone: Start: 12-30-2021 Alcohol intake [employer] Work Phone: Start: 1995 Sex Assigned At Not on file S [employer] Work Phone: Start: 12-20-2021 End: 12-30-2021 Exposure to SARS-CoV-2 (event) Not sure [employer] Work Phone: Start: 05-02-2023 End: 05-12-2023 Tobacco smoking status NHIS Unknown if ever smoked [facility] Start: 08-06-2019 None [facility] Start: 07-18-2020 Non-smoker [facility] Start: 1995 Sex Assigned At Male [facility] Sexual Orientation [facility] branden [facility] Start: 06-03-2020 Sex Male (finding) [facility] Functional Status Date Assessment Result Facility 06-11-2024 Functional Status Non-Slip footw ear, Room check performed [facility] 06-11-2024 Functional Status [facility] 06-11-2024 Functional Status [facility] 06-11-2024 Functional Status [facility] 06-10-2024 Functional Status [facility] 06-10-2024 Functional Status [facility] 06-10-2024 Functional Status Patient Identi fied Identification band, Verbal [facility] 06-10-2024 Functional Status [facility] 06-10-2024 Functional Status Maintained [facility] 05-11-2024 Functional Status Assistive Device None [facility] 05-11-2024 Functional Status Awake [facility] 04-11-2024 Functional Status Standard Safet y ID band on, Call device within reach, Bed in low position, Wheels locked, Bedside Cart Locked, Safety level maintained [facility] 04-11-2024 Functional Status [facility] 02-09-2024 Functional Status Independent [facility] 02-09-2024 Functional Status Repositions self [facility] 02-09-2024 Functional Status Standard Safet y ID band on, Allergy Band on, Call device within reach, Bed in low position, Wheels locked, Upper/Half-Length side-rails up, Bedside Cart Locked, Safety level maintained [facility] 01-23-2024 Functional Status Independent [facility] 01-23-2024 Functional Status Environmental Safety Implemented Adequate room lighting, Bed in low position, Call device within reach [facility] 01-23-2024 Functional Status Awake [facility] 01-23-2024 Functional Status [facility] 11-04-2023 Functional Status Assistive Device None A [facility] Mental Status Date Assessment Result Facility 10-05-2024 Cognitive function Level Of Cons ciousness Awake;Alert;Appropriate;Follow s Commands [facility] Work Phone: 06-11-2024 Mental Status Orientation Oriented x 4 [facility] 06-11-2024 Mental Status [facility] 06-10-2024 Mental Status [facility] 06-10-2024 Mental Status Oriented x 4 [facility] 05-11-2024 Mental Status Orientation Oriented x 4 [facility] 05-11-2024 Mental Status [facility] 04-11-2024 Mental Status Oriented x 4 [facility] 04-11-2024 Mental Status [facility] 02-09-2024 Mental Status Orientation Oriented x 4 [facility] 02-09-2024 Mental Status [facility] 02-09-2024 Mental Status Orientation Oriented x 4 [facility] 01-23-2024 Mental Status Orientation Oriented x 4 [facility] 01-23-2024 Mental Status [facility] 01-23-2024 Mental Status [facility] 11-04-2023 Mental Status Oriented x 4 [facility] Clinical Notes 12-30-2021 to 10-05-2024 Note Date & Type Note Facility 10-05-2024 History and physi curt note [facility] 10-05-2024 Evaluation note Diagnosis Onset Date Resolution Impacted foreign body in esophagus acute October 05, 2024 6:14pm [facility] Work Phone: 1(815) 722-557103-28-2025 Hospital Discharge instructions Patient Education 06/11/2024 07:04:18 3-- EP Study/Ablation (12/2017) (CUSTOM) ELECTROPHYSIOLOGY STUDY/ABLATION Discharge Instructions DIET INSTRUCTIONS Resume diet as prior to procedure ACTIVITIES Do not drive FOR 24 HOURS No heavy lifting GREATER THAN 10 POUNDS or pushing or straining FOR 4 DAYS BATHING/SHOWERING May tub bathe in 4 days Do not sit in hot tub, whirlpool, or swim for 4 days May shower today WOUND CARE You may go home with a Band-Aid over your procedure site. Keep this Band-Aid on for the next 24 hours and then remove it leaving the site open to air. Some degree of bruising and tenderness is normal around the procedure site. It will take a while for any bruising to completely resolve. Keep your site clean and dry. You need to report the following to your eligibility analyst: ?Any draining or oozing from the site ?Any swelling at the site ?Any increased pain or tenderness at the site ?Any numbness in your leg where the procedure was done ?Any sign of infection WATCH FOR SIGNS OF INFECTION: Elevated temperature above 100.5 Redness or swelling Increased pain Foul odor or drainage. If you have any questions, please call your doctor at the number listed on your follow up instructions. Follow all instructions given to you by your physician. Document Released: 03/03/2006 Document Revised: 02/17/2013 Document Reviewed: 03/04/2014 [facility] Patient Information 2015 [employer]. This information is not intended to replace advicegiven to you by your health care provider. Make sure you discuss any questions you have with your health care provider. Follow Up Care 05/04/2024 09:58:45 With:LATISHA WELLINGTON MD Address: [address] [facility] [address] [address]- [phone] When:08/11/2024 09:15:00 [facility] 03-28-2025 Summary of episode note Discharge Instructions Thank you for allowing [facility] to assist you with your healthcare needs. The following is importantdischarge information regarding your hospital visit. Your Care Team PHYSICIAN, NONE What to do next Scheduled Follow-Up Appointments Appointment Type When With Where Contact Information StatusCV OV 08/11/2024 09:15 AM EDT LUNA WELLINGTON [facility] Follow Up Appointments Follow Up with LATISHA WELLINGTON MD When:08/11/2024 09:15 AM EDT Where:[address] [facility] [address] [facility] [place] [address]- [phone] Allergies Adderall Nausea and vomiting Medications Please ask your primary doctor or pharmacist before taking any other medication not listed, including over the counter drugs, herbal medications, vitamins and or supplements as they may interact withyour home medications. What How Much When Instructions Last Dose Unchanged apixaban (Eliquis 5 mg oral tablet) 1 tab(s) by mouth Two (2) times a day Duration: 30 Days Unchanged dilTIAZem (Cardizem CD 180 mg/ 24 hours oral capsule, extended release) 1 cap by mouth Once a day Please take this list to your next doctor s visit. Bring all medications you take, including over the counter medications, herbals and other supplements with you to your doctor s visit. Patients and families are reminded to discard old lists and to update any records with all medication providers or retail pharmacies. Education Materials ELECTROPHYSIOLOGY STUDY/ABLATION Discharge Instructions DIET INSTRUCTIONS Resume diet as prior to procedure ACTIVITIES Do not drive FOR 24 HOURS No heavy lifting GREATER THAN 10 POUNDS or pushing or straining FOR 4 DAYS BATHING/SHOWERING May tub bathe in 4 days Do not sit in hot tub, whirlpool, or swim for 4 days May shower today WOUND CARE You may go home with a Band-Aid over your procedure site. Keep this Band-Aid on for the next 24 hours and then remove it leaving the site open to air. Some degree of bruising and tenderness is normal around the procedure site. It will take a while for any bruising to completely resolve. Keep your site clean and dry. You need to report the following to your eligibility analyst: ? Any draining or oozing from the site ? Any swelling at the site ? Any increased pain or tenderness at the site ? Any numbness in your leg where the procedure was done ? Any sign of infection WATCH FOR SIGNS OF INFECTION: Elevated temperature above 100.5 Redness or swelling Increased pain Foul odor or drainage. If you have any questions, please call your doctor at the number listed on your follow up instructions. Follow all instructions given to you by your physician. Document Released: 03/03/2006 Document Revised: 02/17/2013 Document Reviewed: 03/04/2014 [facility] Patient Information 2015 [employer]. This information is not intended to replace advicegiven to you by your health care provider. Make sure you discuss any questions you have with your health care provider. Additional Information VACCINATE! IT SAVES LIVES! Members of the community who have not yet received the COVID-19 vaccine and would like to receive it can visit one of [facility] vaccine clinics. There are many vaccine clinic locations within the [facility]. For locations and available times, please visit https://gettheshot.coronavirus.[place].gov/. It is important to note that some COVID mobile vaccine clinics are held outdoors and may be canceled in rainy or stormy conditions. To learn more about pediatric vaccinations (ages 5-11), we invite you to visit the [facility] webpage. https://www.akNetProspexs.org/pages/[email or web address]-[email or web address]-[email or web address]-[email or web address] stions.htmlTo learn more about the COVID-19 vaccine, we invite you to visit the CDC website for a list of frequently asked questions.https://www.cdc.gov/coronavirus/2019-ncov/vaccines/faq.html [facility] Patient Portal Access Instructions: Stay connected with your healthcare team and access your personal medical information anytime with the [facility] Patient Portal. Please follow the directions below to create your [facility] account: 1.Access the email account you provided upon registration to the hospital/physician office.2.Look for an invitation email from [facility].3.Open the email and access the invitation link: AcceptInvitation to [facility].4.Fill in the required giordano to create your account. To access your account, visit [email or web address]. Click the blue button labeled "Access Patient Portal" and then log in with the username and password that you created in the steps above. You will be able to view your test results, lab results, a summary of your visits, upcoming appointments and more. There is also a convenient messaging option where you can send secure messages to your p rovider. In addition, you will have the ability to download any documents or summaries to your computer and/or send the information securely to a physician. Remember that your healthcare information is confidential, so carefully consider who you will allowto register on the [facility] Patient Portal for access to your information. You can also access the [facility] Patient Portal on the [facility] isela. Simply click on "Patient Portal" and then log into your account. If you would like to receive a full copy of your medical records, please contact the [facility] Medical Records Department by calling [phone], Friday through Friday between 8 a.m. and 4:30 p.m. HOW TO SAFELY DISPOSE OF PRESCRIPTION MEDICATIONS Please use one of the following methods to safely dispose of your unused medications. 1.Use a drug disposal kit: the drug disposal pouch allows you to safely discard your old and unuseddrugs. Ask your nurse to give you one when you are discharged.2.Visit a local take-back location: Many local pharmacies and police departments have programs that collect old and unwanted prescriptiondrugs. Call your local pharmacy or go to http://Mountvacation/7B5Kn8v to find one close to you.3.Make use of household items: Use cat litter or old coffee grounds to dispose medications if other options arenot available. Mix your drugs with these household products, seal them in an airtight container andthrow it into the garbage. Call [facility]: [phone] to be sure your drugs can be disposed of in this way. Some medicines may require a different approach.4.Never flush your medications down the toilet. IF YOU HAVE BEEN PRESCRIBED AN OPIOID FOR PAIN If you have been prescribed an opioid (such as hydrocodone, oxycodone or morphine), it is critical to understand the possible side effects and risks of opioid pain medications. Even when taken as directed, opioids can have several side effects including: Tolerance, meaning you might need to take more of a medication for the same pain relief. Nausea, vomiting and/or constipation. Sleepiness, dizziness, dry mouth, confusion, depression or itching. Physical dependence, meaning you have withdrawal symptoms when a medication is stopped, can develop within a few days. KNOW YOUR RESPONSIBILITIES It is important to know exactly how much and how often to take the opioid pain medications you are prescribed. Never take opioids in higher amounts or more often than prescribed. Do not combine opioids with alcohol or other drugs that cause drowsiness, such as benzodiazepines, also known as benzos, including diazepam and alprazolam, muscle relaxants or sleep aids. Never sell or share prescription opioids. This is illegal. Store opioids in a secure place and out of reach of others (including children, family, friends and visitors). The last page of this document has been signed and retained as a CHART COPY. Signatures Patient Education Materials 3-- EP Study/Ablation (12/2017) (CUSTOM) Medication Leaflets My discharge plan and instructions have been reviewed and explained to me and I,FRANCY PHAN understand my current condition and have read and understand these discharge instructions. I have received a written copy of the plan/instructions. If I have questions, I am aware that I should contactmy doctor. 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 Family's history: negative. History of Present Illness 28yo M w/ pmhx of obesity and afib presenting for afib ablation Walks 2 flights of stairs, denies CP and SOA. Echo- EF-60%, trace TR, PI Denies tobacco, alcohol, and drug use Review of Systems Ear/Nose/Mouth/Throat: Negative except as documented in history of present illness. Respiratory: Negative except as documented in history of present illness. Cardiovascular: Negative except as documented in history of present illness. Gastrointestinal: Negative except as documented in history of present illness. Genitourinary: Negative except as documented in history of present illness. Endocrine: Negative except as documented in history of present illness. Musculoskeletal: Negative except as documented in history of present illness. Integumentary: Negative except as documented in history of present illness. Neurologic: Negative except as documented in history of present illness. Health Status Allergies: Allergic Reactions (Selected) Severity Not Documented Adderall- Nausea and vomiting., Allergies (1) ActiveSeverityReaction AdderallNausea and vomiting Current medications: (Selected) Inpatient Medications Ordered NS 1,000 mL: 50 mL/hr, Intravenous Prescriptions Prescribed Cardizem CD 180 mg/24 hours oral capsule, extended release: 180 mg, 1 cap(s), Oral, qDay, 30 cap(s), 2 Refill(s) Eliquis 5 mg oral tablet: 5 mg, 1 tab(s), Oral, BID, for 30 day(s), 60 tab(s), 0 Refill(s), Medications (1) Active Scheduled: (0) Continuous: (1) NS (0.9% nacl) 1,000 mL 1,000 mL, Intravenous, 50 mL/hr PRN: (0) Problem list: Medical Dysphagia / SNOMED CT 80382011 / Confirmed CARDOZO (dyspnea on exertion) / SNOMED CT 408811299 / Confirmed Paroxysmal atrial fibrillation / SNOMED CT 228646445 / Confirmed Postural dizziness with presyncope / SNOMED CT 980985398 / Confirmed Snoring / SNOMED CT 012612680 / Confirmed, Active Problems (9) Back pain BMI 31.0-31.9,adult Changes in vision CARDOZO (dyspnea on exertion) Dysphagia On anticoagulant therapy Paroxysmal atrial fibrillation Postural dizziness with presyncope Snoring Histories Past Medical History: No active or resolved past medical history items have been selected or recorded. Family History: Atrial fibrillation Father Grandparent Diabetes mellitus type 2 Mother Grandparent Stroke Grandparent Procedure history: History of elbow surgery ([id number]). Comments: 05/31/2024 7:27 EDT - Natacha Magallon RN RIGHT ELBOW RECONSTRUCTION Cardioversion ([id number]). Social History: Social & Psychosocial Habits Alcohol 06/10/2024 Use: DENIES Employment/School 05/04/2024 Status: Employed Substance Abuse 06/10/2024 Use: DENIES Tobacco 06/10/2024 Tobacco Use: Never (less than 100 in l Home/Environment 06/10/2024 Living situation: Home/Independent Domestic Concerns Denies Marital Status of Patient if Patient Independent Adult: Nutrition/Health 06/10/2024 Caffeine intake amount: 2-3 per day Physical Examination Vital Signs 06/10/2024 6:19 EDT Temperature Oral 36.5 DegC Peripheral Pulse Rate 63 bpm Respiratory Rate 16 br/min Systolic Blood Pressure Non-Invasive 142 mmHg HI Diastolic Blood Pressure Non-Invasive 85 mmHg Vital Signs (last 24 hrs) Last Charted Temp Oral36.5 DegC (JUN 10 06:19) SBPH 142 mmHg (JUN 10 06:19) DBP85 mmHg (JUN 10 06:19) Measurements from flowsheet : Measurements 06/10/2024 6:19 EDT Height 175.3 cm Admission Weight 92.6 kg [place] Body Weight 70.74 kg Pain assessment: Pain Assessment 06/10/2024 6:19 EDT Primary Pain Intensity 0 Pain Scale Type 0-10 Pain scale . General: Alert and oriented. Airway: Normal temporomandibular joint mobility, Normal mouth, Normal throat, Normal neck range of motion, Trachea midline. Mallampati classification: III (soft palate, base of uvula visible). Head: Normocephalic. Dentition Evaluation: Own teeth, Denies loose/chipped teeth, poor dentition. Neck: Supple. Respiratory: Lungs are clear to auscultation, Respirations are non-labored, diminished breath sounds. Cardiovascular: Normal rate, No murmur, irregular rhythm. Heart Sounds: Normal. Gastrointestinal: Soft. Musculoskeletal Normal range of motion. Integumentary: Intact, Warm, Dry. Neurologic: Alert, Oriented. Review / Management Results review: Labs (Last four charted values) WBC 8.2(JUN 10) Hgb 15.1(JUN 10) Hct 43.4(JUN 10) Plt 231(JUN 10) , Lab results 06/10/2024 6:50 EDT Antecubital Left 06/10/2024 20 gauge Peripheral IV Activity: Insert new site Peripheral IV Dressing Condition: Clean, Dry, Intact Peripheral IV Dressing Activity: Applied, Transparent dressing Peripheral IV Line Status/Patency: Flushes easily, Good blood return Peripheral IV Site Condition: No complications Peripheral IV Equipment: PRN Adaptor Peripheral IV Number of Attempts: 1 06/10/2024 6:49 EDT SN - Preop - CTm - Pt in HL SD Room 06/10/2024 6:12 SN - Preop - CTm - HL Pt Ready for Procedure 06/10/2024 6:48 06/10/2024 6:45 EDT Sodium Chloride 0.9% Begin Bag 1,000 mL mL 06/10/2024 6:43 EDT Electrocardiogram - EKG - CV Completed (In Progress) 06/10/2024 6:37 EDT WBC 8.2 10^3/mcL RBC 5.20 10^6/mcL Hgb 15.1 G/dL Hct 43.4 % MCV 83.6 fL MCH 29.1 pg MCHC 34.8 G/dL RDW 12.5 % Platelet 231 10^3/mcL MPV 9.1 fL Neutrophil % 62.3 % Lymphocyte % 23.4 % Monocyte % 9.4 % Eosinophil % 4.4 % Basophil % 0.5 % Neutrophil, Absolute 5.1 10^3/mcL Lymphocyte, Absolute 1.9 10^3/mcL Monocyte, Absolute 0.8 10^3/mcL Eosinophil, Absolute 0.4 10^3/mcL Basophil, Absolute 0.0 10^3/mcL Slide Review Man Indicated 06/10/2024 6:25 EDT IV Present Present Violence Risk Confused No Violence Risk Irritable No Violence Risk Boisterous No Violence Risk Verbal Threats No Violence Risk Physical Threats No Violence Risk Attacking Objects No Violence Risk Predictor Score 0 Violence Risk Intervention None Violence Risk Current Interventions None Allergies Yes Consent Form Signed Yes Patient Dressed In Hospital gown Obstructive Sleep Apnea Assess Completed Yes Belongings At Bedside Cell phone, Shirt, Shoes, Undergarments, Wallet, Pt participated in reconciliation NPO Status Maintained Allergy Band on and Verified Yes Patient ID Band on and Verified Yes Blood Consent Signed Yes Last Food Intake 06/09/2024 23:00 06/10/2024 6:24 EDT Designated Person #1 We May Share PHI RENAN PHAN [phone] Designated Person #1 Relationship Spouse Designated Person #2 We May Share PHI Juan [phone] Designated Person #2 Relationship Mother Privacy Restrictions Requested None Status N/A Sensory Deficits None Sleep Apnea Snore No Sleep Apnea Tired No Sleep Apnea Obstruction No Sleep Apnea Pressure Yes Sleep Apnea BMI No Sleep Apnea Age No Sleep Apnea Neck No Sleep Apnea Gender Yes Sleep Apnea Score 2 Diagnosed With Sleep Apnea No Advanced Directives No - refuses information Infectious Disease Symptoms Patient states no symptoms Infectious Disease Recent Exposure No Alcohol and Drug Use No Employee of Institutional Living No Health Care Employee No History of Exposure to TB No History of Positive Chest X-Ray for TB No History of Positive TB Skin Test No Homeless No Known Immunosuppression No Recent Immigrant No Resident of Institutional Living No Bloody Sputum No Fatigue No Fever No Loss of Appetite No Night Sweats No Persistent Cough > 3 Weeks No Weight Loss No Pre-Op Patient Education No smoking after midnight, No jewelry, Responsible Republican, Aware of surgerylocation, Pre-op education done, 1 bottle CHG wash with instructions given, Instructed to bring home medications, VTE prevention handout given, Clear liquids until arrival Barriers to Learning None evident Teaching Method Explanation, Printed materials Preferred Spoken Language Malaysian Preferred Written Language Malaysian Teaching Evaluation Verbalizes/Nonverbally indicates understanding Safety Brochure Information Reviewed Yes [facility] [place] Video Viewed Patient refused Patient's Current Physicians Patient's Current Physicians History of Malignant Hyperthermia No Discharge To, Anticipated Home with family care Prev Test Positive/Diagnosis w/COVID-19 No Current Quarantine/Isolated any Illness No Any Contact with Sick Animals/Birds No Traveled Anywhere in Last 30 Days Yes Travel Where Within [facility](s) [place] Lost Weight Unintentionally Recently No Eat Poorly Due to Decreased Appetite No Total MST Score 0 N/A Personal Devices, Patient Valuables None Anesthesia/Transfusions Prior anesthesia Admission Note-Nursing Same Day Patient History 06/10/2024 6:19 EDT Height 175.3 cm Admission Weight 92.6 kg [place] Body Weight 70.74 kg Temperature Oral 36.5 DegC Peripheral Pulse Rate 63 bpm Respiratory Rate 16 br/min Systolic Blood Pressure Non-Invasive 142 mmHg HI Diastolic Blood Pressure Non-Invasive 85 mmHg Primary Pain Intensity 0 Pain Scale Type 0-10 Pain scale Heart Rhythm Regular Dorsalis Pedis Pulse, Left 2+ Normal Dorsalis Pedis Pulse, Right 2+ Normal Radial Pulse, Left 2+ Normal Radial Pulse, Right 2+ Normal Respirations Unlabored Respiratory Pattern Regular Breath Sounds Auscultated Anterior and posterior All Lobes Breath Sounds Clear Cough None Oxygen Therapy Room air Oxygen Saturation 97 % Abdomen Description Non-distended Abdomen Palpation Non-Tender Skin Description [place], Normal for ethnicity, Dry Skin Temperature Warm Skin Integrity Intact Mucous Membrane Color [place] Skin Moisture General Dry Neurological Symptoms Patient denies Extremity Movement Equal Characteristics of Speech Clear Level of Consciousness Alert Strength All Extremities Strong Tone All Extremities Normal Sensation All Extremities Intact Affect/Behavior Appropriate, Calm, Cooperative Orientation Oriented x 4 Assistive Device None Mobility Assistance Level Independent Activity Status ADL Awake, Resting Standard Safety ID band on, Allergy Band on, Call device within reach, Bed in low position, Wheels locked High Risk Safety Room check performed Demonstrates Correct Call Light Use Yes . Assessment and Plan [place] [employer] Anesthesiologists (ASA) physical status classification: Class III. Anesthetic Preoperative Plan Premedication: intravenous. Anesthetic technique: General. Induction: intravenously. Maintenance airway: Oral endotracheal tube. Special techniques: Warming device. Special Monitoring: Arterial line. Postoperative pain management: Per surgeon. Risks discussed: nausea, vomiting, headache, sore throat, dental injury, hypotension, allergic reaction, serious complications. Informed consent: signed by patient. Notes. Beta Skyler: Beta Skyler Taken Within 24 Hrs: Yes. Digitally Signed by DANNY WILL MD on 06/10/2024 07:12 AM [id number]* Exam Date Time Procedure Performing Provider Status 06/10/24 6:43 AM Electrocardiogram - EKG - CV JAIME CAPUTO MD; Auth (Verified) ECG Final Report SINUS RHYTHM ST ELEV, PROBABLE NORMAL EARLY REPOL PATTERN Electronic Signature: JAIME CAPUTO MD 06/11/2024 09:15:45 [id number] Discharge instructions Patient Education 05/11/2024 05:34:10 Chest Pain, Uncertain Cause Uncertain Causes of Chest Pain Chest pain can happen for a number of reasons. Sometimes the cause can't be determined. If your condition does not seem serious, and your pain does not appear to be coming from your heart, your healthcare provider may recommend watching it closely. Sometimes the signs of a serious problem take moretime to appear. Many problems not related to your heart can cause chest pain. These include: Musculoskeletal. Costochondritis is an inflammation of the tissues around the ribs that can occur from trauma or overuse injuries, or a strain of the muscles of the chest wall Respiratory. Pneumonia, collapsed lung (pneumothorax), or inflammation of the lining of the chest and lungs (pleurisy) Gastrointestinal. Esophageal reflux, heartburn, ulcers, or gallbladder disease Anxiety and panic disorders Nerve compression and inflammation Rare miscellaneous problems such as aortic aneurysm (a swelling of the large artery coming out of the heart) or pulmonary embolism (a blood clot in the lungs) Home care After your visit, follow these recommendations: Rest today and avoid strenuous activity. Take any prescribed medicine as directed. Be aware of any recurrent chest pain and notice any changes Follow-up care Follow up with your healthcare provider if you do not start to feel better within 24 hours, or as advised. Call 911 Call 911 if any of these occur: A change in the type of pain: if it feels different, becomes more severe, lasts longer, or begins to spread into your shoulder, arm, neck, jaw or back Shortness of breath or increased pain with breathing Weakness, dizziness, or fainting Rapid heart beat Crushing sensation in your chest When to seek medical advice Call your healthcare provider right away if any of the following occur: Cough with dark colored sputum (phlegm) or blood Fever of 100.4 F (38 C) or higher, or as directed by your healthcare provider Swelling, pain or redness in one leg [id number] [employer]. [address] [place] [address]. All rights reserved. This information is not intended as a substitute for professional medical care. Always follow yourhealthcare professional's instructions. 05/11/2024 05:34:01 CHEST WALL STRAIN(CUSTOM) Chest Strain You have a chest strain. This happens when the muscles between the ribs stretch and tear. This may occur when you have a severe cough. It may also happen after strenuous lifting or twisting injuries of the upper back. A chest strain usually causes pain when you move or take a deep breath. The strain may take a few days to a few weeks to heal. Home care Follow these guidelines when caring for yourself at home: Rest. Don t do any heavy lifting or strenuous activity. Don t do any activity that causes pain. If you have a severe cough, use a cough syrup with dextromethorphan, unless another cough medicine was prescribed. If you have high blood pressure, check with your health care provider or pharmacist before using an kske-mub-grgorye cough medicine. You may use acetaminophen or ibuprofen to control pain, unless another medicine was prescribed. If you have chronic liver or kidney disease, talk with your provider before using these medicines. Alsotalk with your provider if you ve had a stomach ulcer or GI bleeding. Follow-up care Follow up with your health care provider, or as advised. When to seek medical advice Call your health care provider right away if any of these occur: A change in the type of pain. This means if it feels different, gets worse, lasts longer, or beginsto spread into your shoulder, arm, neck, jaw, or back. Pain doesn t go away in 1 week Shortness of breath, difficulty breathing, or fast breathing Pain gets worse when you breathe Cough with dark-colored sputum (phlegm) or blood Weakness, dizziness, or fainting Fever of 101 F (38.3 C) or higher, or as directed by your health care provider [id number] [employer]. [address] [place] [address]. All rights reserved. This information is not intended as a substitute for professional medical care. Always follow yourhealthcare professional's instructions. Follow Up Care 05/11/2024 03:07:06 With:LATISHA WELLINGTON Address: [address] [place] [phone] Business (1) When:2-4 days Comments:Return to ED if symptoms worsen [facility] 02-25-2025 Emergency department Discharge summary Discharge Instructions Thank you for allowing [facility] to assist you with your healthcare needs. The following is importantdischarge information regarding your hospital visit. Diagnosis from Today's Visit Chest wall pain What to Do Next Instructions from Your Care Team No qualifying data available. Post Acute Orders No qualifying data available. You Need to Schedule the Following Appointments Follow Up with LATISHA WELLINGTON When:Within 2-4 days Where:[address] [place] [address] [phone] [phone] Business (1) Additional Information: Return to ED if symptoms worsen Allergies Adderall Medications Please ask your primary doctor or pharmacist before taking any other medication not listed, including over the counter drugs, herbal medications, vitamins and or supplements as they may interact withyour home medications. What How Much When Instructions Last Dose Unchanged apixaban (Eliquis 5 mg oral tablet) 1 tab(s) by mouth Two (2) times a day Duration: 30 Days Unchanged dilTIAZem (Cardizem CD 180 mg/ 24 hours oral capsule, extended release) 1 cap by mouth Once a day Please take this list to your next doctor s visit. Bring all medications you take, including over the counter medications, herbals and other supplements with you to your doctor s visit. Patients and families are reminded to discard old lists and to update any records with all medication providers or retail pharmacies. Education Materials Uncertain Causes of Chest Pain Chest pain can happen for a number of reasons. Sometimes the cause can't be determined. If your condition does not seem serious, and your pain does not appear to be coming from your heart, your healthcare provider may recommend watching it closely. Sometimes the signs of a serious problem take moretime to appear. Many problems not related to your heart can cause chest pain. These include: Musculoskeletal. Costochondritis is an inflammation of the tissues around the ribs that can occur from trauma or overuse injuries, or a strain of the muscles of the chest wall Respiratory. Pneumonia, collapsed lung (pneumothorax), or inflammation of the lining of the chest and lungs (pleurisy) Gastrointestinal. Esophageal reflux, heartburn, ulcers, or gallbladder disease Anxiety and panic disorders Nerve compression and inflammation Rare miscellaneous problems such as aortic aneurysm (a swelling of the large artery coming out of the heart) or pulmonary embolism (a blood clot in the lungs) Home care After your visit, follow these recommendations: Rest today and avoid strenuous activity. Take any prescribed medicine as directed. Be aware of any recurrent chest pain and notice any changes Follow-up care Follow up with your healthcare provider if you do not start to feel better within 24 hours, or as advised. Call 911 Call 911 if any of these occur: A change in the type of pain: if it feels different, becomes more severe, lasts longer, or begins to spread into your shoulder, arm, neck, jaw or back Shortness of breath or increased pain with breathing Weakness, dizziness, or fainting Rapid heart beat Crushing sensation in your chest When to seek medical advice Call your healthcare provider right away if any of the following occur: Cough with dark colored sputum (phlegm) or blood Fever of 100.4 F (38 C) or higher, or as directed by your healthcare provider Swelling, pain or redness in one leg [id number] [employer]. [address] [place] [address]. All rights reserved. This information is not intended as a substitute for professional medical care. Always follow yourhealthcare professional's instructions. Chest Strain You have a chest strain. This happens when the muscles between the ribs stretch and tear. This may occur when you have a severe cough. It may also happen after strenuous lifting or twisting injuries of the upper back. A chest strain usually causes pain when you move or take a deep breath. The strain may take a few days to a few weeks to heal. Home care Follow these guidelines when caring for yourself at home: Rest. Don t do any heavy lifting or strenuous activity. Don t do any activity that causes pain. If you have a severe cough, use a cough syrup with dextromethorphan, unless another cough medicine was prescribed. If you have high blood pressure, check with your health care provider or pharmacist before using an jieq-rsc-hwobxjg cough medicine. You may use acetaminophen or ibuprofen to control pain, unless another medicine was prescribed. If you have chronic liver or kidney disease, talk with your provider before using these medicines. Alsotalk with your provider if you ve had a stomach ulcer or GI bleeding. Follow-up care Follow up with your health care provider, or as advised. When to seek medical advice Call your health care provider right away if any of these occur: A change in the type of pain. This means if it feels different, gets worse, lasts longer, or beginsto spread into your shoulder, arm, neck, jaw, or back. Pain doesn t go away in 1 week Shortness of breath, difficulty breathing, or fast breathing Pain gets worse when you breathe Cough with dark-colored sputum (phlegm) or blood Weakness, dizziness, or fainting Fever of 101 F (38.3 C) or higher, or as directed by your health care provider [employer]. [address] [place] [address]. All rights reserved. This information is not intended as a substitute for professional medical care. Always follow yourhealthcare professional's instructions. Additional Information VACCINATE! IT SAVES LIVES! Members of the community who have not yet received the COVID-19 vaccine and would like to receive it can visit one of [facility] vaccine clinics. There are many vaccine clinic locations within the [facility]. For locations and available times, please visit www.gettheshot.coronavirus.[place].gov/. It is important to note that some COVID mobile vaccine clinics are held outdoors and may be canceled in rainy or stormy conditions. To learn more about pediatric vaccinations (ages 5-11), we invite you to visit the [facility] webpage. [email or web address].akNetProspexs.org/[email or web address] learn more about the COVID-19 vaccine, we invite you to visit the CDC website for a list of frequently asked questions. https://www.cdc.gov/coronavirus/2019-ncov/vaccines/faq.html [facility] [employer] Patient Portal Access Instructions: Stay connected with your healthcare team and access your personal medical information anytime with the [facility] Patient Portal. If you would like a full copy of your medical records please contact the [facility] Medical Records Department Friday through Friday between 8a.m. and 4:30p.m. Please follow the directions below to access the portal: 1.Access the email account you provided upon registration to the hospital.2.Look for an invitation email from [facility].3.Open the email and access the invitation link: Accept Invitation to [facility]4.Fill in the required giordano to create your account. Sign into [email or web address] with your username and password that you created in the above steps to stay up to date. You can then view a summary of results, a summary of your visits, and the ability to download your summaries to your computer or send the information securely to a physician. Remember that your healthcare information is confidential, so carefully consider who you will allow to register on the [facility] Patient Portal for access to your information. You can also access the [facility] Patient Portal on the [employer]. Simply click on "Health Records" under "HealthData" and then click on the [employer] logo. HOW TO SAFELY DISPOSE OF PRESCRIPTION MEDICATIONS Please use one of the following methods to safely dispose of your unused medications. 1.Use a drug disposal kit: the drug disposal pouch allows you to safely discard your old and unuseddrugs. Ask your nurse to give you one when you are discharged.2.Visit a local take-back location: Many local pharmacies and police departments have programs that collect old and unwanted prescriptiondrugs. Call your local pharmacy or go to http://Videolla.[employer]/9V3Kz3v to find one close to you.3.Make use of household items: Use cat litter or old coffee grounds to dispose medications if other options arenot available. Mix your drugs with these household products, seal them in an airtight container andthrow it into the garbage. Call [facility]: [phone] to be sure your drugs can be disposed of in this way. Some medicines may require a different approach.4.Never flush your medications down the toilet. IF YOU HAVE BEEN PRESCRIBED AN OPIOIDS FOR PAIN If you have been prescribed an opioid (such as hydrocodone, oxycodone or morphine), it is critical to understand the possible side effects and risks of opioid pain medications. Even when taken as directed, opioids can have several side effects including: Tolerance, meaning you might need to take more of a medication for the same pain relief. Nausea, vomiting and/or constipation. Sleepiness, dizziness, dry mouth, confusion, depression or itching. Physical dependence, meaning you have withdrawal symptoms when a medication is stopped ? this can develop within a few days. KNOW YOUR RESPONSIBILITIES It is important to know exactly how much and how often to take the opioid pain medications you are prescribed. Never take opioids in higher amounts or more often than prescribed. Do not combine opioids with alcohol or other drugs that cause drowsiness, such as benzodiazepines, also known as benzos,including diazepam and alprazolam, muscle relaxants or sleep aids. Never sell or share prescriptionopioids. This is illegal. Store opioids in a secure place and out of reach of others (including children, family, friends and visitors). The last page(s) of this document has been signed and retained as a CHART COPY Signatures Patient Education Materials Chest Pain, Uncertain Cause CHEST WALL STRAIN(CUSTOM) Medication Leaflets My discharge plan and instructions have been reviewed and explained to me and I,OVERLY, FRANCY A understand my current condition and have read and understand these discharge instructions. I have received a written copy of the plan/instructions. If I have questions, I am aware that I should contactmy doctor. 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 No consolidation, pleural effusion, or vascular congestion is seen. The osseous structures are intact. IMPRESSION: No acute findings. Interpreted by: Chrissie Waller MD Preliminary Report By: Chrissie Waller MD Electronically signed By Chrissie Waller MD Dictated Date: 05/11/2024 3:59:55 AM Prelim Date: 05/11/2024 4:00:04 AM Sign Date: 05/11/2024 4:00:04 AM Ordering Provider: KENJI MANUEL [facility]02-25-2025 Note* Exam Date Time Procedure Performing Provider Status 05/11/24 3:13 AM EKG [ED AO] - CV MD KENJI MANUEL MD; Auth (Verified) ECG Final Report Sinus rhythm ST elev, probable normal early repol pattern Electronic Signature: MD KENJI MANUEL MD 05/11/2024 03:28:07 [facility]02-12-2025 Note* Exam Date Time Procedure Performing Provider Status 04/28/24 8:29 AM Echocardiogram, Adult - CV SARITHA KEEN MD; Auth (Verified) [facility]01-26-2025 Hospital Discharge instructions Patient Education 04/11/2024 14:40:00 Atrial Fibrillation Atrial Fibrillation Atrial fibrillation is a condition in which the heart beats in an irregular pattern. It is caused by a problem in the heart's electrical pathways. It can be a sign of heart disease or other health problems that affect the heart. Heart palpitations are the most common symptom of atrial fibrillation. This is the feeling that your heart is fluttering, beating fast, hard, or irregular. When the heart beats too fast, it doesn't pump blood very well. This can cause other symptoms like anxiety, fatigue, shortness of breath, chestpain, dizziness, or fainting. Atrial fibrillation may come and go. It can last from a few hours to a couple of days. Or, it may become chronic, lasting for months at a time or even become permanent. Atrial fibrillation may be caused by heart disease or other conditions in the body that affect the heart: Coronary artery disease (atherosclerosis) High blood pressure Disease of the heart valves Enlarged heart Heart failure Atrial fibrillation can also occur without heart disease because of: Overactive thyroid (hyperthyroid) Chronic lung disease (COPD, emphysema, bronchitis) Heavy alcohol use Cardiac stimulants like cocaine, amphetamines, diet pills, certain decongestant cold medicines, caffeine, or nicotine Infection Blood clot in the lung (pulmonary embolus) Diabetes Chronic kidney disease Obesity Extreme athletic conditioning Treating or removing these causes will help your treatment for atrial fibrillation. It will also make it less likely for the atrial fibrillation to come back. Atrial fibrillation can alternate back and forth with another abnormal rhythm called atrial flutter. Atrial flutter is a more regular heart rhythm and is also associated with an increased stroke risk. Proper treatment can lower your risk for stroke. Home care Follow these guidelines when caring for yourself at home: Go back to your usual activities as soon as you are feeling back to normal. If you smoke, stop smoking. Contact your healthcare provider or a local stop- smoking program for help. Don't use stimulants like alcohol, cocaine, amphetamines, diet pills, certain decongestant cold medicines, caffeine, or nicotine. If your provider prescribed medicine to stop atrial fibrillation from coming back, take it exactly as directed. Some medicines must be taken every day, not just when you have symptoms. This will helpthem work as they should. If you were prescribed warfarin to lower your risk for stroke, have your blood tested on a regular basis as advised by your provider. This will make sure you are getting the dose that is right for you. It also lower your risk for side effects. Follow-up care Follow up with your healthcare provider, or as advised. When to seek medical advice Call your healthcare provider right away if any of these following occur: Shortness of breath or swelling in the legs gets worse Unexpected weight gain Chest pain or the sense that your heart is fluttering or beating fast or hard (palpitations) Any sign of bleeding if you are on a blood thinner Pain, redness, or swelling in one leg Also call your provider right away if you have these signs of stroke: Weakness of an arm or leg or one side of the face Difficulty with speech or vision Extreme drowsiness, confusion, dizziness, or fainting 9418-2604 [employer]. [address] [place] [address]. All rights reserved. This information is not intended as a substitute for professional medical care. Always follow yourhealthcare professional's instructions. Follow Up Care 04/11/2024 11:38:18 With:JEAN-PIERRE FLORES Address: [address] [place] [address] [id number] [facility] [place] [address]- Business (1) When:5-7 days Comments:Schedule appointment for close follow-up.Resume diltiazem, prescription refill provided.Use "blood thinner" Eliquis as prescribed.Return to the ED if symptoms worsen. [facility] 01-26-2025 Emergency department Discharge summary Discharge Instructions Thank you for allowing [facility] to assist you with your healthcare needs. The following is importantdischarge information regarding your hospital visit. What to Do Next Instructions from Your Care Team No qualifying data available. Post Acute Orders No qualifying data available. You Need to Schedule the Following Appointments Follow Up with JEAN-PIERRE FLORES When:Within 5-7 days Where:[address] [place] [address] [id number] [facility] [place] [address]- Business (1) Additional Information: Schedule appointment for close follow-up. Resume diltiazem, prescription refill provided. Use "blood thinner" Eliquis as prescribed. Return to the ED if symptoms worsen. Allergies Adderall Medications Please ask your primary doctor or pharmacist before taking any other medication not listed, including over the counter drugs, herbal medications, vitamins and or supplements as they may interact withyour home medications. What How Much When Instructions Last Dose New apixaban (Eliquis 5 mg oral tablet) 1 tab(s) by mouth Two (2) times a day Duration: 30 Days Printed Prescription Changed dilTIAZem (Cardizem CD 180 mg/ 24 hours oral capsule, extended release) 1 cap by mouth Once a day Changed dilTIAZem (Cartia XT 180 mg/ 24 hours oral capsule, extended release) 1 cap by mouth Once a day Duration: 30 Days Printed Prescription Unchanged omeprazole (omeprazole 20 mg oral delayed release capsule) 1 cap by mouth Once a day Please take this list to your next doctor s visit. Bring all medications you take, including over the counter medications, herbals and other supplements with you to your doctor s visit. Patients and families are reminded to discard old lists and to update any records with all medication providers or retail pharmacies. Education Materials Atrial Fibrillation Atrial fibrillation is a condition in which the heart beats in an irregular pattern. It is caused by a problem in the heart's electrical pathways. It can be a sign of heart disease or other health problems that affect the heart. Heart palpitations are the most common symptom of atrial fibrillation. This is the feeling that your heart is fluttering, beating fast, hard, or irregular. When the heart beats too fast, it doesn't pump blood very well. This can cause other symptoms like anxiety, fatigue, shortness of breath, chestpain, dizziness, or fainting. Atrial fibrillation may come and go. It can last from a few hours to a couple of days. Or, it may become chronic, lasting for months at a time or even become permanent. Atrial fibrillation may be caused by heart disease or other conditions in the body that affect the heart: Coronary artery disease (atherosclerosis) High blood pressure Disease of the heart valves Enlarged heart Heart failure Atrial fibrillation can also occur without heart disease because of: Overactive thyroid (hyperthyroid) Chronic lung disease (COPD, emphysema, bronchitis) Heavy alcohol use Cardiac stimulants like cocaine, amphetamines, diet pills, certain decongestant cold medicines, caffeine, or nicotine Infection Blood clot in the lung (pulmonary embolus) Diabetes Chronic kidney disease Obesity Extreme athletic conditioning Treating or removing these causes will help your treatment for atrial fibrillation. It will also make it less likely for the atrial fibrillation to come back. Atrial fibrillation can alternate back and forth with another abnormal rhythm called atrial flutter. Atrial flutter is a more regular heart rhythm and is also associated with an increased stroke risk. Proper treatment can lower your risk for stroke. Home care Follow these guidelines when caring for yourself at home: Go back to your usual activities as soon as you are feeling back to normal. If you smoke, stop smoking. Contact your healthcare provider or a local stop- smoking program for help. Don't use stimulants like alcohol, cocaine, amphetamines, diet pills, certain decongestant cold medicines, caffeine, or nicotine. If your provider prescribed medicine to stop atrial fibrillation from coming back, take it exactly as directed. Some medicines must be taken every day, not just when you have symptoms. This will helpthem work as they should. If you were prescribed warfarin to lower your risk for stroke, have your blood tested on a regular basis as advised by your provider. This will make sure you are getting the dose that is right for you. It also lower your risk for side effects. Follow-up care Follow up with your healthcare provider, or as advised. When to seek medical advice Call your healthcare provider right away if any of these following occur: Shortness of breath or swelling in the legs gets worse Unexpected weight gain Chest pain or the sense that your heart is fluttering or beating fast or hard (palpitations) Any sign of bleeding if you are on a blood thinner Pain, redness, or swelling in one leg Also call your provider right away if you have these signs of stroke: Weakness of an arm or leg or one side of the face Difficulty with speech or vision Extreme drowsiness, confusion, dizziness, or fainting [id number] [employer]. [address] [place] [address], [place] [address]. All rights reserved. This information is not intended as a substitute for professional medical care. Always follow yourhealthcare professional's instructions. Additional Information VACCINATE! IT SAVES LIVES! Members of the community who have not yet received the COVID-19 vaccine and would like to receive it can visit one of [facility] vaccine clinics. There are many vaccine clinic locations within the [facility]. For locations and available times, please visit www.gettheshot.coronavirus.[place].gov/. It is important to note that some COVID mobile vaccine clinics are held outdoors and may be canceled in rainy or stormy conditions. To learn more about pediatric vaccinations (ages 5-11), we invite you to visit the [facility] webpage. https://www.akNetProspexs.org/pages/7157-Plnot-Hkgohytzlmy-Wvtvxuscbt-Hrfrp-Fwy stions.htmlTo learn more about the COVID-19 vaccine, we invite you to visit the CDC website for a list of frequently asked questions. https://www.cdc.gov/coronavirus/2019-ncov/vaccines/faq.html [facility] [employer] Patient Portal Access Instructions: Stay connected with your healthcare team and access your personal medical information anytime with the [facility] Patient Portal. If you would like a full copy of your medical records please contact the [facility] Medical Records Department Friday through Friday between 8a.m. and 4:30p.m. Please follow the directions below to access the portal: 1.Access the email account you provided upon registration to the hospital.2.Look for an invitation email from [facility].3.Open the email and access the invitation link: Accept Invitation to [facility]4.Fill in the required giordano to create your account. Sign into [email or web address] with your username and password that you created in the above steps to stay up to date. You can then view a summary of results, a summary of your visits, and the ability to download your summaries to your computer or send the information securely to a physician. Remember that your healthcare information is confidential, so carefully consider who you will allow to register on the [facility] Patient Portal for access to your information. You can also access the [facility] Patient Portal on the [employer]. Simply click on "Health Records" under "HealthData" and then click on the [employer] logo. HOW TO SAFELY DISPOSE OF PRESCRIPTION MEDICATIONS Please use one of the following methods to safely dispose of your unused medications. 1.Use a drug disposal kit: the drug disposal pouch allows you to safely discard your old and unuseddrugs. Ask your nurse to give you one when you are discharged.2.Visit a local take-back location: Many local pharmacies and police departments have programs that collect old and unwanted prescriptiondrugs. Call your local pharmacy or go to http://Videolla.[employer]/3G8Mw7a to find one close to you.3.Make use of household items: Use cat litter or old coffee grounds to dispose medications if other options arenot available. Mix your drugs with these household products, seal them in an airtight container andthrow it into the garbage. Call [facility]: [phone] to be sure your drugs can be disposed of in this way. Some medicines may require a different approach.4.Never flush your medications down the toilet. IF YOU HAVE BEEN PRESCRIBED AN OPIOIDS FOR PAIN If you have been prescribed an opioid (such as hydrocodone, oxycodone or morphine), it is critical to understand the possible side effects and risks of opioid pain medications. Even when taken as directed, opioids can have several side effects including: Tolerance, meaning you might need to take more of a medication for the same pain relief. Nausea, vomiting and/or constipation. Sleepiness, dizziness, dry mouth, confusion, depression or itching. Physical dependence, meaning you have withdrawal symptoms when a medication is stopped ? this can develop within a few days. KNOW YOUR RESPONSIBILITIES It is important to know exactly how much and how often to take the opioid pain medications you are prescribed. Never take opioids in higher amounts or more often than prescribed. Do not combine opioids with alcohol or other drugs that cause drowsiness, such as benzodiazepines, also known as benzos,including diazepam and alprazolam, muscle relaxants or sleep aids. Never sell or share prescriptionopioids. This is illegal. Store opioids in a secure place and out of reach of others (including children, family, friends and visitors). The last page(s) of this document has been signed and retained as a CHART COPY Signatures Patient Education Materials Atrial Fibrillation Medication Leaflets My discharge plan and instructions have been reviewed and explained to me and I,OVERLY, FRANCY Coles understand my current condition and have read and understand these discharge instructions. I have received a written copy of the plan/instructions. If I have questions, I am aware that I should contactmy doctor. 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 There is no effusion or pneumothorax. The cardiomediastinal silhouette is without acute process. The osseous structures are without acute process. IMPRESSION: No acute process. Interpreted by: Bin Vogt DO Preliminary Report By: Bin Vogt DO Electronically signed By Bin Vogt DO Dictated Date: 04/11/2024 1:00:01 PM Prelim Date: 04/11/2024 1:00:15 PM Sign Date: 04/11/2024 1:00:15 PM Ordering Provider: LAVELLE ERNANDEZ [facility]01-26-2025 Note* Exam Date Time Procedure Performing Provider Status 04/11/24 11:49 AM EKG [ED AO] - CV LAVELLE ERNANDEZ MD; Auth (Verified) ECG Final Report Atrial fibrillation Electronic Signature: LAVELLE ERNANDEZ MD 04/11/2024 11:52:32 [facility]11-26-2024 Hospital Discharge instructions Patient Education 02/09/2024 22:56:48 Esophageal Foreign Body, Resolved Esophageal Blockage, Resolved The esophagus is the passage that carries food from the mouth to the stomach. You had a blockage inthe esophagus. This can happen after swallowing a large piece of food, taking a large pill, or swallowing foreign objects. If this is a recurring problem, it can be a sign of disease in the esophagus, such as inflammation (swelling and irritation) or scarring. If you did not have a special procedure (endoscopy) today to treat your condition, further testing will be needed to evaluate this problem. The blockage has cleared. You should be able to swallow normally again. Home care For the next 24 hours you may drink liquids and eat soft foods. You may have been given medicine today to prevent pain and help you relax. If so, you may feel drowsy for the next [address] or operate dangerous equipment until you feel alert again. If your esophagus was blocked by food, be sure to cut solid food into small pieces before putting it into your mouth. Chew all foods well before swallowing. If your esophagus was blocked by an jday-tly-segynjx pill (such as a vitamin), avoid this size pillin the future. If it was blocked by a prescription medicine, ask your healthcare provider for another form of medicine. Follow-up care Follow up with your healthcare provider, or as advised. If you continue to have problems, contact your doctor or this facility for advice. If this is a recurring problem, talk with your healthcare provider about it. He or she may suggest having an endoscopy. This is a look in the esophagus with a small camera and light in a narrow, flexible tube. When to seek medical advice Call your healthcare provider right away if any of these occur: Unable to swallow Significant pain on swallowing Fever of 100.4 F (38 C) or higher, or as directed by your healthcare provider Call 911 Call 911 if any of the following occur: Chest pain or shortness of breath Vomiting blood (red or black) Blood in your stool (dark red or black color) [phone] [employer]. [address] [place] [address]. All rights reserved. This information is not intended as a substitute for professional medical care. Always follow yourhealthcare professional's instructions. Follow Up Care 02/09/2024 21:48:26 With:OMAR AVILA MD Address: [address] [place] [address] [phone] When:2-4 days Comments:GI specialist in [facility] With:RENETTA MONDRAGON MD Address: [facility] [address] [place] [phone] When:2-4 days [facility] 11-25-2024 Emergency department Discharge summary Discharge Instructions Thank you for allowing [facility] to assist you with your healthcare needs. The following is importantdischarge information regarding your hospital visit. Diagnosis from Today's Visit Esophageal obstruction due to food impaction What to Do Next Instructions from Your Care Team No qualifying data available. Post Acute Orders No qualifying data available. You Need to Schedule the Following Appointments Follow Up with OMAR AVILA MD When:Within 2-4 days Where:[address] [place] [address] [phone] Additional Information: GI specialist in [facility] Follow Up with RENETTA MONDRAGON MD When:Within 2-4 days Where:[facility] [address] [place] [address] [phone] Allergies Adderall Medications Please ask your primary doctor or pharmacist before taking any other medication not listed, including over the counter drugs, herbal medications, vitamins and or supplements as they may interact withyour home medications. What How Much When Instructions Last Dose New omeprazole (omeprazole 20 mg oral delayed release capsule) 1 cap by mouth Once a day Printed Prescription Unchanged dilTIAZem (Cardizem CD 180 mg/ 24 hours oral capsule, extended release) 1 cap by mouth Once a day Please take this list to your next doctor s visit. Bring all medications you take, including over the counter medications, herbals and other supplements with you to your doctor s visit. Patients and families are reminded to discard old lists and to update any records with all medication providers or retail pharmacies. Education Materials Esophageal Blockage, Resolved The esophagus is the passage that carries food from the mouth to the stomach. You had a blockage inthe esophagus. This can happen after swallowing a large piece of food, taking a large pill, or swallowing foreign objects. If this is a recurring problem, it can be a sign of disease in the esophagus, such as inflammation (swelling and irritation) or scarring. If you did not have a special procedure (endoscopy) today to treat your condition, further testing will be needed to evaluate this problem. The blockage has cleared. You should be able to swallow normally again. Home care For the next 24 hours you may drink liquids and eat soft foods. You may have been given medicine today to prevent pain and help you relax. If so, you may feel drowsy for the next 4 [address] operate dangerous equipment until you feel alert again. If your esophagus was blocked by food, be sure to cut solid food into small pieces before putting it into your mouth. Chew all foods well before swallowing. If your esophagus was blocked by an cadi-qla-waaeguk pill (such as a vitamin), avoid this size pillin the future. If it was blocked by a prescription medicine, ask your healthcare provider for another form of medicine. Follow-up care Follow up with your healthcare provider, or as advised. If you continue to have problems, contact your doctor or this facility for advice. If this is a recurring problem, talk with your healthcare provider about it. He or she may suggest having an endoscopy. This is a look in the esophagus with a small camera and light in a narrow, flexible tube. When to seek medical advice Call your healthcare provider right away if any of these occur: Unable to swallow Significant pain on swallowing Fever of 100.4 F (38 C) or higher, or as directed by your healthcare provider Call 911 Call 911 if any of the following occur: Chest pain or shortness of breath Vomiting blood (red or black) Blood in your stool (dark red or black color) [phone] [employer]. [address] [place] [address], [place] [address]. All rights reserved. This information is not intended as a substitute for professional medical care. Always follow yourhealthcare professional's instructions. Additional Information VACCINATE! IT SAVES LIVES! Members of the community who have not yet received the COVID-19 vaccine and would like to receive it can visit one of [facility] vaccine clinics. There are many vaccine clinic locations within the [facility]. For locations and available times, please visit www.[email or web address].[place].gov/. It is important to note that some COVID mobile vaccine clinics are held outdoors and may be canceled in rainy or stormy conditions. To learn more about pediatric vaccinations (ages 5-11), we invite you to visit the [facility] webpage. [email or web address]/[email or web address] [email or web address] learn more about the COVID-19 vaccine, we invite you to visit the CDC website for a list of frequently asked questions. https://www.cdc.gov/coronavirus/2019-ncov/vaccines/faq.html [facility] Patient Portal Access Instructions: Stay connected with your healthcare team and access your personal medical information anytime with the [facility] Patient Portal. If you would like a full copy of your medical records please contact the [facility] Medical Records Department Friday through Friday between 8a.m. and 4:30p.m. Please follow the directions below to access the portal: 1.Access the email account you provided upon registration to the [facility].2.Look for an invitation email from [facility].3.Open the email and access the invitation link: Accept Invitation to [facility]4.Fill in the required giordano to create your account. Sign into [email or web address] with your username and password that you created in the above steps to stay up to date. You can then view a summary of results, a summary of your visits, and the ability to download your summaries to your computer or send the information securely to a physician. Remember that your healthcare information is confidential, so carefully consider who you will allow to register on the [facility] Patient Portal for access to your information. You can also access the [facility] Patient Portal on the [employer]. Simply click on "Health Records" under "HealthData" and then click on the [employer] logo. HOW TO SAFELY DISPOSE OF PRESCRIPTION MEDICATIONS Please use one of the following methods to safely dispose of your unused medications. 1.Use a drug disposal kit: the drug disposal pouch allows you to safely discard your old and unuseddrugs. Ask your nurse to give you one when you are discharged.2.Visit a local take-back location: Many local pharmacies and police departments have programs that collect old and unwanted prescriptiondrugs. Call your local pharmacy or go to http://[employer]ideolla[employer]/5Y7Kt5c to find one close to you.3.Make use of household items: Use cat litter or old coffee grounds to dispose medications if other options arenot available. Mix your drugs with these household products, seal them in an airtight container andthrow it into the garbage. Call [facility]: [phone] to be sure your drugs can be disposed of in this way. Some medicines may require a different approach.4.Never flush your medications down the toilet. IF YOU HAVE BEEN PRESCRIBED AN OPIOIDS FOR PAIN If you have been prescribed an opioid (such as hydrocodone, oxycodone or morphine), it is critical to understand the possible side effects and risks of opioid pain medications. Even when taken as directed, opioids can have several side effects including: Tolerance, meaning you might need to take more of a medication for the same pain relief. Nausea, vomiting and/or constipation. Sleepiness, dizziness, dry mouth, confusion, depression or itching. Physical dependence, meaning you have withdrawal symptoms when a medication is stopped ? this can develop within a few days. KNOW YOUR RESPONSIBILITIES It is important to know exactly how much and how often to take the opioid pain medications you are prescribed. Never take opioids in higher amounts or more often than prescribed. Do not combine opioids with alcohol or other drugs that cause drowsiness, such as benzodiazepines, also known as benzos,including diazepam and alprazolam, muscle relaxants or sleep aids. Never sell or share prescriptionopioids. This is illegal. Store opioids in a secure place and out of reach of others (including children, family, friends and visitors). The last page(s) of this document has been signed and retained as a CHART COPY Signatures Patient Education Materials Esophageal Foreign Body, Resolved Medication Leaflets My discharge plan and instructions have been reviewed and explained to me and I,OVERLY, FRANCY Coles understand my current condition and have read and understand these discharge instructions. I have received a written copy of the plan/instructions. If I have questions, I am aware that I should contactmy doctor. 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 HISTORY: ORDERING SYSTEM PROVIDED HISTORY: Reason for Exam: Pt states he feels a piece of steak is stuck in his throat. has some sternal CP/discomfort. FB FINDINGS: Straightening of cervical lordosis likely due to positioning. No significant degenerative changes. Visualized portions of the aerodigestive tract are unremarkable. The prevertebral soft tissue structures are unremarkable. IMPRESSION: Visualized portions of the aerodigestive tract are unremarkable. I have personally reviewed the images of this examination and agree with the resident's findings and interpretation. Interpreted by: Marcus Renee Preliminary Report By: Leeroy Menon Electronically signed By Marcus Renee Dictated Date: 02/09/2024 7:08:35 PM Prelim Date: 02/09/2024 7:10:16 PM Sign Date: 02/09/2024 7:24:47 PM Ordering Provider: [facility]11-25-2024 Note ORIGINAL EXAMINATION: ONE XRAY VIEW OF THE CHEST 02/09/2024 7:03 pm COMPARISON: 01/23/2024. HISTORY: ORDERING SYSTEM PROVIDED HISTORY: Reason for Exam: Pt states he feels a piece of steak is stuck in his throat. has some sternal CP/discomfort. FB FINDINGS: Stable cardiomediastinal silhouette. No pleural effusion or pneumothorax. No focal consolidation. No acute osseous abnormality. IMPRESSION: No focal consolidation or edema. I have personally reviewed the images of this examination and agree with the resident's findings and interpretation. Interpreted by: Marcus Renee Preliminary Report By: Leeroy Menon Electronically signed By Marcus Renee Dictated Date: 02/09/2024 7:07:25 PM Prelim Date: 02/09/2024 7:08:24 PM Sign Date: 02/09/2024 7:23:47 PM Ordering Provider: [facility]11-08-2024 Hospital Discharge instructions Patient Education 01/23/2024 10:31:44 ED Moderate (Conscious) Sedation (01/2018)(CUSTOM) Adult Moderate (Conscious) Sedation Discharge Instructions Refer to this sheet in the next few weeks. These instructions provide you with information on caring for yourself after your procedure. Your health care provider may also give you more specific instructions. Your treatment has been planned according to current medical practices, but problems sometimes occur. Call your health care provider if you have any problems or questions after your procedure. WHAT TO EXPECT AFTER THE PROCEDURE After your procedure: You may feel sleepy, clumsy, and have poor balance for several hours. Vomiting may occur if you eat too soon after the procedure. HOME CARE INSTRUCTIONS Do not participate in any activities where you could become injured for at least 24 hours. Do not: ? Drive. ? Swim. ? Ride a bicycle. ? Operate heavy machinery. ? Cook. ? Use power tools. ? Climb ladders. ? Work from a high place. Do not make important decisions or sign legal documents until you are improved. If you vomit, drink water, juice, or soup when you can drink without vomiting. Make sure you have little or no nausea before eating solid foods. Only take wdqc-teh-qddixeb or prescription medicines for pain, discomfort, or fever as directed by your health care provider. Make sure you and your family fully understand everything about the medicines given to you, including what side effects may occur. You should not drink alcohol, take sleeping pills, or take medicines that cause drowsiness for at least 24 hours. If you smoke, do not smoke without supervision. If you are feeling better, you may resume normal activities 24 hours after you were sedated. Keep all appointments with your health care provider. SEEK MEDICAL CARE IF: Your skin is pale or bluish in color. You continue to feel nauseous or vomit. Your pain is getting worse and is not helped by medicine. You have bleeding or swelling. You are still sleepy or feeling clumsy after 24 hours. SEEK IMMEDIATE MEDICAL CARE IF: You develop a rash. You have difficulty breathing. You develop any type of allergic problem. You have a fever. MAKE SURE YOU: Understand these instructions. Will watch your condition. Will get help right away if you are not doing well or get worse. Document Released: 12/22/2013 Document Reviewed: 12/22/2013 [employer]Care Patient Information 2015 [employer]. This information is not intended to replace advicegiven to you by your health care provider. Make sure you discuss any questions you have with your health care provider. 01/23/2024 08:47:11 Atrial Fibrillation Atrial Fibrillation Atrial fibrillation is a condition in which the heart beats in an irregular pattern. It is caused by a problem in the heart's electrical pathways. It can be a sign of heart disease or other health problems that affect the heart. Heart palpitations are the most common symptom of atrial fibrillation. This is the feeling that your heart is fluttering, beating fast, hard, or irregular. When the heart beats too fast, it doesn't pump blood very well. This can cause other symptoms like anxiety, fatigue, shortness of breath, chestpain, dizziness, or fainting. Atrial fibrillation may come and go. It can last from a few hours to a couple of days. Or, it may become chronic, lasting for months at a time or even become permanent. Atrial fibrillation may be caused by heart disease or other conditions in the body that affect the heart: Coronary artery disease (atherosclerosis) High blood pressure Disease of the heart valves Enlarged heart Heart failure Atrial fibrillation can also occur without heart disease because of: Overactive thyroid (hyperthyroid) Chronic lung disease (COPD, emphysema, bronchitis) Heavy alcohol use Cardiac stimulants like cocaine, amphetamines, diet pills, certain decongestant cold medicines, caffeine, or nicotine Infection Blood clot in the lung (pulmonary embolus) Diabetes Chronic kidney disease Obesity Extreme athletic conditioning Treating or removing these causes will help your treatment for atrial fibrillation. It will also make it less likely for the atrial fibrillation to come back. Atrial fibrillation can alternate back and forth with another abnormal rhythm called atrial flutter. Atrial flutter is a more regular heart rhythm and is also associated with an increased stroke risk. Proper treatment can lower your risk for stroke. Home care Follow these guidelines when caring for yourself at home: Go back to your usual activities as soon as you are feeling back to normal. If you smoke, stop smoking. Contact your healthcare provider or a local stop- smoking program for help. Don't use stimulants like alcohol, cocaine, amphetamines, diet pills, certain decongestant cold medicines, caffeine, or nicotine. If your provider prescribed medicine to stop atrial fibrillation from coming back, take it exactly as directed. Some medicines must be taken every day, not just when you have symptoms. This will helpthem work as they should. If you were prescribed warfarin to lower your risk for stroke, have your blood tested on a regular basis as advised by your provider. This will make sure you are getting the dose that is right for you. It also lower your risk for side effects. Follow-up care Follow up with your healthcare provider, or as advised. When to seek medical advice Call your healthcare provider right away if any of these following occur: Shortness of breath or swelling in the legs gets worse Unexpected weight gain Chest pain or the sense that your heart is fluttering or beating fast or hard (palpitations) Any sign of bleeding if you are on a blood thinner Pain, redness, or swelling in one leg Also call your provider right away if you have these signs of stroke: Weakness of an arm or leg or one side of the face Difficulty with speech or vision Extreme drowsiness, confusion, dizziness, or fainting [id number] [employer] [place] [address]. All rights reserved. This information is not intended as a substitute for professional medical care. Always follow yourhealthcare professional's instructions. Follow Up Care 01/23/2024 06:01:29 With:ANTHONY RUBIO MD Address: [facility] [address] [place] [address]- When:2-4 days [facility] 11-08-2024 Note Discharge Instructions Thank you for allowing [facility] to assist you with your healthcare needs. The following is importantdischarge information regarding your hospital visit. Diagnosis from Today's Visit Atrial fibrillation What to Do Next Instructions from Your Care Team Discharge Return to Work, School, or Sports (Return to Work, School, or Sports) - Ordered -- 01/25/24, May return to: work, 01/23/24 9:47:00 EST Post Acute Orders No qualifying data available. You Need to Schedule the Following Appointments Follow Up with ANTHONY RUBIO MD When:Within 2-4 days Where:[address] [facility] [id number] [facility] [place] [address]- Allergies Adderall Medications Please ask your primary doctor or pharmacist before taking any other medication not listed, including over the counter drugs, herbal medications, vitamins and or supplements as they may interact withyour home medications. What How Much When Instructions Last Dose New dilTIAZem (Cardizem CD 180 mg/ 24 hours oral capsule,extended release) 1 cap by mouth Once a day Refills: 2 Printed Prescription Please take this list to your next doctor s visit. Bring all medications you take, including over the counter medications, herbals and other supplements with you to your doctor s visit. Patients and families are reminded to discard old lists and to update any records with all medication providers or retail pharmacies. Medication Leaflets diltiazem (oral/injection) (bobby stewart) Cardizem, Cardizem CD, Cardizem LA, Cartia XT, DilTIAZem (Eqv-Cardizem CD), DilTIAZem (Eqv-Dilacor XR), DilTIAZem (Eqv-Tiazac), DilTIAZem Hydrochloride ER, DilTIAZem Hydrochloride SR, Dilt-XR, MatzimLA, Tiadylt ER, Tiazac What is the most important information I should know about diltiazem? You should not use diltiazem if you have very low blood pressure, a serious heart condition such as'sick sinus syndrome' or 'AV block' (unless you have a pacemaker), or if you have recently had a heart attack and you have a build-up of fluid in your lungs. What is diltiazem? Diltiazem oral is used in adults alone or in combination with other medicines to treat hypertension(high blood pressure) or symptoms of angina (chest pain). Diltiazem injection is used in adults to treat certain heart rhythm disorders such as atrial fibrillation or atrial flutter, or dangerously rapid heartbeats (tachycardia). Lowering blood pressure may lower your risk of a stroke or heart attack. Diltiazem may also be used for purposes not listed in this medication guide. What should I discuss with my healthcare provider before using diltiazem? You should not use diltiazem if you are allergic to it, or if you have: a serious heart condition such as 'sick sinus syndrome' or 'AV block' (unless you have a pacemaker); very low blood pressure; if your heart cannot pump blood properly; or if you have recently had a heart attack and you have a build-up of fluid in your lungs. You may not be able to use diltiazem if you have: heart failure; certain heart rhythm disorders (such as 'Afib' or atrial flutter with Anhxl-Uycfbgxoy-Ahuvq syndrome); a heart condition that causes you to have very fast heartbeats; or if you are receiving an intravenous beta-skyler (such as atenolol, metoprolol, or propranolol). Tell your doctor if you have ever had: congestive heart failure or heart problems; low blood pressure or slow heart rate; or liver disease. It is not known whether diltiazem will harm an unborn baby. Tell your doctor if you are orplan to become . Tell your doctor if you are . How should I use diltiazem? Follow all directions on your prescription label and read all medication guides or instruction sheets. Your doctor may occasionally change your dose. Use the medicine exactly as directed. Diltiazem injection is given into a vein by a healthcare provider. Your heart rate will be constantly monitored using an electrocardiogram or ECG (sometimes called an EKG). Your blood pressure and other vital signs will also be watched closely. Diltiazem oral is taken by mouth. Your pharmacist can provide more information about how to take this medicine. Your dose needs may change if you switch to a different brand, strength, or form of this medicine. Some forms of diltiazem oral cannot be crushed or chewed, and some forms can be opened and mixed with applesauce. Ask your pharmacist how to take this medicine. Your blood pressure and liver function will need to be checked often. If you have high blood pressure, keep using this medicine even if you feel well. High blood pressure often has no symptoms. Store at room temperature away from moisture, heat, and light. What happens if I miss a dose? Diltiazem injection is used when needed and does not have a daily dose. Call your doctor if the medicine is not effective. Take diltiazem oral as soon as you can, but skip the missed dose if it is almost time for your nextdose. Do not take two doses at one time. What happens if I overdose? Seek emergency medical attention or call the Poison Help line at . Overdose symptoms may include low blood pressure, slow heart rate, severe dizziness, or fainting. What should I avoid while using diltiazem? Avoid drinking alcohol while taking diltiazem extended-release capsules. Drinking alcohol with thismedicine can cause side effects. Avoid taking an herbal supplement containing Cornell's wort. Avoid getting up too fast from a sitting or lying position, or you may feel dizzy. Avoid driving orhazardous activity until you know how this medicine will affect you. Your reactions could be impaired. What are the possible side effects of diltiazem? Get emergency medical help if you have signs of an allergic reaction (hives, difficult breathing, swelling in your face or throat) or a severe skin reaction (fever, sore throat, burning eyes, skin pain, red or purple skin rash with blistering and peeling). Call your doctor at once if you have: chest pain, fast, slow, or uneven heart rate; a light-headed feeling, like you might pass out; heart problems--swelling, rapid weight gain, feeling short of breath; or liver problems--loss of appetite, stomach pain (upper right side), tiredness, itching, dark urine, karina-colored stools, jaundice (yellowing of the skin or eyes). Common side effects may include: swelling; infections, flu symptoms; trouble breathing; headache, dizziness, weakness; slower heart rate; pain, bruising, swelling, or irritation where the medicine was injected; nausea, upset stomach; or rash. This is not a complete list of side effects and others may occur. Call your doctor for medical advice about side effects. You may report side effects to FDA at 3-820-EKU-7290. What other drugs will affect diltiazem? Sometimes it is not safe to use certain medicines at the same time. Some drugs can affect your blood levels of other drugs you use, which may increase side effects or make the medicines less effective. Many drugs can affect diltiazem. This includes prescription and nmhb-zns-komcmez medicines, vitamins, and herbal products. Not all possible interactions are listed here. Tell your doctor about all other medicines you use. Where can I get more information? Your doctor or pharmacist can provide more information about diltiazem. Remember, keep this and all other medicines out of the reach of children, never share your medicines with others, and use this medication only for the indication prescribed. Every effort has been made to ensure that the information provided by [employer]') is accurate, up-to-date, and complete, but no guarantee is made to that effect. Drug information contained herein may be time sensitive. [employer] information has been compiled for use by healthcare practitioners and consumers in the [place] and therefore [employer] does not warrant that uses outside of the [place] are appropriate, unless specifically indicated otherwise. [employer] drug information does not endorse drugs, diagnose patients or recommend therapy. [employer] drug information isan informational resource designed to assist licensed healthcare practitioners in caring for their p atients and/or to serve consumers viewing this service as a supplement to, and not a substitute for, the expertise, skill, knowledge and judgment of healthcare practitioners. The absence of a warningfor a given drug or drug combination in no way should be construed to indicate that the drug or drug combination is safe, effective or appropriate for any given patient. [employer] does not assume any responsibility for any aspect of healthcare administered with the aid of information [employer] provides. The information contained herein is not intended to cover all possible uses, directions, precautions, warnings, drug interactions, allergic reactions, or adverse effects. If you have questions about the drugs you are taking, check with your doctor, nurse or pharmacist. Copyright 2867-3072 [employer] Version: 19.02. Revision Date: 10/23/2023. Education Materials Adult Moderate (Conscious) Sedation Discharge Instructions Refer to this sheet in the next few weeks. These instructions provide you with information on caring for yourself after your procedure. Your health care provider may also give you more specific instructions. Your treatment has been planned according to current medical practices, but problems sometimes occur. Call your health care provider if you have any problems or questions after your procedure. WHAT TO EXPECT AFTER THE PROCEDURE After your procedure: You may feel sleepy, clumsy, and have poor balance for several hours. Vomiting may occur if you eat too soon after the procedure. HOME CARE INSTRUCTIONS Do not participate in any activities where you could become injured for at least 24 hours. Do not: ? Drive. ? Swim. ? Ride a bicycle. ? Operate heavy machinery. ? Cook. ? Use power tools. ? Climb ladders. ? Work from a high place. Do not make important decisions or sign legal documents until you are improved. If you vomit, drink water, juice, or soup when you can drink without vomiting. Make sure you have little or no nausea before eating solid foods. Only take yxdn-qzw-hzeorlu or prescription medicines for pain, discomfort, or fever as directed by your health care provider. Make sure you and your family fully understand everything about the medicines given to you, including what side effects may occur. You should not drink alcohol, take sleeping pills, or take medicines that cause drowsiness for at least 24 hours. If you smoke, do not smoke without supervision. If you are feeling better, you may resume normal activities 24 hours after you were sedated. Keep all appointments with your health care provider. SEEK MEDICAL CARE IF: Your skin is pale or bluish in color. You continue to feel nauseous or vomit. Your pain is getting worse and is not helped by medicine. You have bleeding or swelling. You are still sleepy or feeling clumsy after 24 hours. SEEK IMMEDIATE MEDICAL CARE IF: You develop a rash. You have difficulty breathing. You develop any type of allergic problem. You have a fever. MAKE SURE YOU: Understand these instructions. Will watch your condition. Will get help right away if you are not doing well or get worse. Document Released: 12/22/2013 Document Reviewed: 12/22/2013 [facility] Patient Information 2015 [facility]. This information is not intended to replace advicegiven to you by your health care provider. Make sure you discuss any questions you have with your health care provider. Atrial Fibrillation Atrial fibrillation is a condition in which the heart beats in an irregular pattern. It is caused by a problem in the heart's electrical pathways. It can be a sign of heart disease or other health problems that affect the heart. Heart palpitations are the most common symptom of atrial fibrillation. This is the feeling that your heart is fluttering, beating fast, hard, or irregular. When the heart beats too fast, it doesn't pump blood very well. This can cause other symptoms like anxiety, fatigue, shortness of breath, chestpain, dizziness, or fainting. Atrial fibrillation may come and go. It can last from a few hours to a couple of days. Or, it may become chronic, lasting for months at a time or even become permanent. Atrial fibrillation may be caused by heart disease or other conditions in the body that affect the heart: Coronary artery disease (atherosclerosis) High blood pressure Disease of the heart valves Enlarged heart Heart failure Atrial fibrillation can also occur without heart disease because of: Overactive thyroid (hyperthyroid) Chronic lung disease (COPD, emphysema, bronchitis) Heavy alcohol use Cardiac stimulants like cocaine, amphetamines, diet pills, certain decongestant cold medicines, caffeine, or nicotine Infection Blood clot in the lung (pulmonary embolus) Diabetes Chronic kidney disease Obesity Extreme athletic conditioning Treating or removing these causes will help your treatment for atrial fibrillation. It will also make it less likely for the atrial fibrillation to come back. Atrial fibrillation can alternate back and forth with another abnormal rhythm called atrial flutter. Atrial flutter is a more regular heart rhythm and is also associated with an increased stroke risk. Proper treatment can lower your risk for stroke. Home care Follow these guidelines when caring for yourself at home: Go back to your usual activities as soon as you are feeling back to normal. If you smoke, stop smoking. Contact your healthcare provider or a local stop- smoking program for help. Don't use stimulants like alcohol, cocaine, amphetamines, diet pills, certain decongestant cold medicines, caffeine, or nicotine. If your provider prescribed medicine to stop atrial fibrillation from coming back, take it exactly as directed. Some medicines must be taken every day, not just when you have symptoms. This will helpthem work as they should. If you were prescribed warfarin to lower your risk for stroke, have your blood tested on a regular basis as advised by your provider. This will make sure you are getting the dose that is right for you. It also lower your risk for side effects. Follow-up care Follow up with your healthcare provider, or as advised. When to seek medical advice Call your healthcare provider right away if any of these following occur: Shortness of breath or swelling in the legs gets worse Unexpected weight gain Chest pain or the sense that your heart is fluttering or beating fast or hard (palpitations) Any sign of bleeding if you are on a blood thinner Pain, redness, or swelling in one leg Also call your provider right away if you have these signs of stroke: Weakness of an arm or leg or one side of the face Difficulty with speech or vision Extreme drowsiness, confusion, dizziness, or fainting [id number] [employer]. [address] [place] [address], [place] [address]. All rights reserved. This information is not intended as a substitute for professional medical care. Always follow yourhealthcare professional's instructions. Additional Information VACCINATE! IT SAVES LIVES! Members of the community who have not yet received the COVID-19 vaccine and would like to receive it can visit one of [facility] vaccine clinics. There are many vaccine clinic locations within the [facility]. For locations and available times, please visit www.gettheshot.coronavirus.[place].gov/. It is important to note that some COVID mobile vaccine clinics are held outdoors and may be canceled in rainy or stormy conditions. To learn more about pediatric vaccinations (ages 5-11), we invite you to visit the [facility] webpage. https://www.akNetProspexs.org/pages/8826-Omihf-Lwlzveexqlu-Algztfitwn-[email or web address]-[email or web address] stions.htmlTo learn more about the COVID-19 vaccine, we invite you to visit the CDC website for a list of frequently asked questions. https://www.cdc.gov/coronavirus/2019-ncov/vaccines/faq.html [facility] Patient Portal Access Instructions: Stay connected with your healthcare team and access your personal medical information anytime with the [facility] Patient Portal. If you would like a full copy of your medical records please contact the [facility] Medical Records Department Friday through Friday between 8a.m. and 4:30p.m. Please follow the directions below to access the portal: 1.Access the email account you provided upon registration to the hospital.2.Look for an invitation email from [facility].3.Open the email and access the invitation link: Accept Invitation to [facility]4.Fill in the required giordano to create your account. Sign into [email or web address] with your username and password that you created in the above steps to stay up to date. You can then view a summary of results, a summary of your visits, and the ability to download your summaries to your computer or send the information securely to a physician. Remember that your healthcare information is confidential, so carefully consider who you will allow to register on the [facility] Patient Portal for access to your information. You can also access the [facility] Patient Portal on the [employer] isela. Simply click on "Health Records" under "HealthData" and then click on the [employer] logo. HOW TO SAFELY DISPOSE OF PRESCRIPTION MEDICATIONS Please use one of the following methods to safely dispose of your unused medications. 1.Use a drug disposal kit: the drug disposal pouch allows you to safely discard your old and unuseddrugs. Ask your nurse to give you one when you are discharged.2.Visit a local take-back location: Many local pharmacies and police departments have programs that collect old and unwanted prescriptiondrugs. Call your local pharmacy or go to http://Videolla.[employer]/8A4Vp1h to find one close to you.3.Make use of household items: Use cat litter or old coffee grounds to dispose medications if other options arenot available. Mix your drugs with these household products, seal them in an airtight container andthrow it into the garbage. Call [facility]: [phone] to be sure your drugs can be disposed of in this way. Some medicines may require a different approach.4.Never flush your medications down the toilet. IF YOU HAVE BEEN PRESCRIBED AN OPIOIDS FOR PAIN If you have been prescribed an opioid (such as hydrocodone, oxycodone or morphine), it is critical to understand the possible side effects and risks of opioid pain medications. Even when taken as directed, opioids can have several side effects including: Tolerance, meaning you might need to take more of a medication for the same pain relief. Nausea, vomiting and/or constipation. Sleepiness, dizziness, dry mouth, confusion, depression or itching. Physical dependence, meaning you have withdrawal symptoms when a medication is stopped ? this can develop within a few days. KNOW YOUR RESPONSIBILITIES It is important to know exactly how much and how often to take the opioid pain medications you are prescribed. Never take opioids in higher amounts or more often than prescribed. Do not combine opioids with alcohol or other drugs that cause drowsiness, such as benzodiazepines, also known as benzos,including diazepam and alprazolam, muscle relaxants or sleep aids. Never sell or share prescriptionopioids. This is illegal. Store opioids in a secure place and out of reach of others (including children, family, friends and visitors). The last page(s) of this document has been signed and retained as a CHART COPY Signatures Patient Education Materials ED Moderate (Conscious) Sedation (01/2018)(CUSTOM) Atrial Fibrillation Medication Leaflets diltiazem (oral/injection) My discharge plan and instructions have been reviewed and explained to me and I,OVERLY, FRANCY Coles understand my current condition and have read and understand these discharge instructions. I have received a written copy of the plan/instructions. If I have questions, I am aware that I should contactmy doctor. 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 HISTORY: ORDERING SYSTEM PROVIDED HISTORY: Reason for Exam: chest pain FINDINGS: Normal cardiomediastinal silhouette. No focal consolidation, large pleural effusion, or visible pneumothorax. Osseous structures are unremarkable. IMPRESSION: No acute radiographic abnormality. I have personally reviewed the images of this examination, and agree with the resident's findings and interpretation. Interpreted by: Kaleb Barnhart MD Preliminary Report By: Jyothi Johnson Electronically signed By Kaleb Barnhart MD Dictated Date: 01/23/2024 6:53:30 AM Prelim Date: 01/23/2024 6:53:59 AM Sign Date: 01/23/2024 6:56:58 AM [facility]ing [facility] Atrial fibrillation Borderline T abnormalities, inferior leads Electronic Signature: ERICA TAYLOR DO 01/23/2024 06:24:00[facility] 08-20-2024 Hospital Discharge instructions Patient Education 11/04/2023 07:57:14 Poison Lin Rash Poison Lin Rash You have a rash and itching. This is a delayed reaction to the oils of the poison lin plant. You likely came in contact with it during the 3 days before your symptoms began. Your skin will become redand itchy. Small blisters may appear. These can break and leak a clear yellow fluid. This fluid is not contagious. The reaction usually starts to go away after 1 to 2 weeks. But it may take 4 to 6 weeks to fully clear. Home care Follow these guidelines when caring for yourself at home: The plant oils still on your skin or clothes can be spread to other places on your body. They can also be passed on to other people and cause a similar reaction. That s why it s important to wash allof the plant oils off your skin and any clothes that may have been exposed. Wash all clothes that you were wearing. Use hot water with ordinary laundry detergent. Don't use bayl-cot-hzygiff creams that have neomycin or bacitracin. These may make the rash worse. Stay away from anything that heats up your skin. This includes hot showers or baths, or direct sunlight. These can make itching worse. Put a cold compress on areas that are leaking (weeping), or on blistered areas. Do this for 30 minutes 3 times a day. To make a cold compress, dip a wash cloth in a mixture of 1 pint of cold water and 1 packet of astringent or oatmeal bath powder. Keep the solution in the refrigerator for future use. If large areas of skin are affected, take a lukewarm bath. Add colloidal oatmeal, or 1 cup of cornstarch or baking soda to the water. For a rash in a smaller area, use hydrocortisone cream for redness and irritation. But don t use this if another medicine was prescribed. For severe itching, put an ice pack on the area. To make an ice pack, put ice cubes in a plastic bag that seals at the top. Wrap the bag in a clean, thin towel or cloth. Never put ice or an ice pack directly on the skin. Hnnc-rcz-vbtpyze products that have calamine lotion may also be helpful. You can also use an oral antihistamine medicine with diphenhydramine for itching, unless another medicine was prescribed. This medicine may make you sleepy. So use lower doses during the daytime and higher doses at bedtime. Don t use medicine that has diphenhydramine if you have glaucoma. Also don t use it if you are a man who has trouble urinating because of an enlarged prostate. Antihistamines with loratidine cause less drowsiness. They are a good choice for daytime use. For severe cases, your provider may prescribe oral steroid medicines. Always take these exactly as prescribed. Follow-up care Follow up with your healthcare provider, or as directed. Call your provider if your rash gets worseor you are not starting to get better after 1 week of treatment. When to seek medical advice Call your healthcare provider right away if any of these occur: Spreading facial rash with swollen mouth or eyelids Rash that spreads to the groin and causes swelling of the penis, scrotum, or vaginal area Trouble urinating because of swelling in the genital area Also call your provider if you have signs of infection in the areas of broken blisters: Spreading redness Pus or fluid draining from the blisters Yellow-brown crusts form over the open blisters Fever of 1 degree, or higher, above your normal temperature, or as directed by your provider Call 911 Call 911 if you have severe swelling on your face, eyelids, mouth, throat, or tongue. [id number] [employer]. [address] [place] [address], [place] [address]. All rights reserved. This information is not intended as a substitute for professional medical care. Always follow yourhealthcare professional's instructions. 11/04/2023 07:57:05 Contact Dermatitis Contact Dermatitis Contact dermatitis is a skin rash caused by something that touches the skin and makes it irritated and inflamed. Your skin may be red, swollen, dry, and may be cracked. Blisters may form and ooze. The rash will itch. Contact dermatitis can form on the face and neck, backs of hands, forearms, genitals, and lower legs. People can get contact dermatitis from lots of sources. These include: Plants such as poison lin, oak, or sumac Chemicals in hair dyes and rinses, soaps, solvents, waxes, fingernail albanian, and deodorants Jewelry or watchbands made of nickel Contact dermatitis is not passed from person to person. Talk with your healthcare provider about what may have caused the rash. A type of allergy testing called "patch testing" may be used to discover what you are allergic to. You will need to avoid the source of your rash in the future to prevent it from coming back. Treatment is done to relieve itching and prevent the rash from coming back. The rash should go awayin a few days to a few weeks. Home care Your healthcare provider may prescribe medicine to relieve swelling and itching. Follow all instructions when using these medicines. General care: Avoid anything that heats up your skin, such as hot showers or baths, or direct sunlight. This can make itching worse. Apply cold compresses to soothe your sores to help relieve your symptoms. Do this for 30 minutes 3 to 4 times a day. You can make a cold compress by soaking a cloth in cold water. Squeeze out excess water. You can add colloidal oatmeal to the water to help reduce itching. For severe itching in a small area, apply an ice pack wrapped in a thin towel. Do this for 20 minutes 3 to 4 times a day. You can also try wet dressings. One way to do this is to wear a wet piece of clothing under a dry one. Wear a damp shirt under a dry shirt if your upper body is affected. This can relieve itching andprevent you from scratching the affected area. You can also help relieve large areas of itching by taking a lukewarm bath with colloidal oatmeal added to the water. Use hydrocortisone cream for redness and irritation, unless another medicine was prescribed. You can also use benzocaine anesthetic cream or spray. Calamine lotion can also relieve mild symptoms. Use oral diphenhydramine to help reduce itching. You can buy this antihistamine at drug and grocerystores. It can make you sleepy, so use lower doses during the daytime. Or you can use loratadine. This is an antihistamine that will not make you sleepy. Do not use diphenhydramine if you have glaucoma or have trouble urinating due to an enlarged prostate. If a plant causes your rash, make sure to wash your skin and the clothes you were wearing when you came into contact with the plant. This is to wash away the plant oils that gave you the rash and prevent more or worse symptoms. Stay away from the substance or object that causes your symptoms. If you can t avoid it, wear gloves or some other type of protection. Follow-up care Follow up with your healthcare provider, or as advised. When to seek medical advice Call your healthcare provider right away if any of these occur: Spreading of the rash to other parts of your body Severe swelling of your face, eyelids, mouth, throat or tongue Trouble urinating due to swelling in the genital area Fever of 100.4 F (38 C) or higher Redness or swelling that gets worse Pain that gets worse Foul-smelling fluid leaking from the skin Yellow-brown crusts on the open blisters [id number] [employer]. [address] [place] [address]. All rights reserved. This information is not intended as a substitute for professional medical care. Always follow yourhealthcare professional's instructions. Follow Up Care 11/04/2023 07:30:32 With:LEEROY BUCKNER MD Address: [address] [place] [phone] When:2-4 days [facility] 08-20-2024 Note Discharge Instructions Thank you for allowing [facility] to assist you with your healthcare needs. The following is importantdischarge information regarding your hospital visit. Diagnosis from Today's Visit Contact dermatitis What to Do Next Instructions from Your Care Team Discharge Return to Work, School, or Sports (Return to Work, School, or Sports) (Discharge "Return to" status) - Ordered -- 11/05/23, May return to: work, 11/04/23 7:57:00 EDT Post Acute Orders No qualifying data available. You Need to Schedule the Following Appointments Follow Up with LEEROY BUCKNER MD When:Within 2-4 days Where:[address] [facility] [address] [place] [phone] Allergies Adderall Medications Please ask your primary doctor or pharmacist before taking any other medication not listed, including over the counter drugs, herbal medications, vitamins and or supplements as they may interact withyour home medications. Please take this list to your next doctor s visit. Bring all medications you take, including over the counter medications, herbals and other supplements with you to your doctor s visit. Patients and families are reminded to discard old lists and to update any records with all medication providers or retail pharmacies. Education Materials Poison Lin Rash You have a rash and itching. This is a delayed reaction to the oils of the poison lin plant. You likely came in contact with it during the 3 days before your symptoms began. Your skin will become redand itchy. Small blisters may appear. These can break and leak a clear yellow fluid. This fluid is not contagious. The reaction usually starts to go away after 1 to 2 weeks. But it may take 4 to 6 weeks to fully clear. Home care Follow these guidelines when caring for yourself at home: The plant oils still on your skin or clothes can be spread to other places on your body. They can also be passed on to other people and cause a similar reaction. That s why it s important to wash allof the plant oils off your skin and any clothes that may have been exposed. Wash all clothes that you were wearing. Use hot water with ordinary laundry detergent. Don't use guva-yfw-yppioaj creams that have neomycin or bacitracin. These may make the rash worse. Stay away from anything that heats up your skin. This includes hot showers or baths, or direct sunlight. These can make itching worse. Put a cold compress on areas that are leaking (weeping), or on blistered areas. Do this for 30 minutes 3 times a day. To make a cold compress, dip a wash cloth in a mixture of 1 pint of cold water and 1 packet of astringent or oatmeal bath powder. Keep the solution in the refrigerator for future use. If large areas of skin are affected, take a lukewarm bath. Add colloidal oatmeal, or 1 cup of cornstarch or baking soda to the water. For a rash in a smaller area, use hydrocortisone cream for redness and irritation. But don t use this if another medicine was prescribed. For severe itching, put an ice pack on the area. To make an ice pack, put ice cubes in a plastic bag that seals at the top. Wrap the bag in a clean, thin towel or cloth. Never put ice or an ice pack directly on the skin. Skmm-tmj-twaoktw products that have calamine lotion may also be helpful. You can also use an oral antihistamine medicine with diphenhydramine for itching, unless another medicine was prescribed. This medicine may make you sleepy. So use lower doses during the daytime and higher doses at bedtime. Don t use medicine that has diphenhydramine if you have glaucoma. Also don t use it if you are a man who has trouble urinating because of an enlarged prostate. Antihistamines with loratidine cause less drowsiness. They are a good choice for daytime use. For severe cases, your provider may prescribe oral steroid medicines. Always take these exactly as prescribed. Follow-up care Follow up with your healthcare provider, or as directed. Call your provider if your rash gets worseor you are not starting to get better after 1 week of treatment. When to seek medical advice Call your healthcare provider right away if any of these occur: Spreading facial rash with swollen mouth or eyelids Rash that spreads to the groin and causes swelling of the penis, scrotum, or vaginal area Trouble urinating because of swelling in the genital area Also call your provider if you have signs of infection in the areas of broken blisters: Spreading redness Pus or fluid draining from the blisters Yellow-brown crusts form over the open blisters Fever of 1 degree, or higher, above your normal temperature, or as directed by your provider Call 911 Call 911 if you have severe swelling on your face, eyelids, mouth, throat, or tongue. 9414-2135 [employer]. [address] [place] [id number]. All rights reserved. This information is not intended as a substitute for professional medical care. Always follow yourhealthcare professional's instructions. Contact Dermatitis Contact dermatitis is a skin rash caused by something that touches the skin and makes it irritated and inflamed. Your skin may be red, swollen, dry, and may be cracked. Blisters may form and ooze. The rash will itch. Contact dermatitis can form on the face and neck, backs of hands, forearms, genitals, and lower legs. People can get contact dermatitis from lots of sources. These include: Plants such as poison lin, oak, or sumac Chemicals in hair dyes and rinses, soaps, solvents, waxes, fingernail albanian, and deodorants Jewelry or watchbands made of nickel Contact dermatitis is not passed from person to person. Talk with your healthcare provider about what may have caused the rash. A type of allergy testing called "patch testing" may be used to discover what you are allergic to. You will need to avoid the source of your rash in the future to prevent it from coming back. Treatment is done to relieve itching and prevent the rash from coming back. The rash should go awayin a few days to a few weeks. Home care Your healthcare provider may prescribe medicine to relieve swelling and itching. Follow all instructions when using these medicines. General care: Avoid anything that heats up your skin, such as hot showers or baths, or direct sunlight. This can make itching worse. Apply cold compresses to soothe your sores to help relieve your symptoms. Do this for 30 minutes 3 to 4 times a day. You can make a cold compress by soaking a cloth in cold water. Squeeze out excess water. You can add colloidal oatmeal to the water to help reduce itching. For severe itching in a small area, apply an ice pack wrapped in a thin towel. Do this for 20 minutes 3 to 4 times a day. You can also try wet dressings. One way to do this is to wear a wet piece of clothing under a dry one. Wear a damp shirt under a dry shirt if your upper body is affected. This can relieve itching andprevent you from scratching the affected area. You can also help relieve large areas of itching by taking a lukewarm bath with colloidal oatmeal added to the water. Use hydrocortisone cream for redness and irritation, unless another medicine was prescribed. You can also use benzocaine anesthetic cream or spray. Calamine lotion can also relieve mild symptoms. Use oral diphenhydramine to help reduce itching. You can buy this antihistamine at drug and grocerystores. It can make you sleepy, so use lower doses during the daytime. Or you can use loratadine. This is an antihistamine that will not make you sleepy. Do not use diphenhydramine if you have glaucoma or have trouble urinating due to an enlarged prostate. If a plant causes your rash, make sure to wash your skin and the clothes you were wearing when you came into contact with the plant. This is to wash away the plant oils that gave you the rash and prevent more or worse symptoms. Stay away from the substance or object that causes your symptoms. If you can t avoid it, wear gloves or some other type of protection. Follow-up care Follow up with your healthcare provider, or as advised. When to seek medical advice Call your healthcare provider right away if any of these occur: Spreading of the rash to other parts of your body Severe swelling of your face, eyelids, mouth, throat or tongue Trouble urinating due to swelling in the genital area Fever of 100.4 F (38 C) or higher Redness or swelling that gets worse Pain that gets worse Foul-smelling fluid leaking from the skin Yellow-brown crusts on the open blisters 1639-8222 [employer]. [address] [place] [address], [place] [address]. All rights reserved. This information is not intended as a substitute for professional medical care. Always follow yourhealthcare professional's instructions. Additional Information VACCINATE! IT SAVES LIVES! Members of the community who have not yet received the COVID-19 vaccine and would like to receive it can visit one of [facility] vaccine clinics. There are many vaccine clinic locations within the [facility]. For locations and available times, please visit www.gettheshot.coronavirus.[place].gov/. It is important to note that some COVID mobile vaccine clinics are held outdoors and may be canceled in rainy or stormy conditions. To learn more about pediatric vaccinations (ages 5-11), we invite you to visit the [facility] webpage. https://www.[facility].org/pages/1641-Hukuq-Ifeiclkuzsh-Duwuqxoelw-Easro-Qcy stions.htmlTo learn more about the COVID-19 vaccine, we invite you to visit the CDC website for a list of frequently asked questions. https://www.cdc.gov/coronavirus/2019-ncov/vaccines/faq.html [facility] [employer] Patient Portal Access Instructions: Stay connected with your healthcare team and access your personal medical information anytime with the [facility] Patient Portal. If you would like a full copy of your medical records please contact the [facility] Medical Records Department Friday through Friday between 8a.m. and 4:30p.m. Please follow the directions below to access the portal: 1.Access the email account you provided upon registration to the [facility].2.Look for an invitation email from [facility].3.Open the email and access the invitation link: Accept [facility]itation to [facility].Fill in the required giordano to create your account. Sign into [email or web address] with your username and password that you created in the above steps to stay up to date. You can then view a summary of results, a summary of your visits, and the ability to download your summaries to your computer or send the information securely to a physician. Remember that your healthcare information is confidential, so carefully consider who you will allow to register on the [facility] Patient Portal for access to your information. You can also access the [facility] Patient Portal on the [employer] isela. Simply click on "Health Records" under "HealthData" and then click on the [facility] logo. HOW TO SAFELY DISPOSE OF PRESCRIPTION MEDICATIONS Please use one of the following methods to safely dispose of your unused medications. 1.Use a drug disposal kit: the drug disposal pouch allows you to safely discard your old and unuseddrugs. Ask your nurse to give you one when you are discharged.2.Visit a local take-back location: Many local pharmacies and police departments have programs that collect old and unwanted prescriptiondrugs. Call your local pharmacy or go to http://bit.[employer]/6L4Fc5z to find one close to you.3.Make use of household items: Use cat litter or old coffee grounds to dispose medications if other options arenot available. Mix your drugs with these household products, seal them in an airtight container andthrow it into the garbage. Call [facility]: [phone] to be sure your drugs can be disposed of in this way. Some medicines may require a different approach.4.Never flush your medications down the toilet. IF YOU HAVE BEEN PRESCRIBED AN OPIOIDS FOR PAIN If you have been prescribed an opioid (such as hydrocodone, oxycodone or morphine), it is critical to understand the possible side effects and risks of opioid pain medications. Even when taken as directed, opioids can have several side effects including: Tolerance, meaning you might need to take more of a medication for the same pain relief. Nausea, vomiting and/or constipation. Sleepiness, dizziness, dry mouth, confusion, depression or itching. Physical dependence, meaning you have withdrawal symptoms when a medication is stopped ? this can develop within a few days. KNOW YOUR RESPONSIBILITIES It is important to know exactly how much and how often to take the opioid pain medications you are prescribed. Never take opioids in higher amounts or more often than prescribed. Do not combine opioids with alcohol or other drugs that cause drowsiness, such as benzodiazepines, also known as benzos,including diazepam and alprazolam, muscle relaxants or sleep aids. Never sell or share prescriptionopioids. This is illegal. Store opioids in a secure place and out of reach of others (including children, family, friends and visitors). The last page(s) of this document has been signed and retained as a CHART COPY Signatures Patient Education Materials Poison Lin Rash Contact Dermatitis Medication Leaflets My discharge plan and instructions have been reviewed and explained to me and I,OVERLY, FRANCY Coles understand my current condition and have read and understand these discharge instructions. I have received a written copy of the plan/instructions. If I have questions, I am aware that I should contactmy doctor. 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: Date/Time: Relationship to Patient: Witness Name/Signature: Date/Time: [facility]02-17-2024 Discharge summary Author Cory Armendariz [facility] May 03, 2023 11:51pm Note Date/Time May 03, 2023 8:53pm [facility] Medical Records Department [address] [place] [address] Emergency Department Summary 05/03/23 MR#: [id number] Acct: [id number] Name: FRANCY PHAN Rep #:[id number] : 1995 27 From: Cory Alcaraz PCP: Care Physician,No Primary Status :REG ER Location: ED HPI History of Present Illness Chief Complaint: Chest [facility] Medical History (Updated 05/03/23 @ 21:06 by Nancy Ribeiro) Chest pain Home Medications NK 05/02/23 [History Last Taken Unknown] Allergy/AdvReac Type Severity Reaction Status Date / Time bee venom protein (honey bee) Allergy Hives Verified 05/03/23 21:07 amphetamine aspartate AdvReac Vomiting Verified 05/03/23 21:07 [From Adderall] amphetamine sulfate AdvReac Vomiting Verified 05/03/23 21:07 [From Adderall] dextroamphetamine saccharate AdvReac Vomiting Verified 05/03/23 21:07 [From Adderall] dextroamphetamine sulfate AdvReac Vomiting Verified 05/03/23 21:07 [From Adderall] Social History Smoking Status: Never smoker EXAM Physical Exam Const Vital Signs: 05/03/23 20:44 05/03/23 21:08 05/03/23 22:01 Temperature 96.8 F L Temperature Source Temporal Pulse Rate 60 60 Respiratory Rate 15 18 Respiratory Effort Normal Non-Labored Blood Pressure 141/91 H 125/78 H Blood Pressure Mean 107 93 Pulse Ox 99 97 Oxygen Delivery Method Room Air Room Air Heart Score History: Moderately Suspicious ECG: Normal Age: </= 45 years Risk Factors: No Risk Factors Troponin: </= Normal Limit Score: 1 MDM MDM MDM Narrative Medical decision making narrative: HISTORY OF PRESENT ILLNESS: 27-year-old male presents with chest pain. Notes chest pain that occurred approximately 1 hour prior to arrival. Notes is worse with deep breath. Notes radiates to left arm. It is sharp. Is not pressure-like. Is not exertional. Denies any recent illnesses cough, fever or shortness of breath. Denies any lower extremity edema, orthopnea or paroxysmal nocturnal dyspnea. Denies any bleeding diathesis. Denies any vomiting but notes diarrhea for last 2 days thatis watery 3-4 episodes a day. Denies recent travel, sick contacts or antibiotics. Denies any family history of early cardiac . Patient denies sudden onset of pain, no tearing sensation, no migratory symptoms, no new numbness, weakness or loss of sensation. Patient denies family history or personal history of Marfan syndrome or Latanya-Danlos. The patient denies recent surgery in the last 4 weeks or immobilization in the last 3 days, denies previous diagnosis of DVT or PE, hemoptysis, unilateral leg swelling or malignancy with treatment the last 6 months. No estrogen use noted. REVIEW OF SYSTEMS: All other systems reviewed and are negative except as noted in the history of present illness. At least 10 review of systems reviewed and are negative except as noted in history of present illness. PHYSICAL EXAM: Nursing triage notes reviewed, Vital signs reviewed Constitutional: please see mdm HENT: MMM Eyes: Pupils equal round and reactive to light, Extraocular muscles intact Neck: No stridor, no JVD, full neck ROM Lungs: Clear to auscultation, No wheezing or rales. No increased work of breathing, no conversational dyspnea, no accessory muscle use, no nasal flaring.No respiratory distress noted Heart: Regular rate and rhythm, No murmurs, No rubs and No gallops, 2+ distal pulses (radial, femoral, posterior tibial) in all extremities Abdomen: Soft, there is no tenderness, rigidity, rebound or guarding, no obviousperitoneal signs, no palpable pulsatile abdominal masses, no auscultated abdominal bruit : No CVAT Extremities: No edema Neuro: No focal neurological deficits, cranial nerves II through XII intact, 5/5strength in all extremities. Intact sensation to light touch in all extremities,2+ reflexes bilateral patella tendons. Normal gait. No ataxia. Skin: No rash or lesions noted MEDICAL DECISION MAKING: Chief Complaint: Chest pain External records reviewed: No recent advanced testing of the heart including stress test, echocardiogram or cardiac catheterization Factors affecting care: None Social determinants of health: Denies illicit drug use History obtained from others: Patient's Consults: none [facility] Narrative: Patient was initially hemodynamically stable, afebrile and nontoxic-appearing. I considered the following differential diagnosis: ACS, arrhythmia, anemia, electrolyte abnormality, pneumonia, pneumothorax, GI etiology, PE I obtained a broad lab and imaging workup to further elucidate the etiology of his complaints. ALL IMAGES (IF OBTAINED) HAVE BEEN PERSONALLY REVIEWED AND INTERPRETED BY MYSELF. EKG with normal sinus rhythm, normal axis, no intervals, no STEMI I have personally reviewed the patient's chest x-ray. Chest x-ray is unremarkable for pulmonary edema, pneumothorax, pneumonia or focal cardiopulmonary abnormality. CBC without leukocytosis, severe anemia, no thrombocytopenia. D-dimer negative making VTE less likely CMP without evidence of acute kidney injury, significant electrolyte abnormality, anion gap, no evidence hepatobiliary pathology. High-sensitivity troponin is negative, no evidence of myocardial ischemia x2 BNP within normal limits suggestive of no increased ventricular stretch, increased wall pressure, heart failure I Considered the following differential diagnosis there clinical/EKG findings I do not suggest the likelihood: PE less likely given low risk Wells score. Aortic dissection is thought to be less likely given no sudden ripping or tearing pain, migratory pain, palpable pulse inequalities, no focal neurologic deficits concurrent with chest pain. Chance of dissection less than 03/1999. Pericarditis less likely given no pathognomonic EKG changes (no diffuse ST elevations, MA depressions). GI etiology (i.e. Boerhaave syndrome) less likely given no chest or neck crepitus, no vomiting or forced retching. I completed a HEART Score to screen for Major Adverse Cardiac Event (MACE) in this patient. The evidence indicates that the patient is very low risk for MACE and this is consistent with my clinical intuition. The risk of further workup or hospitalization for MACE is likely higher than therisk of the patient having a MACE. It is, therefore, in the patient?s best interest not to do additional emergent testing or to be hospitalized for MACE atthis time. Shared Decision-Making No hospitalization indicated I have discussed with the patient my clinical impression and the result of the HEART Score to screen for MACE, as well as the risks of further testing and hospitalization. The HEART Score shows that the risk for MACE is less than 1%. Although the risk of MACE has not been completely eliminated, the risks of further testing or hospitalization for MACE likely exceed any potential benefit,and the patient agrees with not pursuing further emergent evaluation or hospitalization for MACE at this time. The patient and/or family, caregivers express understanding. The patient and/or family, caregivers agrees with the plan. Total critical care time today provided was at least 0 minutes. This excludes separately billable procedures. Critical care time (if documented) is secondary to the patient having high probability of clinically significant/life threatening deterioration in the patient's condition which required my urgent intervention. Impression: 1. Chest pain Discharge: home Cory Armendariz DO Lab Data Labs: Laboratory Results - last 24 hr 05/03/23 05/03/23 21:00 23:10 WBC 9.6 RBC 5.03 Hgb 14.4 Hct 41.2 MCV 81.9 MCH 28.6 MCHC 35.0 RDW Std Deviation 36.0 RDW Coeff of Marlo 12.2 Plt Count 215 MPV 10.7 Immature Gran % (Auto) 0.300 Neut % (Auto) 53.5 Lymph % (Auto) 28.5 [place] % (Auto) 11.3 H Eos % (Auto) 5.8 H Baso % (Auto) 0.6 Absolute Neuts (auto) 5.1 Absolute Lymphs (auto) 2.73 Nucleated RBC % 0 D-Dimer Quant (PE/DVT) < 0.27 L Sodium 141 Potassium 3.7 Chloride 111 H Carbon Dioxide 27.0 Anion Gap 3 L BUN 13 Creatinine 0.97 Estim Creat Clear Calc 134.40 Est GFR (MDRD) Af Amer 119 Est GFR (MDRD) Non-Af 99 BUN/Creatinine Ratio 13.4 Glucose 89 Calcium 9.0 Troponin I High Sens 7 8 B-Natriuretic Peptide 15.1 Radiography Diagnostic Testing: Clinical Impression(s) from Imaging Studies Chest X-Ray 05/03/23 21:05 IMPRESSION: Nonacute portable x-ray examination of the chest. Electronically Signed: Edward Mcleod MD (Brooks) at 21:30 EST Reading Location ID and State: [facility] / [place] , Service support , Discharge Plan Triage Chief Complaint: Chest Pain ED Provider: Cory Armendariz Dx/Rx/DC Orders Prescriptions: No Action NK Primary Care Provider: Care Physician,No Primary Referrals: Care Physician,No Primary [Primary Care Provider] - What to do if you have Problems For any increased pain, shortness of breath, bleeding, nausea or vomiting, chestpain, or any unexpected problems, contact your Primary Care Provider. Call [facility] ([phone]) or report to the closest Emergency Room. Call 911 if necessary. 05/03/23 2351 <Electronically signed by Cory Armendariz DO> Cosigner Signature (if applicable): CC: No Primary Care Physician ~ Signed [facility] Work Phone: [phone] Hospital Discharge instructions* Discharge Instructions* Valeriano Jara MD - 12/30/2021 7:20 PM EDT You have been seen in the Emergency Department for an acute exacerbation of your longstanding back pain. X-ray shows no fracture and normal heights between your vertebral bodies, though it does show some findings indicative of "the pgex-utf-phjt of time" and lots of heavy physical activity. I [...] decide that further treatments or diagnostic studies arenecessary.. Return to the ED if you develop loss of bowel or bladder control, numbness or weakness in your armsor legs, you cannot feel your own anus, electric shock sensation going down your legs, inability towalk or stand, worsening pain, or if any new signs, symptoms, or concerns arise. * Attachments The following attachments cannot be sent through Care Everywhere. * Back Pain: Relief: General Info (Malaysian) * Back: Strain (Malaysian) * Back: Preventing Injuries (Malaysian) * Video: Proper Lifting to Protect Your Back (Malaysian) documented in this [facility] Work Phone: Evaluation + Plan note No data available for this section [facility] evaluation + Plan note Future Appointments Appointment Date:02/23/2024 04:00:00 PM Scheduled Provider: Location:[facility] Appointment Type:Echo - Echocardiogram Adult Future Scheduled Tests Laboratory* Basic Metabolic Panel 05/01/24 [facility] Evaluation + Plan note Future Scheduled Tests Laboratory* Basic Metabolic Panel 05/01/24 [facility] Evaluation + Plan note Future Appointments Appointment Date:05/04/2024 09:15:00 AM Scheduled Provider: Location:[facility] Appointment Type:CV CAR DISTRIBUTOR Future Scheduled Tests Laboratory* Basic Metabolic Panel 05/01/24 * C-Reactive Protein 04/15/24 * Sedimentation Rate Automated 04/15/24 [facility] evaluation + Plan note Future Appointments Appointment Date:06/10/2024 08:00:00 AM Scheduled Provider: Location:Heart Lab Appointment Type:EP Ablation PF-Ensite Appointment Date:08/11/2024 09:15:00 AM Scheduled Provider:LUNA WELLINGTON Location:[facility] Appointment Type:CV OV Future Scheduled Tests Laboratory* Basic Metabolic Panel 05/01/24 * C-Reactive Protein 30 * Sedimentation Rate Automated 04/15/24 [facility] evaluation + Plan note Future Appointments Appointment Date:06/10/2024 08:00:00 AM Scheduled Provider: Location:Heart Lab Appointment Type:EP Ablation PF-Ensite Appointment Date:08/11/2024 09:15:00 AM Scheduled Provider:LUNA WELLINGTON Location:[facility] Appointment Type:CV OV Future Scheduled Tests Laboratory* Basic Metabolic Panel 05/01/24 * C-Reactive Protein 04/15/24 * Sedimentation Rate Automated 04/15/24 [facility] Evaluation + Plan note Future Appointments Appointment Date:08/11/2024 09:15:00 AM Scheduled Provider:LUNA WELLINGTON Location:[facility] Appointment Type:CV OV Future Scheduled Tests Laboratory* Basic Metabolic Panel 05/01/24 * C-Reactive Protein 04/15/24 * Sedimentation Rate Automated 04/15/24 [facility] Evaluation note* Diagnosis Strain of lumbar region, initial encounter- Primary Spasm of muscle documented in this encounter [facility] Work Phone: Evaluation noteNo assessment information available [facility] Work Phone: Evaluation note* Diagnosis Onset Date Resolution Status Acute lateral meniscus tear of left knee acute Left knee pain noneactive [facility] Work Phone: History and physical note Author Reid Dillon [facility] Note Date/Time October 05, 2024 9:46 pm [facility] Medical Records Department [address] [place] [address] H&P Exam - Surgical 10/05/244 MR#: [id number] Acct: [id number] Name: FRANCY PHAN Rep #:[id number] : 1995 29 From: Reid moore MD PCP: Care Physician,No Primary Status :REG ER Location: ED HPI - General HPI Narrative FRANCY PHAN, is a 29 M who presents with food impaction of the esophagus. Hesays this happens frequently. He has had EGD in the past with food removal. Heis not on a PPI. He says the last time this happened was 2 days ago. He says the chicken got stuck tonight. [facility] Medical History History of cardioversion Afib Chest pain Allergy/AdvReac Type Severity Reaction Status Date / Time bee venom protein (honey bee) Allergy Hives Verified 10/05/24 18:17 amphetamine aspartate (From AdvReac Vomiting Verified 10/05/24 18:17 Adderall) amphetamine sulfate (From AdvReac Vomiting Verified 10/05/24 18:17 Adderall) dextroamphetamine saccharate AdvReac Vomiting Verified 10/05/24 18:17 (From Adderall) dextroamphetamine sulfate AdvReac Vomiting Verified 10/05/24 18:17 (From Adderall) Surgical History (Updated 10/05/24 @ 19:28 by Shaina Edward) History of cardiac ablation for atrial fibrillation H/O elbow surgery Social History household members: family Smoking Status: Never smoker alcohol intake: never Vital Signs Vital Signs Vital Signs: 10/05/24 18:15 10/05/24 19:15 10/05/24 19:28 Temperature 97.6 F L Temperature Source Oral Pulse Rate 93 77 Respiratory Rate 18 16 Respiratory Effort Normal Respiratory Pattern Normal Blood Pressure 151/96 H 141/88 H Blood Pressure Mean 114 105 Pulse Ox 97 97 Oxygen Delivery Method Room Air Room Air 10/05/24 20:00 10/05/24 21:00 Temperature Temperature Source Pulse Rate 70 72 Respiratory Rate 14 Respiratory Effort Respiratory Pattern Blood Pressure 124/72 H 123/79 H Blood Pressure Mean 89 93 Pulse Ox 99 98 Oxygen Delivery Method Room Air Room Air Weight Weight: 212 lb 9.6 oz Body Mass Index (BMI) 31.4 Physical Exam Const oriented x3 Resp normal respiratory effort Cardio regular rate and regular rhythm GI soft to palpation and non-tender Results Lab / Micro Data 10/05/24 19:44 10/05/24 19:44 Labs: Laboratory Results - last 24 hr 10/05/24 19:44: WBC 10.7, RBC 4.95, Hgb 14.4, Hct 40.1, MCV 81.0, MCH 29.1, MCHC35.9, RDW Std Deviation 35.2, RDW Coeff of Marlo 12.2, Plt Count 249, MPV 10.1, Immature Gran % (Auto) 0.300, Neut % (Auto) 60.4, Lymph % (Auto) 25.5, [place] % (Auto) 9.0, Eos % (Auto) 4.3, Baso % (Auto) 0.5, Absolute Neuts (auto) 6.5, Absolute Lymphs (auto) 2.73, Nucleated RBC % 0, Sodium 143, Potassium 3.7, Chloride 106, Carbon Dioxide 24.4, Anion Gap 12, BUN 11, Creatinine 1.10, Estim Creat Clear Calc 114.54, Est GFR (MDRD) Non-Af 94, BUN/Creatinine Ratio 9.9 L, Glucose 87, Calcium 9.4 Assessment & Plan Assessment/Plan (1) Impacted foreign body in esophagus: PLAN: Patient is a 29-year-old male with food impacted in the esophagus. I discussed EGD with removal of foreign body. I will either try to remove it or push it through to the stomach. I discussed the increased risks of bleeding andperforation with removal of foreign body as well as aspiration. I explained endoscopy in detail to the patient. I explained the risks including but not limited to stroke or heart attack with anesthesia, perforation of the GI tract, bleeding, infection. I explained that any of these could necessitate further emergency surgery. The patient understands and all questions were answered sufficiently. The patient wishes to proceed with procedure. Reid Dillon MD Pager: [facility] [address] [place] [address], [address] [place] [address] Office: [id number] <Electronically signed by Reid Dillon MD> Cosigner Signature (if applicable): CC: Dr. Reid Dillon MD; No Primary Care Physician~ Signed [facility] Work Phone: Hospital Discharge instructions Additional Instructions Thank you for trusting us with your care today! Please take Tylenol (2 pills, 650 mg), ibuprofen (2 pills, 400 mg) every 6 hours as needed for pain and fever control. Please return to the emergency department if your symptoms change or worsen. Please follow with your primary care physician for further outpatient evaluation and management.[facility] Work Phone: Hospital Discharge instructions No data available for this section [facility] Progress note No data available for this section [facility] Reason for referral (narrative)No reason for referral information [facility] Work Phone: Summary Purpose Family History Relationship Condition Age at Onset Recorded Date/T jey Unknown Family History?No pe rtinent history Unknown December 03, 2016 8:01pm Family History?No pe rtinent history Unknown December 03, 2016 8:01pm Relationship Condition Age at Onset Recorded Date/T jey Unknown Family History?No pe rtinent history Unknown December 03, 2016 9:01pm Family History?No pe rtinent history Unknown December 03, 2016 9:01pm Advance Directives Advance Directive Response Recorded Date/ Time Living Will No May 02, 024 5:05am Power of Insurance Rater No May 02, 2023 5:05am Advance Directive Response Recorded Date/ Time Living Will No May 03 024 9:07pm Power of Insurance Rater No May 03, 2023 9:07pm Advance Directive Response Recorded Date/ Time Living Will No May 03 10:07pm Power of Insurance Rater No May 03, 2023 10:07pm Advance Directive Response Recorded Date/ Time Do you have a Healthcare Power of Insurance Rater? No October 05, 2024 7:27pm Reason for Referral Specialty Diagnoses / Procedures Referred By Marlin garza Referred To Contact Orthopedic Surgery Diagnoses Spasm of muscle Vaelriano Jara MD [id number] [place] [address] [facility] [id number] [address] [place] [address] Referral ID Status Reason Start Date Expiration Date V isits Requested Visits Authorized [id number] Open Specialty Services Required 12/30/2021 12/30/2022 1 1 Scheduling Instructions [facility] Orthopedics [place] [address] Comments The patient can be scheduled with any member of the group, including the provider with the first available appointments. Chief Complaint and Reason for Visit Chief Complaint KNEE PAIN Chief Complaint KNEE PAIN CP Chief Complaint KNEE PAIN CP LEFT KNEE LEFT KNEE PAIN left knee Reason for Visit Acute lateral menisc us tear of left knee Left knee pain Chief Complaint Admit Date fb throat October 05, 2024 6:14 pm fb throat October 05, 2024 9:44 pm Reason for Visit Admit Date Impacted foreign body in esophagus October 05, 2024 6:14pm Additional Source Comments (unrecognized sect ion and content) No Status Records FoundNo Status Records FoundNo Status Records FoundNo Status Records FoundNo Status Records FoundNo Status Records FoundNo Status Records Found INFORMATION SOURCE (unrecogn ized section and content) DATE CREATED AUTHOR 2018 [facility] DATE CREATED AUTHOR AUTHOR'S ORGANIZ ATION 08/27/2018 [facility] DATE CREATED AUTHOR AUTHOR'S ORGANIZ ATION 01/09/2022 [facility] DATE CREATED AUTHOR AUTHOR'S ORGANIZ ATION 11/10/2023 [facility] DATE CREATED AUTHOR AUTHOR'S ORGANIZ ATION 04/05/2024 [facility] DATE CREATED AUTHOR AUTHOR'S ORGANIZ ATION 05/16/2024 [facility] DATE CREATED AUTHOR AUTHOR'S ORGANIZ ATION 06/16/2024 [facility] Reason for Visit (unrecogniz ed section and content) Reason Comments Back Pain Ordered Prescriptions (unrec ognized section and content) Prescription Sig Dispensed Refills Start Date End Da te lidocaine (LIDODERM) 5 % Place 1 patch onto the skin daily 12 hours on, 12 hours off. 30 patch 0 12/30/2021 01/29/2022 ibuprofen (ADVIL;MOTRIN) 800 MG tablet Take 1 tablet by mouth every 6 hours as needed for Pain 20 tablet 0 12/30/2021 01/06/2022 diazePAM (VALIUM) 5 MG tabletIndications:Strain of lumbar region, initial encounter,Spasm of muscle Take 1 tablet by mouth every 8 hours as needed (muscle spasm) for up to 10 days. 15 tablet 0 12/30/2021 01/09/2022 Scheduled Active and Recently Administ ered Medications (unrecognized section and content) Medication Order 12/28/2021 12/29/2021 12/30/2021 acetaminophen (TYLENOL) tablet 1,000 mg (COMPLETED) 1,000 mg, Oral, ONCE, 1 dose, On 12/30/21 at 1729, Maximum dose of acetaminophen is 4000 mg from all sources in 24 hours. 1757 (Given - Provid er: Mary Slade RN) ibuprofen (ADVIL;MOTRIN) tablet 600 mg (COMPLETED) 600 mg, Oral, ONCE, 1 dose, On 10/16/22 at 1729, Do not crush or chew. 1756 (Given - Provid er: Mary Slade, RN) lidocaine 4 % external patch 1 patch 1 patch, TransDERmal, Administer over 12 Hours, DAILY, First dose on 12/30/21 at 1729, Apply patch to low back. Patch may remain in place for up to 12 hours in any 24 hour period. 1756 (Patch Applied - Provider: Mary Slade, RN) Care Teams (unrecognized sec tion and content) Team Status: Active Member Role Status Dates Amanda BROOKS Family Provider Active No Primary Care Physician Primary Care Provider Active Team Status: Inactive Member Role Status Dates Dr. Leonor Watson DO Emergency Provider Active No Primary Care Physician Primary Care Provider Active Team Status: Inactive Member Role Status Dates No Primary Care Physician Primary Care Provider Active Dr. Cory Armendariz DO Emergency Provider Active Team Status: Inactive Member Role Status Dates No Primary Care Physician Primary Care Provider, Refer ring Provider Active Dr. Lee Martinez DO Attending Provider Active Team Status: Inactive Member Role Status Dates Dr. Leonor Watson DO Attending Provider, Emergency Pro vider Active No Primary Care Physician Primary Care Provider Active Team Status: Inactive Member Role Status Dates No Primary Care Physician Primary Care Provider Active Dr. Cory Armendariz DO Attending Provider, Emergency P rovider Active Team Status: Inactive Member Role Status Dates No Primary Care Physician Primary Care Provider Active Dr. Lee Martinez DO Attending Provider, Referring Provider Active Team Status: Active Member Role/Relationship Status Dates No Primary Care Physician Primary Care Provider Active Team Status: Inactive Member Role/Relationship Status Dates No Primary Care Physician Primary Care Provider Active Start: October 05, 2024 End: October 05, 2024 Dr. Cory Armendariz DO Emergency Provider Active Start: October 05, 2024 End: October 05, 2024 Team Status: Active Member Role/Relationship Status Dates No Primary Care Physician Primary Care Provider Active Start: October 05, 2024 Dr. Cory Armendariz DO Emergency Provider Active Start: October 05, 2024 Dr. Reid Dillon MD Attending Provider Active Start: October 05, 2024 Goals (unrecognized section and content) Goals may be documented in a n alternate sectionGoals may be documented in an alternate sectionGoals may be documented in an alternate section No data available for this section No data available for this section No data available for this section No data available for this section No data available for this section No data available for this section No data available for this section No data available for this section No data available for this sectionGoals may be documented in an alternate section FOR RECORDS PERTAINING TO PATIENTS WHO ARE [...] BE BASED ON THE PRIMARY CLINICAL RECORDS. [facility]. provides no warranty or guarantee of the accuracy or completeness of information in this document.
== END 2024-10-05 23:35 | disposition home or self-care (01) ==
LOC: ED 21:57 → SDC 23:11 → AC 23:12
PROVIDERS: Emergency Provider Emergency Medicine; Visit Provider Surgery
PROC: 0DJ08ZZ Inspection of Upper Intestinal Tract, Via Natural or Artificial Opening Endoscopic (ICD-10-PCS; CPT 43235; principal; 2024-10-05 22:15)
DX: T18.128A Food in esophagus causing other injury, initial encounter (principal); W44.F3XA Food entering into or through a natural orifice, initial encounter; K22.2 Esophageal obstruction
CPT/HCPCS: 43247; 80048; 85025; 99285; A4216; J1610; J2405

== ENCOUNTER 2025-02-24 14:47 | Emergency (ER) | payer SELFPAY ==
[2025-02-24 14:49] VITALS: BP 137/90; PULSE 95; RESP 22; TEMP 37.7; O2SAT 100; BMI 33.8
--- NOTE | 2025-02-24 16:19 | EX.ED.DYSGE1 ---
HPI History of Present Illness Chief Complaint: Cold Sx Detail of Chief Complaint: Myalgias and fever and cough Informant: patient Narrative Narrative: Patient presents with bodyaches that started yesterday. They were mild yesterday. Symptoms worse today. Mild cough. Cough nonproductive. Had a sore throat this morning that is now resolved. He denies sick contacts. Complains of a mild headache. Denies sick contacts. Patient states last time he felt this way he had pneumonia. PFSH PFS Medical History (Updated 02/24/25 @ 17:[address] Leonor Watson, DO) History of cardioversion Afib Chest pain Home Medications ?Medication ?Instructions ?Recorded ?Last Taken ?Type omeprazole 20 mg tablet,delayed 20 mg PO DAILY #60 tabs 10/05/24 Unknown Rx release Allergy/AdvReac Type Severity Reaction Status Date / Time bee venom protein (honey bee) Allergy Hives Verified 02/24/25 14:49 amphetamine aspartate (From AdvReac Vomiting Verified 02/24/25 14:49 Adderall) amphetamine sulfate (From AdvReac Vomiting Verified 02/24/25 14:49 Adderall) dextroamphetamine saccharate AdvReac Vomiting Verified 02/24/25 14:49 (From Adderall) dextroamphetamine sulfate AdvReac Vomiting Verified 02/24/25 14:49 (From Adderall) Surgical History (Updated 10/05/24 @ 19:28 by Shaina Edward) History of cardiac ablation for atrial fibrillation H/O elbow surgery Social History household members: family Smoking Status: Never smoker alcohol intake: never ROS ROS ED Review of Systems ROS Unobtainable: other Constitutional Constitutional ED: Reports fever(s) and lethargy; Denies chills, sweats or weight loss Eyes Eyes: Denies blurry vision, change in vision or diplopia ENT ENT ED: Reports sore throat; Denies rhinorrhea Cardiovascular Cardiovascular: Denies chest pain, orthopnea or racing heartbeat Respiratory/Chest Respiratory/Chest: Reports cough; Denies dyspnea, dyspnea on exertion, orthopnea or sputum Gastrointestinal Gastrointestinal: Denies abdominal pain, diarrhea, nausea or vomiting Genitourinary Genitourinary ED: Denies dysuria, hematuria or urinary frequency Musculoskeletal Musculoskeletal: Reports myalgias; Denies arthralgias, back pain or neck pain Integumentary Denies abscess, Abrasions or rash Neurologic Neurologic: Reports headache(s); Denies weakness Psychiatric Psychiatric: Denies anxiety, depression or suicidal thoughts Endocrine Endocrinology: Denies polydipsia, polyphagia or polyuria Hematologic/Lymphatic Hematologic/Lymphatic: Denies easy bleeding, easy bruising or lymphadenopathy Allergic/Immunologic Allergic/Immunologic ED: Denies mouth swelling, tongue swelling or urticaria EXAM Physical Exam Const Vital Signs: 02/24/25 14:49 02/24/25 16:57 02/24/25 17:52 Temperature 100 F H 100.1 F H Temperature Source Oral Oral Pulse Rate 95 78 Respiratory Rate 22 H 16 Respiratory Pattern Normal Blood Pressure 137/90 H 108/63 Blood Pressure Mean 105 78 Pulse Ox 100 98 Oxygen Delivery Method Room Air Room Air Positive well nourished and well developed General Appearance ED: well developed and NAD HEENT Reports TM's clear and moist mucous membranes normocephalic and atraumatic; Negative for trauma or tenderness Tympanic Membrane ED: Yes TM's clear Eyes PERRL and EOMs intact bilaterally General Eye ED: Negative for pale conjunctiva or scleral icterus Neck no lymphadenopathy, supple and no JVD General: Negative for tenderness Chest Wall inspection of chest normal and palpation of chest normal Chest: Negative for tenderness Resp normal respiratory effort and clear to auscultation bilaterally Effort and Inspection: Negative for respiratory distress or pain with movement Auscultation: Negative for rhonchi, wheezes or diminished lung sounds Cardio regular rate, regular rhythm, S1 normal heart sound, S2 normal heart sound and no murmurs Peripheral Pulses: pulses 2+ throughout GI normal to inspection, nondistended, normoactive bowel sounds, soft to palpation, non-tender, non-distended and no masses Back/Spine no CVA tenderness and no thoracic nor lumbar tenderness Extremity normal to inspection General Extremety ED: Negative for edema General Extremity: Negative for edema Neuro oriented x3, CN's II-XII intact bilaterally, no sensory deficits noted and gait normal Sensorium / Orientation: awake, alert, oriented to person, oriented to place and oriented to time Motor Exam: strength 5/5 throughout and strength abnormal Psych mental status grossly normal Skin no rashes or lesions noted and no wounds MDM MDM MDM Narrative Medical decision making narrative: Patient presents with fever and mild cough and bodyaches. Complains of mild headache. Clinically looks well. Suspect likely viral type syndrome. Patient concerned because last time he felt like this he had pneumonia. I did do COVID flu and RSV testing which was negative but he understands that early on in the disease disease process since he is only had symptoms for less than 24 hours may be a false negative. Patient also had a chest x-ray that was unremarkable. At this point recommended symptomatic care with ibuprofen or Tylenol for discomfort. Recommended pushing fluids. Suspect likely viral URI. Lab Data Attestation: I reviewed the patient's lab results. Radiography Diagnostic Testing: Clinical Impression(s) from Imaging Studies Chest X-Ray 02/24/25 17:00 IMPRESSION: No acute pulmonary disease. Reading Location: [id number] 1 view chest x-ray obtained interpreted by myself as no evidence of infiltrate or pneumothorax or acute disease process. Radiology in agreement. Discharge Plan Triage Chief Complaint: Cold Sx ED Provider: Leonor Watson Dx/Rx/DC Orders Clinical Impression: Viral URI Instructions: ED URI, Viral, No Abx (Adult) Prescriptions: No Action omeprazole 20 mg tablet,delayed release (DR/EC) 20 mg PO DAILY Qty: 60 0RF Primary Care Provider: Care Physician,No Primary Referrals: [facility] [Provider Group] - 3-5 Days Care Physician,No Primary [Primary Care Provider, Medical] Print Language: Albanian Disposition Disposition: Home, Self Care
--- NOTE | 2025-02-24 17:00 | RAD_ITS ---
PROCEDURE: CHEST 1 VIEW (PORTABLE) 02/24/2025 REASON FOR EXAM: COUGH , FEVER TECHNIQUE: Frontal view of the chest. COMPARISON: 02/29/2024 FINDINGS: Lungs/Pleura: Clear. No focal consolidation or pleural effusion. Heart/Mediastinum: Within normal limits. Bones/Soft tissues: Unremarkable. RAD/Chest 1 View (Portable) IMPRESSION: No acute pulmonary disease. Reading Location: [id number]
--- NOTE | 2025-02-24 17:48 | CM.ED ---
Social work Reason for referral: no PCP Referral source: case find SW entered patient's room, introducing self and role at [facility]. Patient welcomed SW visit and confirmed lacking a PCP. Patient accepted resources of [facility] Provider Directory and [facility] information. Patient denied further needs at this time. Richelle Rojas, TEAM COORDINATOR, SECURITY ADMINISTRATOR
[2025-02-24 17:52] VITALS: BP 108/63; PULSE 78; RESP 16; TEMP 37.8; O2SAT 98
== END 2025-02-24 18:12 | disposition home or self-care (01) ==
PROVIDERS: Emergency Provider Emergency Medicine; Visit Provider Emergency Medicine
DX: J06.9 Acute upper respiratory infection, unspecified (principal)
CPT/HCPCS: 71045; 87631; 96372; 99282